=== PATIENT | female | born 1930 | race Hispanic/Latino ===

== ENCOUNTER 2019-02-13 09:56 | Emergency (ER) | payer MEDICARE ==
[~2019-02-13] VITALS: Ht 162.6 cm; Wt 108.5 kg
[~2019-02-13 09:56] MED LIST: FLUTICASONE; FUROSEMIDE; LISINOPRIL; METOPROLOL; NIFEDICAL; SIMVASTATIN
--- NOTE | 2019-02-13 11:57 | Diagnostic Imaging Report ---
Frontal and lateral views of the chest. HISTORY: Unable to sleep COMPARISON: None available. DISCUSSION: Lungs: Mild eventration of the right hemidiaphragm. No evidence of a consolidative pneumonia or pulmonary alveolar edema. Pleura: No pleural effusion or pneumothorax. Heart and mediastinum: The cardiac silhouette appear(s) within the upper limits of normal. Bones and soft tissues: Appear unremarkable. IMPRESSION: No acute radiographic abnormality. Signed by: Dr. Charlie Lora D.O., M.M.M. on 02/13/2019 11:54 AM
[2019-02-13] MEDS ORDERED: FLUTICASONE PRO16 GM (12:08)
[2019-02-13] MEDS ORDERED: ALBUTEROL0.63 MG/3 (12:08)
[2019-02-13] MEDS ORDERED: ALLER-TEC D 5-1 EACH (12:08)
[2019-02-13] MEDS ORDERED: DOCUSATE SODIU100 MG PO (12:08)
[2019-02-13] MEDS ORDERED: ALENDRONATE SOD70 MG (12:08)
[2019-02-13] MEDS ORDERED: HUMULIN R100 UNIT/2 (12:08)
[2019-02-13] MEDS ORDERED: HUMALOG100 UNIT/1 (12:08)
[2019-02-13] MEDS ORDERED: FUROSEMIDE40 MG PO (12:08)
[2019-02-13] MEDS ORDERED: CENTRUM SILVER1 EAC3 (12:08)
[2019-02-13] MEDS ORDERED: GABAPENTIN400 MG PO (12:08)
[2019-02-13] MEDS ORDERED: BACLOFEN10 MG PO (12:08)
[2019-02-13] MEDS ORDERED: LISINOPRIL2.5 MG PO (12:08)
[2019-02-13] MEDS ORDERED: FISH OIL 1,0001 EAC2 (12:08)
[2019-02-13] MEDS ORDERED: AZELASTINE137 MCG/0. (12:08)
[2019-02-13] MEDS ORDERED: GLUCOSE TEST S1 EACH (12:08)
[2019-02-13] MEDS ORDERED: NIFEDIPINE ER30 M1 (12:30)
[2019-02-13] MEDS ORDERED: TEMAZEPAM15 MG (12:30)
[2019-02-13] MEDS ORDERED: SIMVASTATIN10 MG PO (12:30)
[2019-02-13] MEDS ORDERED: VITAMIN C500 MG (12:30)
[2019-02-13] MEDS ORDERED: ZYRTEC10 M3 (12:30)
[2019-02-13] MEDS ORDERED: METOPROLOL TART50 MG PO (12:30)
[2019-02-13 13:35] VITALS: BP 169/82
== END 2019-02-13 13:27 | disposition home or self-care (01) ==
LOC: FSED 09:56
DX: R53.1 Weakness (principal); F51.02 Adjustment insomnia; I10 Essential (primary) hypertension; E11.9 Type 2 diabetes mellitus without complications; I51.9 Heart disease, unspecified; E78.00 Pure hypercholesterolemia, unspecified
CPT/HCPCS: 71046; 80053; 80076; 81003; 82553; 83880; 84484; 85025; 86308; 93005; 99284

== ENCOUNTER 2019-05-01 10:47 | Observation (INO) | payer MEDICARE ==
[~2019-05-01] VITALS: Ht 162.6 cm; Wt 105.0 kg
[~2019-05-01 10:47] MED LIST changes: +ALBUTEROL0.63 MG/3; +ALENDRONATE SOD70 MG; +ALLER-TEC D 5-1 EACH; +AZELASTINE137 MCG/0.; +BACLOFEN10 MG PO; +CENTRUM SILVER1 EAC3; +DOCUSATE SODIU100 MG PO; +FISH OIL 1,0001 EAC2; +FLUTICASONE PRO16 GM; +FUROSEMIDE40 MG PO; +GABAPENTIN400 MG PO; +GLUCOSE TEST S1 EACH; +HUMALOG100 UNIT/1; +HUMULIN R100 UNIT/2; +LISINOPRIL2.5 MG PO; +METOPROLOL TART50 MG PO; +NIFEDIPINE ER30 M1; +SIMVASTATIN10 MG PO; +TEMAZEPAM15 MG; +VITAMIN C500 MG; +ZYRTEC10 M3
--- NOTE | 2019-05-01 11:17 | NUR ---
CALLED [facility] FOR TRANSPORT. ONE HR ETA
--- NOTE | 2019-05-01 11:54 | Diagnostic Imaging Report ---
EXAMINATION: CXR 2 VIEW - [facility] INDICATION: Chest pain, shortness of breath. COMPARISON: Chest radiograph 02/03/19. FINDINGS: TUBES and LINES: None. LUNGS: Lungs are moderately inflated. Mild patchy right basilar opacity, likely atelectasis. No evidence of lobar consolidation or pulmonary edema. PLEURA: No pleural effusion or pneumothorax. HEART AND MEDIASTINUM: The cardiomediastinal silhouette is unremarkable. Mild eventration of the right hemidiaphragm, unchanged. BONES AND SOFT TISSUES: No acute osseous abnormality. UPPER ABDOMEN: No free air under the diaphragm. IMPRESSION: No acute radiographic abnormality. Signed by: Dr. Enedina Camp MD on 05/01/2019 11:51 AM
--- NOTE | 2019-05-01 12:41 | NUR ---
The pt. was received via stretcher from [facility] in stable condition, She presents with c/o Shortness of breath and chest pain. She denies pain or discomfort and o2 sat is 96%. The daughter in law reports that the pt. has been experiencing sleep apnea and has been unable to sleep at night. Tele monitor is intact sr 69.
[2019-05-01] MEDS ORDERED: DOCUSATE SODIUM 100 MG CAP PO PRN (13:45)
[2019-05-01] MEDS ORDERED: DEXTROSE 50% SYRINGE 50 ML IV PRN (13:45)
[2019-05-01] MEDS ORDERED: ALBUTEROL SULF 0.083% NEB SOLN 3 ML NEB NEB PRN (13:45)
[2019-05-01 14:25] VITALS: BP 173/68
[2019-05-01] MEDS ORDERED: ONDANSETRON HCL INJ 2MG/ML 2ML 2 MG/ML VIAL IV PRN (14:30)
[2019-05-01 14:38] VITALS: BP 173/68
[2019-05-01] MEDS ORDERED: ACETAMINOPHEN 325 MG TAB PO PRN (14:45)
[2019-05-01 15:47] VITALS: BP 161/69
[2019-05-01] MEDS: INSULIN REGULAR, HUMAN 100 UNIT/1 ML 3ML VIAL SQ SCH ×2 (15:56→21:59)
--- NOTE | 2019-05-01 16:26 | History and Physical ---
PRIMARY CARE PHYSICIAN: Sergio Man MD, with [facility]. CHIEF COMPLAINT: Shortness of breath and congestion. HISTORY OF PRESENT ILLNESS: This is an 88-year-old female with past medical history of hypertension, high cholesterol, CHF, DM2 and COPD, presented with complaints of shortness of breath that have lasted for the past 3 days. She denies any chest pain, fever, chills, nausea, vomiting, abdominal pain, dysuria, diaphoresis, or dizziness. She reports having dry cough and nasal congestion. Reports unable to sleep due to shortness of breath. She presented to the ER for further evaluation. PAST MEDICAL HISTORY: 1. Hypertension. 2. High cholesterol. 3. CHF, unknown type. 4. Diabetes type 2. 5. COPD. PAST SURGICAL HISTORY: She reports colonoscopy. FAMILY MEDICAL HISTORY: She reports father had diabetes and heart problems, and she does not know mother's medical history. SOCIAL HISTORY: She reports stopped smoking about 35 years ago. She denies any alcohol or drug use. ALLERGIES: NO KNOWN DRUG ALLERGIES. REVIEW OF SYSTEMS: GENERAL: Fatigue. HEENT: No trauma to the head. LUNGS: Shortness of breath and dry cough. CARDIOVASCULAR: No chest pain or palpitations. GI: No nausea or vomiting. : No dysuria or hematuria. NEUROLOGIC: Alert and oriented. MUSCULOSKELETAL: Generalized weakness. SKIN: Dry. PHYSICAL EXAMINATION: VITAL SIGNS: Temperature 97.6, pulse 64, respirations 28, blood pressure is 148/104. GENERAL: Fatigue. HEENT: Normocephalic, atraumatic. NECK: Supple and midline. LUNGS: Decreased breath sounds. Mild wheezing. CARDIOVASCULAR: Regular rate and rhythm. GI: Soft and nontender. Obese. NEUROLOGIC: Alert, awake, and oriented x3. MUSCULOSKELETAL: Moves all extremities. Bilateral lower extremity +1 edema. SKIN: Dry. PSYCH: Calm. LABORATORY DATA: WBC 8.0, hemoglobin 14.3, hematocrit 45.3, platelets 262. Sodium 141, potassium 4.8, chloride 98, calcium 9.6, creatinine 1.0. LFTs within normal limits. BNP 75. IMAGING: Chest x-ray showed no acute radiographic abnormalities. Lungs are moderately inflated with mild patchy right basilar opacity likely atelectasis. No evidence of consolidation or pulmonary edema. IMPRESSION AND PLAN: 1. Dyspnea, likely due to chronic obstructive pulmonary disease exacerbation. We will start on Solu-Medrol and neb treatments. 2. Hypertension. We will resume home medication. 3. Hypersensitivity lung disease. Start statin. 4. Congestive heart failure. Unknown type. We will order echo. 5. Trace lower extremity edema noted. We will change p.o. Lasix to IV 40 mg daily. BNP is 75. 6. Diabetes type 2. We will resume home insulin regimen. 7. Sinus allergies. We will resume home medications. 8. Deep vein thrombosis prophylaxis. We will start on heparin subcu. Dictated by ENID Correa Sarah Pena MD MY/MODL /[id number]
[2019-05-01] MEDS ORDERED: INSULIN LISPRO 100 UNIT/1 ML 3ML VIAL SQ SCH (16:30)
[2019-05-01 19:42] VITALS: BP 151/71
[2019-05-01 20:00] VITALS: BP 151/71
[2019-05-01] MEDS: ALBUTEROL SULF 0.083% NEB SOLN 3 ML NEB NEB SCH ×2 (20:15→23:00)
[2019-05-01] MEDS ORDERED: AZELASTINE HCL 137 MCG NASAL SPRAY NS SCH (21:00)
[2019-05-01] MEDS ORDERED: TEMAZEPAM 15 MG CAP PO SCH (21:00)
[2019-05-01] MEDS ORDERED: HEPARIN SOD (PORCINE) 5,000 UNIT/ML VIAL SC SCH (21:00)
[2019-05-01] MEDS ORDERED: SIMVASTATIN 20 MG TAB PO SCH (21:00)
[2019-05-01] MEDS: METHYLPREDNISOLONE SOD SUCC 40 MG/ML VIAL 1ML IV SCH (21:59)
[2019-05-02] VITALS: BP 161/74
[2019-05-02 04:00] VITALS: BP 164/75
[2019-05-02 05:22] LABS: BASOPHILS % 0.1 % (0.0-1.0); HEMOGLOBIN 14.5 g/dL (12.0-16.0); LYMPHOCYTES # (AUTO) 1.1 (1.0-3.2); MEAN CORPUSCULAR HEMOGLOBIN 28.1 pg (28-32); MEAN CORPUSCULAR HGB CONC 32.2 g/dL (31-35); MEAN CORPUSCULAR VOLUME 87.2 fL (81-99); MONOCYTES # (AUTO) 0.2 (0.2-0.8); MONOCYTES % 2.1 % (4.4-11.3); NEUTROPHILS # (AUTO) 7.7 (2.1-6.9); NEUTROPHILS % 85.5 % (38.7-80.0); PLATELET COUNT 306 x10e3/uL (140-360); RED BLOOD COUNT 5.16 x10e6/uL (3.6-5.1); RED CELL DISTRIBUTION WIDTH 13.1 % (11.7-14.4)
[2019-05-02 05:41] LABS: CALCIUM 9.9 mg/dL (8.4-10.2); CREATININE, SERUM 1.12 mg/dL (0.57-1.11)
[2019-05-02] MEDS: METHYLPREDNISOLONE SOD SUCC 40 MG/ML VIAL 1ML IV SCH ×2 (05:56→13:33)
[2019-05-02] MEDS: ALBUTEROL SULF 0.083% NEB SOLN 3 ML NEB NEB SCH ×3 (07:00→13:35)
[2019-05-02 08:00] VITALS: BP 164/79
[2019-05-02] MEDS ORDERED: FLUTICASONE PROPIONATE NASAL SPRAY NS SCH (09:00)
[2019-05-02] MEDS ORDERED: LORATADINE 10 MG TAB PO SCH (09:00)
[2019-05-02] MEDS ORDERED: METOPROLOL TARTRATE 50 MG TAB PO SCH (09:00)
[2019-05-02] MEDS ORDERED: FUROSEMIDE INJ 10 MG/ML 4 ML VIAL IV SCH (09:00)
[2019-05-02] MEDS ORDERED: NIFEDIPINE CR 30 MG TAB PO SCH (09:00)
[2019-05-02] MEDS ORDERED: LISINOPRIL 2.5 MG TAB PO SCH (09:00)
[2019-05-02 12:00] VITALS: BP 145/70
--- NOTE | 2019-05-02 16:01 | NUR ---
Discharge instructions and prescription were given to the patient and her daughter, they verbalized understanding. IV from left FA was removed with tip intact.
--- NOTE | 2019-05-02 17:56 | Discharge Summary ---
PRIMARY CARE PHYSICIAN: Sergio Man MD, at [facility]. FINAL DIAGNOSES: 1. Dyspnea, likely due to chronic obstructive pulmonary disease exacerbation. 2. Hypertension. 3. High cholesterol. 4. Congestive heart failure, diastolic. 5. Diabetes type 2. 6. Sinus allergies. CONSULTANTS: None. PROCEDURES: None. HISTORY: Per HPI. HOSPITAL COURSE: This is an 88-year-old female with past medical history of hypertension, high cholesterol, diastolic CHF, diabetes, and COPD, who presented with complaints of shortness of breath, increased within the past 3 days. She was started on Solu-Medrol IV and DuoNeb. I restarted her home medication of inhalers. She was monitored overnight. Echo with EF of 50%, BNP was 75. Resumed her Lasix. Today, her shortness of breath has much improved, vital signs stable, afebrile, we will discharge home on Medrol [place] to complete her treatment. PHYSICAL EXAMINATION: VITAL SIGNS: Temperature 96.4, pulse is 85, respirations 20, blood pressure 164/79, pulse ox is 96% on room air. GENERAL: No acute distress. HEENT: Normocephalic, atraumatic. NECK: Supple. Midline. LUNGS: Decreased breath sounds. CARDIOVASCULAR: Regular rate and rhythm. GI: Soft and nontender, obese. NEUROLOGIC: Alert, awake, and oriented x3. MUSCULOSKELETAL: Moves all extremities. SKIN: Dry. PSYCH: Calm. CONDITION AT DISCHARGE: Improved and stable. DISCHARGE MEDICATIONS: See medication reconciliation list. FOLLOWUP: Follow up with PCP in 1 to 2 weeks. TIME SPENT: Total time of discharge is 32 minutes. Discussed plan with son and [id number]. Dictated by ENID Correa Amandaching Colton Pena MD MY/MODL /[id number] cc: Sergio Man MD
--- OUTSIDE RECORDS SUMMARY | 2019-05-06 12:21 | XMS REPORT ---
Author Author [facility] Address Unknown Phone Unavailable Care Team Providers Care Cloud Systems Administrator Name Role Phone Yahir TREADWELL Unavailable Unavailable Yahir KELLY Unavailable Unavailable Problems This patient has no known problems. Allergies, Adverse Reactions, Alerts This patient has no known allergies or adverse reactions. Medications This patient has no known medications. Results Test Description Test Time Test Comments Text Results Atomic Results Result Comments [facility] 2019-05-01 11:48:00 [place] [address] Patient Name: PATIENCE MORRIS MR #: [id number] : 1930 Age/Sex: 88/F Req #: [id number] Adm Physician: SANTINO TREADWELL MD Ordered by: MARCO CRUZ MD Report #: [id number] Location: [facility] Room/Bed: [place] [address] Procedure: [id number] [facility]/CXR 2 [facility] Exam Date: 05/01/19 Exam Time: 1125 REPORT STATUS: Signed EXAMINATION: [facility] INDICATION: Ch est pain, shortness of breath. COMPARISON: Chest radiograph 02/03/19. FINDINGS: TUBES and LINES: None. LUNGS: Lungs are moderately inflated. Mild patchy right basilar opacity, likely atelectasis. No evidence of lobar consolidation or pulmonary edema. PLEURA: No pleural effusion or pneumothorax. HEART AND MEDIASTINUM: The cardiomediastinal silhouette is unremarkable. Mild eventration of the right hemidiaphragm, unchanged. BONES AND SOFT TISSUES: No acute osseous abnormality. UPPER ABDOMEN: No free air under the diaphragm. IMPRESSION: No acute radiographic abnormality. Signed by: Dr. Jaja Serrano MD on 05/01/2019 11:51 AM Dictated By: JAJA SERRANO MD 1151 Transcribed By: ARMIDA on 05/01/19 1151 COPY TO: MARCO CRUZ MD CXR 2 VIEW - [facility] 2019-02-13 11:30:00 [place] [address] Patient Name: PATIENCE MORRIS MR #: [id number] : 1930 Age/Sex: 88/F Req #: [id number] Adm Physician: Ordered by: MIGUEL KELLY MD Report #: [id number] Location: [facility] Room/Bed: Procedure: [id number] HOPD/CXR 2 VIEW - [facility] Exam Date: 02/13/19 Exam Time: 1033 REPORT STATUS: Signed Frontal and lateral views of the chest. HISTORY: Unable to sleep COMPARISON: None available. DISCUSSION: Lungs: Mild eventration of the right hemidiaphragm. No evidence of a consolidative pneumonia or pulmonary alveolar edema. Pleura: No pleural effusion or pneumothorax. Heart and mediastinum: The cardiac silhouette appear(s) within the upper limits of normal. Bones and soft tissues: Appear unremarkable. IMPRESSION: No acute radiographic abnormality. Signed by: Dr. Leonela Lora D.O., M.M.M. on 02/13/2019 11:54 AM Dictated By: LEONELA LORA DO 1766 Transcribed By: ARMIDA on 02/13/19 3166 COPY TO: MIGUEL KELLY MD
== END 2019-05-02 15:59 | disposition home or self-care (01) ==
LOC: FSED 10:47 → ERHOLD 10:59 → MED/SURG2 12:47
PROVIDERS: ADMIT Internal Medicine; ATTEND Internal Medicine
DX: J44.1 Chronic obstructive pulmonary disease with (acute) exacerbation (principal); I10 Essential (primary) hypertension; I11.0 Hypertensive heart disease with heart failure; I50.32 Chronic diastolic (congestive) heart failure; E11.9 Type 2 diabetes mellitus without complications; E78.00 Pure hypercholesterolemia, unspecified; J30.9 Allergic rhinitis, unspecified; R60.0 Localized edema; J98.4 Other disorders of lung
CPT/HCPCS: 36415 ×2; 71046; 80048; 80053; 82553; 82948; 83880 ×2; 84484; 85025 ×2; 93005; 93306; 94640 ×4; 97161; 99284; G0378 ×2; J1644 ×2; J1817; J1940; J2920 ×2

== ENCOUNTER 2020-02-11 10:54 | Emergency (ER) | payer MEDICARE ==
[~2020-02-11] VITALS: Ht 162.6 cm; Wt 104.8 kg
--- NOTE | 2020-02-11 12:06 | Diagnostic Imaging Report ---
EXAMINATION: CXR [address] [facility] INDICATION: SOB COMPARISON: Chest radiograph 05/01/2019. FINDINGS: TUBES and LINES: None. LUNGS: Lungs are well inflated. There is no evidence of lobar pneumonia or pulmonary edema. Unchanged mild elevation of the right hemidiaphragm. Mild patchy bibasilar opacities, likely atelectasis. PLEURA: No pleural effusion or pneumothorax. HEART AND MEDIASTINUM: The cardiomediastinal silhouette is unremarkable. BONES AND SOFT TISSUES: No acute osseous lesion. Soft tissues are unremarkable. UPPER ABDOMEN: No free air under the diaphragm. IMPRESSION: No acute thoracic abnormality. Signed by: Dr. Enedina Camp MD on 02/11/2020 12:02 PM
--- NOTE | 2020-02-11 12:09 | NUR ---
CALLED [facility] FOR TRANSFER
[2020-02-11] MEDS ORDERED: SODIUM CHLORIDE 0.9% 50ML 50 ML ONE (12:27)
[2020-02-11] MEDS ORDERED: IOPAMIDOL 370 MG/ML 200 ML INFUS..BTL INJ ONE (12:27)
[2020-02-11] MEDS ORDERED: ASPIRIN 325 MG TAB PO ONE (12:30)
[2020-02-11] MEDS ORDERED: ASPIRIN 325 MG TAB ONE (12:34)
--- NOTE | 2020-02-11 12:38 | Emergency Department Note ---
History of Present Illnes History of Present Illness Chief Complaint: COVID PUI History of Present Illness This is a 89 year old female with a chief complaint of shortness of breath since last night. He states she's had similar episodes which have been intermittent for years. She has positive orthopnea and positive PND. She denies chest pain to me. Denies any nausea vomiting. The patient states she has chronic diaphoresis and denies any change with this episode. She denies any cough, fever, sore throat, runny nose, or loss of taste/smell. She denies any sick contacts. She lives alone. She was admitted for similar symptoms approximately one year ago and had lower extremity swelling at that point, she was given medications that decreased to her LE swelling in her breathing improved. She denies any prior MIs or coronary artery disease. Has soft tissue mass right lateral neck X 2weeks: saw PCP who did ultrasound and put patient on abx which have improved symptoms. Historian: Patient, Family Member Arrival Mode: Car History limited by: language barrier Studio Manager Required: Yes Onset (how long ago): hour(s) Location: Denies new pain Severity: severe Duration (how long): hour(s) Timing of current episode: constant (Current episode constant since last night), intermittent (Intermittant for "years") Progression: waxing and waning Chronicity: recurrent Context: Denies trauma/injury, Denies new medications Relieving factors: other (Better when upright) Exacerbating factors: other (Worse lay flat) Associated symptoms: Reports shortness of breath; Denies confusion, Denies chest pain, Denies cough, Denies diaphoresis, Denies fever/chills, Denies headaches, Denies loss of appetite, Denies malaise, Denies nausea/vomiting, Denies rash, Denies seizure Treatments prior to arrival: none Past Medical/Family History Physician Review I have reviewed the patient's past medical and family history. Any updates have been documented here. Past Medical History Recent Fever: No Clinical Suspicion of Infectio: No New/Unexplained Change in Ment: No Past Medical History: Hypertension, Diabetes, COPD, CHF, A-Fib, Anxiety, Hyperlipedemia Other Medical History: OSTEOPOROSIS MORBID OBESITY Other Surgery: Polypectomy Social History Counseling Performed: No Alcohol Use: None Any Illegal Drug Use: No Physically hurt or threatened: No Other Any Pre-Existing Lines (PICC,: No Review of Systems Review of Systems Constitutional: Denies chills, Denies diaphoresis, Denies fever EENTM: Denies ear discharge, Denies nose congestion Cardiovascular: Reports edema; Denies chest pain, Denies palpitations Respiratory: Reports dyspnea; Denies chest congestion, Denies cough Gastrointestinal: Denies abdominal pain, Denies constipation Genitourinary: Denies dysuria, Denies hematuria Musculoskeletal: Reports other (Chronic right shoulder pain with recent pain injection) Integumentary: Denies rash Neurological: Denies seizure, Denies tremors Psychological: Reports other Endocrine: Denies intolerance to cold, Denies increased thirst, Denies increased urination Hematological/Lymphatic: Denies anemia Physical Exam Related Data Allergies: Coded Allergies: No Known Drug Allergies (Verified Allergy, Unknown, 07/02/10) Triage Vital Signs Vital Signs Date Time Temp Pulse Resp B/P (MAP) Pulse Ox O2 Delivery O2 Flow Rate FiO2 02/11/20 11:00 98.4 77 44 132/65 97 Room Air 02/11/20 11:48 4.0 Physical Exam CONSTITUTIONAL Constitutional: Present well-developed, Present well-nourished, Present other (Completes full sentences despite respiratory rate) HENT HENT: Present normocephalic, Present atraumatic, Present oropharynx clear/moist, Present nose normal HENT L/R: Present left ext ear normal, Present right ext ear normal EYES Eyes: Reports PERRL, Reports conjunctivae normal; Denies left eye discharge, Denies right eye discharge NECK Neck: Present ROM normal, Present other (Freely movable non-tender mass right anterior neck) PULMONARY Pulmonary: Present breath sounds normal, Present other (> RR); Absent rales, Absent chest tenderness CARDIOVASCULAR Cardiovascular: Present regular rhythm, Present heart sounds normal, Present capillary refill normal, Present normal rate GASTROINTESTINAL Abdominal: Present soft, Present nontender, Present bowel sounds normal GENITOURINARY SKIN Skin: Present warm, Present dry MUSCULOSKELETAL Musculoskeletal: Present ROM normal NEUROLOGICAL Neurological: Present alert, Present oriented x 3, Present no gross motor or sensory deficits PSYCHOLOGICAL Psychological: Present mood/affect normal, Present judgement normal Results Laboratory Lab results reviewed: Yes Laboratory comments WBC 7.5, HGB 12.0, HCT 37.0, UA Proteing 30 O/W neg, troponin WNL, BNP 181, Glu 127, BUN 12, Cr. 0.7, CO2 25, K 4.0, Na 130, D.dimer + Imaging Imaging results reviewed: Yes Impressions CXR reviewed by me: no pulmonary edema, no acute disease Imaging Comments COMPARISON: Chest radiograph 05/01/2019. FINDINGS: TUBES and LINES: None. LUNGS: Lungs are well inflated. There is no evidence of lobar pneumonia or pulmonary edema. Unchanged mild elevation of the right hemidiaphragm. Mild patchy bibasilar opacities, likely atelectasis. PLEURA: No pleural effusion or pneumothorax. HEART AND MEDIASTINUM: The cardiomediastinal silhouette is unremarkable. BONES AND SOFT TISSUES: No acute osseous lesion. Soft tissues are unremarkable. UPPER ABDOMEN: No free air under the diaphragm. IMPRESSION: No acute thoracic abnormality. Signed by: Dr. Enedina Camp MD on 02/11/2020 12:[address] SOFT TISSUE NECK WITH-HOPD HISTORY: Neck mass, right-sided neck swelling COMPARISON: Report from maxillofacial CT dated 04/27/2011 TECHNIQUE: Axial CT images were obtained through the neck with intravenous, iodine based contrast. Coronal and sagittal reconstructions obtained from the axial data. One or more of the following dose reduction techniques were used: Automated exposure control, adjustment of the mA and/or kV according to patient size, and/or utilization of iterative reconstruction technique. DISCUSSION: Motion and streak artifacts obscure some details. The visualized upper aerodigestive tract is unremarkable. Multiple enlarged right internal jugular chain lymph nodes (levels 2 through 4), mostly suprahyoid, are present measuring up to 2.5 cm in size. Associated enlarged right upper external jugular chain lymph nodes, abutting the inferior right parotid gland are also present, measuring up to 2 cm size. An additional enlarged left supraclavicular lymph node measures up to 3 cm in size. Suspected right axillary lymphadenopathy is partially imaged. Approximately 1.8 x 1.9 x 3.1 cm soft tissue mass is seen in the deep right parotid gland The bilateral submandibular and left parotid glands are otherwise unremarkable. The thyroid gland is unremarkable. Mild bilateral carotid bulb calcified plaque is present. Both internal carotid arteries have a retropharyngeal course. The insole stiffener, parapharyngeal, posterior cervical, and perivertebral spaces are otherwise unremarkable. The visualized intracranial compartment is grossly unremarkable. There is mild right maxillary sinus mucosal thickening. There are mild degenerative changes throughout the spine. The upper lungs are unremarkable. IMPRESSION: 1. Nonspecific diffuse right cervical (levels 2 through 4, and parotid/upper external jugular chain) and left supraclavicular lymphadenopathy could be due to metastatic disease, or lymphoproliferative process. 2. 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 3. The imaged upper aerodigestive tract is unremarkable. Signed by: Dr. Elvis Boateng M.D. on 02/11/2020 2:18 PM EXAM: CT Chest WITH contrast- Pulmonary Embolism Protocol INDICATION: Shortness of breath. COMPARISON: None TECHNIQUE: Chest was scanned utilizing a multidetector helical scanner from the lung apex through the level of the diaphragm after administration of IV contrast. Coronal and sagittal reformations were obtained. Pulmonary embolism protocol was performed. IV CONTRAST: 100 cc of Isovue 370 RADIATION DOSE: Total DLP: 264 mGy*cm Dose modulation, iterative reconstruction, and/or weight based adjustment of the mA/kV was utilized to reduce the radiation dose to as low as reasonably achievable. COMPLICATIONS: None FINDINGS: LINES/ TUBES: None. PULMONARY ARTERIES: Exam is somewhat limited by contrast bolus timing and motion. Subsegmental pulmonary arteries are not well opacified. There are filling defects in the segmental pulmonary artery in the right lower lobe on series 2, image 33 and subsegmental pulmonary artery in the left lower lobe on image 39. Main pulmonary artery measures 2.9 cm. LUNGS AND AIRWAYS: The central airways are patent. No evidence of pneumonia or pulmonary edema. Patchy dependent atelectasis. There is a 2.5 cm right lower posterior pleural-based mass on series 2, image 40. There are likely subpleural nodular opacities, measuring up to 1.5 cm in the right lower lobe. PLEURA: The pleural spaces are clear. HEART AND MEDIASTINUM: The thyroid gland is normal. There is a 4.3 x 4.6 cm heterogeneous mass in the right pericardiac region, as seen on series 2, image 42. No hilar lymphadenopathy or evidence of additional mediastinal lymphadenopathy. The heart is normal in size.. There is no pericardial effusion. Multivessel coronary atherosclerosis. UPPER ABDOMEN: Limited contrast-enhanced views of the upper abdomen are unremarkable. BONES: The visualized bony thorax is within normal limits. SOFT TISSUES: Partially visualized right cervical lymphadenopathy, measuring up to 1 cm. IMPRESSION: Somewhat limited examination. Suspected segmental/subsegmental pulmonary emboli in the bilateral lower lobes. Heterogeneous right pericardiac mass, likely lymphadenopathy, right cervical lymphadenopathy, and right basilar pleural-based and subpleural nodules, suspicious for metastatic disease. The above findings were discussed with Dr. Carlos Hart on 02/11/2020 at 226 PM. Signed by: Dr. Enedina Camp MD on 02/11/2020 2:31 PM Procedures 12 Lead ECG Interpretation ECG Interpretation : ECG: ECG 1 Studio Manager: Interpreted by ED physician Date: Feb 11, 2020 Prior ECG tracings: reviewed Rhythm: sinus rhythm BPM: 77 QRS axis: normal ST segments normal: Yes T waves normal: Yes (except below) T waves flattening: III, aVF Clinical Impression: abnormal ECG Additional Comments Possible Q wave inferior and anterolateral Assessment & Plan Medical Decision Making MDM Differential dx includes, but not limited to: PE, [place], ACS, COVID, Pneumonia, CHF, COPD, Bronchitis. Spoke with hospitalist who accepted patient pending CT to r/o PE. Reassessment Reassessment time: 12:41 Reassessment Completing full sentences, sitting upright and feels much better. [facility] accepted by Dr. Rick. Patient transferred pending CT results. CT showed bilateral subsegmental PEs. Spoke with transfer center who will inform admitting physician of CT results and need for anticoagulant. Assessment & Plan Final Impression: (1) Shortness of breath at rest (2) Dyspnea and respiratory abnormalities (3) Mass in neck (4) Pulmonary embolism Depart Disposition: DIS/DOVE T0 ACUTE CARE HOSP Last Vital Signs Date Time Temp Pulse Resp B/P (MAP) Pulse Ox O2 Delivery O2 Flow Rate FiO2 02/11/20 11:48 74 34 99 Nasal Cannula 4.0 02/11/20 11:00 98.4 Home Meds Reported Medications Cetirizine Hcl (ZYRTEC) 10 Mg Capsule, DAILY THERAPEUTICALLY SUBSTITUTED WITH LORATIDINE 10MG 02/13/19 Ascorbic Acid (VITAMIN C) 500 Mg Capsule.er, DAILY 02/13/19 Temazepam (TEMAZEPAM) 15 Mg Capsule, HS 02/13/19 Simvastatin (SIMVASTATIN) 10 Mg Tablet, 10 MG PO 2100, TAB 02/13/19 Nifedipine (NIFEDIPINE ER) 30 Mg Tab.er.24, 60 DAILY 02/13/19 Metoprolol Tartrate (METOPROLOL TARTRATE) 50 Mg Tablet, 100 MG PO DAILY, TAB 02/13/19 Lisinopril (LISINOPRIL) 2.5 Mg Tablet, 2.5 MG PO DAILY, #30 TAB 02/13/19 Insulin Regular, Human (HUMULIN R) 100 Unit/1 Ml Vial, BID 02/13/19 Insulin Lispro (HUMALOG) 100 Unit/1 Ml Cartridge, 5 UNIT TID 02/13/19 Blood Sugar Diagnostic (GLUCOSE TEST STRIP) 1 Each Strip, 5XD 02/13/19 Gabapentin (GABAPENTIN) 400 Mg Capsule, 600 MG PO BID, #30 CAP 02/13/19 Furosemide (FUROSEMIDE) 40 Mg Tablet, 40 MG PO Daily, #30 TAB 02/13/19 Fluticasone Propionate (FLUTICASONE PROPIONATE) 16 Gm [place].susp, DAILY 02/13/19 [place]-3 Fatty Acids/Fish Oil (FISH OIL 1,000 MG CAPSULE) 1 Each Capsule 02/13/19 Docusate Sodium (DOCUSATE SODIUM) 100 Mg Capsule, 100 MG PO BID PRN for CONSTIPATION, CAP 02/13/19 Cetirizine Hcl/Pseudoephedrine (ALLER-LA NENA D 5-120 MG TABLET) 1 Each Tab.er.12h, BID 02/13/19 Mu-Vits-Min Th/Lycopene/Lutein (CENTRUM SILVER TABLET) 1 Each Tablet, DAILY 02/13/19 Baclofen (BACLOFEN) 10 Mg Tablet, 10 MG PO TID, #90 TAB 02/13/19 Azelastine Hcl (AZELASTINE HCL) 137 Mcg/0.137 Ml [place].pump, HS 02/13/19 Alendronate Sodium (ALENDRONATE SODIUM) 70 Mg Tablet, weekly 02/13/19 Albuterol Sulfate (ALBUTEROL SULFATE) 0.63 Mg/3 Ml Vial.neb, 2-4 Q4HWA PRN for SHORTNESS OF BREATH 02/13/19 Medications in the ED Sodium Chloride 50 ml @ ud STK-MED ONCE .ROUTE ; Start 02/11/20 at 12:27; Stop 02/11/20 at 12:20; Status DC Iopamidol 74,000 mg STK-MED ONCE INJ ; Start 02/11/20 at 12:27; Stop 02/11/20 at 12:20; Status DC CARLOS HART MD Feb 11, 2020 12:38
--- NOTE | 2020-02-11 13:20 | NUR ---
FAXED MOT/FACESHEET [phone] FAXED [phone]
--- NOTE | 2020-02-11 13:38 | NUR ---
REPORT TO EMS. MOT ORGINAL, DISC AND CHART TO EMS.
--- NOTE | 2020-02-11 13:42 | NUR ---
REPORT ATTEMPTED, PER TRANSFER CENTER, HOUSE SUP TO GO TALK TO UNIT SO THEY KNOW THEY ARE GETTING A PT. PLS CALL BACK LATER. [phone]
--- NOTE | 2020-02-11 14:22 | Diagnostic Imaging Report ---
CT SOFT TISSUE NECK WITH-HOPD HISTORY: Neck mass, right-sided neck swelling COMPARISON: Report from maxillofacial CT dated 04/27/2011 TECHNIQUE: Axial CT images were obtained through the neck with intravenous, iodine based contrast. Coronal and sagittal reconstructions obtained from the axial data. One or more of the following dose reduction techniques were used: Automated exposure control, adjustment of the mA and/or kV according to patient size, and/or utilization of iterative reconstruction technique. DISCUSSION: Motion and streak artifacts obscure some details. The visualized upper aerodigestive tract is unremarkable. Multiple enlarged right internal jugular chain lymph nodes (levels 2 through 4), mostly suprahyoid, are present measuring up to 2.5 cm in size. Associated enlarged right upper external jugular chain lymph nodes, abutting the inferior right parotid gland are also present, measuring up to 2 cm size. An additional enlarged left supraclavicular lymph node measures up to 3 cm in size. Suspected right axillary lymphadenopathy is partially imaged. Approximately 1.8 x 1.9 x 3.1 cm soft tissue mass is seen in the deep right parotid gland The bilateral submandibular and left parotid glands are otherwise unremarkable. The thyroid gland is unremarkable. Mild bilateral carotid bulb calcified plaque is present. Both internal carotid arteries have a retropharyngeal course. The core winder machine operator, parapharyngeal, posterior cervical, and perivertebral spaces are otherwise unremarkable. The visualized intracranial compartment is grossly unremarkable. There is mild right maxillary sinus mucosal thickening. There are mild degenerative changes throughout the spine. The upper lungs are unremarkable. IMPRESSION: 1. Nonspecific diffuse right cervical (levels 2 through 4, and parotid/upper external jugular chain) and left supraclavicular lymphadenopathy could be due to metastatic disease, or lymphoproliferative process. 2. 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 3. The imaged upper aerodigestive tract is unremarkable. Signed by: Dr. Elvis Boateng M.D. on 02/11/2020 2:18 PM
--- NOTE | 2020-02-11 14:27 | NUR ---
CALLING AGAIN TO ATTEMPT REPORT. [phone]
--- NOTE | 2020-02-11 14:28 | NUR ---
RADIOLOGIST JUST CALLED TO LET MD KNOW PT WITH BILATERAL PE'S.
--- NOTE | 2020-02-11 14:34 | Diagnostic Imaging Report ---
EXAM: CT Chest WITH contrast- Pulmonary Embolism Protocol INDICATION: Shortness of breath. COMPARISON: None TECHNIQUE: Chest was scanned utilizing a multidetector helical scanner from the lung apex through the level of the diaphragm after administration of IV contrast. Coronal and sagittal reformations were obtained. Pulmonary embolism protocol was performed. IV CONTRAST: 100 cc of Isovue 370 RADIATION DOSE: Total DLP: 264 mGy*cm Dose modulation, iterative reconstruction, and/or weight based adjustment of the mA/kV was utilized to reduce the radiation dose to as low as reasonably achievable. COMPLICATIONS: None FINDINGS: LINES/ TUBES: None. PULMONARY ARTERIES: Exam is somewhat limited by contrast bolus timing and motion. Subsegmental pulmonary arteries are not well opacified. There are filling defects in the segmental pulmonary artery in the right lower lobe on series 2, image 33 and subsegmental pulmonary artery in the left lower lobe on image 39. Main pulmonary artery measures 2.9 cm. LUNGS AND AIRWAYS: The central airways are patent. No evidence of pneumonia or pulmonary edema. Patchy dependent atelectasis. There is a 2.5 cm right lower posterior pleural-based mass on series 2, image 40. There are likely subpleural nodular opacities, measuring up to 1.5 cm in the right lower lobe. PLEURA: The pleural spaces are clear. HEART AND MEDIASTINUM: The thyroid gland is normal. There is a 4.3 x 4.6 cm heterogeneous mass in the right pericardiac region, as seen on series 2, image 42. No hilar lymphadenopathy or evidence of additional mediastinal lymphadenopathy. The heart is normal in size.. There is no pericardial effusion. Multivessel coronary atherosclerosis. UPPER ABDOMEN: Limited contrast-enhanced views of the upper abdomen are unremarkable. BONES: The visualized bony thorax is within normal limits. SOFT TISSUES: Partially visualized right cervical lymphadenopathy, measuring up to 1 cm. IMPRESSION: Somewhat limited examination. Suspected segmental/subsegmental pulmonary emboli in the bilateral lower lobes. Heterogeneous right pericardiac mass, likely lymphadenopathy, right cervical lymphadenopathy, and right basilar pleural-based and subpleural nodules, suspicious for metastatic disease. The above findings were discussed with Dr. Ford Fernandez on 02/11/2020 at 226 PM. Signed by: Dr. Enedina Camp MD on 02/11/2020 2:31 PM
--- NOTE | 2020-02-11 14:52 | NUR ---
ABLE TO GIVE REPORT TO MOISE @ [facility]. NOTIFIED RN OF PT DX WITH BILATERAL PE'S AND HAS NOT RECEIVED HEPARIN OR LOVENOX YET. ER MD HART SPOKE TO TRANSFER CENTER AND NOTIFED THEM OF NEED TO SPEAK TO MD FOR UPDATE REGARDING PE DIAGNOSIS, DR RINCON IS NOT THE ELENA WEAVER DR, BUT THEY WILL NOTIFY THE ELENA WEAVER DR. BOTH CT NECK AND CHEST CT'S FAXED TO [facility] AND [facility] CALLED TO SEND ACTUAL CT DISC TO [facility]. MOISE STATES UNDERSTANDING OF NEED TO CONTACT ATTENDING ON PT ARRIVAL REGARDING CT'S.
--- OUTSIDE RECORDS SUMMARY | 2020-02-12 16:41 | XMS REPORT | Clinical Summary ---
Author Author KIM [facility] Address Unknown Phone Unavailable Care Team Providers Care Sponsorship Coordinator Name Role Phone PCP Unavailable Allergies No Known Allergies Medications End Date Status Medication Sig Dispensed Refills Start Date Suspended amoxicillin-clavulanate Take 1 tablet 0 (AUGMENTIN) 500-125 mg by mouth 3 0 per tablet (three) times daily. Suspended albuterol HFA (VENTOLIN Inhale 2-4 0 HFA) 90 mcg/actuation puffs by 9 inhaler mouth via inhaler every 4 (four) hours as needed. Suspended alendronate (FOSAMAX) 70 Take 70 mg by 0 11/05 MG tablet mouth once a 0 week. Suspended cetirizine-pseudoephedrin Take 1 tablet 0 05/18 e (ZYRTEC-D) 5 mg-120 mg by mouth 2 0 per tablet (two) times daily. Suspended furosemide (LASIX) 40 MG Take 40 mg by 0 03/28 tablet mouth daily. 9 Suspended gabapentin (NEURONTIN) Take 600 mg 0 02 600 MG tablet by mouth 3 0 (three) times daily. Suspended insulin lispro (HUMALOG 5 Units by 0 U-100 INSULIN) 100 abdominal 0 unit/mL injection subcutaneous route 3 (three) times daily. Suspended lisinopriL Take 2.5 mg 0 (PRINIVIL,ZESTRIL) 2.5 MG by mouth 0 tablet daily. Suspended metoprolol tartrate Take 100 mg 0 (LOPRESSOR) 100 MG tablet by mouth 9 daily. Suspended NIFEdipine (PROCARDIA-XL) Take 60 mg by 0 08/0 60 MG (OSM) 24 hr tablet mouth daily. 0 Suspended pantoprazole (PROTONIX) Take 40 mg by 0 40 MG tablet mouth daily. 9 Suspended simvastatin (ZOCOR) 10 MG Take 10 mg by 0 tablet mouth daily. 0 Suspended temazepam (RESTORIL) 15 Take 15 mg by 0 mg capsule mouth every 0 night as needed. Suspended amoxicillin-clavulanate Take 1 tablet 0 (AUGMENTIN) 500-125 mg by mouth 3 0 per tablet (three) times daily. Suspended fluticasone propionate 1 spray by 0 (FLONASE) 50 Nasal route mcg/actuation nasal spray daily. Suspended insulin 70/30, insulin Inject 0 NPH-insulin regular, subcutaneousl (HUMULIN 70/30 U-100 y 2 (two) INSULIN) 100 unit/mL times daily (70-30) 20 units AM injectionIndications: 23 units PM . type 2 diabetes mellitus Active Problems Problem Noted Date Shortness of breath 02/11/2020 Encounters Care Team Description Date Type Specialty Garland Mccoy MD 02/11/2020 Hospital General Internal Me dicine Encounter 02/11/2020 Travel Keri Romano MD 02/11/2020 Documentation Internal Medicine after 02/10/2019 Social History Date Tobacco Use Types Packs/Day Years Used Quit: 02/11/1976 Former Smoker Cigarettes Smokeless Tobacco: Never Used Sex Assigned at Date Recorded Not on file Industry Job Start Date Occupation Not on file Not on file Not on file Travel End Travel History Travel Start No recent travel history available. Last Filed Vital Signs Time Taken Vital Sign Reading 02/12/2020 11:36 AM CDT Blood Pressure 110/54 02/12/2020 11:36 AM CDT Pulse 67 02/12/2020 11:36 AM CDT Temperature 37 C (98.6 F) 02/12/2020 11:36 AM CDT Respiratory Rate 18 02/12/2020 11:36 AM CDT Oxygen Saturation 96% - Inhaled Oxygen - Concentration 02/11/2020 5:00 PM CDT Weight 98.4 kg (217 lb) 02/11/2020 5:00 PM CDT Height 162.6 cm (5' 4") 02/11/2020 5:00 PM CDT Body Mass Index 37.25 Plan of Treatment Health Maintenance Due Date Last Done Comments INFLUENZA VACCINE (#1) 2020 01/26/2019, 02/2018, 02/10/2017, Additional history exists Medicare IPPE (WELCOME TO 02/11/2020 MEDICARE) PNEUMOCOCCAL 65+ Completed 10/31/2015, 012 LOW/MEDIUM RISK Procedures * The patient is currently admitted. The information in this section might not be complete until the patient is discharged. Comments Procedure Name Priority Date/Time Associated Diag nosis POCT-GLUCOSE METER Routine 02/12/2020 11:17 AM CDT POCT-GLUCOSE METER Routine 02/12/2020 7:16 AM CDT (CELLAVISION MANUAL DIFF) Routine 02/12/2020 4:56 AM CDT CBC W/PLT COUNT & AUTO Routine 02/12/2020 DIFFERENTIAL 4:56 AM CDT CBC W/PLT COUNT & AUTO Routine 02/12/2020 DIFFERENTIAL 4:56 AM CDT BASIC METABOLIC PANEL (7) Routine 02/12/2020 4:56 AM CDT POCT-GLUCOSE METER Routine 02/11/2020 9:31 PM CDT SARS-COV2/RT-PCR ([facility] & Routine 02/11/2020 REF LABS) 5:09 PM CDT POCT-GLUCOSE METER Routine 02/11/2020 4:23 PM CDT after 02/10/2019 Results * POC-Glucose meter (02/12/2020 11:17 AM CDT) Only the most recent of 4 results within the time period is included. POC-Glucose Meter 202 (H)Comment: : TESTED AT 70 - 110 mg/dL [facility] [address] [place] [id number]: Audio/Visual Operator/Supervisor Inspection ID = [id number] for HELEN FRANCESYahir Specimen Blood Performing Organization Address City/State/Zipcode Ph one Number [address] [facility] * Manual Differential (02/12/2020 4:56 AM CDT) % Neutros 70 % [facility] % Lymphs 7 % [facility] % Monos 4 % [facility] % Eos 1 % [facility] % Baso 1 % [facility] % Bands 8 0 - 10 % [facility] % Atypical Lymphs 10 (H) 0 - 0 % [facility] # Neutros 5.04 1.56 - 6.13 K/ul [facility] # Lymphs 0.50 (L) 1.18 - 3.74 K/ul [facility] # Monos 0.29 0.24 - 0.36 K/uL [facility] # Eos 0.07 0.04 - 0.36 K/uL [facility] # Baso 0.07 0.01 - 0.08 K/uL [facility] # Bands 0.58 0.00 - 0.80 K/uL [facility] # Atypical Lymphs 0.72 (H) 0.00 - 0.00 K/uL [facility] Total Counted 100 [facility] Platelet Morphology Normal [facility] Smudge Cells Present [facility] Anisocytosis 1+ few [facility] Poikilocytes 1+ few [facility] Platelet Conc Adequate [facility] Specimen Blood Narrative Performed At Audio/Visual Operator CLARY - Ava [employer] [facility] User comments: [facility] Slide comments: Performing Organization Address City/[facility] Ph one Number [facility] [address] [place] [address] [address] [facility] * CBC with platelet count + automated diff (02/12/2020 4:56 AM CDT) WBC 7.2 3.5 - 10.5 K/L [facility] RBC 4.49 3.93 - 5.22 M/L [facility] Hemoglobin 11.5 11.2 - 15.7 GM/DL [facility] Hematocrit 36.8 34.1 - 44.9 % [facility] MCV 82.0 79.4 - 94.8 fL [facility] MCH 25.6 25.6 - 32.2 pg [facility] MCHC 31.3 (L) 32.2 - 35.5 GM/DL [facility] RDW 16.0 (H) 11.7 - 14.4 % [facility] Platelets 256 150 - 450 K/CU MM [facility] MPV 10.0 9.4 - 12.3 fL [facility] nRBC 0 0 - 0 /100 WBC [facility] Specimen Blood Performing Organization Address City/[facility]/Zipcode Ph one Number [address] [facility] * Basic metabolic panel (02/12/2020 4:56 AM CDT) Sodium 132 (L) 136 - 145 meq/L [facility] Potassium 4.2 3.5 - 5.1 meq/L [facility] Chloride 99 98 - 107 meq/L [facility] CO2 24 22 - 29 meq/L [facility] BUN 8 7 - 21 mg/dL [facility] Creatinine 0.69 0.57 - 1.25 mg/dL [facility] Glucose 121 (H) 70 - 105 mg/dL [facility] Calcium 8.1 (L) 8.4 - 10.2 mg/dL [facility] EGFR Comment: INSUFFICIENT CLINICAL [facility] DATA TO CALCULATE ESTIMATED [facility] GFR. Specimen Blood Narrative Performed At Audio/Visual Operator ID - PIAYA L [facility] Performing Organization Address City/State/Zipcode Ph one Number [address] [facility] * SARS-CoV2/RT-PCR (Symptomatic ONLY) (02/11/2020 5:09 PM CDT) SARS-COV2/RT-PCR Negative Not Detected, Negative, [facility] See external report for [facility] linked test SARS-COV-2 PERFORMING LAB [facility] KHLOE [facility] Specimen Other Narrative Performed At Negative result for this test determine s that SARS-CoV-2 RNA was not present in [facility] the specimen above the Limit of Detecti on (LOD).However, Negative results do [facility] not preclude SARS-CoV-2 infection and s hould not be used as the sole basis for treatment or patient management decisio ns. Negative results must be combined with clinical observations, patient his tory, and epidemiological information. A false negative result may occur if a sp ecimen is improperly collected, transported or handled.A false nega tive result should be considered if patient's recent exposures or clinical presentation indicate that COVID-19 (SARS-CoV-2) is likely and diagnostic t ests for other causes of illness are negative.Re-testing should be consi dered in cases of suspected false negatives. The limit of detection for this assay i s 800 copies/mL. This SARS CoV-2 test is a real-time RT- PCR test intended for the qualitative detection of nucleic acid from SARS-CoV -2 in a nasopharyngeal swab specimen collected from individuals suspected of COVID-19 by their healthcare provider. This test has not been Food and Drug Ad ministration (FDA) cleared or approved.This is a modified version of an approved Emergency Use Authorization (EUA) and is in the proce ss of review by the FDA. Once authorized by the FDA, the issued EUA w ill be effective until the declaration that circumstances exist justifying the authorization of the emergency use of in vitro diagnostic tests for detection an d/or diagnosis of COVID-19 is terminated under Section 564(b)(2) of the Act or t he EUA is revoked under Section 564(g) of the Act. Fact Sheet for Healthcare Providers: https://www.MDSave/sites/default/files/product/documents/Fact_Sheet_HC_Provi clyw_Wwad_HYEH-BtA-7.pdf Fact Sheet for Healthcare Patients: https://www.M[employer]ave/sites/default/files/product/documents/Fact_Sheet_Patients _Otfx_KSPH-NcE-9.pdf Performing Laboratory: [address] [place] [address] Performing Organization Address City/State/Zipcode Ph one Number [place] [address] [facility] after 02/10/2019 Insurance Payer Benefit Subscriber ID Type Phone Address Plan / Group [facility] xxxxxxxxxxx MEDICARE ADV Advance Directives For more information, please contact: [place] [phone] Date Inactivated Comments Code Status Date Activated Full Code 02/11/2020 4:32 PM This code status was determined by: Patient
--- OUTSIDE RECORDS SUMMARY | 2020-02-12 16:41 | XMS REPORT | Continuity of Care Document ---
Author Author [facility] t Organization [facility] Address [address] [place] [address] Phone Unavailable Care Team Providers Care Senior Contracts Administrator Name Role Phone NO, PCP PCP Unavailable Demar MCCOY Attphys Unavailable Nadine MATTHEWS, Demar Haque Attphys Keith FERNANDEZ Attphys Unavailable Juan Antonio MATTHEWS, Keri Attphys Yahir TREADWELL Attphys Unavailable Yahir KELLY Attphys Unavailable Demar MCCOYA Admphys Unavailable Yahir TREADWELL Admphys Unavailable Payers Payer Name Policy Type Policy Number Effective Date Expiration Date Gregory prabhakar KELSEYCAREKELSEYCARE MEDICARE ADVxxxxxxxxxxx xxxxxxxxxxx [facility] Kelsey [employer] Medicare Advantage [id number] 2019 00:0 0:00 [facility] Problems Condition Name Condition Details Condition Category Status Onset Date Resolution Date Last Treatment Date Treating Clinician Comments Source Shortness of breath Shortness of breath Disease Active 2020-02-11 00:00 :00 [facility] Shortness of breath at rest Problem Active [facility] Lymphadenitis Problem Active [facility] Mass of neck Problem Active [facility] Pulmonary embolism Problem Active [facility] Allergies, Adverse Reactions, Alerts This patient has no known allergies or adverse reactions. Social History Social Habit Start Date Stop Date Quantity Comments Source Sex Assigned At [facility] History of tobacco use 1976-02-11 00:00:00 Current smoker [facility] Smoking Status Start Date Stop Date Source Former smoker 2020-02-11 00:00:00 2020-02-11 00:00:00 [facility] Medications Ordered Medication Name Filled Medication Name Start Date Stop Da te Current Medication? Ordering Clinician Indication Dosage Frequency Signature (SIG) Comments Components Source fluticasone propionate (FLONASE) 50 mcg/actuation nasal spra y 2020-02-11 16:46:24 Yes 1{spray} QD 1 spray by Nasal route piper huang. [facility] insulin 70/30, insulin NPH-insulin regul ar, (HUMULIN 70/30 U-100 INSULIN) 100 unit/mL (70-30) injection 2020-02-11 16:46:24 Yes type 2 diabetes mellitus Q.5D Inject subcutaneously 2 (two) times daily 20 un its AM23 units PM . [facility] amoxicillin-clavulanate (AUGMENTIN) 500-125 mg per tablet 2020-02-07 00:00:00 Yes 1{tbl} Q.[id number] Ta ke 1 tablet by mouth 3 (three) times daily. [facility] amoxicillin-clavulanate (AUGMENTIN) 500-125 mg per tablet 2020-02-07 00:00:00 Yes 1{tbl} Q.[id number] Ta ke 1 tablet by mouth 3 (three) times daily. [facility] temazepam (RESTORIL) 15 mg capsule 2020-01-31 00:00:00 Yes 15mg Take 15 mg by mouth every night as needed. [facility] gabapentin (NEURONTIN) 600 MG tablet 2019-11-04 00:00:00 Yes 600mg Q.[id number] Take 600 mg by mouth 3 (three) times daily. [facility] insulin lispro (HUMALOG U-100 INSULIN) 100 unit/mL injection 2019-11-04 00:00:00 Yes 5U Q.[id number] 3D 5 Units by abdominal subcutaneous route 3 (three) times daily. [facility] lisinopriL (PRINIVIL,ZESTRIL) 2.5 MG tablet 2019-11-04 00:00:00 Yes 2.5mg QD Take 2.5 mg by mouth daily. [facility] cetirizine-pseudoephedrine (ZYRTEC-D) 5 mg-120 mg per tablet 2019-05-31 00:00:00 Yes 1{tbl} Q.5D Take 1 tablet by mouth 2 (two ) times daily. [facility] albuterol HFA (VENTOLIN HFA) 90 mcg/actuation inhaler 2019-03-28 00:00:00 Yes 2{puff} Inhale 2-4 puff s by mouth via inhaler every 4 (four) hours as needed. [facility] furosemide (LASIX) 40 MG tablet 2019-03-28 00:00:00 Yes 40mg QD Take 40 mg by mouth daily. [facility] metoprolol tartrate (LOPRESSOR) 100 MG tablet 2019-03-28 00:00:0 0 Yes 100mg QD Take 100 mg by mouth daily. [facility] pantoprazole (PROTONIX) 40 MG tablet 2019-03-28 00:00:00 Ye s 40mg QD Take 40 mg by mouth daily. [facility] simvastatin (ZOCOR) 10 MG tablet 2010-04-23 00:00:00 Yes 10mg QD Take 10 mg by mouth daily. [facility] NIFEdipine (PROCARDIA-XL) 60 MG (OSM) 24 hr tablet 2009-12 00:00:00 Yes 60mg QD Take 60 mg by mouth daily. [facility] alendronate (FOSAMAX) 70 MG tablet 2009-11-05 00:00:00 Yes 70mg Q7D Take 70 mg by mouth once a week. [facility] Albuterol Sulfate Albuterol Sulfate Yes Every 4 Hours While Awake as needed for Shortness Of Breath [facility] Alendronate Sodium Alendronate Sodium Yes We ekly [facility] Ascorbic Acid (Vitamin C) 500 Mg CAPSULE.ER Ascorbic A denice (Vitamin C) 500 Mg CAPSULE.ER Yes Daily [facility] Azelastine Hcl Azelastine Hcl Yes Bedtime [facility] Baclofen Baclofen Yes [address] [facility] Blood Sugar Diagnostic (Glucose Test Strip) 1 Each STR IP Blood Sugar Diagnostic (Glucose Test Strip) 1 Each STRIP Yes [address] [facility] Cetirizine Hcl (Zyrtec) 10 Mg CAPSULE Cetirizine Hcl (Zyrtec) 10 Mg [address] Yes Daily [facility] Cetirizine Hcl/Pseudoephedrine (Aller-Deepali D 5-120 Mg T ablet) 1 Each TAB.ER.12H Cetirizine Hcl/Pseudoephedrine (Aller-Deepali D 5-120 Mg Tablet) 1 Each TAB.ER.12H Yes Twice A Day [facility] Docusate Sodium Docusate Sodium Yes 100 Twice A Day as needed for Constipation [facility] Fluticasone Propionate Fluticasone Propionate Yes Daily [facility] Furosemide Furosemide Yes 40 Daily [facility] Gabapentin Gabapentin Yes [address] [facility] Insulin Lispro (Humalog) 100 Unit/1 Ml CARTRIDGE Insul in Lispro (Humalog) 100 Unit/1 Ml CARTRIDGE Yes [address] [facility] Insulin Regular, Human (Humulin R) 100 Unit/1 Ml VIAL Insulin Regular, Human (Humulin R) 100 Unit/1 Ml VIAL Yes Twice A Day [facility] Lisinopril Lisinopril Yes 2.5 Daily [facility] Metoprolol Tartrate Metoprolol Tartrate Yes [address] [facility] Mu-Vits-Min Th/Lycopene/Lutein (Centrum Silver Tablet) 1 Each TABLET Mu-Vits-Min Th/Lycopene/Lutein (Centrum Silver Tablet) 1 Each TABLET Yes Daily [facility] Nifedipine (Nifedipine Er) 30 Mg TAB.ER.24 Nifedipine (Nifedipine Er) 30 Mg TAB.ER.24 Yes 60 Daily [facility] Benedict-3 Fatty Acids/Fish Oil (Fish Oil 1,000 Mg Capsul e) 1 Each CAPSULE Benedict-3 Fatty Acids/Fish Oil (Fish Oil 1,000 Mg Capsule) 1 Each CAPSULE Yes [facility] Simvastatin Simvastatin Yes 10 Today At 9:00PM [facility] Temazepam Temazepam Yes Bedtime [facility] Fluticasone Fluticasone 2019-02-13 00:00:00 [facility] Furosemide Furosemide 2019-02-13 00:00:00 [facility] Lisinopril Lisinopril 2019-02-13 00:00:00 [facility] Metoprolol Metoprolol 2019-02-13 00:00:00 [facility] Nifedical Nifedical 2019-02-13 00:00:00 [facility] Simvastatin Simvastatin 2019-02-13 00:00:00 [facility] Vital Signs Vital Name Observation Time Observation Value Comments Source Systolic blood pressure 2020-02-12 11:36:00 110 mm[Hg] [facility] Diastolic blood pressure 2020-02-12 11:36:00 54 mm[Hg] [facility] Heart rate 2020-02-12 11:36:00 67 /min [facility] Body temperature 2020-02-12 11:36:00 37 Debbi [facility] Respiratory rate 2020-02-12 11:36:00 18 /min [facility] Oxygen saturation in Arterial blood by Pulse oximetry 02-11 11:36:00 96 /min [facility] Body height 2020-02-11 17:00:00 162.6 cm [facility] Body weight Measured 2020-02-11 17:00:00 98.431 kg [facility] BMI 2020-02-11 17:00:00 37.25 kg/m2 [facility] Weight 2020-02-11 11:00:00 231 [lb_av] [facility] BMI (Body Mass Index) 2020-02-11 11:00:00 39.7 kg/m2 [facility] Body Temperature 2019-05-02 11:00:00 97.3 [degF] [facility] Procedures Procedure Date / Time Performed Performing Clinician Sourpearl e POCT-GLUCOSE METER 2020-02-12 11:17:00 NadineGarland whitman [facility] POCT-GLUCOSE METER 2020-02-12 07:16:00 NadineGarland stafford [facility] BASIC METABOLIC PANEL (7) 2020-02-12 04:56:00 Garland Mccoy [facility] CBC W/PLT COUNT & AUTO DIFFERENTIAL 2020-02-12 04:56:00 NadineGarland stafford [facility] (CELLAVISION MANUAL DIFF) 2020-02-12 04:56:00 NadineGarland whitman [facility] POCT-GLUCOSE METER 2020-02-11 21:31:00 NadineGarland stafford [facility] SARS-COV2/RT-PCR ([facility]) 2020-02-11 17:09:00 Garland Mccoy [facility] POCT-GLUCOSE METER 2020-02-11 16:23:00 NadineGarland stafford [facility] Plan of Care Planned Activity Planned Date Details Comments Source Future Scheduled Test 2020-02-11 00:00:00 Medicare IPPE (WEL COME TO MEDICARE) [code = Medicare IPPE (WELCOME TO MEDICARE)] [facility] Future Scheduled Test 2020-01-17 00:00:00 INFLUENZA VACCINE (#1) [code = INFLUENZA VACCINE (#1)] [facility] Encounters Start Date/Time End Date/Time Encounter Type Admission Type Attendi [facility] Care Department Encounter ID Source 2020-02-11 11:05:00 2020-02-11 11:05:00 Registered Emergency Room 1 FORD FERNANDEZ [facility] [id number] [facility] 2019-05-01 09:59:00 2019-05-02 14:59:00 Discharged Inpatient (obs) 1 SANTINO TREADWELL [facility] [id number] [facility] 2019-02-13 09:56:00 2019-02-13 13:27:00 Departed Emergency Room 1 MIGUEL KELLY [facility] [id number] [facility] Results Test Description Test Time Test Comments Results Result Comments Source SARS-CoV2/RT-PCR (Symptomatic ONLY) 2020-02-12 13:49:00 Test Item SARS-COV2/RT-PCR (test code = 60881-3) Negative N ot Detected, Negative, See external report for linked test SARS-COV-2 PERFORMING LAB (test code = 32496-6) [facility] (test code = LIZ) Negative result for this tere t determines that SARS-CoV-2 RNA was not present in the specimen above the Limit of Detection (LOD). However, Negative results do not preclude SARS-CoV-2 infection and should not be used as the sole basis for treatment or patient management decisions. Negative results must be combined with clinical observations, patient history, and epidemiological information. A false negative result may occur if a specimen is improperly collected, transported or handled. A false negative result should be considered if patient's recent exposures or clinical presentation indicate that COVID-19 (SARS-CoV-2) is likely and diagnostic tests for other causes of illness are negative. Re-testing should be considered in cases of suspected false negatives. The limit of detection for this assay is 800 copies/mL. This SARS CoV-2 test is a real-time RT-PCR test intended for the qualitative detection of nucleic acid from SARS-CoV-2 in a nasopharyngeal swab specimen collected from individuals suspected of COVID-19 by their healthcare provider. This test has not been Food and Drug Administration (FDA) cleared or approved. This is a modified version of an approved Emergency Use Authorization (EUA) and is in the process of review by the FDA. Once authorized by the FDA, the issued EUA will be effective until the declaration that circumstances exist justifying the authorization of the emergency use of in vitro diagnostic tests for detection and/or diagnosis of COVID-19 is terminated under Section 564(b)(2) of the Act or the EUA is revoked under Section 564(g) of the Act. Fact Sheet for Healthcare Providers:https://www.[employer]/sites/default/files/product/documents/Fact_Shecleve u_MT_Dfnkhidxf_Evvq_TPKR-VrO-2.pdf Fact Sheet for Healthcare Patients:https://www.[employer]/sites/default/files/pro duct/documents/Rssl_Ktjir_Ijiddfza_Dglz_ZWVH-GwF-3.pdf Performing Laboratory:[facility] [place] [address] [facility])2020-02-12 13:49:00* Test Item Value Reference Range Interpretation Comments SARS-COV2/RT-PCR (test code = 2546569) Negative N ot Detected, Negative, See external report for linked test SARS-COV-2 PERFORMING LAB (test code = 0956626) [facility] Negative result for this test determines that SARS-CoV-2 RNA was not present in the specimen above the Limit of Detection (LOD). However, Negative results do n ot preclude SARS-CoV-2 infection and should not be used as the sole basis for tr eatment or patient management decisions. Negative results must be combined with clinical observations, patient history, and epidemiological information. A false negative result may occur if a specimen is improperly collected, transported or handled. A false negative result should be considered if patient's recent expo sures or clinical presentation indicate that COVID-19 (SARS-CoV-2) is likely and diagnostic tests for other causes of illness are negative. Re-testing should be considered in cases of suspected false negatives.The limit of detection for this assay is 800 copies/mL.This SARS CoV-2 test is a real-time RT-PCR test intended for the qualitative detection of nucleic acid from SARS-CoV-2 in a nasopharyn geal swab specimen collected from individuals suspected of COVID-[address] [facility] provider.This test has not been Food and Drug Administration (FDA) clear ed or approved. This is a modified version of an approved Emergency Use Authori zation (EUA) and is in the process of review by the FDA. Once authorized by [facility] FDA, the issued EUA will be effective until the declaration that circumstances exist justifying the authorization of the emergency use of in vitro diagnostic tests for detection and/or diagnosis of COVID-19 is terminated under Section 564 (b)(2) of the Act or the EUA is revoked under Section 564(g) of the Act.Fact She et for Healthcare Providers:https://www.[employer]/sites/default/files/product/d ocuments/Stij_Hrubx_VG_Mszrucwih_Sepj_GDIR-CoG-8.pdfFact Sheet for Healthcare Pa tients:https://www.[employer]/sites/default/files/product/documents/Fact_Sheet_P ttsaspv_Fmiu_NCUI-VbG-5.pdfPerforming Laboratory:[facility] [address] [facility].[place], [place] [address]CMM with platelet count + automated diff 2020-02-12 12:11:00* Test Item Value Reference Range Interpretation Comments WBC (test code = 6690-2) 7.2 3.5- 10.5 K/L RBC (test code = 789-8) 4.49 3.93- 5.22 M/L MCHC (test code = 786-4) 31.3 32.2- 35.5 GM/DL L Hematocrit (test code = 4544-3) 36.8 % 34.1-44.9 MCV (test code = 787-2) 82.0 fL 79.4-94.8 MCH (test code = 785-6) 25.6 pg 25.6-32.2 RDW (test code = 788-0) 16.0 % 11.7-14.4 H Platelets (test code = 777-3) 256 150- 450 K/CU MM MPV (test code = 56607-0) 10.0 fL 9.4-12.3 nRBC (test code = 413) 0 0- 0 /100 WBC Lab Interpretation (test code = 38710-9) [facility]normal [facility] [id number] 12:11:00* Test Item Value Reference Range Interpretation Comments % Neutros (test code = 2816) 70 % % Lymphs (test code = 2817) 7 % % Monos (test code = 2818) 4 % % Eos (test code = 2819) 1 % % Baso (test code = 2820) 1 % % Bands (test code = 2826) 8 % 0-10 % Atypical Lymphs (test code = 2829) 10 % 0-0 H # Neutros (test code = 2830) 5.04 K/ul 1.56-6.13 # Lymphs (test code = 2831) 0.50 K/ul 1.18-3.74 L # Monos (test code = 2832) 0.29 K/uL 0.24-0.36 # Eos (test code = 2834) 0.07 K/uL 0.04-0.36 # Baso (test code = 2835) 0.07 K/uL 0.01-0.08 # Bands (test code = 2840) 0.58 K/uL 0-0.8 # Atypical Lymphs (test code = 2858) 0.72 K/uL 0-0 H Total Counted (test code = 1351) 100 Platelet Morphology (test code = 486) Normal Smudge Cells (test code = 1371) Present Anisocytosis (test code = 961) 1+ few Poikilocytes (test code = 966) 1+ few Platelet Conc (test code = 3438) Adequate LIZ (test code = LIZ) Automatic Car Wash Attendant ID - Ava Bateman comments: Slid e comments: Lab Interpretation (test code = 57528-9) Abnormal [facility] W/PLT COUNT & AUTO [id number] 12:11:00* Test Item Value Reference Range Interpretation Comments WHITE BLOOD CELL COUNT (BEAKER) (test code = 775) 7.2 K/ L 3.5- 10.5 RED BLOOD CELL COUNT (BEAKER) (test code = 761) 4.49 M/ L 3.93-5 .22 HEMOGLOBIN (BEAKER) (test code = 410) 11.5 GM/DL 11.2-15.7 HEMATOCRIT (BEAKER) (test code = 411) 36.8 % 34.1-44.9 MEAN CORPUSCULAR VOLUME (BEAKER) (test code = 753) 82.0 fL 79. 4-94.8 MEAN CORPUSCULAR HEMOGLOBIN (BEAKER) (test code = 751) 25.6 pg 25.6-32.2 MEAN CORPUSCULAR HEMOGLOBIN CONC (BEAKER) (test code = 752) 31.3 GM/DL 32.2-35.5 L RED CELL DISTRIBUTION WIDTH (BEAKER) (test code = 412) 16.0 % 11.7-14.4 H PLATELET COUNT (BEAKER) (test code = 756) 256 K/CU MM 150-450 MEAN PLATELET VOLUME (BEAKER) (test code = 754) 10.0 fL 9.4-12 .3 NUCLEATED RED BLOOD CELLS (BEAKER) (test code = 413) 0 /100 WBC 0 -0 (CELLAVISION MANUAL DIFF)2020-02-12 12:11:00* Test Item Value Reference Range Interpretation Comments NEUTROPHILS - REL (CELLAVISION)(BEAKER) (test code = 2816) 70 % LYMPHOCYTES - REL (CELLAVISION)(BEAKER) (test code = 2817) 7 % MONOCYTES - REL (CELLAVISION)(BEAKER) (test code = 2818) 4 % EOSINOPHILS - REL (CELLAVISION)(BEAKER) (test code = 2819) 1 % BASOPHILS - REL (CELLAVISION)(BEAKER) (test code = 2820) 1 % BANDS - REL (CELLAVISION)(BEAKER) (test code = 2826) 8 % 0 -10 ATYPICAL LYMPHOCYTES - REL (CELLAVISION)(BEAKER) (test code = 2829) 10 % 0-0 H NEUTROPHILS - ABS (CELLAVISION)(BEAKER) (test code = 2830) 5.04 K/ul 1.56-6.13 LYMPHOCYTES - ABS (CELLAVISION)(BEAKER) (test code = 2831) 0.50 K/ul 1.18-3.74 L MONOCYTES - ABS (CELLAVISION)(BEAKER) (test code = 2832) 0.29 K/uL 0.24-0.36 EOSINOPHILS - ABS (CELLAVISION)(BEAKER) (test code = 2834) 0.07 K/uL 0.04-0.36 BASOPHILS - ABS (CELLAVISION)(BEAKER) (test code = 2835) 0.07 K/uL 0.01-0.08 BANDS - ABS (CELLAVISION)(BEAKER) (test code = 2840) 0.58 K/uL 0 .00-0.80 ATYPICAL LYMPHOCYTES - ABS (CELLAVISION)(BEAKER) (test code = 2858) 0.72 K/uL 0.00-0.00 H TOTAL COUNTED (BEAKER) (test code = 1351) 100 PLT MORPHOLOGY (BEAKER) (test code = 486) Normal SMUDGE CELLS (BEAKER) (test code = 1371) Present ANISOCYTOSIS (BEAKER) (test code = 961) 1+ few POIKILOCYTES (BEAKER) (test code = 966) 1+ few PLATELET CONCENTRATION (CELLAVISION)(BEAKER) (test code = 3438) Tammie quate Automatic Car Wash Attendant ID - Ava Bhavana comments: Slide comments: POC-Glucose meter 2020-02-12 11:28:00* Test Item Value Reference Range Interpretation Comments POC-Glucose Meter (test code = 1538) 202 mg/dL 70-110 H : TESTED AT [address], [address]: Automatic Car Wash Attendant/Gang Vibrator Operator ID = [id number] for STOJCIC, NADA Lab Interpretation (test code = 16263-6) [facility]normal [facility] [id number] 11:28:00* Test Item Value Reference Range Interpretation Comments POC-GLUCOSE METER (BEAKER) (test code = 1538) 202 mg/dL 70-110 H : TESTED AT [address], [address]: Automatic Car Wash Attendant/Gang Vibrator Operator ID = [id number] for STOJCIC, NADA POCT-GLUCOSE [id number] 07:32:00* Test Item Value Reference Range Interpretation Comments POC-GLUCOSE METER (BEAKER) (test code = 1538) 138 mg/dL 70-110 H : TESTED AT [address], [address]: Automatic Car Wash Attendant/Gang Vibrator Operator ID = [id number] for STOJCIC, NADA Basic metabolic [id number] 06:44:00* Test Item Value Reference Range Interpretation Comments Sodium (test code = 2951-2) 132 meq/L 136-145 L Potassium (test code = 2823-3) 4.2 meq/L 3.5-5.1 Chloride (test code = 2075-0) 99 meq/L 98-107 CO2 (test code = 8-9) 24 meq/L 22-29 BUN (test code = 3094-0) 8 mg/dL 7-21 Creatinine (test code = 2160-0) 0.69 mg/dL 0.57-1.25 Glucose (test code = 2345-7) 121 mg/dL 70-105 H Calcium (test code = 53694-3) 8.1 mg/dL 8.4-10.2 L EGFR (test code = 27220-5) I NSUFFICIENT CLINICAL DATA TO CALCULATE ESTIMATED GFR. LIZ (test code = LIZ) Automatic Car Wash Attendant ID Kelly JI L Lab Interpretation (test code = 52508-0) Abnormal [facility] METABOLIC [id number] 06:44:00* Test Item Value Reference Range Interpretation Comments SODIUM (BEAKER) (test code = 381) 132 meq/L 136-145 L POTASSIUM (BEAKER) (test code = 379) 4.2 meq/L 3.5-5.1 CHLORIDE (BEAKER) (test code = 382) 99 meq/L 98-107 CO2 (BEAKER) (test code = 355) 24 meq/L 22-29 BLOOD UREA NITROGEN (BEAKER) (test code = 354) 8 mg/dL 7-21 CREATININE (BEAKER) (test code = 358) 0.69 mg/dL 0.57-1.25 GLUCOSE RANDOM (BEAKER) (test code = 652) 121 mg/dL 70-105 H CALCIUM (BEAKER) (test code = 697) 8.1 mg/dL 8.4-10.2 L EGFR (BEAKER) (test code = 1092) INSUFFICIENT CLINICAL DATA TO CALCULATE ESTIMATED GFR. Automatic Car Wash Attendant ID - MARGY LPOCT-GLUCOSE [id number] 21:44:00* Test Item Value Reference Range Interpretation Comments POC-GLUCOSE METER (BEAKER) (test code = 1538) 137 mg/dL 70-110 H : TESTED AT [facility] [address] [facility], [address]: Automatic Car Wash Attendant/Gang Vibrator Operator ID = [id number] for AURA REECE POCT-GLUCOSE [id number] 16:35:00* Test Item Value Reference Range Interpretation Comments POC-GLUCOSE METER (BEAKER) (test code = 1538) 105 mg/dL 70-110 : TESTED AT [facility] [address] [facility], [address]: Automatic Car Wash Attendant/Gang Vibrator Operator ID = [id number] for CHANEL CERVANTES CT CHEST WITH [id number] 14:14:00 [facility] [address] [place], [place] [address] Patient Name: YASMINE MORRIS MR #: [id number] : 1930 Age/Sex: 89/F Req #: [id number] Adm Physician: Ordered by: FORD FERNANDEZ MD Report #: [id number] Location: [facility] Room/Bed: Procedure: [id number] HOPD/CT CHEST WIT H CONTRAST-HOPD Exam Date: 02/11/20 Exam Time: 1341 REPORT STATUS: Signed EXAM: CT C hest WITH contrast- Pulmonary Embolism Protocol INDICATION: Shortness of br eath. COMPARISON: None TECHNIQUE: Chest was scanned utilizing a [facility] tidetector helical scanner from the lung apex through the level of the diaphra gm after administration of IV contrast. Coronal and sagittal reformations were obtained. Pulmonary embolism protocol was performed. IV CONTRAST: 100 cc of Isovue 370 RADIATION DOSE: Total DLP: 264 mGy*cm Dose modulation, iterative reconstruction, and/or weight based adjust ment of the mA/kV was utilized to reduce the radiation dose to as low as reaso nably achievable. COMPLICATIONS: None FINDINGS: KRYSTIAN ES/ TUBES: None. PULMONARY ARTERIES: Exam is somewhat limited by contrast b olus timing and motion. Subsegmental pulmonary arteries are not well opacified . There are filling defects in the segmental pulmonary artery in the right low er lobe on series 2, image 33 and subsegmental pulmonary artery in the left lo wer lobe on image 39. Main pulmonary artery measures 2.9 cm. LUNGS AND A IRWAYS: The central airways are patent. No evidence of pneumonia or pulmonary edema. Patchy dependent atelectasis. There is a 2.5 cm right lower posterior p leural-based mass on series 2, image 40. There are likely subpleural nodular o pacities, measuring up to 1.5 cm in the right lower lobe. PLEURA: The pleur al spaces are clear. HEART AND MEDIASTINUM: The thyroid gland is normal. T here is a 4.3 x 4.6 cm heterogeneous mass in the right pericardiac region, as seen on series 2, image 42. No hilar lymphadenopathy or evidence of additional mediastinal lymphadenopathy. The heart is normal in size.. There is no perica rdial effusion. Multivessel coronary atherosclerosis. UPPER ABDOMEN: [place] ited contrast-enhanced views of the upper abdomen are unremarkable. BONES : The visualized bony thorax is within normal limits. SOFT TISSUES: Partial ly visualized right cervical lymphadenopathy, measuring up to 1 cm. IMPR ESSION: Somewhat limited examination. Suspected segmental/subsegmental pulmon muriel emboli in the bilateral lower lobes. Heterogeneous right pericardiac mass, likely lymphadenopathy, right cervical lymphadenopathy, and right basila r pleural-based and subpleural nodules, suspicious for metastatic disease. The above findings were discussed with Dr. Ford Fernandez on 02/11/2020 at 226 PM. Signed by: Dr. Jaja Serrano MD on 02/11/2020 2:31 PM Dictated By: JAJA SERRANO MD 1431 Transc ribed By: ARMIDA on 02/11/20 1431 COPY TO: FORD FERNANDEZ MD CT SOFT TISSUE NEXK BDTO-[id number] 14:04:00 [place] [address] Patient Name: YASMINE MORRIS MR #: [id number] : 1930 Age/Sex: 89/F Req #: [id number] Adm Physician: Ordered by: FORD FERNANDEZ MD Report #: [id number] Location: [facility] Room/Bed: Procedure: [id number] HOPD/CT SOFT TISS UE NEXK WITH-HOPD Exam Date: 02/11/20 Exam Time: 135 3 REPORT STATUS: Signed CT SOFT TISSUE NECK WITH-HOPD HISTORY: Neck mass, right-sided neck swelling CO MPARISON: Report from maxillofacial CT dated 04/27/2011 TECHNIQUE: Axia l CT images were obtained through the neck with intravenous, iodine based cont rast. Coronal and sagittal reconstructions obtained from the axial data. One or more of the following dose reduction techniques were used: Automated exposu re control, adjustment of the mA and/or kV according to patient size, and/or utilization of iterative reconstruction technique. DISCUSSION: Motion and streak artifacts obscure some details. The visualized upper aerodiges tive tract is unremarkable. Multiple enlarged right internal jugular chain lymph nodes (levels 2 through 4), mostly suprahyoid, are present measuring up to 2.5 cm in size. Associated enlarged right upper external jugular chain lymp h nodes, abutting the inferior right parotid gland are also present, measuring up to 2 cm size. An additional enlarged left supraclavicular lymph node measu res up to 3 cm in size. Suspected right axillary lymphadenopathy is partially imaged. Approximately 1.8 x 1.9 x 3.1 cm soft tissue mass is seen in the de ep right parotid gland The bilateral submandibular and left parotid glan ds are otherwise unremarkable. The thyroid gland is unremarkable. Mild bilateral carotid bulb calcified plaque is present. Both internal carotid josefina cameron have a retropharyngeal course. The soda drier feeder, parapharyngeal, posterior cervical, and perivertebral spaces are otherwise unremarkable. The visual ized intracranial compartment is grossly unremarkable. There is mild right ma xillary sinus mucosal thickening. There are mild degenerative changes through out the spine. The upper lungs are unremarkable. IMPRESSION: 1. Nonspec ific diffuse right cervical (levels 2 through 4, and parotid/upper external ju gular chain) and left supraclavicular lymphadenopathy could be due to metastat ic disease, or lymphoproliferative process. 2. Approximately 3.1 cm deep righ t parotid gland mass could be a pleomorphic adenoma or other salivary gland tu mor. 3. The imaged upper aerodigestive tract is unremarkable. Signed by: Dr. Elvis Boateng M.D. on 02/11/2020 2:18 PM Dictated By: ELVIS ANGELO MPA, MD 17 Transcri bed By: ARMIDA on 02/11/201417 COPY TO: FORD FERNANDEZ MD [id number] 11:59:00 [place] [address] Patient Name: YASMINE MORRIS MR #: [id number] : 1930 Age/Sex: 89/F Req #: [id number] Adm Physician: Ordered by: FORD FERNANDEZ MD Report #: [id number] Location: [facility] Room/Bed: Procedure: [id number] HOPD/CXR 1 [facility] Exam Date: 02/11/20 Exam Time: 1133 REPORT STATUS: Signed EXAMINATION: CXR [facility] INDICATION: SOB COMPARISON: Chest radiograph 05/01/2019 . FINDINGS: TUBES and LINES: None. LUNGS: Lungs are well inf lated. There is no evidence of lobar pneumonia or pulmonary edema. Unchanged mild elevation of the right hemidiaphragm. Mild patchy bibasilar opacities, li jeffrey atelectasis. PLEURA: No pleural effusion or pneumothorax. HEART AND MEDIASTINUM: The cardiomediastinal silhouette is unremarkable. TATA NANCY AND SOFT TISSUES: No acute osseous lesion. Soft tissues are unremarkable . UPPER ABDOMEN: No free air under the diaphragm. IMPRESSION: N o acute thoracic abnormality. Signed by: Dr. Jaja Serrano MD on 02/11/2020 12 :02 PM Dictated By: JAJA SERRANO MD 01 Transcribed By: ARMIDA on 02/11/201201 COPY TO: FORD LR MD Sodium Nhlca9251-21-98 05:50:00* Test Item Value Reference Range Interpretation Comments Sodium Level (test code = 2951-2) 132 136-[address] [facility]ufkinPotassium Uncqs0277-72-24 05:50:00* Test Item Value Reference Range Interpretation Comments Potassium Level (test code = 2823-3) 5.0 3.5-5.1 [facility]ufkinChloride Ncins4982-91-06 05:50:00* Test Item Value Reference Range Interpretation Comments Chloride Level (test code = 2075-0) 96 98-[address] [facility] LufkinCarbon Dioxide Vtjtc1474-60-65 05:50:00* Test Item Value Reference Range Interpretation Comments Carbon Dioxide Level (test code = 2028-9) 24 22-29 [facility] LufkinAnion Pxv0847-06-71 05:50:00* Test Item Value Reference Range Interpretation Comments Anion Gap (test code = 84489-9) 17.0 8-[address] [facility] LufkinBlood Urea Uqvfqdzv6038-81-53 05:50:00* Test Item Value Reference Range Interpretation Comments Blood Urea Nitrogen (test code = 3094-0) 18 7-26 [facility] LufkinCreatinine2019-12-16 05:50:00* Test Item Value Reference Range Interpretation Comments Creatinine (test code = 2160-0) 1.12 0.57-1.[address] [facility] LufkinBUN/Creatinine Tlprk9295-98-64 05:50:00* Test Item Value Reference Range Interpretation Comments BUN/Creatinine Ratio (test code = 3097-3) 16 6-25 [facility] LufkinEstimat Glomerular Filtration Rate 2019-05-02 05:50:00* Test Item Value Reference Range Interpretation Comments Estimat Glomerular Filtration Rate (test code = 691584219) 46 >60 L Ranges were taken from the National Kidney Disease Education Program and the [facility] Kidney Foundation literature.Reference ranges:60 or greater: Wieidn09-74 ( for 3 consecutive months): Chronic kidney disease 15 or less: Kidney failureSt. Luke's Health – Memorial LufkinGlucose Jsuta0809-33-54 05:50:00* Test Item Value Reference Range Interpretation Comments Glucose Level (test code = KHT7976) 303 74-[address] [facility] LufkinCalcium Ybjfe6247-12-16 05:50:00* Test Item Value Reference Range Interpretation Comments Calcium Level (test code = 81433-5) 9.9 8.4-10.2 [facility] Memorial LufkinB-Type Natriuretic Vmlxmqu9057-79-43 05:50:00* Test Item Value Reference Range Interpretation Comments B-Type Natriuretic Peptide (test code = 72400-7) 83.4 0-100 [facility] LufkinWhite Blood Ntatg3548-16-52 05:23:00* Test Item Value Reference Range Interpretation Comments White Blood Count (test code = 6690-2) 9.00 4.8-10.8 [facility] LufkinRed Blood Hzcpr1171-07-11 05:23:00* Test Item Value Reference Range Interpretation Comments Red Blood Count (test code = 789-8) 5.16 3.6-5.[address] [facility] LufkinHemoglobin2019-12-16 05:23:00* Test Item Value Reference Range Interpretation Comments Hemoglobin (test code = 16652-6) 14.5 12.0-16.0 [facility] LufkinHematocrit2019-12-16 05:23:00* Test Item Value Reference Range Interpretation Comments Hematocrit (test code = 4544-3) 45.0 34.2-44.[address] [facility] Memorial LufkinMean Corpuscular Prggvb1720-18-16 05:23:00* Test Item Value Reference Range Interpretation Comments Mean Corpuscular Volume (test code = 787-2) 87.2 81-99 [facility] LufkinMean Corpuscular Iadsjwjdak9800-81-29 05:23:00* Test Item Value Reference Range Interpretation Comments Mean Corpuscular Hemoglobin (test code = 785-6) 28.1 28-32 [facility] Memorial LufkinMean Corpuscular Hemoglobin Concent 2019-05-02 05:23:00* Test Item Value Reference Range Interpretation Comments Mean Corpuscular Hemoglobin Concent (test code = 786-4) 32.2 31-35 [facility] LufkinRed Cell Distribution Hwlpw6994-73-86 05:23:00* Test Item Value Reference Range Interpretation Comments Red Cell Distribution Width (test code = 54826-1) 13.1 11.7 -14.4 [facility] LufkinPlatelet Skfoz0141-97-19 05:23:00* Test Item Value Reference Range Interpretation Comments Platelet Count (test code = 777-3) 306 140-360 [facility] LufkinNeutrophils (%) (Auto)2019-05-02 05:23:00 * Test Item Value Reference Range Interpretation Comments Neutrophils (%) (Auto) (test code = 04534-2) 85.5 38.7-80.[address] [facility] LufkinLymphocytes (%) (Auto)2019-05-02 05:23:00 * Test Item Value Reference Range Interpretation Comments Lymphocytes (%) (Auto) (test code = 736-9) 12.0 18.0-39.[address] [facility] LufkinMonocytes (%) (Auto)2019-05-02 05:23:00* Test Item Value Reference Range Interpretation Comments Monocytes (%) (Auto) (test code = 5905-5) 2.1 4.4-11.[address] [facility] LufkinEosinophils (%) (Auto)2019-05-02 05:23:00 * Test Item Value Reference Range Interpretation Comments Eosinophils (%) (Auto) (test code = 713-8) 0.0 0.0-6.0 [facility] LufkinBasophils (%) (Auto)2019-05-02 05:23:00* Test Item Value Reference Range Interpretation Comments Basophils (%) (Auto) (test code = 706-2) 0.1 0.0-1.0 [facility] Memorial LufkinIM GRANULOCYTES %2019-05-02 05:23:00* Test Item Value Reference Range Interpretation Comments IM GRANULOCYTES % (test code = IM GRANULOCYTES %) 0.3 0.0- 1.0 [facility] LufkinNeutrophils # (Auto)2019-05-02 05:23:00* Test Item Value Reference Range Interpretation Comments Neutrophils # (Auto) (test code = 751-8) 7.7 2.1-6.[address] [facility] Memorial LufkinLymphocytes # (Auto)2019-05-02 05:23:00* Test Item Value Reference Range Interpretation Comments Lymphocytes # (Auto) (test code = 16053-1) 1.1 1.0-3.2 [facility] LufkinMonocytes # (Auto)2019-05-02 05:23:00* Test Item Value Reference Range Interpretation Comments Monocytes # (Auto) (test code = 742-7) 0.2 0.2-0.8 [facility] LufkinEosinophils # (Auto)2019-05-02 05:23:00* Test Item Value Reference Range Interpretation Comments Eosinophils # (Auto) (test code = 711-2) 0.0 0.0-0.4 [facility] LufkinBasophils # (Auto)2019-05-02 05:23:00* Test Item Value Reference Range Interpretation Comments Basophils # (Auto) (test code = 704-7) 0.0 0.0-0.1 [facility] Memorial LufkinAbsolute Immature Granulocyte (auto 2019-05-02 05:23:00* Test Item Value Reference Range Interpretation Comments Absolute Immature Granulocyte (auto (tere t code = Absolute Immature Granulocyte (auto) 0.03 0-0.1 [facility] LufkinBlood leukocytes automated count (number/volume)2019-05-02 04:05:00* Test Item Value Reference Range Interpretation Comments White Blood Count (test code = 6690-2) 9.00 4.8-10.8 [facility] LufkinBlood erythrocytes automated count (number/volume)2019-05-02 04:05:00* Test Item Value Reference Range Interpretation Comments Red Blood Count (test code = 789-8) 5.16 3.6-5.1 [facility]kinBltyler hospital hemoglobin measurement (moles/volume)2019-05-02 04:05:00* Test Item Value Reference Range Interpretation Comments Hemoglobin (test code = 53084-6) 14.5 12.0-16.0 [facility] LufkinAutomated blood hematocrit (volume fraction)2019-05-02 04:05:00* Test Item Value Reference Range Interpretation Comments Hematocrit (test code = 4544-3) 45.0 34.2-44.1 [facility] LufkinAutomated erythrocyte mean corpuscular kfuuxi3925-58-06 04:05:00* Test Item Value Reference Range Interpretation Comments Mean Corpuscular Volume (test code = 787-2) 87.2 81-99 [facility] LufkinAutomated erythrocyte mean corpuscular hemoglobin (mass per erythrocyte)2019-05-02 04:05:00* Test Item Value Reference Range Interpretation Comments Mean Corpuscular Hemoglobin (test code = 785-6) 28.1 28-32 [facility] LufkinAutomated erythrocyte mean corpuscular hemoglobin concentration measurement (mass/volume)2019-05-02 04:05:00* Test Item Value Reference Range Interpretation Comments Mean Corpuscular Hemoglobin Concent (test code = 786-4) 32.2 31-35 [facility] LufkinRDW QnmAg-Gge0315-78-16 04:05:00* Test Item Value Reference Range Interpretation Comments Red Cell Distribution Width (test code = 16587-9) 13.1 11.7 -14.4 [facility] LufkinAutcape fear valley medical centered blood platelet count (count/volume)2019-05-02 04:05:00* Test Item Value Reference Range Interpretation Comments Platelet Count (test code = 777-3) 306 140-360 [facility] Texased blood segmented neutrophil count as percentage of total gbwnqrogfz0935-07-61 04:05:00* Test Item Value Reference Range Interpretation Comments Neutrophils (%) (Auto) (test code = 58030-0) 85.5 38.7-80.0 [facility] LufkinAutomated blood lymphocyte count as percentage ot total tvaeuxgump5975-57-85 04:05:00* Test Item Value Reference Range Interpretation Comments Lymphocytes (%) (Auto) (test code = 736-9) 12.0 18.0-39.1 [facility] LufkinAutomated blood monocyte count as percentage of total pxarejwooo0018-48-79 04:05:00* Test Item Value Reference Range Interpretation Comments Monocytes (%) (Auto) (test code = 5905-5) 2.1 4.4-11.3 [facility] LufkinAutomated blood eosinophil count as percentage of total ugsttfkjmk3606-88-97 04:05:00* Test Item Value Reference Range Interpretation Comments Eosinophils (%) (Auto) (test code = 713-8) 0.0 0.0-6.0 [facility] LufkinAutomated blood basophil count as percentage of total olnqixsjuh9213-99-58 04:05:00* Test Item Value Reference Range Interpretation Comments Basophils (%) (Auto) (test code = 706-2) 0.1 0.0-1.0 [facility] LufkinFluoroscopic procedure less than one hour ibixsbpx4445-27-31 04:05:00* Test Item Value Reference Range Interpretation Comments IM GRANULOCYTES % (test code = IM GRANULOCYTES %) 0.3 0.0- 1.0 [facility] LufkinAutomated blood neutrophil count 2019-05-02 04:05:00* Test Item Value Reference Range Interpretation Comments Neutrophils # (Auto) (test code = 751-8) 7.7 2.1-6.9 [facility] LufkinBlood lymphocytes count (number/volume) 2019-05-02 04:05:00* Test Item Value Reference Range Interpretation Comments Lymphocytes # (Auto) (test code = 57950-5) 1.1 1.0-3.2 [facility] LufkinBlood monocytes automated count (number/volume)2019-05-02 04:05:00* Test Item Value Reference Range Interpretation Comments Monocytes # (Auto) (test code = 742-7) 0.2 0.2-0.8 [facility] LufkinAutomated blood eosinophil count 2019-05-02 04:05:00* Test Item Value Reference Range Interpretation Comments Eosinophils # (Auto) (test code = 711-2) 0.0 0.0-0.4 [facility] LufkinAutomated blood basophil count (count/volume)2019-05-02 04:05:00* Test Item Value Reference Range Interpretation Comments Basophils # (Auto) (test code = 704-7) 0.0 0.0-0.1 [facility] LufkinFluoroscopic procedure less than one hour atgpjawe6409-61-13 04:05:00* Test Item Value Reference Range Interpretation Comments Absolute Immature Granulocyte (auto (tree t code = Absolute Immature Granulocyte (auto) 0.03 0-0.1 [facility] Hospitalerum or plasma sodium measurement (moles/volume)2019-05-02 04:05:00* Test Item Value Reference Range Interpretation Comments Sodium Level (test code = 2951-2) 132 136-145 [facility] Hospitalerum or plasma potassium measurement (moles/volume)2019-05-02 04:05:00* Test Item Value Reference Range Interpretation Comments Potassium Level (test code = 2823-3) 5.0 3.5-5.1 [facility] Hospitalerum or plasma chloride measurement (moles/volume)2019-05-02 04:05:00* Test Item Value Reference Range Interpretation Comments Chloride Level (test code = 2075-0) 96 98-107 [facility] Hospitalerum or plasma carbon dioxide, total measurement (moles/volume)2019-05-02 04:05:00* Test Item Value Reference Range Interpretation Comments Carbon Dioxide Level (test code = 2028-9) 24 22-29 [facility] Hospitalerum or plasma anion nai7151-84-71 04:05:00* Test Item Value Reference Range Interpretation Comments Anion Gap (test code = 40554-2) 17.0 8-16 [facility] Hospitalerum or plasma urea nitrogen measurement (mass/volume)2019-05-02 04:05:00* Test Item Value Reference Range Interpretation Comments Blood Urea Nitrogen (test code = 3094-0) 18 7-26 [facility] Hospitalerum or plasma creatinine measurement (mass/volume)2019-05-02 04:05:00* Test Item Value Reference Range Interpretation Comments Creatinine (test code = 2160-0) 1.12 0.57-1.11 [facility] Hospitalerum or plasma urea nitrogen/creatinine mass xevwc4978-41-91 04:05:00* Test Item Value Reference Range Interpretation Comments BUN/Creatinine Ratio (test code = 3097-3) 16 6- [facility] LufkinEstimated glomerular filtration rate (GFR) zhbiipjxfqumt0279-48-31 04:05:00* Test Item Value Reference Range Interpretation Comments Estimat Glomerular Filtration Rate (test code = 801630413) 46 >60 Ranges were taken from the National Kidney Disease Education Program and the [facility] Kid[facility] Foundation literature.Reference ranges:60 or greater: Xucudf73-30 ( for 3 consecutive months): Chronic kidney disease 15 or less: Kidney failureSt. Luke's Health – Memorial LufkinGlucose basubblkxim2086-23-43 04:05:00* Test Item Value Reference Range Interpretation Comments Glucose Level (test code = TNE6200) 303 74-118 [facility] Hospitalerum or plasma calcium measurement (mass/volume)2019-05-02 04:05:00* Test Item Value Reference Range Interpretation Comments Calcium Level (test code = 70528-8) 9.9 8.4-10.2 [facility] LufkinBNP Jtf-tZwz8975-25-16 04:05:00* Test Item Value Reference Range Interpretation Comments B-Type Natriuretic Peptide (test code = 87565-3) 83.4 0-100 [facility] LufkinBedside Pulhbtw2689-72-95 20:25:00* Test Item Value Reference Range Interpretation Comments Bedside Glucose (test code = 28184-6) 182 70-120 H Meter ID: [id number] Regional Medical CenterCapillary blood glucose measurement by glucometer (mass/volume)2019-05-01 18:42:00* Test Item Value Reference Range Interpretation Comments Bedside Glucose (test code = 72767-8) 182 70-120 Meter ID: [id number] [facility] HospitalC[facility] 2 [facility] - HOPD 2019-05-01 11:48:00 [facility] [address] [place] [address] Patient Name: YASMINE MORRIS MR #: [id number] : 1930 Age/Sex: 88/F Req #: [id number] Adm Physician: SANTINO TREADWELL MD Ordered by: MARCO CRUZ MD Report #: [id number] Location: [facility] Room/Bed: [place] [address] Procedure: [id number] HOPD /CXR 2 VIEW - HOPD Exam Date: 05/01/19 Exam Time: 11 25 REPORT STATUS: Signed EXAMINA TION: CXR 2 VIEW - HOPD INDICATION: Chest pain, shortness of breath. COMPARISON: Chest radiograph 02/03/19. FINDINGS: TUBES and LINES: None. LUNGS: Lungs are moderately inflated. Mild patchy right basilar o pacity, likely atelectasis. No evidence of lobar consolidation or pulmonary ed mirella. PLEURA: No pleural effusion or pneumothorax. HEART AND MEDI ASTINUM: The cardiomediastinal silhouette is unremarkable. Mild eventration of the right hemidiaphragm, unchanged. BONES AND SOFT TISSUES: No acute o sseous abnormality. UPPER ABDOMEN: No free air under the diaphragm. IMPRESSION: No acute radiographic abnormality. Signed by: Dr. Jaja adhikari MD on 05/01/2019 11:51 AM Dictated By: JAJA SERRANO MD 1151 Transcribed By: ARMIDA on 05/01/19 1 151 COPY TO: MARCO CRUZ MD CXR 2 VIEW - JSJC6057-25-52 11:30:00 [place] [address] Patient Name: YASMINE MORRIS MR #: [id number] : 1930 Age/Sex: 88/F Req #: [id number] Adm Physician: Ordered by: MIGUEL KELLY MD Report #: [id number] Location: [facility] Room/Bed: Procedure: [id number] HOP D/CXR 2 VIEW - HOPD Exam Date: 02/13/19 Exam Time: 1 033 REPORT STATUS: Signed Fronta l and lateral views of the chest. HISTORY: Unable to sleep COMPARISON: None available. DISCUSSION: Lungs: Mild eventration of the right hemidiaphragm. No evidence of a consolidative pneumonia or pulmonary alveolar edema. Pleura: No pleural effusion or pneumothorax. Heart and mediastinum: The cardiac silhouette appear(s) within the upper limits of normal. Bones and soft tissues: Appear unremarkable. IMPRESSI ON: No acute radiographic abnormality. Signed by: Kevin CrumOTravon, M.M.M. on 02/13/2019 11:54 AM Dictated By: LEONELA MENDENHALL DO 1154 Transcribed By: ARMIDA on 02/13/19 1153 COPY TO: MIGUEL KELLY MD
== END 2020-02-11 13:38 | disposition short-term general hospital (02) ==
LOC: FSED 11:05
DX: R06.00 Dyspnea, unspecified (principal); I26.99 Other pulmonary embolism without acute cor pulmonale; R22.1 Localized swelling, mass and lump, neck; Z11.59 Encounter for screening for other viral diseases
CPT/HCPCS: 51700; 70491; 71045; 71260; 80053; 81003; 82553; 84484; 85025; 85610; 93005; 99285; Q9967; U0002

== ENCOUNTER 2020-03-02 10:22 | Inpatient (IN) | payer MEDICARE ==
[~2020-03-02] VITALS: Ht 162.6 cm; Wt 100.7 kg
[2020-03-02] MEDS ORDERED: SODIUM CHLORIDE 0.9% 500ML 500 ML IV STA (10:31)
[2020-03-02] MEDS ORDERED: CALCIUM GLUCONATE 10% INJ 4.65 MEQ in SODIUM CHLORIDE 0.9% 50ML 50 ML IV ONE (10:45)
--- NOTE | 2020-03-02 10:50 | Emergency Department Note ---
History of Present Illnes History of Present Illness Chief Complaint: General Medicine Complaints History of Present Illness This is a 89 year old female Chief Complaint Comment Patient in from [facility] via EMS with reports of abnormal labs. Per lab report brought in with the patient, her sodium is 110 and her potassium is 6.1. Per EMS, the facility nurse was concerned the patient would have a seizure so they wanted her sent here for evaluation. Patient does not have any complaints besides "not feelings well". Historian: Naturopathic Doctor/EMS Arrival Mode: [facility] EMS Treatment CLERK SECRETARY: IV Arch Cushion Skiving Machine Operator Required: No Onset (how long ago): unknown Location: Generalized Quality: Feeling unwell Radiation: Reports non-radiation Severity: moderate Onset quality: unable to specify Duration (how long): day(s) Timing of current episode: constant Progression: worsening Chronicity: new Context: Denies recent illness, Denies recent surgery Relieving factors: none Exacerbating factors: none Associated symptoms: Reports denies other symptoms Treatments prior to arrival: none Past Medical/Family History Physician Review I have reviewed the patient's past medical and family history. Any updates have been documented here. Past Medical History Recent Fever: No Clinical Suspicion of Infectio: No New/Unexplained Change in Ment: No Past Medical History: Hypertension, Diabetes, COPD, CHF, A-Fib, Anxiety, H yperlipedemia Other Medical History: OSTEOPOROSIS MORBID OBESITY Other Surgery: Polypectomy Review of Systems Review of Systems Constitutional: Reports as per HPI, Reports weakness EENTM: Reports no symptoms Cardiovascular: Reports no symptoms Respiratory: Reports no symptoms Gastrointestinal: Reports no symptoms Genitourinary: Reports no symptoms Musculoskeletal: Reports no symptoms Integumentary: Reports no symptoms Neurological: Reports no symptoms Psychological: Reports no symptoms Endocrine: Reports no symptoms Hematological/Lymphatic: Reports no symptoms Physical Exam Related Data Allergies: Coded Allergies: No Known Drug Allergies (Verified Allergy, Unknown, 07/02/10) Triage Vital Signs Vital Signs Date Time Temp Pulse Resp B/P (MAP) Pulse Ox O2 Delivery O2 Flow Rate FiO2 03/02/20 10:31 98.1 57 16 99/68 92 Room Air Vital signs reviewed: Yes Physical Exam CONSTITUTIONAL Constitutional: Present well-developed, Present well-nourished HENT HENT: Present normocephalic, Present atraumatic, Present oropharynx clear/moist, Present nose normal HENT L/R: Present left ext ear normal, Present right ext ear normal EYES Eyes: Reports PERRL, Reports conjunctivae normal NECK Neck: Present ROM normal PULMONARY Pulmonary: Present effort normal, Present breath sounds normal CARDIOVASCULAR Cardiovascular: Present regular rhythm, Present heart sounds normal, Present capillary refill normal, Present normal rate GASTROINTESTINAL Abdominal: Present soft, Present nontender, Present bowel sounds normal GENITOURINARY Genitourinary: Present exam deferred SKIN Skin: Present warm, Present dry MUSCULOSKELETAL Musculoskeletal: Present ROM normal NEUROLOGICAL Neurological: Present alert, Present oriented x 3, Present no gross motor or sensory deficits PSYCHOLOGICAL Psychological: Present mood/affect normal, Present judgement normal Results Laboratory Laboratory Laboratory Tests Test 03/02/20 10:33 Lab results reviewed: Yes Imaging Imaging results reviewed: Yes Assessment & Plan Medical Decision Making MDM 89 y.o F presents for hyponatremia and hyperK. Feels unwell but cannot describe it. Denies pain. W/u sows hyponatremia, hyperkalemia. EKG reads inferior STEMI but no CP and no reciprocal changes. Discussed with Dr. Fan who agreees to hold on activation. Trop normal, TSH normal, Na 109, K normal. Will Admit to Dr. Pena. Reassessment Reassessment time: 11:40 Reassessment Well appearing, NAD Assessment & Plan Final Impression: (1) Hyponatremia Depart Disposition: ADMITTED Last Vital Signs Date Time Temp Pulse Resp B/P (MAP) Pulse Ox O2 Delivery O2 Flow Rate FiO2 03/02/20 10:31 98.1 57 16 99/68 92 Room Air Home Meds Reported Medications Cetirizine Hcl (ZYRTEC) 10 Mg Capsule, DAILY THERAPEUTICALLY SUBSTITUTED WITH LORATIDINE 10MG 02/13/19 Ascorbic Acid (VITAMIN C) 500 Mg Capsule.er, DAILY 02/13/19 Temazepam (TEMAZEPAM) 15 Mg Capsule, HS 02/13/19 Simvastatin (SIMVASTATIN) 10 Mg Tablet, 10 MG PO 2100, TAB 02/13/19 Nifedipine (NIFEDIPINE ER) 30 Mg Tab.er.24, 60 DAILY 02/13/19 Metoprolol Tartrate (METOPROLOL TARTRATE) 50 Mg Tablet, 100 MG PO DAILY, TAB 02/13/19 Lisinopril (LISINOPRIL) 2.5 Mg Tablet, 2.5 MG PO DAILY, #30 TAB 02/13/19 Insulin Regular, Human (HUMULIN R) 100 Unit/1 Ml Vial, BID 02/13/19 Insulin Lispro (HUMALOG) 100 Unit/1 Ml Cartridge, 5 UNIT TID 02/13/19 Blood Sugar Diagnostic (GLUCOSE TEST STRIP) 1 Each Strip, 5XD 02/13/19 Gabapentin (GABAPENTIN) 400 Mg Capsule, 600 MG PO BID, #30 CAP 02/13/19 Furosemide (FUROSEMIDE) 40 Mg Tablet, 40 MG PO Daily, #30 TAB 02/13/19 Fluticasone Propionate (FLUTICASONE PROPIONATE) 16 Gm [place].susp, DAILY 02/13/19 [place]-3 Fatty Acids/Fish Oil (FISH OIL 1,000 MG CAPSULE) 1 Each Capsule 02/13/19 Docusate Sodium (DOCUSATE SODIUM) 100 Mg Capsule, 100 MG PO BID PRN for CONSTIPATION, CAP 02/13/19 Cetirizine Hcl/Pseudoephedrine (ALLER-LA NENA D 5-120 MG TABLET) 1 Each Tab.er.12h, BID 02/13/19 Mu-Vits-Min Th/Lycopene/Lutein (CENTRUM SILVER TABLET) 1 Each Tablet, DAILY 02/13/19 Baclofen (BACLOFEN) 10 Mg Tablet, 10 MG PO TID, #90 TAB 02/13/19 Azelastine Hcl (AZELASTINE HCL) 137 Mcg/0.137 Ml [place].pump, HS 02/13/19 Alendronate Sodium (ALENDRONATE SODIUM) 70 Mg Tablet, weekly 02/13/19 Albuterol Sulfate (ALBUTEROL SULFATE) 0.63 Mg/3 Ml Vial.neb, 2-4 Q4HWA PRN for SHORTNESS OF BREATH 02/13/19 Medications in the ED Calcium Gluconate 4.65 meq/Sodium Chloride 60 ml @ 60 mls/hr ONCE ONCE IV ; Start 03/02/20 at 10:45; Stop 03/02/20 at 11:44 Sodium Chloride 500 ml @ 0 mls/hr Q0M STAT IV ; Start 03/02/20 at 10:31; Stop 03/02/20 at 10:34; Status DC ELLI MADRID MD Mar 02, 2020 10:50
[2020-03-02 10:55] LABS: BASOPHILS # (AUTO) 0.1 (0.0-0.1); BASOPHILS % 1.4 % (0.0-1.0); EOSINOPHILS % 0.4 % (0.0-6.0); HEMATOCRIT 30.4 % (34.2-44.1); HEMOGLOBIN 10.2 g/dL (12.0-16.0); LYMPHOCYTES # (AUTO) 0.6 (1.0-3.2); LYMPHOCYTES % 6.9 % (18.0-39.1); MEAN CORPUSCULAR HEMOGLOBIN 25.7 pg (28-32); MEAN CORPUSCULAR HGB CONC 33.6 g/dL (31-35); MEAN CORPUSCULAR VOLUME 76.6 fL (81-99); MONOCYTES # (AUTO) 0.4 (0.2-0.8); MONOCYTES % 4.4 % (4.4-11.3); NEUTROPHILS # (AUTO) 7.2 (2.1-6.9); NEUTROPHILS % 84.7 % (38.7-80.0); PLATELET COUNT 203 x10e3/uL (140-360); RED BLOOD COUNT 3.97 x10e6/uL (3.6-5.1); RED CELL DISTRIBUTION WIDTH 15.9 % (11.7-14.4)
[2020-03-02 11:17] LABS: ALANINE AMINOTRANSFERASE 33 IU/L (0-55); ALBUMIN 2.4 g/dL (3.5-5.0); ALBUMIN/GLOBULIN RATIO 0.8 (0.8-2.0); ALKALINE PHOSPHATASE 107 IU/L (40-150); ANION GAP 10.7 mmol/L (8-16); BLOOD UREA NITROGEN 25 mg/dL (7-26); BUN/CREATININE RATIO 30 (6-25); CALCIUM 7.6 mg/dL (8.4-10.2); CARBON DIOXIDE 22 mmol/L (22-29); CHLORIDE 81 mmol/L (98-107); CREATININE, SERUM 0.84 mg/dL (0.57-1.11); EST GLOMERULAR FILTRATION RATE > 60 ML/MIN (60-); GLUCOSE 185 mg/dL (74-118); POTASSIUM 4.7 mmol/L (3.5-5.1)
[2020-03-02 11:20] LABS: SODIUM 109 mmol/L (136-145)
--- NOTE | 2020-03-02 11:27 | Diagnostic Imaging Report ---
EXAM: CHEST SINGLE (PORTABLE) DATE: 03/02/2020 10:55 AM INDICATION: Generalized weakness, abnormal labs COMPARISON: 02/11/2020 FINDINGS: The trachea is midline. There is unchanged mild elevation of the right hemidiaphragm. There is no evidence for large focal consolidation, pneumothorax, or significant volume pleural effusion. The cardiomediastinal silhouette is stable in appearance. No acute osseous abnormality is identified. The surrounding soft tissues are unremarkable. IMPRESSION: No acute cardiopulmonary process or significant interval change identified from 02/11/2020. Signed by: Dr. Rupert Gaitan MD on 03/02/2020 11:24 AM
--- OUTSIDE RECORDS SUMMARY | 2020-03-02 11:55 | XMS REPORT | Continuity of Care Document ---
Author Author [facility] t Organization [facility] Address 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 Name Role Phone NO, PCP PCP Unavailable Yoselyn Toledo Attphys Unavailable Nadine MATTHEWS, Demar Olethia Attphys Thu MATTHEWS, Khris Attphys Demar MCCOY OLETHIA Attphys Unavailable Keith FERNANDEZ Attphys Unavailable Juan Antonio MATTHEWS, Keri Attphys Yahir TREADWELL Attphys Unavailable Yahir KELLY Attphys Unavailable Demar MCCOY OLETHIA Admphys Unavailable Yahir TREADWELL Admphys Unavailable Payers Payer Name Policy Type Policy Number Effective Date Expiration Date Gregory aki KELSEYCAREKELSEYCARE MEDICARE [id number] 2010-Present [id number] 2010 00:00:00 [facility] REVIEWCDC [id number][place] [address] [id number] 2020 00:00:[address] [facility] Medicare Advantage [id number] 2019 00:0 0:00 [facility] Problems Condition Name Condition Details Condition Category Status Onset Date Resolution Date Last Treatment Date Treating Clinician Comments Source Multiple subsegmental pulmonary emboli without acute c or pulmonale Multiple subsegmental pulmonary emboli without acute cor pulmonale Disease Ac tive 2020-02-13 00:00:00 [facility] Shortness of breath Shortness of breath Disease Active 2020-02-11 00:00 :00 [facility] Will esquivel Shortness of breath at rest Problem Active [facility] Lymphadenitis Problem Active [facility] Mass of neck Problem Active [facility] Allergies, Adverse Reactions, Alerts This patient has no known allergies or adverse reactions. Social History Social Habit Start Date Stop Date Quantity Comments Source Sex Assigned At [facility] Exposure to SARS-CoV-2 (event) Not sure [facility] Tobacco use and exposure 2020-02-11 00:00:00 2020-02-11 00:00:00 Alton esquivel used [facility] History of tobacco use 1976-02-11 00:00:00 Current smoker [facility] Smoking Status Start Date Stop Date Source Former smoker 2020-02-11 00:00:00 2020-02-11 00:00:00 [facility] Medications Ordered Medication Name Filled Medication Name Start Date Stop Da te Current Medication? Ordering Clinician Indication Dosage Frequency Signature (SIG) Comments Components Source apixaban (ELIQUIS) 5 mg Tab tablet 2020-02-24 00:00:00 Yes 5mg Q.5D Take 1 tablet (5 mg total) by mouth 2 (two) times daily. [facility] fluticasone propionate (FLONASE) 50 mcg/actuation nasal spra y 2020-02-22 18:22:29 Yes 1{spray} QD 1 spray by Nasal route piper y. [facility] insulin 70/30, insulin NPH-insulin regul ar, (HUMULIN 70/30 U-100 INSULIN) 100 unit/mL (70-30) injection 2020-02-22 18:22:29 Yes type 2 diabetes mellitus Q.5D Inject subcutaneously 2 (two) times daily 20 un its AM23 units PM . [facility] cefTRIAXone (ROCEPHIN) MBP 1 g in 100 mL NS 2020-02-20 00:00:00 Yes 1g QD Inject 1 g intravenously daily. [facility] mirtazapine (REMERON) 7.5 MG tablet 2020-02-20 00:00:0 0 2020-03-21 23:59:00 Yes 7.5mg QD Take 1 tablet (7.5 mg total) by mouth ni chatatly for 30 days. [facility] apixaban (ELIQUIS) 5 mg Tab tablet 2020-02-20 00:00:00 23:59:00 No 10mg Q.5D Take 2 tablets ( 10 mg total) by mouth 2 (two) times daily for 3 days. [facility] amoxicillin-clavulanate (AUGMENTIN) 500-125 mg per tablet 2020-02-07 00:00:00 2020-02-20 00:00:00 No 1{tbl} Q.[id number] Take 1 tablet by mouth 3 (three) times daily. [facility] amoxicillin-clavulanate (AUGMENTIN) 500-125 mg per tablet 2020-02-07 00:00:00 2020-02-20 00:00:00 No 1{tbl} Q.[id number] Take 1 tablet by mouth 3 (three) times daily. [facility] temazepam (RESTORIL) 15 mg capsule 2020-01-31 00:00:00 00:00:00 No 15mg Take 15 mg by mouth every night as neede d. [facility] gabapentin (NEURONTIN) 600 MG tablet 2019-11-04 00:00:00 Yes 600mg Q.[id number] Take 600 mg by mouth 3 (three) times daily. [facility] insulin lispro (HUMALOG U-100 INSULIN) 100 unit/mL injection 2019-11-04 00:00:00 Yes 5U Q.[id number] 3D 5 Units by abdominal subcutaneous route 3 (three) times daily. [facility] lisinopriL (PRINIVIL,ZESTRIL) 2.5 MG tablet 2019-11-04 00:00:00 Yes 2.5mg QD Take 2.5 mg by mouth daily. [facility] cetirizine-pseudoephedrine (ZYRTEC-D) 5 mg-120 mg per tablet 2019-05-31 00:00:00 Yes 1{tbl} Q.5D Take 1 tablet by mouth 2 (two ) times daily. [facility] furosemide (LASIX) 40 MG tablet 2019-03-28 00:00:00 Yes 40mg QD Take 40 mg by mouth daily. [facility] metoprolol tartrate (LOPRESSOR) 100 MG tablet 2019-03-28 00:00:0 0 Yes 100mg QD Take 100 mg by mouth daily. [facility] pantoprazole (PROTONIX) 40 MG tablet 2019-03-28 00:00:00 Ye s 40mg QD Take 40 mg by mouth daily. [facility] albuterol HFA (VENTOLIN HFA) 90 mcg/actuation inhaler 2019-03-28 00:00:00 2020-02-20 00:00:00 No 2{puff} Inhal e 2-4 puffs by mouth via inhaler every 4 (four) hours as needed. [facility] simvastatin (ZOCOR) 10 MG tablet 2010-04-23 00:00:00 Yes 10mg QD Take 10 mg by mouth daily. [facility] NIFEdipine (PROCARDIA-XL) 60 MG (OSM) 24 hr tablet 2009-12 00:00:00 Yes 60mg QD Take 60 mg by mouth daily. [facility] alendronate (FOSAMAX) 70 MG tablet 2009-11-05 00:00:00 Yes 70mg Q7D Take 70 mg by mouth once a week. [facility] Albuterol Sulfate Albuterol Sulfate Yes Every 4 Hours While Awake as needed for Shortness Of Breath [facility] Alendronate Sodium Alendronate Sodium Yes We ekly [facility] Ascorbic Acid (Vitamin C) 500 Mg CAPSULE.ER Ascorbic A denice (Vitamin C) 500 Mg CAPSULE.ER Yes Daily [facility] Azelastine Hcl Azelastine Hcl Yes Bedtime [facility] Baclofen Baclofen Yes 10 Three Times A Day [facility] Blood Sugar Diagnostic (Glucose Test Strip) 1 Each STR IP Blood Sugar Diagnostic (Glucose Test Strip) 1 Each STRIP Yes 5 Ti mes Daily [facility] Cetirizine Hcl (Zyrtec) 10 Mg CAPSULE Cetirizine Hcl (Zyrtec) 10 Mg CAPSULE Yes Daily [facility] Cetirizine Hcl/Pseudoephedrine (Aller-Deepali D 5-120 Mg T ablet) 1 Each TAB.ER.12H Cetirizine Hcl/Pseudoephedrine (Aller-Deepali D 5-120 Mg Tablet) 1 Each TAB.ER.12H Yes Twice A Day [facility] Docusate Sodium Docusate Sodium Yes 100 Twice A Day as needed for Constipation [facility] Fluticasone Propionate Fluticasone Propionate Yes Daily [facility] Furosemide Furosemide Yes 40 Daily [facility] Gabapentin Gabapentin Yes 600 Twice A Day [facility] Insulin Lispro (Humalog) 100 Unit/1 Ml CARTRIDGE Insul in Lispro (Humalog) 100 Unit/1 Ml CARTRIDGE Yes 5 Three Times A Day [facility] Insulin Regular, Human (Humulin R) 100 Unit/1 Ml VIAL Insulin Regular, Human (Humulin R) 100 Unit/1 Ml VIAL Yes Twice A Day [facility] Lisinopril Lisinopril Yes 2.5 Daily [facility] Metoprolol Tartrate Metoprolol Tartrate Yes 100 Daily [facility] Mu-Vits-Min Th/Lycopene/Lutein (Centrum Silver Tablet) 1 Each TABLET Mu-Vits-Min Th/Lycopene/Lutein (Centrum Silver Tablet) 1 Each TABLET Yes Daily [facility] Nifedipine (Nifedipine Er) 30 Mg TAB.ER.24 Nifedipine (Nifedipine Er) 30 Mg TAB.ER.24 Yes 60 Daily [facility] [place]-3 Fatty Acids/Fish Oil (Fish Oil 1,000 Mg Capsul e) 1 Each CAPSULE [place]-3 Fatty Acids/Fish Oil (Fish Oil 1,000 Mg Capsule) 1 Each CAPSULE Yes [facility] Simvastatin Simvastatin Yes 10 Today At 9:00PM [facility] Temazepam Temazepam Yes Bedtime [facility] Fluticasone Fluticasone 2019-02-13 00:00:00 [facility] Furosemide Furosemide 2019-02-13 00:00:00 [facility] Lisinopril Lisinopril 2019-02-13 00:00:00 [facility] Metoprolol Metoprolol 2019-02-13 00:00:00 [facility] Nifedical Nifedical 2019-02-13 00:00:00 [facility] Simvastatin Simvastatin 2019-02-13 00:00:00 [facility] Vital Signs Vital Name Observation Time Observation Value Comments Source Systolic blood pressure 2020-02-22 15:20:00 146 mm[Hg] [facility] Diastolic blood pressure 2020-02-22 15:20:00 61 mm[Hg] [facility] Heart rate 2020-02-22 15:20:00 85 /min [facility] Body temperature 2020-02-22 15:20:00 37.78 Debbi [facility] Respiratory rate 2020-02-22 15:20:00 19 /min [facility] Oxygen saturation in Arterial blood by Pulse oximetry 2019-05 15:20:00 98 /min [facility] Body height 2020-02-11 17:00:00 162.6 cm [facility] Body weight 2020-02-11 17:00:00 98.431 kg [facility] BMI 2020-02-11 17:00:00 37.25 kg/m2 [facility] Weight 2020-02-11 11:00:00 231 [lb_av] [facility] BMI (Body Mass Index) 2020-02-11 11:00:00 39.7 kg/m2 [facility] Body Temperature 2019-05-02 11:00:00 97.3 [degF] [facility] Procedures Procedure Date / Time Performed Performing Clinician Sour e POCT-GLUCOSE METER 2020-02-22 [facility] 2020-02-22 11:30:00 [facility] POCT-GLUCOSE METER 2020-02-22 07:22:00 Thu, [facility] POCT-GLUCOSE METER 2020-02-21 20:40:00 Thu, [facility] POCT-GLUCOSE METER 2020-02-21 16:27:00 Thu, [facility] POCT-GLUCOSE METER 2020-02-21 11:20:00 Thu, [facility] POCT-GLUCOSE METER 2020-02-21 07:18:00 Thu, [facility] POCT-GLUCOSE METER 2020-02-20 20:45:00 Thu, [facility] POCT-GLUCOSE METER 2020-02-20 16:25:00 Thu, [facility] POCT-GLUCOSE METER 2020-02-20 11:37:00 [facility] POCT-GLUCOSE METER 2020-02-20 07:29:00 [facility] BASIC METABOLIC PANEL (7) 2020-02-20 06:06:00 Marylou Trammell [facility] CBC W/PLT COUNT & AUTO DIFFERENTIAL 2020-02-20 06:06:00 Yoselyn Trammell [facility] POCT-GLUCOSE METER 2020-02-19 20:09:00 [facility] POCT-GLUCOSE METER 2020-02-19 16:32:00 Thu, [facility] POCT-GLUCOSE METER 2020-02-19 11:55:00 Thu, [facility] POCT-GLUCOSE METER 2020-02-19 07:39:00 Thu, [facility] BASIC METABOLIC PANEL (7) 2020-02-19 04:59:00 Marylou Trammell [facility] CBC W/PLT COUNT & AUTO DIFFERENTIAL 2020-02-19 04:59:00 Yoselyn Trammell hoa William [facility] POCT-GLUCOSE METER 2020-02-18 21:20:00 Thu, [facility] CT BRAIN WITHOUT IV CONTRAST 2020-02-18 21:12:00 Thu, [facility] POCT-GLUCOSE METER 2020-02-18 17:17:00 [facility] POCT-GLUCOSE METER 2020-02-18 11:23:00 [facility] BASIC METABOLIC PANEL (7) 2020-02-18 09:58:00 Marylou Trammell [facility] POCT-GLUCOSE METER 2020-02-18 07:30:00 Thu [facility] POCT-GLUCOSE METER 2020-02-17 21:44:00 [facility] POCT-GLUCOSE METER 2020-02-17 16:41:00 [facility] URINE CULTURE 2020-02-17 16:32:00 [facility] URINALYSIS W/ REFLEX URINE CULTURE 2020-02-17 16:32:00 Yoselyn Andino [facility] POCT-GLUCOSE METER 2020-02-17 11:51:00 [facility] POCT-GLUCOSE METER 2020-02-17 07:57:00 [facility] BASIC METABOLIC PANEL (7) 2020-02-17 04:16:00 Thu, [facility] POCT-GLUCOSE METER 2020-02-16 20:40:00 [facility] BLOOD CULTURE 2020-02-16 16:55:00 [facility] LACTIC ACID, VENOUS 2020-02-16 16:55:00 Thu, [facility] CORTISOL,60 MIN 2020-02-16 16:55:00 Thu, [facility] POCT-GLUCOSE METER 2020-02-16 16:25:00 Thu, [facility] BLOOD CULTURE 2020-02-16 16:17:00 Thu, [facility] CORTISOL,30 MIN 2020-02-16 16:17:00 Thu, [facility] CBC W/PLT COUNT & AUTO DIFFERENTIAL 2020-02-16 16:17:00 Thu, [facility] ACTH STIMULATION 2020-02-16 15:40:00 Thu, [facility] CORTISOL,BASELINE 2020-02-16 15:40:00 Thu, [facility] POCT-GLUCOSE METER 2020-02-16 11:49:00 Thu, [facility] POCT-GLUCOSE METER 2020-02-16 07:51:00 Thu, [facility] PROCALCITONIN 2020-02-16 05:38:00 [facility] PO[facility] 2020-02-15 20:48:00 [facility] BASIC METABOLIC PANEL (7) 2020-02-15 18:08:00 [facility] POCT-GLUCOSE METER 2020-02-15 16:31:00 [facility] POCT-GLUCOSE METER 2020-02-15 11:36:00 [facility] POCT-GLUCOSE METER 2020-02-15 08:19:00 [facility] POCT-GLUCOSE METER 2020-02-14 21:22:00 Thu, [facility] POCT-GLUCOSE METER 2020-02-14 16:35:00 Thu, [facility] POCT-GLUCOSE METER 2020-02-14 10:49:00 Khris Andino [facility] LACTATE DEHYDROGENASE (LDH) 2020-02-14 10:15:00 Khris Andino [facility] BASIC METABOLIC PANEL (7) 2020-02-14 10:15:00 Khris Andino [facility] CARCINOEMBRYONIC ANTIGEN (CEA) 2020-02-14 10:15:00 Khris Andino [facility] APTT 2020-02-14 10:15:00 Aleksandra Nam [facility] HEMOGLOBIN A1C 2020-02-14 02:54:00 Khris Andino [facility] B-TYPE NATRIURETIC FACTOR (BNP) 2020-02-14 02:54:00 Owen Andino [facility] APTT 2020-02-14 02:54:00 Aleksandra Nam [facility] CBC W/PLT COUNT & AUTO DIFFERENTIAL 2020-02-14 02:54:00 Khris Andino [facility] (CELLAVISION MANUAL DIFF) 2020-02-14 02:54:00 Khris Andino [facility] APTT 2020-02-14 01:18:00 Aleksandra Nam [facility] APTT 2020-02-14 00:27:00 Aleksandra Nam [facility] XR CHEST 1 VIEW PORTABLE/BEDSIDE 2020-02-13 19:32:00 David Mckeon [facility] APTT 2020-02-13 18:15:00 Aleksandra Nam [facility] POCT-GLUCOSE METER 2020-02-13 17:21:00 Khris Andino [facility] FLOW CYTOMETRY REQUISITION 2020-02-13 16:49:00 Khris Andino [facility] TISSUE EXAM 2020-02-13 16:49:00 Khris Andino [facility] FLOW CYTOMETRY 2020-02-13 16:49:00 Khris Andino [facility] US NECK BIOPSY 2020-02-13 16:30:00 Khris Andino [facility] 2D ECHO W/ DOPPLER (CW/PW/COLOR) 2020-02-13 12:37:27 Geovany Mccoy [facility] POCT-GLUCOSE METER 2020-02-13 11:30:00 Khris Andino [facility] APTT 2020-02-13 09:04:00 Aleksandra Nam [facility] PROTHROMBIN TIME/INR 2020-02-13 09:04:00 Garland Mccoy [facility] POCT-GLUCOSE METER 2020-02-13 07:13:00 Garland Mccoy [facility] POCT-GLUCOSE METER 2020-02-12 21:55:00 Garland Mccoy [facility] POCT-GLUCOSE METER 2020-02-12 16:22:00 Garland Mccoy [facility] POCT-GLUCOSE METER 2020-02-12 11:17:00 Garland Mccoy [facility] POCT-GLUCOSE METER 2020-02-12 07:16:00 Garland Mccoy [facility] BASIC METABOLIC PANEL (7) 2020-02-12 04:56:00 Garland Mccoy [facility] CBC W/PLT COUNT & AUTO DIFFERENTIAL 2020-02-12 04:56:00 Garland Mccoy [facility] (CELLAVISION MANUAL DIFF) 2020-02-12 04:56:00 Garland Mccoy [facility] POCT-GLUCOSE METER 2020-02-11 21:31:00 Garland Mccoy [facility] VENOUS DOPPLER LEGS BILATERAL 2020-02-11 20:35:00 Lisa Mccoy [facility] SARS-COV2/RT-PCR ([facility]) 2020-02-11 17:09:00 Garland Mccoy [facility] POCT-GLUCOSE METER 2020-02-11 16:23:00 Garland Mccoy [facility] Plan of Care Planned Activity Planned Date Details Comments Source Future Scheduled Test 2020-01-17 00:00:00 INFLUENZA VACCINE (#1) [code = INFLUENZA VACCINE (#1)] [facility] Alondrae r Future Scheduled Test 2011-05-19 00:00:00 MEDICARE ANNUAL WE LLNESS (YEAR 2 or FIRST YEAR if no IPPE) [code = MEDICARE ANNUAL WELLNESS (YEAR 2 or FIRST YEAR if no IPPE)] [facility] r Encounters Start Date/Time End Date/Time Encounter Type Admission Type [facility] Care Department Encounter ID Source 2020-02-11 11:05:00 2020-02-11 11:05:00 Registered Emergency Room 1 CARLOS FERNANDEZ [facility] [id number] [facility] 2019-05-01 09:59:00 2019-05-02 14:59:00 Discharged Inpatient (obs) 1 MILE SANTINO [facility] [id number] [facility] 2019-02-13 09:56:00 2019-02-13 13:27:00 Departed Emergency Room 1 MIGUEL KELLY [facility] [id number] [facility] Results Test Description Test Time Test Comments Results Result Comments Source CHEST SINGLE (PORTABLE) 2020-03-02 11:22:00 [facility] 1930 Sex: F [address], [place], [place] [address] Patient Name: PATIENCE MORRIS MR #: [id number] : 1930 Age/Sex: 89/F Req #: [id number] Adm Physician: Ordered by: Elli Toledo MD Report #: [id number] Location: ER Room/Bed: Procedure: [id number] DX/CHEST SINGLE (PORTABLE) Exam Date: 03/02/20 Exam Time: 1055 REPORT STATUS: Signed EXAM: CHEST SINGLE (PORTABLE) DATE: 03/02/2020 10:55 AM INDICATION: Generalized weakness, abnormal labs COMPARISON: 02/11/2020 FINDINGS: The trachea is midline. There is unchanged mild elevation of the right hemidiaphragm. There is no evidence for large focal consolidation, pneumothorax, or significant volume pleural effusion. The cardiomediastinal silhouette is stable in appearance. No acute osseous abnormality is identified. The surrounding soft tissues are unremarkable. IMPRESSION: No acute cardiopulmonary process or significant interval change identified from 02/11/2020. Signed by: Dr. Rupert Gaitan MD on 03/02/2020 11:24 AM Dictated By: RUPERT GAITAN MD 23 Transcribed By: ARMIDA on 03/02/201123 COPY TO: ELLI TOLEDO MD POC-Glucose meter 2020-02-22 17:02:00 Test Item POC-Glucose Meter (test code = 1538) 162 mg/dL 70-110 H : TESTED AT [facility] [address], [address]: [employer] Engineer/Chief Lock Operator ID = [id number] for ELISHA STANLEY Lab Interpretation (test code = 63399-3) [facility]normal [facility] [id number] 17:02:00* Test Item Value Reference Range Interpretation Comments POC-GLUCOSE METER (BEAKER) (test code = 1538) 162 mg/dL 70-110 H : TESTED AT [address], [address]: [employer] Engineer/Chief Lock Operator ID = [id number] for SUBLET, ELISHA POCT-GLUCOSE [id number] 11:42:00* Test Item Value Reference Range Interpretation Comments POC-GLUCOSE METER (BEAKER) (test code = 1538) 207 mg/dL 70-110 H : TESTED AT [address], [address]: [employer] Engineer/Chief Lock Operator ID = [id number] for SUBLET, ELISHA POCT-GLUCOSE [id number] 07:33:00* Test Item Value Reference Range Interpretation Comments POC-GLUCOSE METER (BEAKER) (test code = 1538) 114 mg/dL 70-110 H : TESTED AT [address], [address]: [employer] Engineer/Chief Lock Operator ID = [id number] for SUBLET, ELISHA POCT-GLUCOSE [id number] 20:51:00* Test Item Value Reference Range Interpretation Comments POC-GLUCOSE METER (BEAKER) (test code = 1538) 263 mg/dL 70-110 H : TESTED AT [address], [address]: [employer] Engineer/Chief Lock Operator ID = [id number] for Rachell Delatorre (contract) Blood Culture - Routine (Right Venipuncture)2020-02-21 18:01:00* Test Item Value Reference Range Interpretation Comments Result (test code = 6463-4) No growth in 5 days [facility] [id number] 18:01:00* Test Item Value Reference Range Interpretation Comments CULTURE (BEAKER) (test code = 1095) No growth in 5 days BLOOD [id number] 18:01:00* Test Item Value Reference Range Interpretation Comments CULTURE (BEAKER) (test code = 1095) No growth in 5 days POCT-GLUCOSE [id number] 16:39:00* Test Item Value Reference Range Interpretation Comments POC-GLUCOSE METER (BEAKER) (test code = 1538) 214 mg/dL 70-110 H : TESTED AT [address], [address]: [employer] Engineer/Chief Lock Operator ID = [id number] for АЛЕКСАНДР, LATANDRIA POCT-GLUCOSE [id number] 11:32:00* Test Item Value Reference Range Interpretation Comments POC-GLUCOSE METER (BEAKER) (test code = 1538) 227 mg/dL 70-110 H : TESTED AT [address], [address]: [employer] Engineer/Chief Lock Operator ID = [id number] for АЛЕКСАНДР, LATANDRIA POCT-GLUCOSE [id number] 07:30:00* Test Item Value Reference Range Interpretation Comments POC-GLUCOSE METER (BEAKER) (test code = 1538) 150 mg/dL 70-110 H : TESTED AT [address], [address]: [employer] Engineer/Chief Lock Operator ID = [id number] for CAPO EDWARDA POCT-GLUCOSE [id number] 20:57:00* Test Item Value Reference Range Interpretation Comments POC-GLUCOSE METER (BEAKER) (test code = 1538) 291 mg/dL 70-110 H : TESTED AT [address], [address]: [employer] Engineer/Chief Lock Operator ID = [id number] for ALONSO, IDALMISON POCT-GLUCOSE [id number] 16:39:00* Test Item Value Reference Range Interpretation Comments POC-GLUCOSE METER (BEAKER) (test code = 1538) 214 mg/dL 70-110 H : TESTED AT [address], [address]: [employer] Engineer/Chief Lock Operator ID = [id number] for TEZENO, ROMAN POCT-GLUCOSE [id number] 11:50:00* Test Item Value Reference Range Interpretation Comments POC-GLUCOSE METER (BEAKER) (test code = 1538) 247 mg/dL 70-110 H : TESTED AT [address], [address]: [employer] Engineer/Chief Lock Operator ID = [id number] for MARYLOU VASQUES POCT-GLUCOSE [id number] 07:44:00* Test Item Value Reference Range Interpretation Comments POC-GLUCOSE METER (BEAKER) (test code = 1538) 103 mg/dL 70-110 : TESTED AT [address], [address]: [employer] Engineer/Chief Lock Operator ID = [id number] for MARYLOU AVSQUES Basic Metabolic [id number] 06:53:00* Test Item Value Reference Range Interpretation Comments Sodium (test code = 2951-2) 130 meq/L 136-145 L Potassium (test code = 2823-3) 5.1 meq/L 3.5-5.1 Specimen slightly hemolyzed Chloride (test code = 2075-0) 94 meq/L 98-107 L CO2 (test code = 2028-9) 28 meq/L 22-29 BUN (test code = 3094-0) 18 mg/dL 7-21 Creatinine (test code = 2160-0) 0.72 mg/dL 0.57-1.25 Specimen slightly hemolyzed Glucose (test code = 2345-7) 96 mg/dL 70-105 Calcium (test code = 73164-0) 8.6 mg/dL 8.4-10.2 EGFR (test code = 33118-0) I NSUFFICIENT CLINICAL DATA TO CALCULATE ESTIMATED GFR. LIZ (test code = LIZ) [employer] Engineer ID Kelly [id number] F Lab Interpretation (test code = 53525-3) Abnormal [facility] METABOLIC [id number] 06:53:00* Test Item Value Reference Range Interpretation Comments SODIUM (BEAKER) (test code = 381) 130 meq/L 136-145 L POTASSIUM (BEAKER) (test code = 379) 5.1 meq/L 3.5-5.1 Specimen slightly hemolyzed CHLORIDE (BEAKER) (test code = 382) 94 meq/L 98-107 L CO2 (BEAKER) (test code = 355) 28 meq/L 22-29 BLOOD UREA NITROGEN (BEAKER) (test code = 354) 18 mg/dL 7-21 CREATININE (BEAKER) (test code = 358) 0.72 mg/dL 0.57-1.25 Specimen slightly hemolyzed GLUCOSE RANDOM (BEAKER) (test code = 652) 96 mg/dL 70-105 CALCIUM (BEAKER) (test code = 697) 8.6 mg/dL 8.4-10.2 EGFR (BEAKER) (test code = 1092) INSUFFICIENT CLINICAL DATA TO CALCULATE ESTIMATED GFR. [employer] Engineer CLARY Kelly CIFUENTES FCBC with platelet count + automated [id number] 06:26:00* Test Item Value Reference Range Interpretation Comments WBC (test code = 6690-2) 10.7 3.5- 10.5 K/L H RBC (test code = 789-8) 4.96 3.93- 5.22 M/L MCHC (test code = 786-4) 30.9 32.2- 35.5 GM/DL L Hematocrit (test code = 4544-3) 40.4 % 34.1-44.9 MCV (test code = 787-2) 81.5 fL 79.4-94.8 MCH (test code = 785-6) 25.2 pg 25.6-32.2 L RDW (test code = 788-0) 16.3 % 11.7-14.4 H Platelets (test code = 777-3) 313 150- 450 K/CU MM MPV (test code = 55618-1) 10.6 fL 9.4-12.3 nRBC (test code = 413) 0 0- 0 /100 WBC % Neutros (test code = 429) 71 % % Lymphs (test code = 430) 15 % % Monos (test code = 431) 11 % % Eos (test code = 432) 1 % % Baso (test code = 437) 1 % # Neutros (test code = 670) 7.64 1.56- 6.13 K/L H # Lymphs (test code = 414) 1.60 1.18- 3.74 K/L # Monos (test code = 415) 1.18 0.24- 0.36 K/L H # Eos (test code = 416) 0.05 0.04- 0.36 K/L # Baso (test code = 417) 0.05 0.01- 0.08 K/L Immature Granulocytes-Relative (test code = 2801) 2 % 0-1 H Lab Interpretation (test code = 29371-9) [facility]normal [facility]O [id number] 06:26:00* Test Item Value Reference Range Interpretation Comments WHITE BLOOD CELL COUNT (BEAKER) (test code = 775) 10.7 K/ L 3.5- 10.5 H RED BLOOD CELL COUNT (BEAKER) (test code = 761) 4.96 M/ L 3.93-5 .22 HEMOGLOBIN (BEAKER) (test code = 410) 12.5 GM/DL 11.2-15.7 HEMATOCRIT (BEAKER) (test code = 411) 40.4 % 34.1-44.9 MEAN CORPUSCULAR VOLUME (BEAKER) (test code = 753) 81.5 fL 79. 4-94.8 MEAN CORPUSCULAR HEMOGLOBIN (BEAKER) (test code = 751) 25.2 pg 25.6-32.2 L MEAN CORPUSCULAR HEMOGLOBIN CONC (BEAKER) (test code = 752) 30.9 GM/DL 32.2-35.5 L RED CELL DISTRIBUTION WIDTH (BEAKER) (test code = 412) 16.3 % 11.7-14.4 H PLATELET COUNT (BEAKER) (test code = 756) 313 K/CU MM 150-450 MEAN PLATELET VOLUME (BEAKER) (test code = 754) 10.6 fL 9.4-12 .3 NUCLEATED RED BLOOD CELLS (BEAKER) (test code = 413) 0 /100 WBC 0 -0 NEUTROPHILS RELATIVE PERCENT (BEAKER) (test code = 429) 71 % LYMPHOCYTES RELATIVE PERCENT (BEAKER) (test code = 430) 15 % MONOCYTES RELATIVE PERCENT (BEAKER) (test code = 431) 11 % EOSINOPHILS RELATIVE PERCENT (BEAKER) (test code = 432) 1 % BASOPHILS RELATIVE PERCENT (BEAKER) (test code = 437) 1 % NEUTROPHILS ABSOLUTE COUNT (BEAKER) (test code = 670) 7.64 K/ L 1.56-6.13 H LYMPHOCYTES ABSOLUTE COUNT (BEAKER) (test code = 414) 1.60 K/ L 1.18-3.74 MONOCYTES ABSOLUTE COUNT (BEAKER) (test code = 415) 1.18 K/ L 0. 24-0.36 H EOSINOPHILS ABSOLUTE COUNT (BEAKER) (test code = 416) 0.05 K/ L 0.04-0.36 BASOPHILS ABSOLUTE COUNT (BEAKER) (test code = 417) 0.05 K/ L 0. 01-0.08 IMMATURE GRANULOCYTES-RELATIVE PERCENT (BEAKER) (test code = 2801) 2 % 0-1 H POCT-GLUCOSE [id number] 20:20:00* Test Item Value Reference Range Interpretation Comments POC-GLUCOSE METER (BEAKER) (test code = 1538) 340 mg/dL 70-110 H : TESTED AT [address], [address]: [employer] Engineer/Chief Lock Operator ID = [id number] for MARC GUPTA POCT-GLUCOSE [id number] 16:46:00* Test Item Value Reference Range Interpretation Comments POC-GLUCOSE METER (BEAKER) (test code = 1538) 347 mg/dL 70-110 H : TESTED AT [address], [address]: [employer] Engineer/Chief Lock Operator ID = [id number] for SHARON WILKS POCT-GLUCOSE [id number] 12:08:00* Test Item Value Reference Range Interpretation Comments POC-GLUCOSE METER (BEAKER) (test code = 1538) 227 mg/dL 70-110 H : TESTED AT [address], [address]: [employer] Engineer/Chief Lock Operator ID = [id number] for АЛЕКСАНДР LOCOVINCENT POCT-GLUCOSE [id number] 07:51:00* Test Item Value Reference Range Interpretation Comments POC-GLUCOSE METER (BEAKER) (test code = 1538) 138 mg/dL 70-110 H : TESTED AT [address], [address]: [employer] Engineer/Chief Lock Operator ID = [id number] for MARISABEL CARMER CBC W/PLT COUNT & AUTO [id number] 06:35:00* Test Item Value Reference Range Interpretation Comments WHITE BLOOD CELL COUNT (BEAKER) (test code = 775) 15.9 K/ L 3.5- 10.5 H RED BLOOD CELL COUNT (BEAKER) (test code = 761) 4.54 M/ L 3.93-5 .22 HEMOGLOBIN (BEAKER) (test code = 410) 11.7 GM/DL 11.2-15.7 HEMATOCRIT (BEAKER) (test code = 411) 36.7 % 34.1-44.9 MEAN CORPUSCULAR VOLUME (BEAKER) (test code = 753) 80.8 fL 79. 4-94.8 MEAN CORPUSCULAR HEMOGLOBIN (BEAKER) (test code = 751) 25.8 pg 25.6-32.2 MEAN CORPUSCULAR HEMOGLOBIN CONC (BEAKER) (test code = 752) 31.9 GM/DL 32.2-35.5 L RED CELL DISTRIBUTION WIDTH (BEAKER) (test code = 412) 15.9 % 11.7-14.4 H PLATELET COUNT (BEAKER) (test code = 756) 247 K/CU MM 150-450 MEAN PLATELET VOLUME (BEAKER) (test code = 754) 11.6 fL 9.4-12 .3 NUCLEATED RED BLOOD CELLS (BEAKER) (test code = 413) 0 /100 WBC 0 -0 NEUTROPHILS RELATIVE PERCENT (BEAKER) (test code = 429) 83 % LYMPHOCYTES RELATIVE PERCENT (BEAKER) (test code = 430) 9 % MONOCYTES RELATIVE PERCENT (BEAKER) (test code = 431) 7 % EOSINOPHILS RELATIVE PERCENT (BEAKER) (test code = 432) 0 % BASOPHILS RELATIVE PERCENT (BEAKER) (test code = 437) 0 % NEUTROPHILS ABSOLUTE COUNT (BEAKER) (test code = 670) 13.17 K/ L 1.56-6.13 H LYMPHOCYTES ABSOLUTE COUNT (BEAKER) (test code = 414) 1.45 K/ L 1.18-3.74 MONOCYTES ABSOLUTE COUNT (BEAKER) (test code = 415) 1.07 K/ L 0. 24-0.36 H EOSINOPHILS ABSOLUTE COUNT (BEAKER) (test code = 416) 0.01 K/ L 0.04-0.36 L BASOPHILS ABSOLUTE COUNT (BEAKER) (test code = 417) 0.07 K/ L 0. 01-0.08 IMMATURE GRANULOCYTES-RELATIVE PERCENT (BEAKER) (test code = 2801) 1 % 0-1 BASIC METABOLIC [id number] 06:12:00* Test Item Value Reference Range Interpretation Comments SODIUM (BEAKER) (test code = 381) 130 meq/L 136-145 L POTASSIUM (BEAKER) (test code = 379) 4.4 meq/L 3.5-5.1 CHLORIDE (BEAKER) (test code = 382) 95 meq/L 98-107 L CO2 (BEAKER) (test code = 355) 26 meq/L 22-29 BLOOD UREA NITROGEN (BEAKER) (test code = 354) 23 mg/dL 7-21 H CREATININE (BEAKER) (test code = 358) 0.73 mg/dL 0.57-1.25 GLUCOSE RANDOM (BEAKER) (test code = 652) 160 mg/dL 70-105 H CALCIUM (BEAKER) (test code = 697) 8.3 mg/dL 8.4-10.2 L EGFR (BEAKER) (test code = 1092) INSUFFICIENT CLINICAL DATA TO CALCULATE ESTIMATED GFR. [employer] Engineer ID - EDERROLT, BRAIN, WITHOUT [id number] 22:49:00CT Brain form 02/16 pending, per patients request CT to be done 02/17.Unlisted Reason for Exam - Click Yes and Enter Reason Below->NoFINAL REPORT CT Head without contrast CLINICAL HISTORY: Head trauma, altered mental status (Ped 0-18y) TECHNIQUE: Contiguous axial images through the head without contrast. This exam was performed according to the departmental dose optimization program which includes automated exposure control, adjustment of the mA and/or kV according to the patient size, and/or use of an iterative reconstruction technique. COMPARISON: None FINDINGS: There is no CT evidence of acute infarct or intracranial hemorrhage. There is periventricular and subcortical white matter hypodensity which is nonspecific but compatible with chronic microvascular ischemic change. There are atherosclerotic calcifications of the intracranial circulation. There is generalized parenchymal volume loss without hydrocephalus, midline shift, or apparent mass effect. Basilar cisterns are patent. There are no extra-axial fluid collections. The skull is intact. Air-fl uid level in the right maxillary sinus. Intraorbital contents are unremarkable. IMPRESSION: No CT evidence of acute infarct, hemorrhage, or hydrocephalus. Air- fluid level in the right maxillary sinus. Correlate for signs acute sinusitis. Signed: Florina Rizzo [facility] Verified Date/Time: 02/18/2020 22:49:05 brain without IV [id number] 22:49:00Interface, External Ris In - 02/18/2020 10:[address] Head without contrast CLINICAL HISTORY: Head trauma, altered mental status (Ped 0-18y) TECHNIQUE: Contiguous axial images through the head without contrast. This exam was performed according to the departmental dose optimization program which includes automated exposure control, adjustment of the mA and/or kV according to the patient size, and/or use of an iterative reconstruction technique. COMPARISON: None FINDINGS: There is no CT evidence of acute infarct or int racranial hemorrhage. There is periventricular and subcortical white matter hypo density which is nonspecific but compatible with chronic microvascular ischemic change. There are atherosclerotic calcifications of the intracranial circulation . There is generalized parenchymal volume loss without hydrocephalus, midline sh ift, or apparent mass effect. Basilar cisterns are patent. There are no extra- axial fluid collections. The skull is intact. Air-fluid level in the right maxil thiago sinus. Intraorbital contents are unremarkable. IMPRESSION: No CT evidence of acute infarct, hemorrhage, or hydrocephalus. Air-fluid level in the right ma xillary sinus. Correlate for signs acute sinusitis. Signed: Florina Rizzo Verified Date/Time: 02/18/2020 22:49:05 [facility] POCT-GLUCOSE [id number] 21:32:00* Test Item Value Reference Range Interpretation Comments POC-GLUCOSE METER (BEAKER) (test code = 1538) 335 mg/dL 70-110 H : TESTED AT [address], [address]: [employer] Engineer/Chief Lock Operator ID = [id number] for MARC GUPTA POCT-GLUCOSE [id number] 17:41:00* Test Item Value Reference Range Interpretation Comments POC-GLUCOSE METER (BEAKER) (test code = 1538) 282 mg/dL 70-110 H : TESTED AT [address], [address]: [employer] Engineer/Chief Lock Operator ID = [id number] for MARCIO FELICIANO POCT-GLUCOSE [id number] 11:44:00* Test Item Value Reference Range Interpretation Comments POC-GLUCOSE METER (BEAKER) (test code = 1538) 358 mg/dL 70-110 H : TESTED AT [address], [address]: [employer] Engineer/Chief Lock Operator ID = [id number] for JORDON FELICIANOISTIE BASIC METABOLIC [id number] 10:55:00* Test Item Value Reference Range Interpretation Comments SODIUM (BEAKER) (test code = 381) 126 meq/L 136-145 L POTASSIUM (BEAKER) (test code = 379) 4.7 meq/L 3.5-5.1 CHLORIDE (BEAKER) (test code = 382) 92 meq/L 98-107 L CO2 (BEAKER) (test code = 355) 24 meq/L 22-29 BLOOD UREA NITROGEN (BEAKER) (test code = 354) 18 mg/dL 7-21 CREATININE (BEAKER) (test code = 358) 0.79 mg/dL 0.57-1.25 GLUCOSE RANDOM (BEAKER) (test code = 652) 392 mg/dL 70-105 H CALCIUM (BEAKER) (test code = 697) 8.2 mg/dL 8.4-10.2 L EGFR (BEAKER) (test code = 1092) INSUFFICIENT CLINICAL DATA TO CALCULATE ESTIMATED GFR. [employer] Engineer ID - MARYGPOCT-GLUCOSE [id number] 07:55:00* Test Item Value Reference Range Interpretation Comments POC-GLUCOSE METER (MARION) (test code = 1538) 222 mg/dL 70-110 H : TESTED AT [address], [address]: [employer] Engineer/Chief Lock Operator ID = [id number] for MARCIO FELICIANO POCT-GLUCOSE [id number] 22:02:00* Test Item Value Reference Range Interpretation Comments POC-GLUCOSE METER (MARION) (test code = 1538) 277 mg/dL 70-110 H : TESTED AT [address], [address]: [employer] Engineer/Chief Lock Operator ID = [id number] for DORA DYSON Urinalysis w/Microscopic + Reflex to [id number] 16:57:00* Test Item Value Reference Range Interpretation Comments Color, UA (test code = 5778-6) Yellow Clarity, UA (test code = 5767-9) Hazy Specific [place], UA (test code = 5811-5) 1.011 1.001-1.035 pH, UA (test code = 5803-2) 6.0 5.0-8.0 Protein, UA (test code = 11136-5) Negative Negative Glucose, UA (test code = 365) Negative Negative Ketones, UA (test code = 2514-8) Negative Negative Bilirubin, UA (test code = 20417-2) Negative Negative Blood, UA (test code = 15368-4) Trace Negative A Nitrite, UA (test code = 5802-4) Negative Negative Leukocytes, UA (test code = 5799-2) Large Negative A Urobilinogen, UA (test code = 91588-4) 0.2 mg/dL 0.2-1 RBC, UA (test code = 20069-0) 5 /HPF WBC, UA (test code = 5821-4) 20 /HPF Bacteria, UA (test code = 96003-6) Occasional Mucus (test code = 8247-9) Rare Specimen Source (test code = 2795) LIZ (test code = LIZ) [employer] Engineer ID - [auto][employer] Engineer ID - tech Lab Interpretation (test code = 56047-3) [facility]normal [facility] UR[facility] [id number] 16:57:00* Test Item Value Reference Range Interpretation Comments COLOR (BEAKER) (test code = 470) Yellow CLARITY (BEAKER) (test code = 469) Hazy SPECIFIC GRAVITY UA (BEAKER) (test code = 468) 1.011 1.001-1 .035 PH UA (BEAKER) (test code = 467) 6.0 5.0-8.0 PROTEIN UA (BEAKER) (test code = 464) Negative Negative GLUCOSE UA (BEAKER) (test code = 365) Negative Negative KETONES UA (BEAKER) (test code = 371) Negative Negative BILIRUBIN UA (BEAKER) (test code = 462) Negative Negative BLOOD UA (BEAKER) (test code = 461) Trace Negative A NITRITE UA (BEAKER) (test code = 465) Negative Negative LEUKOCYTE ESTERASE UA (BEAKER) (test code = 466) Large Negat josiane A UROBILINOGEN UA (BEAKER) (test code = 463) 0.2 mg/dL 0.2-1.0 RBC UA (BEAKER) (test code = 519) 5 /HPF WBC UA (BEAKER) (test code = 520) 20 /HPF BACTERIA (BEAKER) (test code = 517) Occasional MUCUS (BEAKER) (test code = 1574) Rare SOURCE(BEAKER) (test code = 2795) [employer] Engineer ID - [auto][employer] Engineer ID - techPOCT-GLUCOSE [id number] 16:52:00* Test Item Value Reference Range Interpretation Comments POC-GLUCOSE METER (BEAKER) (test code = 1538) 136 mg/dL 70-110 H : TESTED AT [facility] [address] [place] [address], [address]: [employer] Engineer/Chief Lock Operator ID = [id number] for JAGDEEPELISHA BAILEY POCT-GLUCOSE [id number] 12:04:00* Test Item Value Reference Range Interpretation Comments POC-GLUCOSE METER (BEAKER) (test code = 1538) 260 mg/dL 70-110 H : TESTED AT [place] [id number] [facility], [address]: [employer] Engineer/Chief Lock Operator ID = [id number] for ELISHA STANLEY POCT-GLUCOSE [id number] 08:10:00* Test Item Value Reference Range Interpretation Comments POC-GLUCOSE METER (BEAKER) (test code = 1538) 155 mg/dL 70-110 H : TESTED AT [place] [id number] [facility], [address]: [employer] Engineer/Chief Lock Operator ID = [id number] for ELISHA STANLEY BASIC METABOLIC [id number] 05:37:00* Test Item Value Reference Range Interpretation Comments SODIUM (BEAKER) (test code = 381) 123 meq/L 136-145 L POTASSIUM (BEAKER) (test code = 379) 4.4 meq/L 3.5-5.1 CHLORIDE (BEAKER) (test code = 382) 89 meq/L 98-107 L CO2 (BEAKER) (test code = 355) 24 meq/L 22-29 BLOOD UREA NITROGEN (BEAKER) (test code = 354) 17 mg/dL 7-21 CREATININE (BEAKER) (test code = 358) 0.71 mg/dL 0.57-1.25 GLUCOSE RANDOM (BEAKER) (test code = 652) 173 mg/dL 70-105 H CALCIUM (BEAKER) (test code = 697) 8.1 mg/dL 8.4-10.2 L EGFR (BEAKER) (test code = 1092) INSUFFICIENT CLINICAL DATA TO CALCULATE ESTIMATED GFR. [employer] Engineer ID - SYLVIA MPOCT-GLUCOSE [id number] 21:54:00* Test Item Value Reference Range Interpretation Comments POC-GLUCOSE METER (BEAKER) (test code = 1538) 194 mg/dL 70-110 H : TESTED AT [address], [address]: [employer] Engineer/Chief Lock Operator ID = [id number] for JEREMY RAE CORTISOL,30 [id number] 18:07:00* Test Item Value Reference Range Interpretation Comments Cortisol, Baseline (test code = 25881-1) 21.5 mcg/dL Cortisol, 30 Minute (test code = 51215-4) 27.3 ug/dL LIZ (test code = LIZ) ACTH STIMULATION TEST IN TERPRETATION GUIDELINES(Synonyms: Cortrosyn Test, Cosyntropin or Corticotropin Stimulation Test) Adenocorticotropic hormone (ACTH)is a tropic hormone, made in the pituitar y gland, which travels trhough the bloodstream and stimulates the cortex of the adrenal glands to release cortisol. Cortisol is a primary hormone, which aids the body's metabolism of fats, carbohydrates, and protein as well as sodium and potassium regulation. ACTH Stimulation Test: Exogenous administration of biologically active ACTH stimulates the secretion of cortisol from the adrenal gland. This test is used to evaluate adrenal function by measuring cortisol levels at baseline and at 30 and 60 minutes after the administration of 250 micrograms of cosyntropin (Cortrosyn). Patients who have received exogenous corticosteroids immediately prior to performing the ACTH Stimulation Test will often have elevated baseline cortisol levels, which may lead to erroneous interpretation of test results. The notable exception is with dexamethasone. Normal Response: An increase in cortisol after stimulation by ACTH is normal. Post-stimulation cortisol concentration should be greater than 20 mcg/dL or the rate of rise from baseline cortisol should be greater than or equal to 9 mcg/dL. Patients with sepsis or septic shock: According to a study by Mauricio et al (NILAM 2000,283(8):1038-45), the ACTH Stimulation Test provides important prognostic information. This study defined 3 groups of patients with sepsis or septic shock: 1. Good Survival: Low basal cortisol (<or=34 mcg/dL) and high ACTH response (>9mcg/dL) 2. Intermediate Survival: Low basal cortisol (<34 mcg/dL) and low response to ACTH (<or=9 mcg/dL) OR High basal cortisol (>34 mcg/dL) or high ACTH response (>9 mcg/dL) 3. Poor Survival: High basal cortisol (>34 mcg/dL) and low ACTH response (<or=9 mcg/dL). Treatment of patients with relative adrenal dysfunction may be indicated based on test results and the clinical condition of the patient. Additional information, including treatment recommendations, is available in critically ill patients, approved by the Pharmacy, Nutrition, and Therapeutics Committee on 04/26/2004 and available through the Pharmacy Policy and Procedure Section on The Source. [employer] Engineer ID - DB [facility] [id number] 18:07:00* Test Item Value Reference Range Interpretation Comments Cortisol, Baseline (test code = 22597-1) 21.5 mcg/dL Cortisol 30 minute (test code = 64536-8) 27.3 mcg/dL Cortisol, 60 Minute (test code = 81557-4) 30.2 ug/dL LIZ (test code = LIZ) ACTH STIMULATION TEST IN TERPRETATION GUIDELINES(Synonyms: Cortrosyn Test, Cosyntropin or Corticotropin Stimulation Test) Adenocorticotropic hormone (ACTH)is a tropic hormone, made in the pituitar y gland, which travels trhough the bloodstream and stimulates the cortex of the adrenal glands to release cortisol. Cortisol is a primary hormone, which aids the body's metabolism of fats, carbohydrates, and protein as well as sodium and potassium regulation. ACTH Stimulation Test: Exogenous administration of biologically active ACTH stimulates the secretion of cortisol from the adrenal gland. This test is used to evaluate adrenal function by measuring cortisol levels at baseline and at 30 and 60 minutes after the administration of 250 micrograms of cosyntropin (Cortrosyn). Patients who have received exogenous corticosteroids immediately prior to performing the ACTH Stimulation Test will often have elevated baseline cortisol levels, which may lead to erroneous interpretation of test results. The notable exception is with dexamethasone. Normal Response: An increase in cortisol after stimulation by ACTH is normal. Post-stimulation cortisol concentration should be greater than 20 mcg/dL or the rate of rise from baseline cortisol should be greater than or equal to 9 mcg/dL. Patients with sepsis or septic shock: According to a study by Mauricio et al (NILAM 2000,283(8):1038-45), the ACTH Stimulation Test provides important prognostic information. This study defined 3 groups of patients with sepsis or septic shock: 1. Good Survival: Low basal cortisol (<or=34 mcg/dL) and high ACTH response (>9mcg/dL) 2. Intermediate Survival: Low basal cortisol (<34 mcg/dL) and low response to ACTH (<or=9 mcg/dL) OR High basal cortisol (>34 mcg/dL) or high ACTH response (>9 mcg/dL) 3. Poor Survival: High basal cortisol (>34 mcg/dL) and low ACTH response (<or=9 mcg/dL). Treatment of patients with relative adrenal dysfunction may be indicated based on test results and the clinical condition of the patient. Additional information, including treatment recommendations, is available in critically ill patients, approved by the Pharmacy, Nutrition, and Therapeutics Committee on 04/26/2004 and available through the Pharmacy Policy and Procedure Section on The Source. [employer] Engineer ID - DB [facility] [id number] 18:07:00* Test Item Value Reference Range Interpretation Comments CORTISOL BASELINE NETWORKED (BEAKER) (test code = 2307) 21.5 mcg/dL CORTISOL 30 MINUTE NETWORKED (BEAKER) (test code = 2308) 27.3 mcg/d L CORTISOL, 60 MINUTE (BEAKER) (test code = 1805) 30.2 ug/dL ACTH STIMULATION TEST INTERPRETATION GUIDELINES(Synonyms: Cortrosyn Test, Co syntropin or Corticotropin Stimulation Test)Adenocorticotropic hormone (ACTH)is a tropic hormone, made in the pituitary gland, which travels trhough the bloodst ream and stimulates the cortex of the adrenal glands to release cortisol. Cortis ol is a primary hormone, which aids the body's metabolism of fats, carbohydrates , and protein as well as sodium and potassium regulation.ACTH Stimulation Test: Exogenous administration of biologically active ACTH stimulates the secretion of cortisol from the adrenal gland. This test is used to evaluate adrenal function by measuring cortisol levels at baseline and at 30 and 60 minutes after the adm inistration of 250 micrograms of cosyntropin (Cortrosyn). Patients who have rece ived exogenous corticosteroids immediately prior to performing the ACTH Stimulat ion Test will often have elevated baseline cortisol levels, which may lead to er roneous interpretation of test results. The notable exception is with dexamethas one.Normal Response: An increase in cortisol after stimulation by ACTH is normal . Post-stimulation cortisol concentration should be greater than 20 mcg/dL or th e rate of rise from baseline cortisol should be greater than or equal to 9 mcg/d L.Patients with sepsis or septic shock: According to a study by Mauricio et al ([facility] 2000,283(8):9406-45), the ACTH Stimulation Test provides important prognostic information. This study defined 3 groups of patients with sepsis or septic shoc k: 1. Good Survival: Low basal cortisol (<or=34 mcg/dL) and high ACTH response (>9mcg/dL) 2. Intermediate Survival: Low basal cortisol (<34 mcg/dL) and low response to ACTH (<or=9 mcg/dL) OR High basal cortisol (>34 mcg/dL) or high ACTH response (>9 mcg/dL) 3. Poor Survival: High basal cortisol (>34 mcg/dL) and low ACTH response (<or=9 mcg/dL).Treatment of patients with relative adrenal dysfunction may be indicated based on test results and the clinical condition of the patient. Additional information, including treatment recommendations, is available in critically ill patients, approved by the Pharmacy, Nutrition, and Therapeutics Committee on 04/26/2004 and available through the Pharmacy Policy and Procedure Section on The Source.[employer] Engineer ID - DBCORTISOL,30 [id number] 18:07:00* Test Item Value Reference Range Interpretation Comments CORTISOL BASELINE NETWORKED ([employer]) (test code = 2307) 21.5 mcg/dL CORTISOL, 30 MINUTE (BEAKER) (test code = 1804) 27.3 ug/dL ACTH STIMULATION TEST INTERPRETATION GUIDELINES(Synonyms: Cortrosyn Test, Co syntropin or Corticotropin Stimulation Test)Adenocorticotropic hormone (ACTH)is a tropic hormone, made in the pituitary gland, which travels trhough the bloodst ream and stimulates the cortex of the adrenal glands to release cortisol. Cortis ol is a primary hormone, which aids the body's metabolism of fats, carbohydrates , and protein as well as sodium and potassium regulation.ACTH Stimulation Test: Exogenous administration of biologically active ACTH stimulates the secretion of cortisol from the adrenal gland. This test is used to evaluate adrenal function by measuring cortisol levels at baseline and at 30 and 60 minutes after the adm inistration of 250 micrograms of cosyntropin (Cortrosyn). Patients who have rece ived exogenous corticosteroids immediately prior to performing the ACTH Stimulat ion Test will often have elevated baseline cortisol levels, which may lead to er roneous interpretation of test results. The notable exception is with dexamethas one.Normal Response: An increase in cortisol after stimulation by ACTH is normal . Post-stimulation cortisol concentration should be greater than 20 mcg/dL or th e rate of rise from baseline cortisol should be greater than or equal to 9 mcg/d L.Patients with sepsis or septic shock: According to a study by Mauricio et al ([facility] [place] 2000,283(8):1306-45), the ACTH Stimulation Test provides important prognostic information. This study defined 3 groups of patients with sepsis or septic shoc k: 1. Good Survival: Low basal cortisol (<or=34 mcg/dL) and high ACTH response (>9mcg/dL) 2. Intermediate Survival: Low basal cortisol (<34 mcg/dL) and low response to ACTH (<or=9 mcg/dL) OR High basal cortisol (>34 mcg/dL) or high ACTH response (>9 mcg/dL) 3. Poor Survival: High basal cortisol (>34 mcg/dL) and low ACTH response (<or=9 mcg/dL).Treatment of patients with relative adrenal dysfunction may be indicated based on test results and the clinical condition of the patient. Additional information, including treatment recommendations, is available in critically ill patients, approved by the Pharmacy, Nutrition, and Therapeutics Committee on 04/26/2004 and available through the Pharmacy Policy and Procedure Section on The Source.[employer] Engineer ID - DBLactic acid, [id number] 17:22:00* Test Item Value Reference Range Interpretation Comments Lactate, Venous (test code = 2872) 1.27 mmol/L 0.5-2.2 LIZ (test code = LIZ) [employer] Engineer ID - DB Lab Interpretation (test code = 06064-1) Normal [facility] [id number] 17:22:00* Test Item Value Reference Range Interpretation Comments LACTATE BLOOD VENOUS (2) (BEAKER) (test code = 2872) 1.27 mmol/L 0 .50-2.20 [employer] Engineer ID - DBCORTISOL,[id number] 16:42:00* Test Item Value Reference Range Interpretation Comments Cortisol, Baseline (test code = 1803) 21.5 ug/dL LIZ (test code = LIZ) ACTH STIMULATION TEST IN TERPRETATION GUIDELINES(Synonyms: Cortrosyn Test, Cosyntropin or Corticotropin Stimulation Test) Adenocorticotropic hormone (ACTH)is a tropic hormone, made in the pituitar y gland, which travels trhough the bloodstream and stimulates the cortex of the adrenal glands to release cortisol. Cortisol is a primary hormone, which aids the body's metabolism of fats, carbohydrates, and protein as well as sodium and potassium regulation. ACTH Stimulation Test: Exogenous administration of biologically active ACTH stimulates the secretion of cortisol from the adrenal gland. This test is used to evaluate adrenal function by measuring cortisol levels at baseline and at 30 and 60 minutes after the administration of 250 micrograms of cosyntropin (Cortrosyn). Patients who have received exogenous corticosteroids immediately prior to performing the ACTH Stimulation Test will often have elevated baseline cortisol levels, which may lead to erroneous interpretation of test results. The notable exception is with dexamethasone. Normal Response: An increase in cortisol after stimulation by ACTH is normal. Post-stimulation cortisol concentration should be greater than 20 mcg/dL or the rate of rise from baseline cortisol should be greater than or equal to 9 mcg/dL. Patients with sepsis or septic shock: According to a study by Mauricio et al ([facility]IL[facility] 2000,283(8):1038-45), the ACTH Stimulation Test provides important prognostic information. This study defined 3 groups of patients with sepsis or septic shock: 1. Good Survival: Low basal cortisol (<or=34 mcg/dL) and high ACTH response (>9mcg/dL) 2. Intermediate Survival: Low basal cortisol (<34 mcg/dL) and low response to ACTH (<or=9 mcg/dL) OR High basal cortisol (>34 mcg/dL) or high ACTH response (>9 mcg/dL) 3. Poor Survival: High basal cortisol (>34 mcg/dL) and low ACTH response (<or=9 mcg/dL). Treatment of patients with relative adrenal dysfunction may be indicated based on test results and the clinical condition of the patient. Additional information, including treatment recommendations, is available in critically ill patients, approved by the Pharmacy, Nutrition, and Therapeutics Committee on 04/26/2004 and available through the Pharmacy Policy and Procedure Section on The Source. [employer] Engineer ID - DB [facility] W/PLT COUNT & AUTO [id number] 16:42:00* Test Item Value Reference Range Interpretation Comments WHITE BLOOD CELL COUNT (BEAKER) (test code = 775) 8.8 K/ L 3.5- 10.5 RED BLOOD CELL COUNT (BEAKER) (test code = 761) 4.79 M/ L 3.93-5 .22 HEMOGLOBIN (BEAKER) (test code = 410) 12.2 GM/DL 11.2-15.7 HEMATOCRIT (BEAKER) (test code = 411) 37.8 % 34.1-44.9 MEAN CORPUSCULAR VOLUME (BEAKER) (test code = 753) 78.9 fL 79. 4-94.8 L MEAN CORPUSCULAR HEMOGLOBIN (BEAKER) (test code = 751) 25.5 pg 25.6-32.2 L MEAN CORPUSCULAR HEMOGLOBIN CONC (BEAKER) (test code = 752) 32.3 GM/DL 32.2-35.5 RED CELL DISTRIBUTION WIDTH (BEAKER) (test code = 412) 15.7 % 11.7-14.4 H PLATELET COUNT (BEAKER) (test code = 756) 246 K/CU MM 150-450 MEAN PLATELET VOLUME (BEAKER) (test code = 754) 10.7 fL 9.4-12 .3 NUCLEATED RED BLOOD CELLS (BEAKER) (test code = 413) 0 /100 WBC 0 -0 NEUTROPHILS RELATIVE PERCENT (BEAKER) (test code = 429) 65 % LYMPHOCYTES RELATIVE PERCENT (BEAKER) (test code = 430) 23 % MONOCYTES RELATIVE PERCENT (BEAKER) (test code = 431) 9 % EOSINOPHILS RELATIVE PERCENT (BEAKER) (test code = 432) 0 % BASOPHILS RELATIVE PERCENT (BEAKER) (test code = 437) 1 % NEUTROPHILS ABSOLUTE COUNT (BEAKER) (test code = 670) 5.72 K/ L 1.56-6.13 LYMPHOCYTES ABSOLUTE COUNT (BEAKER) (test code = 414) 2.03 K/ L 1.18-3.74 MONOCYTES ABSOLUTE COUNT (BEAKER) (test code = 415) 0.75 K/ L 0. 24-0.36 H EOSINOPHILS ABSOLUTE COUNT (BEAKER) (test code = 416) 0.02 K/ L 0.04-0.36 L BASOPHILS ABSOLUTE COUNT (BEAKER) (test code = 417) 0.09 K/ L 0. 01-0.08 H IMMATURE GRANULOCYTES-RELATIVE PERCENT (BEAKER) (test code = 2801) 2 % 0-1 H CORTISOL,[id number] 16:42:00* Test Item Value Reference Range Interpretation Comments CORTISOL, BASELINE (BEAKER) (test code = 1803) 21.5 ug/dL ACTH STIMULATION TEST INTERPRETATION GUIDELINES(Synonyms: Cortrosyn Test, Co syntropin or Corticotropin Stimulation Test)Adenocorticotropic hormone (ACTH)is a tropic hormone, made in the pituitary gland, which travels trhough the bloodst ream and stimulates the cortex of the adrenal glands to release cortisol. Cortis ol is a primary hormone, which aids the body's metabolism of fats, carbohydrates , and protein as well as sodium and potassium regulation.ACTH Stimulation Test: Exogenous administration of biologically active ACTH stimulates the secretion of cortisol from the adrenal gland. This test is used to evaluate adrenal function by measuring cortisol levels at baseline and at 30 and 60 minutes after the adm inistration of 250 micrograms of cosyntropin (Cortrosyn). Patients who have rece ived exogenous corticosteroids immediately prior to performing the ACTH Stimulat ion Test will often have elevated baseline cortisol levels, which may lead to er roneous interpretation of test results. The notable exception is with dexamethas one.Normal Response: An increase in cortisol after stimulation by ACTH is normal . Post-stimulation cortisol concentration should be greater than 20 mcg/dL or th e rate of rise from baseline cortisol should be greater than or equal to 9 mcg/d L.Patients with sepsis or septic shock: According to a study by Mauricio et al ([facility] 2000,283(8):1038-45), the ACTH Stimulation Test provides important prognostic information. This study defined 3 groups of patients with sepsis or septic shoc k: 1. Good Survival: Low basal cortisol (<or=34 mcg/dL) and high ACTH response (>9mcg/dL) 2. Intermediate Survival: Low basal cortisol (<34 mcg/dL) and low response to ACTH (<or=9 mcg/dL) OR High basal cortisol (>34 mcg/dL) or high ACTH response (>9 mcg/dL) 3. Poor Survival: High basal cortisol (>34 mcg/dL) and low ACTH response (<or=9 mcg/dL).Treatment of patients with relative adrenal dysfunction may be indicated based on test results and the clinical condition of the patient. Additional information, including treatment recommendations, is available in critically ill patients, approved by the Pharmacy, Nutrition, and Therapeutics Committee on 04/26/2004 and available through the Pharmacy Policy and Procedure Section on The Source.[employer] Engineer ID - DBPOCT-GLUCOSE [id number] 16:38:00* Test Item Value Reference Range Interpretation Comments POC-GLUCOSE METER (VENECIAAKER) (test code = 1538) 140 mg/dL 70-110 H : TESTED AT [facility] [address] [place] [address], [address]: [employer] Engineer/Chief Lock Operator ID = [id number] for MARIA LUISA FOUNTAIN POCT-GLUCOSE [id number] 12:01:00* Test Item Value Reference Range Interpretation Comments POC-GLUCOSE METER (BEAKER) (test code = 1538) 235 mg/dL 70-110 H : TESTED AT [place] [id number] [facility], [address]: [employer] Engineer/Chief Lock Operator ID = [id number] for MARIA LUISA FOUNTAIN POCT-GLUCOSE [id number] 08:03:00* Test Item Value Reference Range Interpretation Comments POC-GLUCOSE METER (BEAKER) (test code = 1538) 143 mg/dL 70-110 H : TESTED AT [address], [address]: [employer] Engineer/Chief Lock Operator ID = [id number] for MARIA LUISA FOUNTAIN [id number] 06:22:00* Test Item Value Reference Range Interpretation Comments Procalcitonin (test code = 90144-7) 0.10 ng/mL <0.05 H LIZ (test code = LIZ) SEPSIS RISK (ng/mL)Low: 0.05-0.50Intermediate: 0.51-2.00High: >=2.01 Lab Interpretation (test code = 59810-4) Abnormal [facility] [id number] 06:22:00* Test Item Value Reference Range Interpretation Comments PROCALCITONIN (BEAKER) (test code = 3036) 0.10 ng/mL <0.05 H SEPSIS RISK (ng/mL)Low: 0.05-0.50Intermediate: 0.51-2.00High: > =2.01POCT-GLUCOSE [id number] 21:03:00* Test Item Value Reference Range Interpretation Comments POC-GLUCOSE METER (BEAKER) (test code = 1538) 206 mg/dL 70-110 H : TESTED AT [address], [address]: [employer] Engineer/Chief Lock Operator ID = [id number] for MARC GUPTA BASIC METABOLIC [id number] 18:34:00* Test Item Value Reference Range Interpretation Comments SODIUM (BEAKER) (test code = 381) 123 meq/L 136-145 L POTASSIUM (BEAKER) (test code = 379) 5.4 meq/L 3.5-5.1 H CHLORIDE (BEAKER) (test code = 382) 91 meq/L 98-107 L CO2 (BEAKER) (test code = 355) 24 meq/L 22-29 BLOOD UREA NITROGEN (BEAKER) (test code = 354) 17 mg/dL 7-21 CREATININE (BEAKER) (test code = 358) 0.87 mg/dL 0.57-1.25 GLUCOSE RANDOM (BEAKER) (test code = 652) 253 mg/dL 70-105 H CALCIUM (BEAKER) (test code = 697) 8.1 mg/dL 8.4-10.2 L EGFR (BEAKER) (test code = 1092) INSUFFICIENT CLINICAL DATA TO CALCULATE ESTIMATED GFR. [employer] Engineer ID - BSTissue [id number] 16:47:00* Test Item Value Reference Range Interpretation Comments Case Report (test code = 104) Surgical Pathology Repor t Case: [id number] Authorizing Provider: Khris Andino MD Collected: 02/13/2020 04:49 PM Ordering Location: [address] Received: 02/14/2020 08:37 AM Service Pathologist: Pramod Riggins MD Specimen: Parotid, Right DIAGNOSIS (test code = 3220) [file] dGVyeTcyMFxzYmtwYWdlXHBnbmNvbnRccGduZGVjXHBsYWluXHBsYWluXGYwXGZzMjRccWxcbGFuZzEw TlQtsHyduYysLNhsDaZeJQClAVdcR1vfFdFnUrEzGn u9FZPynHYaPQCaWec7XLVzaQLbRWOMvOmsfE8qMERajXenzA2ueHN2DUYrxkSgdXKWcE0xRTQZtS8gRb U6JcTiNqZ6FZI8EBHzpVNcmW2= COMMENT (test code = 3359) [file] VvhuidfIWuDVzdqu01GZOvDJU9aMv9JYMdeRDjb2HtpNU6jWZqIpJobICidX== CPT Code(s) (test code = 3357) u4vpmQZzECXdfHXrEhLiCPNfEFKmy1hqZLHvhZEaUuXbOpNfNyGbPerulHBaTQPdFtAyj9eyl738aZXo g7vlVDMbSkA7iJPuGCPkzSHmV740j4igu8wwveHeiSW6YGVbHUU1YExhtrCcojL4KEkmbRPsHoQ0QLew wdDtZNltkcFpruQkRts8CENyS546HAV7dViui7ttYJ Z3TMScBARuMlMvGl3nrPOeF863LDGmSJELJVCoaEx8ATGzqsGdgtLscSCPy292D617m1bmDHFuqgZctB zUerebv0szB844BTFjqLJlmuIfUcPaRYMyzVVeuQU1DMZbSE8ovdcpIvFuLS2sosqyQsCoRK3jqru9Kc YqPU9paegmEnBxYMasJIMgcljiVMGvf7RtpangIS5i F6Mhx1S6yD0guIBkRSPlhNPvYwQmMKMejk8wjCWfMHqgq4PgJLC2uoY7nOEnbUJtFQDuNG96Ucbhi0If VxpyRNC0RVIrymJcy9Lxc4ugNtDeiqLwW6jiF1ExZNIuBHMdMGUfIbNemzLzt8Anr2HrjXXneYr2z9tr WPWoHBJhaPywn3niSED3ADPbD2T7dSIex7ojWHumGL QfpWR4zbqlLMobEHSghuN6lxnhUUglDUTikXY9rynpJGawNOOvFsP7zjbtYKacAAVyUKM6MMxtl874IO Z8JFdlWeghXMhuZZAjzbMdgtYqfCsgGSSqKXLiTGsgLQGoFVjqUEHvIEHvZgDbqDoseGnmaK5vUeNhFa QaEFkbJV4pRMPyU9zsoZQvMXCdNHDeR9bwRvIjjI8h cFvuOZyhmyWsQTv9MlS5IOG6YCK9NifiVXwuNVU9MJmvXUcqPjRjrFTlwJ== CLINICAL HISTORY (test code = 3356) h1hisTOwLBWjwKGlNlAeDVPbSFOid8rdXHPqoTRrRfCeIwAyUcTfWkqdhPHsOMUjTgOql2sag618hRAd j5hiLSFnFnB8xLAfLKYgvWAqR280t8phx6eqnwKzcCU6QBZhTST1JDooniDtnfT7JCpopIGjOaR4NKaa kfZhWCvybzJglrJdSmf6KLGnJ818OYF7aNxjx2rkJJ D8GGVzTNLxFzFoMk8rlAIsO572YIKeNUIIUHRziKg5GABocmLraoYydXRMa939D621p8gnFAKzgaYtwO qUaxifo8cqD561IYUlrQXoxmDuUwRjGARejFDdpED4ALIiKA9qjijiDyIhWR6tngelXhOgUV4jlcw9Ob GjCU7gjfmhXsWwZXkcUYIeewnmUMOom8EkzuvxQA5f T7Isb5Q6nY5vnNRqLGTvhYFtTfUdYAFsnt3ixAAyPDxmd9LqWAV8etN9hYIxzITkEAStFM22Zgjpu3Ey ZxrpKGG1OPVxnqDxl3Iff6qhYlLfueEdH7uyA3RvOQIjFMZcFJYuZtAxamHmx9Rbm3NtuFBziYv9a8tm RQVbOLPmsMhmn9avVHS8EEGuL2Y0xXInn5nvMVuhPA DltDR9gqmuZEduDABzavO6hkieGEdnLEYhuTS6ugihOZtqODMuVpJ5dgasXHjcBICyAZB9PQdxu639RT R5GWjiOyhcFGgmIXCzplBdwbTrgShkPSEzRZMbYWtrMFXpQNmaDXNiYYAdGgVksWuppRaayX7vOeLlAv DaEYitNU9kISYhX9jpvCDaBIZnZJBxL2xeNdKisE0r kRowRKfjozUeMYMxOL6bXKGqNYtrs2NyreqtUTUpK6d7EIPhyo42oIRhuFGdle2by9JbQBIipb5= SPECIMEN SOURCE (test code = 3377) i0hocKAwZVOxwJBzAhJvDFSgKICdj9gtOVUzkPZcMeTuQeIcYkDcBmfcpVSvNIZlYsGzv2zyz884yNYb b3onVQScAlB8yLBlJTKjkAEfE544c2yew1wndjWgzDV1SFEzHEK6BIwluzXmgcO4FLzyfJDwRcF7BXfk npOiIHsexvFogsSsFox3ZTHtU722EIA8nGfvw0bmZA L4SFEiTUYgLcZxBf4wwJKuG321MOAfOEBPBVZfmKd1BMXiasZthgUyhHXUm357U526x9rgWDWkugAhuD kMkjiaa9feS932MORgbABmayUtBxSkIWOtrKKmrAM8IYHdUQ0zibsiDdBzTS2nmxuuZdZyDF6mknf4Ql AmVI7gasrjMwSqMNecZEWrttrwHUWta1WsnowwLO7f X4Vsg6A3oQ1yvJDdGZSjpGIkIxApACDuod1ayWQcPJczr5QuUTX0jhO8dOQpfPKsCWXvOC03Oyuou0Kb ZdjsWEM4OLXtovMnt4Koi8orZkPpmyPsL4ptH0HeCELmLTBkJNUvBxVikvWxz0Paa5JhoPOcsWt8v0ur NOMbSOKvaHrnr0igWMA4HUYcJ3K4xCNpd4wzDTwhKZ BphCQ5veuvUZrjSUUdjyC5wmvtXFrpSFMvmHE3hojoAEciYWEoIsC4anqpCJgaEEZcFBZ3OYdxh367LT M9QUxzLffzMNgxZQYwlbBqvnKsaCuzHGYeLWHwUYkhGANeUUslFPZmENQxBtPlvWfxpGjaiQ8dQrAgYz BxTEktGT6uASEcN8tjkJNqGQJjVAObQ4biDgXwpU 4qaQkoTKnlzfFfXKUdO5u1SZZjha96qFVtOPSjsu5= GROSS DESCRIPTION (test code = 3366) y4vnsYCfPZLoaHKySsIeKYCxQGMpx6pfQGLclNFcPdFkIvKpFuYaTfldzCJoYMDvFnChl6jrx622mFNh x6tmNLFcBqY7cNKfTFCzpGWqC524YYEnVHdmd9gir9NlUSWkaMTlt9P7SKUMazyooPk5aAdpL00kw7E4 KygpG9ywRHSsUGfqQHDcMUorhGWsFYN8WOSsSAQ8AV nwymFcoqJ5OLnigEFoIoA5GWp5z6hsjIzyOOPhKJB3c4gcIWkkoiLnHL1riz6lzMt7q2jjtnZaCXAjGL PvpBQJOHUmM3IneKpgTl8tuXy2hSgkVmjrEOA2Rdj7BC0fws76bsm8mTreDXJdfksiSoQ0LVpyHABnsr nvFQc1KNfsCLQhoSdqTRqbDERptkjeGWlnDRLelEca RXryWTOdEintTQhuTSWhOFG2WRbqv899FHZ0ILxml1oqy7hrfRHfRjh0MZUcJqUrHmnmURmmb9Qtg6ax RCSsba9sLKG1gSVmsJnde6Q3wVQpEBUtvQWanyDkOFHiEtI7KMadNJ7kuf15RLTgPZT6jo0xlFIcbQyb ocEjjOIuYFdjW7KeZLPcc090UVOfS7HhBZHsd2V5gu FrLcEjVPLofCI9siC1XPOvEWp2oMLlsmW7cxRawHDvN5dkxA82GtIybYJqE3CptV48MrDxbPKmK8CyaU 34UbQjtRCvS6EmsN36EkSxqTFjGRHvcOAhBv3bvROowKFlh8KwaVJvTYdyU73xp759SAHbivWqK7zjfZ FpblxwbGFpblxmMFxmczIwXHFsXHBsYWluXGYwXGZz VbUlfVvzeG7zViApOtPdEOTFPTCvyQQlDYCxuiKob9FaULnbgwIxPNCtdAOqBKzckJdvrAmqUKWeeKqo xxVcixFrEW5kGKAkP0Ipd1Cqn50fjwLjRkDeDKPyZAExccwyiKZzcBCxb5OaXDPaJBPeE70sBNPpIOFn WWQ4mVVxUMM8AW4uA4HswGK7dUFkGLVkvDmgXWIez3 J6HICao6X7IXTta2FnqhXtCIRbrLPdbkzweOLsgY1wHU9yMMKwUWxsFJfdAJE1YPC4QTbzfgq2oSF2iI vusTUdasYiFtzuxRQoHENmYK0wSSP2Tw8mvUCcUMPhavB0t1PwYEylDVPfReOvBEBilKptZLIgod3= MICROSCOPIC DESCRIPTION (test code = 3371) d2hpjQUcRDZjuAIbStCgTNFtRISkw7bvMOJtzIWdMgPkVsBqZwNyVcmreGRjYWQtWiFac1sxr728kHRd q1paVMYvHqT1vPQfLKOoyMLmP165e2ohq5mmfuIiiPZ9BIKvBUB0VFgbfaWibdJ9FOfsvDEsVnV8ANsp uqEaXDvsnySdchWdGby7TUFeL758OVH8qWmmw1yjKQ U5PELnBNSmIlUvQs9lzJGlM223QFHnTTXNQRMiaQv8GGSzmoByxaKhrSECq715A841h7mhZSJvylQdzU cVgduox8dgV869DGJkaDPdboRtIwYiLLEzyLMgpTU9WVZpKK2yiskmVhYjHE0nmshpFwCzJH1enyx8Ci WgEP9cxltmBhNmMOkxDAZxgoikJRPgn4QrdwckVE1m O1Lve3F0kP5pdWLeUWJmxAXlKkQzAGNpne9coYBoMYnoo5FoMRJ8trP5iLJqkZPrXTFlJI22Kitgf7Mm WcxnBXG3MSXtkwIye3Nzc0spEhIlxmObJ0crN1AyXWSwEMXbMMUhEkXuuxYqa9Euk2QszQUksRz6m8vh TFZdAIXvvPwfx7gwPNK4PFVaH5K4sSOla4ggOXotAH JclJU6mdkrEQdeGNYnjlL0kmkoTJgbHNKmkJF4ejiiRKviOEPwBeP1dngbYDalSSFbLOG2VXqls803OA D6ZItlOizxHJvgOXGhjdBpacOwcRmvNUNhFQIrRWiiFVHrDLkoLXGfARBqUfYpdMsofOjzaM3cKtQaBr NxPNfyQE7iFBFhI6tfcLKpWPQiACCmQ2efExTstX2wnUjyTUsvliDwSBBtueDaea8bHN6zVXGqal7= SPECIAL STUDIES (test code = 3376) [file] GxdYZcAKCycpTsyNnseP3wBlMdFpYdEPrjqYHapybhPahuheA8TLChvb9= Gross assessment was performed at (test code = 2777) [facility], Department of Pathology, [address] [place] [address], Technical component was performed at (test code = 2778 ) [facility], Department of Pathology, [address] [place] [address], Professional component was performed at (test code = 2 779) [facility], Department of Pathology, [address] [place] [address], [facility] [id number] 16:47:00Surgical Pathology Report Case: [id number] Authorizing Provider: Khris Andino MD Collected: 02/13/2020 04:49 PM Ordering Location: [address] Received: 02/14/2020 08:37 AM Service Pathologist: Pramod Riggins MD Specimen: Parotid, Right RIGHT PAROTID MASS, BIOPSY:MARGINAL ZONE LYMPHOMA.SEE DIAGNOSTIC COMMENT. Signing Pathologist Direct Phone Line: [phone] lectronically signed by Pramod Riggins MD on 02/15/2020 at 4:47 PMHisto logical sections demonstrate a core needle biopsy involved by malignant lymphoma . The lymphoma cells are predominantly small in size, however scattered larger c ells are also present. Immunohistochemical studies performed on block A1 demonst rate the lymphoma cells to be positive for CD20, BCL2. They are negative for CD1 0, CD3, CD5, and cyclin D1. BCL6 is equivicol and strongly favored to be negativ e. A prominent plasmacytic component is identified which demonstrates kappa ligh t chain restriction as opposed to lambda light chain. Proliferative index by Ki- 67 is approximately 50%. 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 Scattered large cells are present however di stinct sheet like aggregates of large cells are not identified in the sampled ma terial. If there is strong clinical concern for a large cell component then mayra tional tissue based studies as the sampled material may not be fully representat josiane. [address], [address], 47388i7, 119[address]Ludsd diagnosis: Right parotid mass/nodeRight parotid Received in formalin labeled with the patient's name, accession number a nd "right parotid mass/node" are three arredondo-meza thread-like soft tissue cores me asuring up to 1.0 cm in greatest length which are filtered and submitted in toto in A1. PA/pl Performed. The interpretation of this case included the use of im munohistochemistry or special stains.BLOCK A1- CD20, CD3, CD5, BCL2, BCL6, CD10, KI-67, CYCLIN D1, KAPPA, LAMBDAControl Slides Examined: In-house known positiv e controls were evaluated along with the test tissue. These control slides run alongside of the patients sample show appropriate staining. Internal positive an d negative controls when available are evaluated Immunohistochemistry technical testing was performed at [facility], Pathology Laboratory where it was developed and its performance characteristics were determined. It h as not been cleared or approved by the U.S. Food and Drug Administration. The FD A has determined that such clearance or approval is not necessary. The test is u sed for clinical purposes. It should not be regarded as investigational or for r esearch. This laboratory is certified under the Clinical Laboratory Improvement Amendments of 1988 (CLIA-88) as qualified to perform high complexity clinical la boratory testing.[facility], Department of Pathology, [address] [place] [address], [facility], Department of Pathology, [address] [place] [address], [facility], [address] [place] [address], ZDID-GLUCOSE [id number] 16:44:00 * Test Item Value Reference Range Interpretation Comments POC-GLUCOSE METER (BEAKER) (test code = 1538) 250 mg/dL 70-110 H : TESTED AT [address], [address]: [employer] Engineer/Chief Lock Operator ID = [id number] for Meghan Collazoo POCT-GLUCOSE [id number] 11:47:00* Test Item Value Reference Range Interpretation Comments POC-GLUCOSE METER (BEAKER) (test code = 1538) 224 mg/dL 70-110 H : TESTED AT [address], [address]: [employer] Engineer/Chief Lock Operator ID = [id number] for Meghan Collazoo POCT-GLUCOSE [id number] 08:32:00* Test Item Value Reference Range Interpretation Comments POC-GLUCOSE METER (BEAKER) (test code = 1538) 173 mg/dL 70-110 H : TESTED AT [address], [address]: [employer] Engineer/Chief Lock Operator ID = [id number] for DARREN FOUNTAINYahir POCT-GLUCOSE [id number] 21:35:00* Test Item Value Reference Range Interpretation Comments POC-GLUCOSE METER (BEAKER) (test code = 1538) 179 mg/dL 70-110 H : TESTED AT [address], [address]: [employer] Engineer/Chief Lock Operator ID = [id number] for MARC GUPTA Flow Cytometry [id number] 18:39:00* Test Item Value Reference Range Interpretation Comments Flow Cytometry (test code = 2758) See Separate Report Case # (test code = 2759) [id number] [facility] [id number] 18:39:00* Test Item Value Reference Range Interpretation Comments FLOW CYTOMETRY RESULT POINTER (BEAKER) (test code = 2758) See Se ordoñez Report FLOW CYTOMETRY AP CASE # (BEAKER) (test code = 2759) [id number] POCT-GLUCOSE [id number] 16:47:00* Test Item Value Reference Range Interpretation Comments POC-GLUCOSE METER (BEAKER) (test code = 1538) 245 mg/dL 70-110 H : TESTED AT [place] [id number] [facility], [address]: [employer] Engineer/Chief Lock Operator ID = [id number] for AMARIS LUNA Hemoglobin [id number] 13:29:00* Test Item Value Reference Range Interpretation Comments Hemoglobin A1C (test code = 4548-4) 7.3 % 4.3-6.1 H Lab Interpretation (test code = 83539-9) [facility]normal [facility] [id number] 13:29:00* Test Item Value Reference Range Interpretation Comments HEMOGLOBIN A1C (BEAKER) (test code = 368) 7.3 % 4.3-6.1 H Carcinoembryonic Antigen (CEA)2020-02-14 12:10:00* Test Item Value Reference Range Interpretation Comments CEA, SERUM (test code = 2039-6) 2.8 ng/mL 0-5 LIZ (test code = LIZ) [employer] Engineer ID - [id number] Lab Interpretation (test code = 99433-0) Normal [facility] (CEA)2020-02-14 12:10:00* Test Item Value Reference Range Interpretation Comments CARCINOEMBRYONIC ANTIGEN (BEAKER) (test code = 685) 2.8 ng/mL 0. 0-5.0 [employer] Engineer ID - GALLOOCT-GLUCOSE [id number] 11:00:00* Test Item Value Reference Range Interpretation Comments POC-GLUCOSE METER (BEAKER) (test code = 1538) 340 mg/dL 70-110 H : TESTED AT [address], [address]: [employer] Engineer/Chief Lock Operator ID = [id number] for AMARIS LUNA Lactate dehydrogenase (LDH)2020-02-14 10:49:00* Test Item Value Reference Range Interpretation Comments LDH (test code = 2532-0) 447 U/L 125-220 H Spe cimen slightly hemolyzed LIZ (test code = LIZ) [employer] Engineer ID - ROSIANMary Beth Lab Interpretation (test code = 56155-8) [facility]normal [facility] [id number] 10:49:00* Test Item Value Reference Range Interpretation Comments SODIUM (BEAKER) (test code = 381) 122 meq/L 136-145 L Discordant SODIUM result compared to previous result; clinical correlation required POTASSIUM (BEAKER) (test code = 379) 4.7 meq/L 3.5-5.1 Specimen slightly hemolyzed CHLORIDE (BEAKER) (test code = 382) 92 meq/L 98-107 L CO2 (BEAKER) (test code = 355) 21 meq/L 22-29 L BLOOD UREA NITROGEN (BEAKER) (test code = 354) 12 mg/dL 7-21 CREATININE (BEAKER) (test code = 358) 0.84 mg/dL 0.57-1.25 Specimen slightly hemolyzed GLUCOSE RANDOM (BEAKER) (test code = 652) 363 mg/dL 70-105 H CALCIUM (BEAKER) (test code = 697) 8.0 mg/dL 8.4-10.2 L EGFR (BEAKER) (test code = 1092) INSUFFICIENT CLINICAL DATA TO CALCULATE ESTIMATED GFR. [employer] Engineer ID - ROSIANGLACTATE DEHYDROGENASE (LDH)2020-02-14 10:49:00* Test Item Value Reference Range Interpretation Comments LACTATE DEHYDROGENASE (BEAKER) (test code = 635) 447 U/L 125-2 20 H Specimen slightly hemolyzed [employer] Engineer ID - [id number] 10:46:00* Test Item Value Reference Range Interpretation Comments PTT (test code = 19865-4) 153.1 22.5- 36.0 seconds Lab Interpretation (test code = 70335-7) [facility]* Test Item Value Reference Range Interpretation Comments PARTIAL THROMBOPLASTIN TIME (BEAKER) (test code = 760) 153.1 sec onds 22.5-36.0 Flow Djbulqbdv3020-53-87 10:05:00* Test Item Value Reference Range Interpretation Comments Case Report (test code = 104) Flow Cytometry Report Case: [id number] Authorizing Provider: Khris Andino MD Collected: 02/13/2020 04:49 PM Ordering Location: [address] Received: 02/13/2020 05:49 PM Service Pathologist: Candy Tian MD Specimen: Other Flow Interpretation (test code = 3364) p2ttfUIqTYFeuNUvGrScDBVgFIRhi0bzVDOgrOIeRsUxHhBnVdDyNpisrIZoREOcFjIga8nmi737mPJv f3clVNAtLbP9jEMmUBUefKGyQ566ZDIjPOjdj1mlw0QsHHWbgGOsz8M1VWRVtzswfSz5nDjsH13wk3Q8 BgwmQ3pfGIYvOVYoF7IwHG4aESNpQzr6LPW6FTM6VO RpNZDfB3PdRD3vMTHxtWUzYKw7m7qxiThcQUFdIMH0d3esDEqhxaHrEG6ibq9fhPm1s9hcriRdLHVwBO PiuPYABQNcX1NeaGyuHx5hnVz3eYphMpjqOGN8Lbb4CS3max41yta2oKvwBGGyjifqYvN3VDwmNEWfwy ujQFn0LMypBODekOriLSguGGPzpkqbBUtwHGFfgKtu GWinEVCmGvaiITnsNUPiJET5UZyuc404FYX0TKagi8buk1fcjZCxPaj4XEQbTnSzEobzRQdwv6Kqa5ex AICpia1dKVT1aUXhxDgdp3I4mIRuGSEtcEGbnrQkVOBhRdF1OAxeJG3qgk43LJJxWHV0nl7zbAZawWro bkWfeUTbQOtlL4AzPCRpt300VAOdH5WzOKGzc2I2gw DeJxNpYMNkwUD9awR0XXYgIOm2jNXvcmF1ytYivPYwS3sryG32EpFgqHSxO4CceB88PuFfySFmX6UseM 62VoJbyUZnA7IjmZ28GaSsdYYlGOWjyBQvDa1pgCRriFDph5VrmSXbZLjwC29oo890FIEmfeKcC6lesR LfjsivjOQhmsauCQziczL3VLSpKXLyDGmeEYJnHZWf PcLrcVNyDmInXnQqgOatrTsmNAvwNyVmSKBcKYwhU7hsKuLuCgIgPPMCDKkRRHFQSDFMHUdNLCOHWY1S IJBGPM3GZJUSSWketSHnVU3IJO7ZWEZKICNVWNMMHHXMQXRnLhyIJlwGFYNXWMn5ImNwBPXscdGeVC9P A2APKSwSNHIbF8RYJHCTM5JULCBYAK1FRMycBBFpE5 GsXN6OTOhfZ2RBZTRjHRUixiCkU3FVFTZMEL8HUpAlwRLwTAXqjg6= Flow Interpretation Comment (test code = 3365) h7cpuTKoFIQdlBTeUxAhFQBbVMWwe3kyHNZhmTMaZvNrBxRkRhZtLyjjaYPyOCIdZtCqm7qlo123mISp v7rgXSXhXdV5iKSnBGJijPGyX067MWBgPYbra9ujv9IlHFVpmJYci8B2SXXQdssxrGy0vFyeW62yr3Z1 RqgjC2uzDPCtIUZbK2LsZD1bEZXfZhj2ZTI3SEO1ZX BpZIRjV8XsDQ4eNXYcsVXmOVt3b6arnIcjFWBtPZK5k7akCBxoxrNsOG5cjk6hvAd5b5zgtnJiXPIoJE VpvRCCMIOwH1PriMxaFt6suZx0yNbyDbelLAU7Pcz9EY4ojo38ylb5pHagDBSkauixWxK8YAoaUFAulu psJHi6SLlwJSEmrTocSBfePDXvuermNByqPFItiBdx IYxeEKYeCrheVDdlHQWtZRT0ZLval124ALV6ILono1gvk6tctTOoYoo8EHXhYdEaVjkvXVlod4Lui1wi AUAeso9fNXJ6gLKrdEjwz9T6sNGxTWFkhEFwtnJdYUKiAoH8TXtlSQ0khx75FLCeRML5cc3nzYQdvUqy guJrvJLsBVabN6DuURBtk566QZOyF0SjXZBjr5E2po CiFiZwHWJptWZ8pqQ9HCPqACv4yKLhxpJ6cyRlnPYyM8gnnC60AwForTQgS0AmxE67YbBgqXTgC6SsnF 24QuFubRHeP6JreN47FoLvuMLuTTTptVPwDi1ccHJamYGmc3YmpJZtNJkcX74jn717AULuqcRvX1kkxW CtvpnvpPIabpgsNNtgtmZ5ZZVyTFVpBPmdCKEcZRYc CrUtrZCcLtZjYnGkkPnqxFirYLrcHvJpTHXaTQsyC1soDgQuFiGoFVDZeSQoFHKzwY4zcLNkUHQnz8Lj jOLjn367xEElp0HfkL1irRNawwIlqMPhhJGhfWOakKPrBLIfM1TqkNJttV6vjL4oZDWxWX9nuXUdvYev oO74SMTfecsujmXlzGlfJMAsl6SjYPdfsPtxlfD0uC AzYTNdRKEko8RshA4xp4okRaTkyeQho9IwJRNoAyCmvUNjJBJtFu8zSZW1pIatwC35WSOczgC4ADAtb1 3dJIzfRIG1 CPT Code(s) (test code = 3357) f9sloEExPDNayHFfPaZvIVIxJAOwo1hjESDuoUKeFqLdUxMbIpLqNobvqRZpBZOcKwAdy5nfm727sJDv v8alOIAuBkT1lLLkARRbqEKsU654VBIhEYitk0nfy8XeCLVrnGDfn4U1OBUDighmuRf8uOtaR83nf1U3 MatlT1bgYAAjWWRuB2BzZV4fRLOgWjc7EAT6OVD1WI KrHWEoI0CfEY4vVQTzwJDaHFw7c4suhVkiTEWaKFB4e2jiJIvboiTdGZ2kaw5wbKj4d0idudAvWCAgAA QlqKRHXWOpP6DuiWunZi5boJk4hFwxFzlfCRP3Vcw8TE2ddy30umj1iUupQJAtaczsXqE7TAgmEDSdsz hjHLu1WWlsFLQmlTtcXCbmKQBkopliANqqZGWohJpc XErhZRGdShiiNChgBDOlHSF1RCskw024THW2UDtfc2jaj1fckFYbVeo5MKJqIvYbBgamUQyqc5Odu5hw MTKusn1tUSL3hDTnwVofr7M0fXDaIMBjaQJzpcTiSYRmXmR9GXsqOS3lxb53NTJwNQK2qf2zpRHcgKlj bfRpfPXmCEooF8RgFNPah903PPIqU0WnZVQcn7W4ss QiHrQaEAFjxOP1lnW5XOQwJIe6kHFvrlB5nzXskGXvB2pfrO60BsDqcCCqG3CdqI91YwStwXZpU9YleY 80DcWncYLhA8PjcL62ZtTsqAVnSDRkzZFiJf5xhPXbeIXok0WiuLUkXRdaM19kx511HEDdyoVsG1houX RodlwskDHrstdtCKbqrsV2KPZwMRHiCYaaJMHwDXFy RlRvpPZzGgKdNkQipDnfjGzjRGwiZfCpQGTnKNqoL2qzLsDhBbPyNnU5JDF2ZSoidYBytmfcXFrpiiQq YTjmceahCFCiOHlwC7znUnMdVAMjqSxnOImpk2AaDFSvGPOiEhZenDShpH== CLINICAL HISTORY (test code = 3356) s0wcsHClJUXckLFsIuYyHQGcRBYbp8jmHBFrzBWxNmKbPbQjXlBaWlmskYBvHSUxSlDqd9dmo751uJBi o0atBROvQkF9rPVoYRRtzKTsF539GDOvPJeag8kxl3JdOPAscJAej4S8RPCYrimfmAd9vXwjO39mp3E6 UrmkB5ayMSTxWDFzZ6CdQC0nMHGwDua5DTU0ZZC4RI XiIZRdS0IpHM5mOWDezYOqIMl1w8rifAdxBVBsGBK5m5vuIRplavJvYR9opb9ppDs1g0rdziWuXLSvFV UnvTBGVPIdD4RsgSfuUk5nyEk3gPmlPbmzQZL2Iye7LL7rvj96ivn5dIigGHPkerneFvG9SIixRNJmlh dqLAa0AShtIFUzuOkrNNfbYGLtlvxiTIewOWZoxQjw UEsqVIDnXmlnPKkjRYPgMPE0GRxby332WUM1PAltz1qgl9nmwFUhBcm9UDIgTcHrLjlfWCobc8Gmp4my WKDftq7wLJF2eBCzwAevw1Z6rNBiGVJbqAHmshIyFSRwAfI8WRdjIM9frq49YQEoBGF8jb9zbMJxePcm rkGtmOLaVTewJ2KnSKJzf390VQJpN2JdGRPdi0G0al IaTaTbPRGaaXU2mhM1URWjHSi9jMVlffT0vxEsbRAqT6migT23XsAirMVpO1PzjY92CrYunNWgW2AybS 53MzPujBWlK0HnyP20FwCnbMTnSQAorQCiHy3gfVVkvYGfe9SyeOTxEHrcO75ei348NPQlvnGvJ5mboC SdiwmajWSzwjcmPXmqiuC1FISkBUPnQUkoIGZgIQFj PkKofMYdWtUwEpXcpGlezMysWSxqMaOqJYOuWAvcI6tbDyFlBdCwMCTMhO5wyKYhGD7ouTC6bDwctZQp fQ== SPECIMEN SOURCE (test code = 3377) y9lwpLNcLSElaEJhXzGlJIRzEGTrf8jyDSVgtDNlZrFvWwUiAfAnUrmgjFQsRWPsEmIly3zvm038xRLn n4ywFTCqWnX2rKKrCTZxjOIfQ847GMJxSLhsq6vvd0JeZJIliWSdq5W3ROYBgjpwyVa1gEuqL61eh9M5 YdcnP8jnQTHjGWTmF5XdHX8uEQUeUvc2WUO8JKX6PP MrASCvY0ZaEA8vJBJsoDTyAZf2o4dbeZxdKQRwILJ9y0ckMTdepqStCG0znh1kvAj3g0hvfhKnCRYvKH GdmQTBWQIxT7RtdRniJt0ypNq5jFcsSskyMPY0Grp6ET7jks64exy4eDvvDDGxjchoGjQ7XQwhUCDoie icXXk4GXhnJPFtaVwwKImmXQWqmthiNBdrTPCljWqh HFefFOHrHcbyQIpnSWKwFUW4QHqdn995VQF5ENccb6ykw3aysIQqUqh0JOAqXsXiBtzxWFdhz0Kgs2kh YUMxgg9sVIY0wQRhhEgkb9V4fTLwQLAlbUQuffMsDMJyYcF5MOqwXB5vti39GXDdFSX6ig9djZPxuEir onXpbIQpGKqgI3CbSCNet405IZMsB3FqZVPbw2M7be JjHjMxWTAcqAE7pgZ0LGLpBFk8eENmknN0cnEdiRVeK6vnmR17HsOecZScS0LlwK21BqPjcEMdH3TuxM 04ZtSmbXJjX0NhjO38AoJumUXjJOWjxHUfVe7akXXbkKZle9BsfLMrAFkuJ28ka290STQgooMhM3akdR CbqievkHUsyhhdEMvgdyX5YKXqUHBuCYzrNOWvFFXy MeIacGAkAdUvYtIudVlnyQsnXFvjNtTkFBCcXGjnA9erMrMnKfOdTOFNdLdvxLXbYPBhqBtmEGJxqv3= CELLULAR BIOMARKER ANALYSIS (test code = 3380) n3freNWeTLZahHXrZwFdBSOiZXAtc6ntZUGmuSJzOaKrXaMgEuLiLbkslNZoNMTjJpCvx8bsb837sHAf b2khMAAcYfS1eXQrHIWlsBCiE739HDPiURlzw9sal8DrXVKqfMDqa3I2TOPLizlpaAk2cBadM24mc3A2 CpknS9moYLWeRVYyW1HlXK8tSIJtRnh6ROL7DVN1FV RdDOLpY3CdSR8zQUAsaEIfHSa6w6eeoBndMBJxIWJ1r1rdXRkohkOjCH5wau0yfPp2j4samdAaYHOtIH BvxFGSTBUdF5ZxmLmoOn7poVp2bHreIecfNUY5Ije9IK7htc11pgb0uPolCOLddkzqXhZ7IOepNUPfmb rgVWw3WFhbYQMxdAljCAaeEVSzewzgWNpiRMQhyAix NLziGFOyXtpfRJvqMOMbIEW0NBxpr390XFT4UWlnx6uil0sjkOOsTdc5TIWbCqUwYwjpPXdki9Cnz6ti AGBdhl5sOLT4dAXobWtqs9L9sFUnNPBgqJYfscYtRDQiOyP2CBjxMH5imi67HCNhJGT6fg0ajBOibXio cxTqyJIvMHznM7UeJDWbk791DCVwS8PrWEKfm7Q5ar LoTuGcJFIfrVZ7gcU6IMOjHVb3oVQimqV3lsLvyWRzK2sncL76OmBjcCCqA8ScnD77ZqInkDZcI8FjiW 20RzZreELcA6DwfM66QnDpbQReKLUfwHRuLq4kvKXgsRXsr9XpmWBdEVxmY44lo252OGWoaqDlP7cmgQ ZxsgcgwITstrodVYcvyhJ5GQMmiuSdsVyktI5aXwIx MqCcJKvvKU7dMXDqL7rmzPVuTSBiZTUfT7vuYjUalZ2qlQtpUFjhsnPuGANEOBjjb6NkRwAsVJ0DLCZw HQnnE4V7Pbrrh8XaItIiZG3BED3rYNTeLFDVIKiqS9FzRBldN5ZtPHljM7PiMTKPDUQiRBEVCNXkCSVW ILQdUZQQMcVhZOWYNFwbUGSVXPZ3RZOZBCGzTE4rzP JfYOOjOKUjMCyySZBfJNMjFxWapIkwhR6wAjWtMxUeBIsaWN1fPBNmL9kfnTAaLAUjUQTrE2ltOoCdiI 7qfLlyEUakiuHiHUTlqj3= IMMUNOPHENOTYPIC FINDINGS (test code = 3379) [file] zsGnRFcsrkcnVWZoKJabI4fhQhDoNGAvrIelDHjsv1HyCFCdDOPtHxRuxUPfaI== DISCLAIMER (test code = 3363) c5fqjODiLXKjpFFfXhUqBVNcMINob5leNOBpiHBbWkCqSkVhGuXxWjiorZTcLYGqNgMny4squ190pCVk u8tsRELiWfC6kCUrQPWxvJGyJ228OUQjYVuug0tsu8BzJIXgfCTsi0C4LDNFeerbbLa5kHjaG21sw5H7 YgdiF1nzSMOoSPMgG5XoGX1rUYLrEjq9QWY4ALI8YG LmYIHjZ2BeGR8qLBGbjSGiUBt2g1qobEeqWCAkQCR0b7guHEgmwkR1QE0rba3nlZu6y7gnvrKbFWDiQQ PbiFZWFHMtP0CywNyjUd4wkBd8xEvbJrwtVHO6Xvy9MJ6psd68sjz0ePpzPCXlhdilJyQ7SPijFCHrwf epUFs9PDksEMTqoOzgGRlfQTUyaamaUNioEFRzzSon SGfnGJJdTvlmUQwoTKSrVIG8LAcst947EFK3CBemr6ofz7cthFYkVjg5QOWsYeOePcggEJtwv1Vqf3oo SGLkNaD1LAbhAI7omr03JTQtMIE6we3usLPdlTgoyhXcuFJiYLjoS9ZnTZHpe708OVUiK9VgXDZax8P3 xdMuOfXwNTKjvRS2qaJ6HXRjAPv2zJRyrgU8bmLpxC SiW8vjmV10TfSsgOVjP8ZatV71NuXjvIWoC1QdwQ59CeFcrOIaQ4EirY23VkEaeSGoKKHssKZcZf3thL PetACfy6IdyVBoLOuyA85os617UDRjmxEhI7utpFYgurxofADdrqzoYDdmogJ1JJCsFPFwKPehZEYtWF ZzMjJcbGFuZzEwMzNcaGljaFxmMVxkYmNoXGYxXGxv B6hxCoStQvFxTzHKhKHpGNU0BGF2vaC0URKyUKLhdgGny9JjQZFsygUiwKxaxCWjqPVcCo8shYEmX1Zi L9dwsgWfmQKngYJ6vRTaPETonNErmUvsEEDnCwexBdP5tO4dVYI3DxDIwVmrJ6KeDLYzwJZqeQLIWL26 YOMoVMELlDX6CEvolxCfub88GPMiSZ6iT4sdVNFwOX TgcnVakXZvw1KbHJMrdNH2uICfFB0CDsAZz87mOUKaHYTKjhXfNASfgOtiaDX2puH2mM6mNbNSoGQxSd QPYWunssNcCZOdet8zdgPzHDKpWHAkw0ClkQKdvGPhxdGnK4Yha4YkUXKogb61UIecxIGbmi04IQ3oV3 Lim2GwmU8fJAObi9iqgXqjDR7fnPTeXOMkISmfcmYn SRMjawSckrDrk3UfE8C6cF3mLKbry9WpJm3bIGEbk4PjhoPfRdTLkCjjFQsdIo6iVZZdmcyseMNpF8Hi hFavsZZgZWRkEHUcOATrOIDSlLbxuPSpmPIKPOGmoeB9f3N7ITrwaZBvhlOsOG98NLMqYQ4sbJFkwIMf k7KxHDq0BLJeDtZCAWNkDOEmohPqrBWexECbEIJubO 6ekGIcXm9wgFYgvEpuSMOrdQQgIBsrkNbhH4szoqepGJinqZGvtHlqZs5fcXPzZPSegxXqaCoavG9dBz OuEhWqSEarbNLprmjbNZfwwaS6YILsgx6= Professional component was performed at (test code = 2 779) [facility], Department of Pathology, [address] [place] [address], [place] [address], [facility] HospitalFLOW [id number] 10:05:00Flow Cytometry Report Case: [id number] Authorizing Provider: Khris Andino MD Collected: 02/13/2020 04:49 PM Ordering Location: [address] Received: 02/13/2020 05:49 PM Service Pathologist: Candy Tian MD Specimen: Other RIGHT PAROTID, FLOW CYTOMETRY:-LIMITED BY REDUCED ABILITY (52%)-MONOTYPIC B CELL POPULATION (39% OF TOTAL CELLS)-SEE COMMENTElectr onically signed by Candy Tian MD on 02/14/2020 at 10:05 AMThese limi kristy results 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 [id number] parotidCD8, surface-[place], CD56, surface-[place], CD 5, CD19, CD10, CD3, CD20, CD4, CD45, CD23, CD49d, CD38, CD200.Specimen Viability : 52.3% Number of Events Acquired: [id number], monotypic B cell populati on identified (39% of cellularity)POSITIVE: kappa light chain restricted, CD19, CD20, BY857JSYOLYTA: CD5, CD10, CD23 In addition, the following populations are identified: Lymphocytes: Bright CD45+ lymphocytes comprise 79.7% of total cells . The monotypic B cell population is described above. Evaluation of the T cell p opulation is limited by extensive nonspecific staining. Myeloid/monocytic popul ations: As identified by CD45 and light scatter characteristics, granulocytes co mprise 3.8% of cells analyzed, and monocytes comprise 6.4% of total cells. The r emaining events analyzed represent nonviable cells, non-hematolymphoid cells, an d debris.These tests were developed and their performance characteristics determ ined by [facility]. They have not been cleared or approve d by the U.S. Food and Drug Administration. The FDA has determined that such stefano arance or approval is not necessary. It should not be regarded as investigationa l or for research. This laboratory is certified under the Clinical Laboratory Im provement Amendments of 1988 ("CLIA") as qualified to perform high-complexity cl inical testing.[facility], Department of Pathology, [address] [place] [address], [place] [address], Vlksus Kqpftxhizogt9279-27-04 07:04:00* Test Item Value Reference Range Interpretation Comments % Neutros (test code = 2816) 65 % % Lymphs (test code = 2817) 12 % % Monos (test code = 2818) 8 % % Myelo (test code = 2822) 1 % 0-0 H % Bands (test code = 2826) 7 % 0-10 % Atypical Lymphs (test code = 2829) 7 % 0-0 H # Neutros (test code = 2830) 5.46 K/ul 1.56-6.13 # Lymphs (test code = 2831) 1.01 K/ul 1.18-3.74 L # Monos (test code = 2832) 0.67 K/uL 0.24-0.36 H # Myelo (test code = 2837) 0.08 K/uL 0-0 H # Bands (test code = 2840) 0.59 K/uL 0-0.8 # Atypical Lymphs (test code = 2858) 0.59 K/uL 0-0 H Total Counted (test code = 1351) 100 WBC Morphology (test code = 487) Normal Platelet Morphology (test code = 486) Normal Anisocytosis (test code = 961) 1+ few Poikilocytes (test code = 966) 1+ few Ovalocytes (test code = 477) 1+ few Artifact (test code = 3432) Present Platelet Conc (test code = 3438) Adequate LIZ (test code = LIZ) [employer] Engineer ID - Karissa OverholtU ser comments: Slide comments: Lab Interpretation (test code = 76747-7) Abnormal [facility] W/PLT COUNT & AUTO [id number] 07:04:00* Test Item Value Reference Range Interpretation Comments WHITE BLOOD CELL COUNT (BEAKER) (test code = 775) 8.4 K/ L 3.5- 10.5 RED BLOOD CELL COUNT (BEAKER) (test code = 761) 4.52 M/ L 3.93-5 .22 HEMOGLOBIN (BEAKER) (test code = 410) 11.4 GM/DL 11.2-15.7 HEMATOCRIT (BEAKER) (test code = 411) 36.7 % 34.1-44.9 MEAN CORPUSCULAR VOLUME (BEAKER) (test code = 753) 81.2 fL 79. 4-94.8 MEAN CORPUSCULAR HEMOGLOBIN (BEAKER) (test code = 751) 25.2 pg 25.6-32.2 L MEAN CORPUSCULAR HEMOGLOBIN CONC (BEAKER) (test code = 752) 31.1 GM/DL 32.2-35.5 L RED CELL DISTRIBUTION WIDTH (BEAKER) (test code = 412) 15.9 % 11.7-14.4 H PLATELET COUNT (BEAKER) (test code = 756) 265 K/CU MM 150-450 MEAN PLATELET VOLUME (BEAKER) (test code = 754) 10.6 fL 9.4-12 .3 NUCLEATED RED BLOOD CELLS (BEAKER) (test code = 413) 0 /100 WBC 0 -0 (CELLAVISION MANUAL DIFF)2020-02-14 07:04:00* Test Item Value Reference Range Interpretation Comments NEUTROPHILS - REL (CELLAVISION)(BEAKER) (test code = 2816) 65 % LYMPHOCYTES - REL (CELLAVISION)(BEAKER) (test code = 2817) 12 % MONOCYTES - REL (CELLAVISION)(BEAKER) (test code = 2818) 8 % MYELOCYTES - REL (CELLAVISION)(BEAKER) (test code = 2822) 1 % 0-0 H BANDS - REL (CELLAVISION)(BEAKER) (test code = 2826) 7 % 0 -10 ATYPICAL LYMPHOCYTES - REL (CELLAVISION)(BEAKER) (test code = 2829) 7 % 0-0 H NEUTROPHILS - ABS (CELLAVISION)(BEAKER) (test code = 2830) 5.46 K/ul 1.56-6.13 LYMPHOCYTES - ABS (CELLAVISION)(BEAKER) (test code = 2831) 1.01 K/ul 1.18-3.74 L MONOCYTES - ABS (CELLAVISION)(BEAKER) (test code = 2832) 0.67 K/uL 0.24-0.36 H MYELOCYTES-ABS (CELLAVISION)(BEAKER) (test code = 2837) 0.08 K/uL 0.00-0.00 H BANDS - ABS (CELLAVISION)(BEAKER) (test code = 2840) 0.59 K/uL 0 .00-0.80 ATYPICAL LYMPHOCYTES - ABS (CELLAVISION)(BEAKER) (test code = 2858) 0.59 K/uL 0.00-0.00 H TOTAL COUNTED (BEAKER) (test code = 1351) 100 WBC MORPHOLOGY (BEAKER) (test code = 487) Normal PLT MORPHOLOGY (BEAKER) (test code = 486) Normal ANISOCYTOSIS (BEAKER) (test code = 961) 1+ few POIKILOCYTES (BEAKER) (test code = 966) 1+ few OVALOCYTES (BEAKER) (test code = 477) 1+ few ARTIFACT (CELLAVISION)(BEAKER) (test code = 3432) Present PLATELET CONCENTRATION (CELLAVISION)(BEAKER) (test code = 3438) Tammie quate [employer] Engineer ID - Karissa OverholtUser comments: Slide comments: B-type Natriuretic Factor (BNP)2020-02-14 03:27:00* Test Item Value Reference Range Interpretation Comments BNP (test code = 79251-1) 115 pg/mL 0-100 H LIZ (test code = LIZ) [employer] Engineer ID - MARGY L Lab Interpretation (test code = 33162-9) [facility]normal [facility]BNP[facility]2020-02-14 03:27:00 * Test Item Value Reference Range Interpretation Comments B-TYPE NATRIURETIC PEPTIDE (BEAKER) (test code = 700) 115 pg/mL 0-100 H [employer] Engineer ID - MARGY [id number] 03:10:00* Test Item Value Reference Range Interpretation Comments PARTIAL THROMBOPLASTIN TIME (BEAKER) (test code = 760) 88.0 seconds 22.5-36.0 H [id number] 01:57:00* Test Item Value Reference Range Interpretation Comments PARTIAL THROMBOPLASTIN TIME (BEAKER) (test code = 760) 160.7 sec onds 22.5-36.0 HH [id number] 01:03:00* Test Item Value Reference Range Interpretation Comments PARTIAL THROMBOPLASTIN TIME (BEAKER) (test code = 760) 179.7 sec onds 22.5-36.0 HH RAD, CHEST, 1 VIEW, NON [id number] 21:23:00Reason for exam:->Pleural mass and mediastinal adenopathyShould this be performed at the bedside?->YesFINAL REPORT Chest one view. Clinical history: Pleural mass and mediastinal adenopathy Comparison: Chest radiograph 06/18/[address] 02/11/2020. Technique: A single frontal view of the chest was obtained. Findings: The cardiac silhouette is normal in size. The aorta is uncoiled. The re is elevation of the right hemidiaphragm. There are low lung volumes with vasc ular crowding. The hilar contours are unremarkable. There is a a masslike opacit y in the right medial lung base/right heart border which corresponds to mass see n on outside CT. There is no definite pleural effusion. There is no pulmonary ed mirella or pneumothorax. The osseous structures are unremarkable. Impression:Masslik e opacity in the right medial lung base/right heart border, which corresponds to mass seen on outside CT.No definite pleural effusion. Signed: Fernanda Bush eport Verified Date/Time: 02/13/2020 21:23:35 chest 1 view portable / bedside 2020-02-13 21:23:00Interface, External Ris In - 02/13/2020 9:26 PM CDTFINAL REPORT Chest one view. Clinical history: Pleural mass and mediastinal adenopathy Comparison: Chest radiograph 06/18/[address] 02/11/2020. Technique: A single frontal view of the chest was obtained. Findings: The cardiac silhouette is normal in size. The aorta is uncoiled. There is elevation of the right hemidiaphragm. There are low lung volumes with vascular crowding. The hilar contours are unremarkable. There is a a masslike opacity in the right medial lung base/right heart border which corresponds to mass seen on outside CT. There is no definite pleural effusion. There is no pulmonary edema or pneumothorax. The osseous structures are unremarkable. Impression:Masslike opacity in the right medial lung base/right heart border, which corresponds to mass seen on outside CT.No definite pleural effusion. Signed: Fernanda Bush MDReport Verified Date/Time: 02/13/2020 21:23:35 [facility]APTT2020-[facility]-28 18:37:00* Test Item Value Reference Range Interpretation Comments PARTIAL THROMBOPLASTIN TIME (BEAKER) (test code = 760) 64.9 seconds 22.5-36.0 H POCT-GLUCOSE [id number] 17:33:00* Test Item Value Reference Range Interpretation Comments POC-GLUCOSE METER (BEAKER) (test code = 1538) 217 mg/dL 70-110 H : TESTED AT [facility] [address], [id number]: [employer] Engineer/Chief Lock Operator ID = [id number] for JODIE MARCIO U/S, BIOPSY, THORAX/NECK, SOFT [id number] 16:44:00Reason for exam:->lad on rigth side assess for lymphomaFINAL REPORT HISTORY: Right cervical lymphadenopathy Sedation: None [employer]icated [employer] Truck Driver: Rupert Gaitan MD. Wastewater Treatment Operator: MD Gladys (Resident) Approach: Right neck, percutaneous DISCUSSION:Initial ultrasound images demonstrate right cervical enlarged right cervical lymph nodes. An enlarged right cervical lymph node measuring approximately 2.5 cm in maximal dimension was targeted for core biopsy. The right neck was prepped and draped in sterile fashion. 2% lidocaine was used for local anesthesia. Using ultrasound guidance, following acquisition of permanent images, an 18-gauge core biopsy needle was advanced into the enlarged right cervical lymph node. Three core biopsy samples were obtained with two specimens placed in formalin for pathology and one specimen in RPMI for flow cytometry. The needle was removed and hemostasis achieved with manual compression. Sterile dressing was applied. The patient tolerated the procedure without immediate complication. There were no immediate complications. IMPRESSION: Successful, uncomplicated right cervical lymph node core biopsy as detailed above.. Signed: Rupert Gaitan MDReport Verified Date/Time: 02/13/2020 16:44:57 Reading Location: [place] [address] Angio Body Reading Room neck [id number] 16:44:00Interface, External Ris In - 02/13/2020 6:35 PM CDTFINAL REPORT HISTORY: Right cervical lymphadenopathy Sedation: None [employer]icated [employer] Truck Driver: Rupert Gaitan MD. Wastewater Treatment Operator: MD Gladys (Resident) Approach: Right neck, percutaneous DISCUSSION:Initial ultrasound images demonstrate right cervical enlarged right cervical lymph nodes. An enlarged right cervical lymph node measuring approximately 2.5 cm in maximal dimension was targeted for core biopsy. The right neck was prepped and draped in sterile fashion. 2% lidocaine was used for local anesthesia. Using ultrasound guidance, following acquisition of permanent images, an 18-gauge core biopsy needle was advanced into the enlarged right cervical lymph node. Three core biopsy samples were obtained with two specimens placed in formalin for pa thology and one specimen in RPMI for flow cytometry. The needle was removed and hemostasis achieved with manual compression. Sterile dressing was applied. The p atient tolerated the procedure without immediate complication. There were no imm ediate complications. IMPRESSION: Successful, uncomplicated right cervical lymp h node core biopsy as detailed above.. Signed: Rupert Gaitan MDReport Verified D ate/Time: 02/13/2020 16:44:57 Reading Location: [place] [address] Angio Body Reading Room [facility] W/Doppler(CW/PW/Color)2020-02-13 14:55:21 Ejection FractionSLEH ECHO HEARTLAB MKCKESSON CPACSInterface, External Ris In - 02/13/2020 2:55 PM CDTTransthoracic Echocardiography Report (TTE) Demographics Patient Name PATIENCE MORRIS Date of Study 02/13/2020 Gender Female Visit Number [id number] Race Unknown Room Number [address] [facility] Date of 1930 Referring Physician Nadine Benz Age 89 year(s) Inside Polisher Jonny Durán [facility] Interpreting Roscoe Junior MD Physician Procedure Type of Study TTE procedure:2DECHO W DOPPLER(C W/PW/COLOR) (Routine) Indications:Shortness of breath.Clinical HistoryDiabetesHy pertensionHGB 11.5HCT 36.8 %Contrast Medium: Definity. Amount - 2 mlHeight: 64 i nches Weight: 98.43 kg (217 lbs) BSA: 2.03 m^2 BMI: 37.25 kg/m^2HR: 93 bpm BP: 1 35/63 mmHg Summary TECHNICALLY DIFFICULT STUDY. Parasternal long axis measuremen ts not possible. The left ventricle is chamber size (by vol index) is normal (f emale - LVED vol - 29-61ml/m2). All of the LV segments contract normally . LVEF by Liu's method of disk assessment is normal (>60%) . LV diastolic function is indeterminate. Unable to estimate peak systolic PA pressure; inadequate TR velocity signal. No pericardial effusion is visualized. Signature Findings Left Ventricle Parasternal long axis measurements not possible. The left ventricle is chamber size (by vol index) is normal (female - LVED vol - 29-61ml/m2). All of the LV segments contract normally . LVEF by Liu's method of disk assessment is normal (>60%) . LV diastolic function is indeterminate. Left Atrium LA size is normal (16-34 ml/m2) . Right Ventricle The right ventricular chamber size and systolic function are within normal limits. Right Atrium RA size is normal. Aortic Valve The aortic valve is not well visualized. Mitral Valve Mild MV leaflet thickening. Trace mitral regurgitation. Tricuspid Valve TV structure is normal. Unable to estimate peak systolic PA pressure; inadequate TR velocity signal. Pulmonic Valve PV is not well visualized. Pericardium No pericardial effusion is v isualized. IVC/SVC/PA/PV/Pleural The estimated RA pressure by IVC dynamics 5-1 0mmHg . Chambers/Structures Left Atrium LA Volume: 67.53 ml LA Area: 22.67 cm^2 LA Vol. Index: 33 ml/m^2 Left Ventr icle LVEDV Liu's:86.85 ml LVESV Liu's:29.79 ml LVEF Liu's: 65.7 % LVEDVI: 43 ml/m^2 LVESVI: 15 ml/m^2 Doppler/Quantitative Measurements LVOT Peak Velocity: 1.5 m/s Peak Gradient: 8.96 mmHg Mean Velocity: 0.95 m/s Mean Gradient: 4.28 mmHg LVOT VT I: 30.09 cm [facility] HospitalPOCT[facility] [id number] 11:43:00* Test Item Value Reference Range Interpretation Comments POC-GLUCOSE METER (BEAKER) (test code = 1538) 237 mg/dL 70-110 H : Notified RN/MD: TESTED AT [address], [address]: [employer] Engineer/Chief Lock Operator ID = [id number] for MARCIO FELICIANO [id number] 09:26:00* Test Item Value Reference Range Interpretation Comments PARTIAL THROMBOPLASTIN TIME (BEAKER) (test code = 760) 50.1 seconds 22.5-36.0 H Prior to initiating heparinProthrombin time/GPQ2008-20-75 09:24:00* Test Item Value Reference Range Interpretation Comments Protime (test code = 5902-2) 14.1 11.9- 14.2 seconds INR (test code = 6301-6) 1.12 <=5.90 LIZ (test code = LIZ) Effective 10/13/2018: PT Refe rence Range ChangeNew: 11.9- 14.2 Previous: 11.7-14.7 RECOMMENDED COUMADIN/WARFARIN INR THERAPY RANGESSTANDARD DOSE: 2.0-3.0 Includes: PROPHYLAXIS for venous thrombosis, sys temic embolization; TREATMENT for venous thrombosis and/or pulmonary embolus.HIGH RISK: Target INR is 2.5-3.5 for patients wiht mechanical heart valves. Lab Interpretation (test code = 23951-8) [facility]/[id number] 09:24:00* Test Item Value Reference Range Interpretation Comments PROTIME (BEAKER) (test code = 759) 14.1 seconds 11.9-14.2 INR (BEAKER) (test code = 370) 1.12 <=5.90 Effective 10/13/2018: PT Reference Range ChangeNew: 11.9-14.2 Previous: 11.7-14. 7RECOMMENDED COUMADIN/WARFARIN INR THERAPY RANGESSTANDARD DOSE: 2.0-3.0 Include s: PROPHYLAXIS for venous thrombosis, systemic embolization; TREATMENT for venou s thrombosis and/or pulmonary embolus.HIGH RISK: Target INR is 2.5-3.5 for patie nts wiht mechanical heart valves.POCT-GLUCOSE [id number] 07:25:00* Test Item Value Reference Range Interpretation Comments POC-GLUCOSE METER (BEAKER) (test code = 1538) 177 mg/dL 70-110 H : TESTED AT [address], [address]: [employer] Engineer/Chief Lock Operator ID = [id number] for MARCIO FELICIANO POCT-GLUCOSE [id number] 22:08:00* Test Item Value Reference Range Interpretation Comments POC-GLUCOSE METER (BEAKER) (test code = 1538) 172 mg/dL 70-110 H : TESTED AT [place] [id number] [facility], [address]: [employer] Engineer/Chief Lock Operator ID = [id number] for BERONICA ROMAN POCT-GLUCOSE [id number] 16:33:00* Test Item Value Reference Range Interpretation Comments POC-GLUCOSE METER (BEAKER) (test code = 1538) 142 mg/dL 70-110 H : TESTED AT [place] [id number] [facility], [address]: [employer] Engineer/Chief Lock Operator ID = [id number] for CHANEL CERVANTES Venous doppler legs rsltrpeug8424-15-53 15:08:41Ejection FractionSLEH ECHO HEARTLAB MKCKESSON CPACSRight Impression1. There is no deep venous obstruction in the common femoral, profundafemoral, femoral, popliteal, posterior tibial or peroneal veins.2. There is no superficial venous obstruction in the great saphenous vein.Left Impression1. There is no deep venous obstruction in the common femoral, profundafemoral, femoral or popliteal veins.2. There is total echolucent deep venous obstruction in the posterior tibialand peroneal veins .3. There is no superficial venous obstruction in the great saphenous vein. Conclusions Summary Venous duplex imaging and compression of the bilateral lower extremities were performed. The veins were adequately visualized. The right deep venous system was patent and compressible with no evidence of thromb us. The left deep venous system was positive with acute thrombus. The venous Dop pler waveforms were phasic with respiration . Signature Velocities are measured in cm/s ; Diameters are measured in cm Interface, External Ris In - 02/12/2020 3:08 PM CDTPV LAB - Lower Extremities DVT Study Demographics Patient Name PATIENCE MORRIS ate of Study 02/11/2020 Age 89 Visit Number [id number] Gender Female Accession Number [id number] Date of 1930 Referring Nadine Haque Room Number 733 Physician Demar Thakkar Interpreting Luis Arriaza MD RVT Physician ProcedureType of Study: Veins: Lower Extrem ities DVT Study, VENOUS DOPPLER LEG, BILATERAL. Indications for Study:Pulmonary embolism.Patient Status:Routine.Study Location:Portable.Technical Quality:Adequa te visualization. - Results were reported to:DEBBIE CHAVARRIA @ 20:38.Risk FactorsHistory of Disease+ + +-- ------+!Diagnosis !Date !Commen ts!+ + +--------+! History/Risk Factors: !02/11/2020!PE !! ! !SOB !+-------- + +--------+ImpressionsRi ght Impression1. There is no deep venous obstruction in the common femoral, prof undafemoral, femoral, popliteal, posterior tibial or peroneal veins.2. There is no superficial venous obstruction in the great saphenous vein.Left Impression1. There is no deep venous obstruction in the common femoral, profundafemoral, femo ral or popliteal veins.2. There is total echolucent deep venous obstruction in t he posterior tibialand peroneal veins .3. There is no superficial venous obstruc tion in the great saphenous vein. Conclusions Summary Venous duplex imaging an d compression of the bilateral lower extremities were performed. The veins were adequately visualized. The right deep venous system was patent and compressible with no evidence of thrombus. The left deep venous system was positive with acut e thrombus. The venous Doppler waveforms were phasic with respiration . Signatu re Electronica lly signed by Luis Arriaza MD(Interpreting physician) on 02/12/2020 03:08 PM --- Velocities are lonny sured in cm/s ; Diameters are measured in [facility] SARS-CoV2/RT-PCR (Symptomatic ONLY)2020-02-12 13:49:00* Test Item Value Reference Range Interpretation Comments SARS-COV2/RT-PCR (test code = 78317-4) Negative N ot Detected, Negative, See external report for linked test SARS-COV-2 PERFORMING LAB (test code = 71771-2) [facility] K[facility]LOE LIZ (test code = LIZ) Negative result for [...] of the Act. Fact Sheet for Healthcare Providers:https://www.[employer]/sites/default/files/product/documents/Fact_Shee b_WX_Mtfrucfmd_Jrrr_ETKK-PwM-4.pdf Fact Sheet for Healthcare Patients:https://www.[employer]/sites/default/files/pro duct/documents/Lkgw_Npkfy_Zcrixdfw_Homx_LKAZ-JpA-6.pdf Performing Laboratory:[facility] [place] [address] [facility] ([facility])2020-02-12 13:49:00* Test Item Value Reference Range Interpretation Comments SARS-COV2/RT-PCR (test code = 1072296) Negative N ot Detected, Negative, See external report for linked test SARS-COV-2 PERFORMING LAB (test code = 5397560) [facility] K[facility] Negative result for this [...] causes of illness are negative. Re-testing should b e considered in cases of suspected false negatives.The limit of detection for th is assay is 800 copies/mL.This SARS CoV-2 test is a real-time RT-PCR test intend ed for the qualitative detection of nucleic acid from SARS-CoV-2 in a nasopharyn geal swab specimen collected from individuals suspected of COVID-19 by their [facility] provider.This test has not been Food and Drug Administration (FDA) clear ed or approved. This is a modified version of an approved Emergency Use Authori zation (EUA) and is in the process of review by the FDA. Once authorized by [facility] FDA, the issued EUA will be effective until the declaration that circumstances exist justifying the authorization of the emergency use of in vitro diagnostic tests for detection and/or diagnosis of COVID-19 is terminated under Section 564 (b)(2) of the Act or the EUA is revoked under Section 564(g) of the Act.Fact She et for Healthcare Providers:https://www.[employer]/sites/default/files/product/d ocuments/Ikhu_Pwpih_SE_Mtdrdzfqg_Msig_HOHI-AwX-5.pdfFact Sheet for Healthcare Dmitri maritza:https://www.[employer]/sites/default/files/product/documents/Fact_Sheet_P ayqzvhn_Ozrs_EANV-UhE-3.pdfPerforming Laboratory:[facility] [address] [facility].[place], [place] [address]HFT W/PLT COUNT & AUTO LYJJWKGUJAOP0146-80-27 12:11:00* Test Item Value Reference Range Interpretation [...] LYMPHOCYTES - ABS (CELLAVISION)(BEAKER) (test code = 1528) 0.72 K/uL 0.00-0.00 H TOTAL COUNTED (BEAKER) (test code = 1351) 100 PLT MORPHOLOGY (BEAKER) (test code = 486) Normal SMUDGE CELLS (BEAKER) (test code = 1371) Present ANISOCYTOSIS (BEAKER) (test code = 961) 1+ few POIKILOCYTES (BEAKER) (test code = 966) 1+ few PLATELET CONCENTRATION (CELLAVISION)(BEAKER) (test code = 3438) Tammie quate [employer] Engineer ID - Ava Bateman comments: Slide comments: POCT-GLUCOSE METER 2020-02-12 11:28:00* Test Item Value Reference Range Interpretation Comments POC-GLUCOSE METER (BEAKER) (test code = 1538) 202 mg/dL 70-110 H : TESTED AT [address], [address]: [employer] Engineer/Chief Lock Operator ID = [id number] for CHANEL CERVANTES POCT-GLUCOSE [id number] 07:32:00* Test Item Value Reference Range Interpretation Comments POC-GLUCOSE METER (BEAKER) (test code = 1538) 138 mg/dL 70-110 H : TESTED AT [address], [address]: [employer] Engineer/Chief Lock Operator ID = [id number] for HELEN NADA BASIC METABOLIC [id number] 06:44:00* Test Item Value Reference Range Interpretation [...] INSUFFICIENT CLINICAL DATA TO CALCULATE ESTIMATED GFR. [employer] Engineer ID - PIAYA LPOCT-GLUCOSE RASSR1422-11-84 21:44:00* Test Item Value Reference Range Interpretation Comments POC-GLUCOSE METER (BEAKER) (test code = 1538) 137 mg/dL 70-110 H : TESTED AT [address], [address]: [employer] Engineer/Chief Lock Operator ID = [id number] for AURA REECE POCT-GLUCOSE [id number] 16:35:00* Test Item Value Reference Range Interpretation Comments POC-GLUCOSE METER (BEAKER) (test code = 1538) 105 mg/dL 70-110 : TESTED AT [address], [address]: [employer] Engineer/Chief Lock Operator ID = [id number] for CHANEL CERVANTES CT CHEST WITH FPADBONV-IWFY0816-07-26 14:14:[address] [address] Patient Name: PATIENCE MORRIS MR #: [id number] : 1930 Age/Sex: 89/F Req #: [id number] [facility] Physician: Ordered by: CARLOS FERNANDEZ MD Report #: [id number] Location: [facility] Room/Bed: Procedure: [id number] HOPD/CT CHEST WIT H CONTRAST-HOPD Exam Date: 02/11/20 Exam Time: 1341 REPORT STATUS: Signed EXAM: CT C hest WITH contrast- Pulmonary Embolism Protocol INDICATION: Shortness of br eath. COMPARISON: None TECHNIQUE: Chest was scanned utilizing a [facility] tidet[facility] helical scanner from the lung apex through the level of the diaphra gm after administration of IV contrast. Coronal and sagittal reformations were obtained. Pulmonary embolism protocol was performed. IV CONTRAST : 100 cc of Isovue 370 RADIATION DOSE: [...] The above findings were discussed with Dr. Carlos Fernandez on 02/11/2020 at 226 PM . Signed by: Dr. Jaja Serrano MD on 02/11/2020 2:31 PM Dictated By: JAJA SERRANO MD 1431 Transc ribed By: ARMIDA on 02/11/20 1431 COPY TO: CARLOS FERNANDEZ MD CT SOFT TISSUE NEXK UPXA-[id number] 14:04:00 [place] [address] Patient Name: PATIENCE MORRIS MR #: [id number] : 1930 Age/Sex: 89/F Req #: [id number] Adm Physician: Ordered by: CARLOS FERNANDEZ MD Report #: [id number] Location: [facility] Room/Bed: Procedure: [id number] HOPD/CT SOFT TISS UE NEXK WITH-HOPD Exam [...] and/or utilization of iterative reconstruction technique. DISCUSSION: Motio n and streak artifacts obscure some details. The [...] josefina cameron have a retropharyngeal course. 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 are [...] PM Dictated By: ELVIS ANGELO MPA, MD 141 Transcri bed By: ARMIDA on 02/11/201417 COPY TO: CARLOS FERNANDEZ MD CXR [facility] [id number] 11:59:00 [place] [address] Patient Name: PATIENCE MORRIS MR #: [id number] : 1930 Age/Sex: 89/F Req #: [id number] Adm Physician: Ordered by: CARLOS FERNANDEZ MD Report #: [id number] Location: [facility] Room/Bed: Procedure: [id number] HOPD/CXR 1 [facility] Exam Date: 02/11/20 Exam Time: 1133 REPORT STATUS: Signed EXAMINATION: CXR 1 [facility] INDICATION: SOB COMPARISON: Chest radiograph 05/01/2019 . [...] Transcribed By: ARMIDA on 02/11/201201 COPY TO: CARLOS LR MD Sodium Pbufw3903-21-30 05:50:00* Test Item Value Reference Range Interpretation Comments Sodium Level (test code = 2951-2) 132 136-145 L [facility] HospitalPotassium Dbbsp7197-79-53 05:50:00* Test Item Value Reference Range Interpretation Comments Potassium Level (test code = 2823-3) 5.0 3.5-5.1 [facility] HospitalChloride Pyvqd7603-35-91 05:50:00* Test Item Value Reference Range Interpretation Comments Chloride Level (test code = 2075-0) 96 98-107 L [facility] HospitalCarbon Dioxide Fhjsa2837-83-95 05:50:00* Test Item Value Reference Range Interpretation Comments Carbon Dioxide Level (test code = 2028-9) 24 22-29 [facility] HospitalAnion Lqp0261-71-61 05:50:00* Test Item Value Reference Range Interpretation Comments Anion Gap (test code = 48043-8) 17.0 8-16 H [facility] HospitalBlood Urea Hfxgzayq7174-50-85 05:50:00* Test Item Value Reference Range Interpretation Comments Blood Urea Nitrogen (test code = 3094-0) 18 7-26 [facility] HospitalCreatinine2019-12-16 05:50:00* Test Item Value Reference Range Interpretation Comments Creatinine (test code = 2160-0) 1.12 0.57-1.11 H [facility] HospitalBUN/Creatinine Exmqi8477-10-87 05:50:00* Test Item Value Reference Range Interpretation Comments BUN/Creatinine Ratio (test code = 3097-3) 16 6-25 [facility]ine HospitalEstimat Glomerular Filtration Rate 2019-05-02 05:50:00* Test Item Value Reference Range Interpretation Comments Estimat Glomerular Filtration Rate (test code = 211297891) 46 >60 L Ranges were taken from the National Kidney Disease Education Program and the [facility] Kidney Foundation literature.Reference ranges:60 or greater: Ujqvkc87-90 ( for 3 consecutive months): Chronic kidney disease 15 or less: Kidney failureMemorial Hermann Orthopedic & Spine HospitalGlucose Nurwm4411-00-99 05:50:00* Test Item Value Reference Range Interpretation Comments Glucose Level (test code = MRF2629) 303 74-118 H [facility] HospitalCalcium Qwepf6755-42-86 05:50:00* Test Item Value Reference Range Interpretation Comments Calcium Level (test code = 29585-1) 9.9 8.4-10.2 [facility] HospitalB-Type Natriuretic Dskgbpj6085-46-18 05:50:00* Test Item Value Reference Range Interpretation Comments B-Type Natriuretic Peptide (test code = 31152-4) 83.4 0-100 [facility] HospitalWhite Blood Vcvmc1460-96-48 05:23:00* Test Item Value Reference Range Interpretation Comments White Blood Count (test code = 6690-2) 9.00 4.8-10.8 [facility] HospitalRed Blood Kmuhv7167-33-54 05:23:00* Test Item Value Reference Range Interpretation Comments Red Blood Count (test code = 789-8) 5.16 3.6-5.1 H [facility] HospitalHemoglobin2019-12-16 05:23:00* Test Item Value Reference Range Interpretation Comments Hemoglobin (test code = 48171-1) 14.5 12.0-16.0 [facility] HospitalHematocrit2019-12-16 05:23:00* Test Item Value Reference Range Interpretation Comments Hematocrit (test code = 4544-3) 45.0 34.2-44.1 H [facility]ine HospitalMean Corpuscular Froceb5795-54-31 05:23:00* Test Item Value Reference Range Interpretation Comments Mean Corpuscular Volume (test code = 787-2) 87.2 81-99 [facility] HospitalMean Corpuscular Egeqjzrwnk1094-30-42 05:23:00* Test Item Value Reference Range Interpretation Comments Mean Corpuscular Hemoglobin (test code = 785-6) 28.1 28-32 [facility] Spine HospitalMean Corpuscular Hemoglobin Concent 2019-05-02 05:23:00* Test Item Value Reference Range Interpretation Comments Mean Corpuscular Hemoglobin Concent (test code = 786-4) 32.2 31-35 [facility] HospitalRed Cell Distribution Keuxa6531-47-91 05:23:00* Test Item Value Reference Range Interpretation Comments Red Cell Distribution Width (test code = 84245-3) 13.1 11.7 -14.4 [facility] Spine HospitalPlatelet Wwytb4991-24-23 05:23:00* Test Item Value Reference Range Interpretation Comments Platelet Count (test code = 777-3) 306 140-360 [facility] HospitalNeutrophils (%) (Auto)2019-05-02 05:23:00 * Test Item Value Reference Range Interpretation Comments Neutrophils (%) (Auto) (test code = 75272-9) 85.5 38.7-80.0 H [facility] HospitalLymphocytes (%) (Auto)2019-05-02 05:23:00 * Test Item Value Reference Range Interpretation Comments Lymphocytes (%) (Auto) (test code = 736-9) 12.0 18.0-39.1 L [facility] HospitalMonocytes (%) (Auto)2019-05-02 05:23:00* Test Item Value Reference Range Interpretation Comments Monocytes (%) (Auto) (test code = 5905-5) 2.1 4.4-11.3 L [facility] HospitalEosinophils (%) (Auto)2019-05-02 05:23:00 * Test Item Value Reference Range Interpretation Comments Eosinophils (%) (Auto) (test code = 713-8) 0.0 0.0-6.0 [facility] HospitalBasophils (%) (Auto)2019-05-02 05:23:00* Test Item Value Reference Range Interpretation Comments Basophils (%) (Auto) (test code = 706-2) 0.1 0.0-1.0 [facility]ine HospitalIM GRANULOCYTES %2019-05-02 05:23:00* Test Item Value Reference Range Interpretation Comments IM GRANULOCYTES % (test code = IM GRANULOCYTES %) 0.3 0.0- 1.0 [facility] HospitalNeutrophils # (Auto)2019-05-02 05:23:00* Test Item Value Reference Range Interpretation Comments Neutrophils # (Auto) (test code = 751-8) 7.7 2.1-6.9 H [facility] HospitalLymphocytes # (Auto)2019-05-02 05:23:00* Test Item Value Reference Range Interpretation Comments Lymphocytes # (Auto) (test code = 60646-6) 1.1 1.0-3.2 [facility] HospitalMonocytes # (Auto)2019-05-02 05:23:00* Test Item Value Reference Range Interpretation Comments Monocytes # (Auto) (test code = 742-7) 0.2 0.2-0.8 [facility] HospitalEosinophils # (Auto)2019-05-02 05:23:00* Test Item Value Reference Range Interpretation Comments Eosinophils # (Auto) (test code = 711-2) 0.0 0.0-0.4 [facility] HospitalBasophils # (Auto)2019-05-02 05:23:00* Test Item Value Reference Range Interpretation Comments Basophils # (Auto) (test code = 704-7) 0.0 0.0-0.1 [facility] Spine HospitalAbsolute Immature Granulocyte (auto 2019-05-02 05:23:00* Test Item Value Reference Range Interpretation Comments Absolute Immature Granulocyte (auto (tere t code = Absolute Immature Granulocyte (auto) 0.03 0-0.1 [facility] HospitalBlood leukocytes automated count (number/volume)2019-05-02 04:05:00* Test Item Value Reference Range Interpretation Comments White Blood Count (test code = 6690-2) 9.00 4.8-10.8 [facility] HospitalBlhutchinson health hospital erythrocytes automated count (number/volume)2019-05-02 04:05:00* Test Item Value Reference Range Interpretation Comments Red Blood Count (test code = 789-8) 5.16 3.6-5.1 [facility] HospitalBlood hemoglobin measurement (moles/volume)2019-05-02 04:05:00* Test Item Value Reference Range Interpretation Comments Hemoglobin (test code = 51868-2) 14.5 12.0-16.0 [facility] Spine HospitalAutomated blood hematocrit (volume fraction)2019-05-02 04:05:00* Test Item Value Reference Range Interpretation Comments Hematocrit (test code = 4544-3) 45.0 34.2-44.1 [facility] Spine HospitalAutomated erythrocyte mean corpuscular bzxiiu9970-13-64 04:05:00* Test Item Value Reference Range Interpretation Comments Mean Corpuscular Volume (test code = 787-2) 87.2 81-99 [facility] Spine HospitalAutomated erythrocyte mean corpuscular hemoglobin (mass per erythrocyte)2019-05-02 04:05:00* Test Item Value Reference Range Interpretation Comments Mean Corpuscular Hemoglobin (test code = 785-6) 28.1 28-32 [facility] Spine HospitalAutomated erythrocyte mean corpuscular hemoglobin concentration measurement (mass/volume)2019-05-02 04:05:00* Test Item Value Reference Range Interpretation Comments Mean Corpuscular Hemoglobin Concent (test code = 786-4) 32.2 31-35 [facility] Spine HospitalRDW LmlQj-Qdi9373-06-16 04:05:00* Test Item Value Reference Range Interpretation Comments Red Cell Distribution Width (test code = 71502-2) 13.1 11.7 -14.4 [facility]ine HospitalAutnovant healthed blood platelet count (count/volume)2019-05-02 04:05:00* Test Item Value Reference Range Interpretation Comments Platelet Count (test code = 777-3) 306 140-360 [facility]ine HospitalAutnovant healthed blood segmented neutrophil count as percentage of total tqffpqchhv8982-08-42 04:05:00* Test Item Value Reference Range Interpretation Comments Neutrophils (%) (Auto) (test code = 31754-9) 85.5 38.7-80.0 [facility]ine HospitalAutnovant healthed blood lymphocyte count as percentage ot total pnzhiicnri9537-38-02 04:05:00* Test Item Value Reference Range Interpretation Comments Lymphocytes (%) (Auto) (test code = 736-9) 12.0 18.0-39.1 [facility] Spine HospitalAutomated blood monocyte count as percentage of total totexdfqob5478-59-80 04:05:00* Test Item Value Reference Range Interpretation Comments Monocytes (%) (Auto) (test code = 5905-5) 2.1 4.4-11.3 [facility] Spine HospitalAutomated blood eosinophil count as percentage of total gojtwtdnzk4134-05-17 04:05:00* Test Item Value Reference Range Interpretation Comments Eosinophils (%) (Auto) (test code = 713-8) 0.0 0.0-6.0 [facility] Spine HospitalAutomated blood basophil count as percentage of total ujgladmyjy0865-16-07 04:05:00* Test Item Value Reference Range Interpretation Comments Basophils (%) (Auto) (test code = 706-2) 0.1 0.0-1.0 [facility]ine HospitalFluoroscopic procedure less than one hour ppwgahap3788-72-44 04:05:00* Test Item Value Reference Range Interpretation Comments IM GRANULOCYTES % (test code = IM GRANULOCYTES %) 0.3 0.0- 1.0 [facility] Spine HospitalAutomated blood neutrophil count 2019-05-02 04:05:00* Test Item Value Reference Range Interpretation Comments Neutrophils # (Auto) (test code = 751-8) 7.7 2.1-6.9 [facility] HospitalBlood lymphocytes count (number/volume) 2019-05-02 04:05:00* Test Item Value Reference Range Interpretation Comments Lymphocytes # (Auto) (test code = 50191-6) 1.1 1.0-3.2 [facility] Spine HospitalBlood monocytes automated count (number/volume)2019-05-02 04:05:00* Test Item Value Reference Range Interpretation Comments Monocytes # (Auto) (test code = 742-7) 0.2 0.2-0.8 [facility] Spine HospitalAutomated blood eosinophil count 2019-05-02 04:05:00* Test Item Value Reference Range Interpretation Comments Eosinophils # (Auto) (test code = 711-2) 0.0 0.0-0.4 [facility] Spine HospitalAutomated blood basophil count (count/volume)2019-05-02 04:05:00* Test Item Value Reference Range Interpretation Comments Basophils # (Auto) (test code = 704-7) 0.0 0.0-0.1 [facility]ine HospitalFluoroscopic procedure less than one hour ptclguku8554-58-43 04:05:00* Test Item Value Reference Range Interpretation Comments Absolute Immature Granulocyte (auto (tere t code = Absolute Immature Granulocyte (auto) 0.03 0-0.1 [facility] Arlingtonerum or plasma sodium measurement (moles/volume)2019-05-02 04:05:00* Test Item Value Reference Range Interpretation Comments Sodium Level (test code = 2951-2) 132 136-145 [facility] Arlingtonerum or plasma potassium measurement (moles/volume)2019-05-02 04:05:00* Test Item Value Reference Range Interpretation Comments Potassium Level (test code = 2823-3) 5.0 3.5-5.1 [facility] Arlingtonerum or plasma chloride measurement (moles/volume)2019-05-02 04:05:00* Test Item Value Reference Range Interpretation Comments Chloride Level (test code = 2075-0) 96 98-107 [facility] carbon dioxide, total measurement (moles/volume)2019-05-02 04:05:00* Test Item Value Reference Range Interpretation Comments Carbon Dioxide Level (test code = 2028-9) 24 22-29 [facility] anion [id number] 04:05:00* Test Item Value Reference Range Interpretation Comments Anion Gap (test code = 09811-9) 17.0 8-16 [facility] urea nitrogen measurement (mass/volume)2019-05-02 04:05:00* Test Item Value Reference Range Interpretation Comments Blood Urea Nitrogen (test code = 3094-0) 18 7-26 [facility] creatinine measurement (mass/volume)2019-05-02 04:05:00* Test Item Value Reference Range Interpretation Comments Creatinine (test code = 2160-0) 1.12 0.57-1.11 [facility] urea nitrogen/creatinine mass [id number] 04:05:00* Test Item Value Reference Range Interpretation Comments BUN/Creatinine Ratio (test code = 3097-3) 16 6-25 [facility] HospitalEstimated glomerular filtration rate (GFR) feituhvdvwjbz8619-95-80 04:05:00* Test Item Value Reference Range Interpretation Comments Estimat Glomerular Filtration Rate (test code = 793211734) 46 >60 Ranges were taken from the National Kidney Disease Education Program and the [facility] [employer] literature.Reference ranges:60 or greater: Krlsog14-53 ( for 3 consecutive months): Chronic kidney disease 15 or less: Kidney failureMem[facility]ann [facility]opedic & Spine HospitalGlucose tjgnpwskllm4650-05-15 04:05:00* Test Item Value Reference Range Interpretation Comments Glucose Level (test code = LKG1951) 303 74-118 [facility] calcium measurement (mass/volume)2019-05-02 04:05:00* Test Item Value Reference Range Interpretation Comments Calcium Level (test code = 30572-7) 9.9 8.4-10.2 [facility] HospitalBNP Wro-iJlz1965-10-16 04:05:00* Test Item Value Reference Range Interpretation Comments B-Type Natriuretic Peptide (test code = 08041-3) 83.4 0-100 [facility] HospitalBedside Hitkgeb0028-18-24 20:25:00* Test Item Value Reference Range Interpretation Comments Bedside Glucose (test code = 63272-2) 182 70-120 H Meter ID: [id number] [facility] ResourcesCapillary blood glucose measurement by glucometer (mass/volume)2019-05-01 18:42:00* Test Item Value Reference Range Interpretation Comments Bedside Glucose (test code = 67579-3) 182 70-120 Meter ID: [id number] [facility] ResourcesC[facility] 2 VIEW - HOPD 2019-05-01 11:48:00 [facility] [address] [address] Patient Name: PATIENCE MORRIS MR #: [id number] : 1930 Age/Sex: 88/F Req #: [id number] Adm Physician: SANTINO TREADWELL MD Ordered by: MARCO CRUZ MD Report #: [id number] Location: [facility] Room/Bed: [place] [address] Procedure: [id number] HOPD /CXR 2 VIEW - HOPD Exam Date: 05/01/19 Exam Time: 04 11 REPORT STATUS: Signed EXAMINA TION: CXR 2 VIEW - HOPD INDICATION: Chest pain, shortness of breath. COMPARISON: Chest radiograph 02/03/19. FINDINGS: TUBES and LINES : None. LUNGS: Lungs are moderately inflated. Mild [...] MARCO CRUZ MD CXR 2 VIEW - [id number] 11:30:00 [place] [address] Patient Name: PATIENCE MORRIS MR #: [id number] : 1930 Age/Sex: 88/F Req #: [id number] Adm Physician: Ordered by: MIGUEL KELLY MD Report #: [id number] Location: [facility] Room/Bed: Procedure: [id number] HOP D/CXR 2 VIEW - HOPD Exam Date: 02/13/19 Exam Time: REPORT STATUS: Signed Fronta l and lateral views of the chest. HISTORY: Unable to sleep COMPARISON: None available. DISCUSSION: Lungs: Mild eventration of the right hemidiaphragm. No evidence of a consolidative pneumonia or pulmonary alveolar edema. Pleura: No pleural effusion or pneumothorax. Heart and mediastinum: The cardiac silhouette appear(s) within the upper limits o f normal. Bones and soft tissues: Appear unremarkable. IMPRESSI ON: No acute radiographic abnormality. Signed by: Dr. Charlie Mendenhall D.O., M.M.M. on 02/13/2019 11:54 AM Dictated By: CHARLIE MENDENHALL DO 1154 Transcribed By: ARMIDA on 02/13/19 [id number] COPY TO: MIGUEL KELLY MD
--- OUTSIDE RECORDS SUMMARY | 2020-03-02 11:55 | XMS REPORT | Clinical Summary ---
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 [place] [address] [facility] * Procalcitonin (02/16/2020 5:38 AM CDT) Procalcitonin 0.10 (H) <0.05 ng/mL [facility] Specimen Blood Narrative Performed At SEPSIS RISK (ng/mL) [facility] Low: 0.05-0.50 [facility] Intermediate: 0.51-2.00 High: >=2.01 Performing Organization Address [facility] one [place] [address] [address] [phone] [place] [address] * aPTT (02/14/2020 10:15 AM CDT) Only the most recent of 6 results within the time period is included. PTT 153.1 (HH) 22.5 - 36.0 seconds [facility] Specimen Blood Performing Organization Address [facility] one [place] [address] [address] [phone] [place] [address] * Lactate dehydrogenase (LDH) (02/14/2020 10:15 AM CDT) LDH 447 (H)Comment: Specimen 125 - 220 U/L [facility] slightly hemolyzed [facility] Specimen Blood Narrative Performed At Manager Pool ID - [facility] Performing Organization Address [facility] one [place] [address] [address] [phone] [place] [address] * Carcinoembryonic Antigen (CEA) (02/14/2020 10:15 AM CDT) CEA, SERUM 2.8 0.0 - 5.0 ng/mL [facility] Specimen Blood Narrative Performed At Manager Pool ID - [facility] Performing Organization Address [facility] one [place] [address] [address] [phone] [place] [address] * Manual Differential (02/14/2020 2:54 AM CDT) Only the most recent of 2 results within the time period is included. % Neutros 65 % [facility] % Lymphs 12 % [facility] % Monos 8 % [facility] % Myelo 1 (H) 0 - 0 % [facility] % Bands 7 0 - 10 % [facility] % Atypical 7 (H) 0 - 0 % [facility] # Neutros 5.46 1.56 - 6.13 K/ul [facility] # Lymphs 1.01 (L) 1.18 - 3.74 K/ul [facility] # Monos 0.67 (H) 0.24 - 0.36 K/uL [facility] # Myelo 0.08 (H) 0.00 - 0.00 K/uL [facility] # Bands 0.59 0.00 - 0.80 K/uL [facility] # Atypical 0.59 (H) 0.00 - 0.00 K/uL [facility] Total Counted 100 [facility] WBC Morphology Normal [facility] Platelet Normal [facility] Anisocytosis 1+ few [facility] Poikilocytes 1+ few [facility] Ovalocytes 1+ few [facility] Artifact Present [facility] Platelet Conc Adequate [facility] Specimen Blood Narrative Performed At Manager Pool ID - Karissa Overholt [facility] User comments: [facility] Slide comments: Performing Organization Address City/State/Zipcode Ph one Number [facility] [address] [facility], [place] [address] MEDICAL CENTER * B-type Natriuretic Factor (BNP) (02/14/2020 2:54 AM CDT) BNP 115 (H) 0 - 100 pg/mL [facility] Specimen Blood Narrative Performed At Manager Pool ID - PIJOE Colindres [facility] Performing Organization Address City/State/[facility] Ph one Number [facility] [address] [place], [place] [address] [facility] * Hemoglobin A1c (02/14/2020 2:54 AM CDT) Hemoglobin A1C 7.3 (H) 4.3 - 6.1 % [facility] Specimen Blood Performing Organization Address [facility] Ph one Number [facility] [address] [place], [place] [address] [facility] * XR chest 1 view portable / bedside (02/13/2020 7:32 PM CDT) Specimen Narrative Performed At FINAL REPORT RIS Chest one view. Clinical history: Pleural mass and medi astinal adenopathy Comparison: Chest radiograph 06/18/[address] a [address] outside chest CT 02/11/2020. Technique: A single frontal view of the chest was obtained. Findings: The cardiac silhouette is normal in siz e. The aorta is uncoiled. There is elevation of the right hemidia phragm. There are low lung volumes with vascular crowding. The hil ar contours are unremarkable. There is a a masslike opacity in the ri ght medial lung base/right heart border which corresponds to mass seen on outside CT. There is no definite pleural effusion. There is no pulmonary edema or pneumothorax. The osseous structures are unremarkable . Impression: Masslike opacity in the right medial adelita ng base/right heart border, which corresponds to mass seen on outsi de CT. No definite pleural effusion. Signed: Fernanda Bush MD Report Verified Date/Time: 02/13/2020 21:23:35 Procedure Note Interface, External Ris In - 02/13/2020 9:26 PM CDT FINAL REPORT Chest one view. Clinical history: Pleural [...] or pneumothorax. The osseous structures are unremarkable. Impression: Masslike opacity in the right medial lung base/right heart border, which corresponds to mass seen on outside CT. No definite pleural effusion. Signed: Fernanda Bush MD Report Verified Date/Time: 02/13/2020 21:23:35 Performing Organization Address City/[facility] Ph one Number [facility] * Flow Cytometry Requisition (02/13/2020 4:49 PM CDT) Flow Cytometry See Separate Report [facility] Case # [id number] [facility] Specimen Tissue - Structure of right parotid gland (body structure) Performing Organization Address City/[facility] Ph one Number [place] [address] MEDICAL CENTER * Flow Cytometry (02/13/2020 4:49 PM CDT) Case Report Flow Cytometry Report [facility] Case: [id number] [facility] Authorizing Provider: Khris Andino MD Collected: 02/13/2020 04:49 PM Ordering Location: [address] Received: 02/13/2020 05:49 PM Service Pathologist: Candy Tian MD Specimen: Other Flow RIGHT PAROTID, FLOW CYTOMETRY: [facility] Electronically Interpretation -LIMITED BY [facility] signed by Jaylan, (52%) [facility]ENTER Ritesh Alcocer D -MONOTYPIC B CELL POPULATION on 02/14/2020 at (39% OF TOTAL CELLS) 10:05 AM -SEE COMMENT Flow These limited results would [facility] Interpretation support involvement by a B [facility] Comment cell lymphoid neoplasm, [facility] R however, require correlation with the morphologic and other features for full interpretation. CPT Code(s) 29676 [facility] CLINICAL Lymphadenopathy [facility] HISTORY [facility] SPECIMEN SOURCE Right parotid [facility] CELLULAR CD8, surface-Zalma, CD56, [facility] BIOMARKER surface-Lambda, CD5, CD19, [facility] ANALYSIS CD10, CD3, CD20, CD4, CD45, MEDICAL C ENTER CD23, CD49d, CD38, CD200. IMMUNOPHENOTYPI Specimen Viability: 52.3% [facility] FINDINGS Number of Events Acquired: [facility] [address] [facility] Abnormal, monotypic B cell population identified (39% of cellularity) POSITIVE: kappa light chain restricted, CD19, CD20, CD200 NEGATIVE: CD5, CD10, CD23 In addition, the following populations are identified: Lymphocytes: Bright CD45+ lymphocytes comprise 79.7% of total cells. The monotypic B cell population is described above. Evaluation of the T cell population is limited by extensive nonspecific staining. Myeloid/monocytic populations: As identified by CD45 and light scatter characteristics, granulocytes comprise 3.8% of cells analyzed, and monocytes comprise 6.4% of total cells. The remaining events analyzed represent nonviable cells, non-hematolymphoid cells, and debris. DISCLAIMER These tests were developed and [facility] their performance [facility] characteristics determined by MEDICAL [facility]. They have not been cleared or approved by the U.S. Food and Drug Administration. The FDA has determined that such clearance or approval is not necessary. It should not be regarded as investigational or for research. This laboratory is certified under the Clinical Laboratory Improvement Amendments of 1988 ("CLIA") as qualified to perform high-complexity clinical testing. Professional [facility] component was Center, Department of HEALTH BCM performed at Pathology, [address] [place] [address], [place] [address], Specimen Other Performing Organization Address City/State/Zipcode Ph one Number [address] [place], [place] [address] MEDICAL CENTER * Tissue Exam (02/13/2020 4:49 PM CDT) Case Report Surgical Pathology Report KIM ECKERT [facility] Case: [id number] [facility] Authorizing Provider: Khris Andino MD Collected: 02/13/2020 04:49 PM Ordering Location: [address] Received: 02/14/2020 08:37 AM Service Pathologist: Pramod Riggins MD Specimen: Parotid, Right DIAGNOSIS RIGHT PAROTID MASS, 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 [facility] signed by Farrah mcconnell, SEE DIAGNOSTIC COMMENT. [facility] Pramod Lora MD on Signing Pathologist 02/15/2020 at 4:47 Direct Phone Line: [phone] COMMENT Histological sections KIM CHRISTINE demonstrate a core needle [facility] biopsy involved by [facility] lymphoma. The lymphoma cells are predominantly small in size, however scattered larger cells are also present. Immunohistochemical studies performed on block A1 demonstrate the lymphoma cells to be positive for CD20, BCL2. They are negative for CD10, CD3, CD5, and cyclin D1. BCL6 is equivicol and strongly favored to be negative. A prominent plasmacytic component is identified which demonstrates kappa light chain restriction as opposed to lambda light chain. Proliferative index by Ki-67 is approximately 50%. 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 Scattered large cells are present however distinct sheet like aggregates of large cells are not identified in the sampled material. If there is strong clinical concern for a large cell component then additional tissue based studies as the sampled material may not be fully enrollment representative. CPT Code(s) 38789, 65094, 06798e5, 87656 KIM ECKERT [facility] CLINICAL Preop diagnosis: Right KIM CHRISTINE HISTORY parotid mass/node [facility] SPECIMEN SOURCE Right [facility] Received in formalin labeled KIM ECKERT DESCRIPTION with the patient's name, [facility] accession number and "[facility] parotid mass/node" are three arredondo-meza thread-like soft tissue cores measuring up to 1.0 cm in greatest length which are filtered and submitted in toto in A1. PA/pl MICROSCOPIC Performed. [facility] SPECIAL STUDIES The interpretation of this [facility] [place] case included the use of [facility] immunohistochemistry or [facility] special stains. BLOCK A1- CD20, CD3, CD5, BCL2, BCL6, CD10, KI-67, CYCLIN D1, KAPPA, LAMBDA Control Slides Examined: In-house known positive controls were evaluated along with the test tissue. These control slides run alongside of the patients sample show appropriate staining. Internal positive and negative controls when available are evaluated Immunohistochemistry technical testing was performed at [facility], Pathology Laboratory where it was developed and its performance characteristics were determined. It has not been cleared or approved by the U.S. Food and Drug Administration. The FDA has determined that such clearance or approval is not necessary. The test is used for clinical purposes. It should not be regarded as investigational or for research. This laboratory is certified under the Clinical Laboratory Improvement Amendments of 1988 (CLIA-88) as qualified to perform high complexity clinical laboratory testing. Gross [facility] assessment was [facility] performed at Pathology, [address] [place] [id number], Technical [facility] component was [facility] performed at Pathology, [address] [place] [phone], Professional [facility] component was [facility] performed at Pathology, [address] [place] [id number], Specimen Tissue - Structure of right parotid gland (body structure) Performing Organization Address City/State/Zipcode Ph one Number [address] 7[address] MEDICAL CENTER * neck biopsy (02/13/2020 4:30 PM CDT) Specimen Narrative Performed At FINAL REPORT [facility] HISTORY: Right cervical lymphadenopathy Sedation: None Gimp Buttonhole Machine Operator: Rupert Gaitan MD. Journal Clerk: MD Gladys (Resident) Approach: Right neck, percutaneous DISCUSSION: Initial ultrasound images demonstrate r ight cervical enlarged right cervical lymph nodes. An enlarged right cervical lymph node measuring approximately 2.5 cm in maximal dimensi on was targeted for core biopsy. The right neck was prepped and draped i n sterile fashion. 2% lidocaine was used for local anesthesia . Using ultrasound guidance, following acquisition of permanent imag es, an 18-gauge core biopsy needle was advanced into the enlarged r ight cervical lymph node. Three core biopsy samples were obtained with two specimens placed in formalin for pathology and one specimen in RPMI for flow cytometry. The needle was removed and hemostasis a chieved with manual compression. Sterile dressing was appli ed. The patient tolerated the procedure without immediate complicatio n. There were no immediate complications. IMPRESSION: Successful, uncomplicated right cervica l lymph node core biopsy as detailed above.. Signed: Rupert Gaitan MD Report Verified Date/Time: 02/13/2020 16:44:57 Reading Location: [place] [address] Angio Bod y Reading Room Procedure Note Interface, External Ris In - 02/13/2020 6:35 PM CDT FINAL REPORT HISTORY: Right cervical lymphadenopathy Sedation: None Gimp Buttonhole Machine Operator: Rupert Gaitan MD. Journal Clerk: MD Gladys (Resident) Approach: Right neck, percutaneous DISCUSSION: Initial ultrasound images demonstrate right cervical enlarged right [...] biopsy as detailed above.. Signed: Rupert Gaitan MD Report Verified Date/Time: 02/13/2020 16:44:57 Reading Location: [facility] B1 P048 Angio Body Reading Room Performing Organization Address City/State/Zipcode Ph one Number GE RIS * 2D Echo W/Doppler(CW/PW/Color) (02/13/2020 12:37 PM CDT) Ejection [facility] ECHO Fraction HEART[facility] Specimen Narrative Performed At Transthoracic Echocardiography Report (TTE) [facility] ECH O HEARTLAB Demographics [facility] Patient Name YASMINE MORRIS Date of Study 02/13/2020 Ge nder Female Visit Number [id number] Race Unknown Room Number 740 Number Date of 1930 Marian martinez Physician Nadine Benz Age 89 year(s) Son channing Durán [facility] Interpreting Roscoe Junior MD Physician Procedure Type of Study TTE procedure:2DECHO W DOPP LER(CW/PW/COLOR) (Routine) Indications:Shortness of breath. Clinical History Diabetes Hypertension HGB 11.5 HCT 36.8 % Contrast Medium: Definity. Amount - 2 m l Height: 64 inches Weight: 98.43 kg (217 lbs) BSA: 2.03 m^2 BMI: 37.25 kg/m^2 HR: 93 bpm BP: 135/63 mmHg Summary TECHNICALLY DIFFICULT STUDY. Parasterna l long axis measurements not possible. The left ventricle is chamber size (by vol index) is normal (female - LVED vol - 29-61ml/m2). All of the LV segmen ts contract normally . LVEF by Liu's method of disk assessment is normal (>60%) . LV diastolic function is indeterminate. Unable to estimate peak systolic PA pre ssure; inadequate TR velocity signal. No pericardial effusion is visualized. Signature Findings Left Ventricle Parasternal long axis measurements not possible. The left ventricle is chamber size (by vol index) is n ormal (female - LVED vol - 29-61ml/m2). All of the LV segments contract normally . LVEF by Simp son's method of disk assessment is normal (>60 %) . LV diastolic function is indeterminate. Left Atrium LA size is normal (16-34 ml/m2) . Right Ventricle The right ve ntricular chamber size and systolic func tion are within normal limits. Right Atrium RA size is normal. Aortic Valve The aortic valve is not well visualized. Mitral Valve Mild MV yasmany flet thickening. Trac e mitral regurgitation. Tricuspid Valve TV structure is normal. Unab le to estimate peak systolic PA pressure; inad equate TR velocity signal. Pulmonic Valve PV is not we ll visualized. Pericardium No pericar dial effusion is visualized. IVC/SVC/PA/PV/Pleural The estimated R A pressure by IVC dynamics 5-10mmHg . Chambers/Structures Left Atrium LA Volume: 67.53 ml LA Area: 22.67 cm^2 LA Vol. Index: 33 ml/m^2 Left Ventricle LVEDV Liu's:86.85 ml LVESV Liu's:29.79 ml LVEF Liu's: 65.7 % LVEDVI: 43 ml/m^2 LVESVI: 15 ml/m^2 Doppler/Quantitative Measurements LVOT Peak Velocity: 1.5 m/s Peak Gradient: 8.96 mmHg Mean Velocity: 0.95 m/s Mean Gradient: 4.28 mmHg LVOT VTI: 30.09 cm Procedure Note Interface, External Ris In - 02/13/2020 2:55 PM CDT Transthoracic Echocardiography Report (TTE) Demographics Patient Name YASMINE MORRIS Date of Study 02/13/2020 Gender Female Visit Number [id number] Race Unknown Room Number 740 Number Date of 1930 Referring Physician Nadine Olethia E. Age 89 year(s) Dynamometer Tester Jonny Luis Armando [facility] Interpreting Roscoe Junior MD Physician Procedure Type of Study TTE procedure:2DECHO W DOPPLER(CW/PW/COLOR) (Routine) Indications:Shortness of breath. Clinical History Diabetes Hypertension HGB 11.5 HCT 36.8 % Contrast Medium: Definity. Amount - 2 ml Height: 64 inches Weight: 98.43 kg (217 lbs) BSA: 2.03 m^2 BMI: 37.25 kg/m^2 HR: 93 bpm BP: 135/63 mmHg Summary TECHNICALLY DIFFICULT STUDY. Parasternal long axis measurements not possible. The [...] well visualized. Pericardium No pericardial effusion is visualized. IVC/SVC/PA/PV/Pleural The estimated RA pressure by IVC dynamics 5-10mmHg . Chambers/Structures Left Atrium LA Volume: 67.53 ml LA Area: 22.67 cm^2 LA Vol. Index: 33 ml/m^2 Left Ventricle LVEDV Liu's:86.85 ml LVESV Liu's:29.79 ml LVEF Liu's: 65.7 % LVEDVI: 43 ml/m^2 LVESVI: 15 ml/m^2 Doppler/Quantitative Measurements LVOT Peak Velocity: 1.5 m/s Peak Gradient: 8.96 mmHg Mean Velocity: 0.95 m/s Mean Gradient: 4.28 mmHg LVOT VTI: 30.09 cm Performing Organization Address [facility] one [facility] ECHO HEARTLAB Add[facility] * Prothrombin time/INR (02/13/2020 9:04 AM CDT) Protime 14.1 11.9 - 14.2 seconds [facility] INR 1.12 <=5.90 [facility] Specimen Blood - Entire left upper arm (body structure) Narrative Performed At Effective 10/13/2018: PT Reference Range Change [facility] New: 11.9-14.2 Previous: 11.7-14.7 [facility] MEDICAL LUCY TER RECOMMENDED COUMADIN/WARFARIN INR THERA PY RANGES STANDARD DOSE: 2.0-3.0 Includes: PROP HYLAXIS for venous thrombosis, systemic embolization; TREATMENT for venous thro mbosis and/or pulmonary embolus. HIGH RISK: Target INR is 2.5-3.5 for pa tients wiht mechanical heart valves. Performing Organization Address [facility] one Number [address] MEDICAL CENTER * Venous doppler legs bilateral (02/11/2020 8:35 PM CDT) Ejection [facility] ECHO Fraction HEARTLAB [employer] (Mobile Payments)ON CPACS Specimen Impressions Performed At Right [facility] ECHO HEARTLAB 1. There is no deep venous obstruction in the common femoral, profunda [facility] femoral, femoral, popliteal, posterior tibial or peroneal veins. 2. There is no superficial venous obstr uction in the great saphenous vein. Left Impression 1. There is no deep venous obstruction in the common femoral, profunda femoral, femoral or popliteal veins. 2. There is total echolucent deep venou s obstruction in the posterior tibial and peroneal veins . 3. There is no superficial venous obstr uction in the great saphenous vein. Conclusions Summary Venous duplex imaging and compression o f the bilateral lower extremities were performed. The veins were adequate ly visualized. The right deep venous system was patent and compressib le with no evidence of thrombus. The left deep venous system was positiv e with acute thrombus. The venous Doppler waveforms were phasic with resp iration . Signature Velocities are measured in cm/s ; Diame ters are measured in cm Narrative Performed At PV LAB - Lower Extremities DVT Study [facility] ECHO HEART LAB Demographics [facility] Patient Name YASMINE MORRIS Date of Study 02/11/2020 Age 89 Visit Number [id number] Gender Female Accession Number [id number] Date of 1930 Referring Nadine Haque Room Number 733 Physician Demar Dynamometer Tester Angela Thakkar Interpreting Luis Arriaza MD RVT Physician Procedure Type of Study: Veins: Lower Extremities DVT Study, NATHANAEL OUS DOPPLER LEG, BILATERAL. Indications for Study:Pulmonary embolis m. Patient Status:Routine. Study Location:Portable. Technical Quality:Adequate visualizatio n. - Results were reported to:DEBBIE CHAVARRIA @ 2 0:38. Risk Factors History of Disease + + +--------+ !Diagnosis !Date !Comments! + + +--------+ !History/Risk Factors: !02/11/2020!PE ! ! ! !SOB ! + + +--------+ Procedure Note Interface, External Ris In - 02/12/2020 3:08 PM CDT [facility] - Lower Extremities DVT Study Demographics Patient Name YASMINE MORRIS Date of Study 02/11/2020 Age 89 Visit Number [id number] Gender Female Accession Number [id number] Date of 1930 Referring [facility] Room Number 733 Physician E. Dynamometer Tester Angela Thakkar Interpreting Luis Arriaza MD RVT Physician Procedure Type of Study: Veins: Lower Extremities DVT Study, VENOUS DOPPLER LEG, BILATERAL. Indications for Study:Pulmonary embolism. Patient Status:Routine. Study Location:Portable. Technical Quality:Adequate visualization. - Results were reported to:DEBBIE CHAVARRIA @ 20:38. Risk Factors History of Disease + + +--------+ !Diagnosis !Date !Comments! + + +--------+ !History/Risk Factors: !02/11/2020!PE ! ! ! !SOB ! + + +--------+ Impressions Right Impression 1. There is no deep venous obstruction i n the common femoral, profunda femoral, femoral, popliteal, posterior tibial or peroneal veins. 2. There is no superficial venous obstru ction in the great saphenous vein. Left Impression 1. There is no deep venous obstruction i n the common femoral, profunda femoral, femoral or popliteal veins. 2. There is total echolucent deep venous obstruction in the posterior tibial and peroneal veins . 3. There is no superficial venous obstru ction in the great saphenous vein. Conclusions Summary Venous duplex imaging and compression of the bilateral lower extremities were performed. The veins were adequately visualized. The right deep venous system was patent and compressible with no evidence of thrombus. The left deep venous system was positive with acute thrombus. The venous Doppler waveforms were phasic with respiration . Signature Velocities are measured in cm/s ; Diameters are measured in cm Performing Organization Address City/State/Zipcode Ph one Number [facility] * SARS-CoV2/RT-PCR (Symptomatic ONLY) (02/11/2020 5:09 PM CDT) SARS-COV2/RT-PC Negative Not Detected, [facility] R Negative, See [facility] external report for [facility] linked test SARS-COV-2 [facility] PERFORMING LAB [facility] Specimen Other - Nasopharyngeal wall structure (body structure) Narrative Performed At Negative result for this test determine s that SARS-CoV-2 RNA was not present in [facility] the specimen above the Limit of Detecti on (LOD). However, Negative results do [facility] not preclude SARS-CoV-2 infection and s hould not be used as the sole basis for treatment or patient management decisio ns. Negative results must be combined with clinical observations, patient his tory, and epidemiological information. A false negative result may occur if a sp ecimen is improperly collected, transported or handled. A false negat josiane result should be considered if patient's recent exposures or clinical presentation indicate that COVID-19 (SARS-CoV-2) is likely and diagnostic t ests for other causes of illness are negative. Re-testing should be consid ered in cases of suspected false negatives. The [...] and Drug Ad ministration (FDA) cleared or approved. This is a modified version of an appr juan Emergency Use Authorization (EUA) and is in the process of review by the FDA. Once authorized by the FDA, the issued EUA will be effective until the declaration that circumstances exist justifying the authorization of the ananth rgency use of in vitro diagnostic tests for detection and/or diagnosis of COVID -19 is terminated under Section 564(b)(2) of the Act or the EUA is revoked under Section 564(g) of the Act. Fact Sheet for Healthcare Providers: https://www.[employer]/sites/default/files/product/documents/Fact_Sheet_HC_Provi pwhd_Espg_TNVI-JcA-8.pdf Fact Sheet for Healthcare Patients: https://www.[employer]/sites/default/files/product/documents/Fact_Sheet_Patients _Wnmu_VUYT-ToC-9.pdf Performing Laboratory: [place] [address] Performing Organization Address City/State/Zipcode Ph one Number [place] [address] [facility] after 03/02/2019 Insurance Type Payer Benefit Subscriber ID Effective Phone Address Plan / Dates Group [facility] [id number] 2010-P MEDICARE resent ADV CDC REVIEW CDC REVIEW [id number] 2020- [address] [place] [address] Advance Directives For more information, please contact: [phone] Date Inactivated Comments Code Status Date Activated 02/22/2020 8:22 PM Full Code 02/11/2020 4:32 PM This code status was determined by: Patient
[2020-03-02 11:56] LABS: CLARITY,URINE SL CLOUDY (CLEAR); COLOR,URINE YELLOW (YELLOW)
[2020-03-02 11:57] LABS: LEUKOCYTE ESTERASE ,URINE NEGATIVE (NEGATIVE); NITRITE,URINE NEGATIVE (NEGATIVE); PROTEIN,URINE DIPSTICK NEGATIVE (NEGATIVE)
[2020-03-02 11:58] LABS: BACTERIA,URINE RARE /HPF; BILIRUBIN,URINE NEGATIVE (NEGATIVE); EPITHELIAL CELLS,URINE FEW /LPF; KETONES,URINE NEGATIVE (NEGATIVE); RBC,URINE 0-5 /HPF (0-5); URINE UROBILINOGEN 0.2 mg/dL (0.2 - 1); WBC,URINE (MAN) 0-5 /HPF (0-5)
--- OUTSIDE RECORDS SUMMARY | 2020-03-02 11:59 | XMS REPORT | Continuity of Care Document ---
Author Author [facility] t Organization [facility] Address [address] [place] [address] Phone Unavailable Care Team Providers Care General Medical Practitioner Name Role Phone NO, PCP PCP Unavailable Yoselyn Toledo Attphys Unavailable Nadine MATTHEWS, Demar Olethia Attphys Thu MATTHEWS, Khris Attphys Demar MCCOY OLETHIA Attphys Unavailable Keith FERNANDEZ Attphys Unavailable Juan Antonio MATTHEWS, Keri Attphys Yahir TREADWELL Attphys Unavailable Yahir KELLY Attphys Unavailable Demar MCCOY OLETHIA Admphys Unavailable Yahir TREADWELL Admphys Unavailable Payers Payer Name Policy Type Policy Number Effective Date Expiration Date Gregory aik [employer]AREKEL[employer]CARE MEDICARE [id number] 2010-Present [id number] 2010 00:00:00 [facility] REVIEWCDC [id number] [address] [id number] 2020 00:00:[address] [facility] [employer] Medicare Advantage [id number] 2019 00:0 0:00 [facility] Problems Condition Name Condition Details Condition Category Status Onset Date Resolution Date Last Treatment Date Treating Clinician Comments Source Multiple subsegmental pulmonary emboli without acute c or pulmonale Multiple subsegmental pulmonary emboli without acute cor pulmonale Disease Ac tive 2020-02-13 00:00:00 [facility] Shortness of breath Shortness of breath Disease Active 2020-02-11 00:00 :00 [facility] Will esquivel Shortness of breath at rest Problem Active [facility] Lymphadenitis Problem Active [facility] Mass of neck Problem Active [facility] Allergies, Adverse Reactions, Alerts This patient has no known allergies or adverse reactions. Social History Social Habit Start Date Stop Date Quantity Comments Source Sex Assigned At [facility] Exposure to SARS-CoV-2 (event) Not sure [facility] Tobacco use and exposure 2020-02-11 00:00:00 2020-02-11 00:00:00 [place] esquivel used [facility] History of tobacco use 1976-02-11 00:00:00 Current smoker [facility] Smoking Status Start Date Stop Date Source Former smoker 2020-02-11 00:00:00 2020-02-11 00:00:00 [facility] Medications Ordered Medication Name Filled Medication Name Start Date Stop Da te Current Medication? Ordering Clinician Indication Dosage Frequency Signature (SIG) Comments Components Source apixaban (ELIQUIS) 5 mg Tab tablet 2020-02-24 00:00:00 Yes 5mg Q.5D Take 1 tablet (5 mg total) by mouth 2 (two) times daily. [facility] fluticasone propionate (FLONASE) 50 mcg/actuation nasal spra y 2020-02-22 18:22:29 Yes 1{spray} QD 1 spray by Nasal route piper y. [facility] insulin 70/30, insulin NPH-insulin regul ar, (HUMULIN 70/30 U-100 INSULIN) 100 unit/mL (70-30) injection 2020-02-22 18:22:29 Yes type 2 diabetes mellitus Q.5D Inject subcutaneously 2 (two) times daily 20 un its AM23 units PM . [facility] cefTRIAXone (ROCEPHIN) MBP 1 g in 100 mL NS 2020-02-20 00:00:00 Yes 1g QD Inject 1 g intravenously daily. [facility] mirtazapine (REMERON) 7.5 MG tablet 2020-02-20 00:00:0 0 2020-03-21 23:59:00 Yes 7.5mg QD Take 1 tablet (7.5 mg total) by mouth ni chatatly for 30 days. [facility] apixaban (ELIQUIS) 5 mg Tab tablet 2020-02-20 00:00:00 23:59:00 No 10mg Q.5D Take 2 tablets ( 10 mg total) by mouth 2 (two) times daily for 3 days. [facility] amoxicillin-clavulanate (AUGMENTIN) 500-125 mg per tablet 2020-02-07 00:00:00 2020-02-20 00:00:00 No 1{tbl} Q.[id number] 43650D Take 1 tablet by mouth 3 (three) times daily. [facility] amoxicillin-clavulanate (AUGMENTIN) 500-125 mg per tablet 2020-02-07 00:00:00 2020-02-20 00:00:00 No 1{tbl} Q.[id number] 64065A Take 1 tablet by mouth 3 (three) times daily. [facility] temazepam (RESTORIL) 15 mg capsule 2020-01-31 00:00:00 00:00:00 No 15mg Take 15 mg by mouth every night as neede d. [facility] gabapentin (NEURONTIN) 600 MG tablet 2019-11-04 00:00:00 Yes 600mg Q.[id number] Take 600 mg by mouth 3 (three) times daily. [facility] insulin lispro (HUMALOG U-100 INSULIN) 100 unit/mL injection 2019-11-04 00:00:00 Yes 5U Q.[id number] 3D 5 Units by abdominal subcutaneous route 3 (three) times daily. [facility] lisinopriL (PRINIVIL,ZESTRIL) 2.5 MG tablet 2019-11-04 00:00:00 Yes 2.5mg QD Take 2.5 mg by mouth daily. [facility] cetirizine-pseudoephedrine (ZYRTEC-D) 5 mg-120 mg per tablet 2019-05-31 00:00:00 Yes 1{tbl} Q.5D Take 1 tablet by mouth 2 (two ) times daily. [facility] furosemide (LASIX) 40 MG tablet 2019-03-28 00:00:00 Yes 40mg QD Take 40 mg by mouth daily. [facility] metoprolol tartrate (LOPRESSOR) 100 MG tablet 2019-03-28 00:00:0 0 Yes 100mg QD Take 100 mg by mouth daily. [facility] pantoprazole (PROTONIX) 40 MG tablet 2019-03-28 00:00:00 Ye s 40mg QD Take 40 mg by mouth daily. [facility] albuterol HFA (VENTOLIN HFA) 90 mcg/actuation inhaler 2019-03-28 00:00:00 2020-02-20 00:00:00 No 2{puff} Inhal e 2-4 puffs by mouth via inhaler every 4 (four) hours as needed. [facility] simvastatin (ZOCOR) 10 MG tablet 2010-04-23 00:00:00 Yes 10mg QD Take 10 mg by mouth daily. [facility] NIFEdipine (PROCARDIA-XL) 60 MG (OSM) 24 hr tablet 2009-12 00:00:00 Yes 60mg QD Take 60 mg by mouth daily. [facility] alendronate (FOSAMAX) 70 MG tablet 2009-11-05 00:00:00 Yes 70mg Q7D Take 70 mg by mouth once a week. [facility] Albuterol Sulfate Albuterol Sulfate Yes Every 4 Hours While Awake as needed for Shortness Of Breath [facility] Alendronate Sodium Alendronate Sodium Yes We ekly [facility] Ascorbic Acid (Vitamin C) 500 Mg CAPSULE.ER Ascorbic A denice (Vitamin C) 500 Mg CAPSULE.ER Yes Daily [facility] Azelastine Hcl Azelastine Hcl Yes Bedtime [facility] Baclofen Baclofen Yes 10 Three Times A Day [facility] Blood Sugar Diagnostic (Glucose Test Strip) 1 Each STR IP Blood Sugar Diagnostic (Glucose Test Strip) 1 Each STRIP Yes 5 Ti mes Daily [facility] Cetirizine Hcl (Zyrtec) 10 Mg CAPSULE Cetirizine Hcl (Zyrtec) 10 Mg CAPSULE Yes Daily [facility] Cetirizine Hcl/Pseudoephedrine (Aller-Deepali D 5-120 Mg T ablet) 1 Each TAB.ER.12H Cetirizine Hcl/Pseudoephedrine (Aller-Deepali D 5-120 Mg Tablet) 1 Each TAB.ER.12H Yes Twice A Day [facility] Docusate Sodium Docusate Sodium Yes 100 Twice A Day as needed for Constipation [facility] Fluticasone Propionate Fluticasone Propionate Yes Daily [facility] Furosemide Furosemide Yes 40 Daily [facility] Gabapentin Gabapentin Yes 600 Twice A Day [facility] Insulin Lispro (Humalog) 100 Unit/1 Ml CARTRIDGE Insul in Lispro (Humalog) 100 Unit/1 Ml CARTRIDGE Yes 5 Three Times A Day [facility] Insulin Regular, Human (Humulin R) 100 Unit/1 Ml VIAL Insulin Regular, Human (Humulin R) 100 Unit/1 Ml VIAL Yes Twice A Day [facility] Lisinopril Lisinopril Yes 2.5 Daily [facility] Metoprolol Tartrate Metoprolol Tartrate Yes 100 Daily [facility] Mu-Vits-Min Th/Lycopene/Lutein (Centrum Silver Tablet) 1 Each TABLET Mu-Vits-Min Th/Lycopene/Lutein (Centrum Silver Tablet) 1 Each TABLET Yes Daily [facility] Nifedipine (Nifedipine Er) 30 Mg TAB.ER.24 Nifedipine (Nifedipine Er) 30 Mg TAB.ER.24 Yes 60 Daily [facility] [place]-3 Fatty Acids/Fish Oil (Fish Oil 1,000 Mg Capsul e) 1 Each CAPSULE [place]-3 Fatty Acids/Fish Oil (Fish Oil 1,000 Mg Capsule) 1 Each CAPSULE Yes [facility] Simvastatin Simvastatin Yes 10 Today At 9:00PM [facility] Temazepam Temazepam Yes Bedtime [facility] Fluticasone Fluticasone 2019-02-13 00:00:00 [facility] Furosemide Furosemide 2019-02-13 00:00:00 [facility] Lisinopril Lisinopril 2019-02-13 00:00:00 [facility] Metoprolol Metoprolol 2019-02-13 00:00:00 [facility] Nifedical Nifedical 2019-02-13 00:00:00 [facility] Simvastatin Simvastatin 2019-02-13 00:00:00 [facility] Vital Signs Vital Name Observation Time Observation Value Comments Source Systolic blood pressure 2020-02-22 15:20:00 146 mm[Hg] [facility] Diastolic blood pressure 2020-02-22 15:20:00 61 mm[Hg] [facility] Heart rate 2020-02-22 15:20:00 85 /min [facility] Body temperature 2020-02-22 15:20:00 37.78 Debbi [facility] Respiratory rate 2020-02-22 15:20:00 19 /min [facility] Oxygen saturation in Arterial blood by Pulse oximetry 2019-05 15:20:00 98 [facility] height 2020-02-11 17:00:00 162.6 cm [facility] Body weight 2020-02-11 17:00:00 98.431 kg [facility] BMI 2020-02-11 17:00:00 37.25 kg/m2 [facility] Weight 2020-02-11 11:00:00 231 [lb_av] [facility] BMI (Body Mass Index) 2020-02-11 11:00:00 39.7 kg/m2 [facility] Body Temperature 2019-05-02 11:00:00 97.3 [degF] [facility] Procedures Procedure Date / Time Performed Performing Clinician Sour e POCT-GLUCOSE METER 2020-02-22 [facility] 2020-02-22 11:30:00 [facility] POCT-GLUCOSE METER 2020-02-22 07:22:00 Thu, [place] [facility] POCT-GLUCOSE METER 2020-02-21 20:40:00 Thu, [facility] POCT-GLUCOSE METER 2020-02-21 16:27:00 Thu, [facility] POCT-GLUCOSE METER 2020-02-21 11:20:00 Thu, [facility] POCT-GLUCOSE METER 2020-02-21 07:18:00 Thu, [facility] POCT-GLUCOSE METER 2020-02-20 20:45:00 Thu, [facility] POCT-GLUCOSE METER 2020-02-20 16:25:00 Thu, [facility] POCT-GLUCOSE METER 2020-02-20 11:37:00 [facility] [place] [facility] [facility] POCT-GLUCOSE METER 2020-02-20 07:29:00 [facility] [place] [facility] [facility] BASIC METABOLIC PANEL (7) 2020-02-20 06:06:00 Marylou Trammell [facility] CBC W/PLT COUNT & AUTO DIFFERENTIAL 2020-02-20 06:06:00 Yoselyn Trammell [facility] POCT-GLUCOSE METER 2020-02-19 20:09:00 [facility] [place] [facility] POCT-GLUCOSE METER 2020-02-19 16:32:00 Thu, [place] [facility] [facility] POCT-GLUCOSE METER 2020-02-19 11:55:00 Thu, [place] [facility] POCT-GLUCOSE METER 2020-02-19 07:39:00 Thu, [place] [facility] BASIC METABOLIC PANEL (7) 2020-02-19 04:59:00 Marylou Trammell [facility] CBC W/PLT COUNT & AUTO DIFFERENTIAL 2020-02-19 04:59:00 Yoselyn Trammell hoa William [facility] POCT-GLUCOSE METER 2020-02-18 21:20:00 Thu, [place] [facility] CT BRAIN WITHOUT IV CONTRAST 2020-02-18 21:12:00 Thu, [facility] POCT-GLUCOSE METER 2020-02-18 17:17:00 [facility] POCT-GLUCOSE METER 2020-02-18 11:23:00 [facility] BASIC METABOLIC PANEL (7) 2020-02-18 09:58:00 Marylou Trammell [facility] POCT-GLUCOSE METER 2020-02-18 07:30:00 Thu [facility] POCT-GLUCOSE METER 2020-02-17 21:44:00 [facility] POCT-GLUCOSE METER 2020-02-17 16:41:00 [facility] URINE CULTURE 2020-02-17 16:32:00 [facility] URINALYSIS W/ REFLEX URINE CULTURE 2020-02-17 16:32:00 Yoselyn Andino [facility] POCT-GLUCOSE METER 2020-02-17 11:51:00 [facility] POCT-GLUCOSE METER 2020-02-17 07:57:00 [facility] BASIC METABOLIC PANEL (7) 2020-02-17 04:16:00 Thu, [facility] POCT-GLUCOSE METER 2020-02-16 20:40:00 [facility] BLOOD CULTURE 2020-02-16 16:55:00 [facility] LACTIC ACID, VENOUS 2020-02-16 16:55:00 Thu, [facility] CORTISOL,60 MIN 2020-02-16 16:55:00 Thu, [facility] POCT-GLUCOSE METER 2020-02-16 16:25:00 Thu, [place] [facility] BLOOD CULTURE 2020-02-16 16:17:00 Thu, [facility] CORTISOL,30 MIN 2020-02-16 16:17:00 Thu, [facility] CBC W/PLT COUNT & AUTO DIFFERENTIAL 2020-02-16 16:17:00 Thu, [facility] ACTH STIMULATION 2020-02-16 15:40:00 Thu, [facility] CORTISOL,BASELINE 2020-02-16 15:40:00 Thu, [facility] POCT-GLUCOSE METER 2020-02-16 11:49:00 Thu, [facility] POCT-GLUCOSE METER 2020-02-16 07:51:00 Thu, [facility] PROCALCITONIN 2020-02-16 05:38:00 [facility] 2020-02-15 20:48:00 [facility] BASIC METABOLIC PANEL (7) 2020-02-15 18:08:00 [facility] POCT-GLUCOSE METER 2020-02-15 16:31:00 [facility] POCT-GLUCOSE METER 2020-02-15 11:36:00 [facility] POCT-GLUCOSE METER 2020-02-15 08:19:00 [facility] POCT-GLUCOSE METER 2020-02-14 21:22:00 Thu, [facility] POCT-GLUCOSE METER 2020-02-14 16:35:00 Thu, [facility] POCT-GLUCOSE METER 2020-02-14 10:49:00 Khris Andino [facility] LACTATE DEHYDROGENASE (LDH) 2020-02-14 10:15:00 Khris Andino [facility] BASIC METABOLIC PANEL (7) 2020-02-14 10:15:00 Khris Andino [facility] CARCINOEMBRYONIC ANTIGEN (CEA) 2020-02-14 10:15:00 Khris Andino [facility] APTT 2020-02-14 10:15:00 Aleksandra Nam [facility] HEMOGLOBIN A1C 2020-02-14 02:54:00 Khris Andino [facility] B-TYPE NATRIURETIC FACTOR (BNP) 2020-02-14 02:54:00 Owen Andino [facility] APTT 2020-02-14 02:54:00 Aleksandra Nam [facility] CBC W/PLT COUNT & AUTO DIFFERENTIAL 2020-02-14 02:54:00 Khris Andino [facility] (CELLAVISION MANUAL DIFF) 2020-02-14 02:54:00 Khris Andino [facility] APTT 2020-02-14 01:18:00 Aleksandra Nam [facility] APTT 2020-02-14 00:27:00 Aleksandra Nam [facility] XR CHEST 1 VIEW PORTABLE/BEDSIDE 2020-02-13 19:32:00 David Mckeon [facility] APTT 2020-02-13 18:15:00 Aleksandra Nam [facility] POCT-GLUCOSE METER 2020-02-13 17:21:00 Khris Andino [facility] FLOW CYTOMETRY REQUISITION 2020-02-13 16:49:00 Khris Andino [facility] TISSUE EXAM 2020-02-13 16:49:00 Khris Andino [facility] FLOW CYTOMETRY 2020-02-13 16:49:00 Khris Andino [facility] US NECK BIOPSY 2020-02-13 16:30:00 Khris Andino [facility] 2D ECHO W/ DOPPLER (CW/PW/COLOR) 2020-02-13 12:37:27 Geovany Mccoy [facility] POCT-GLUCOSE METER 2020-02-13 11:30:00 Khris Andino [facility] APTT 2020-02-13 09:04:00 Aleksandra Nam [facility] PROTHROMBIN TIME/INR 2020-02-13 09:04:00 Garland Mccoy [facility] POCT-GLUCOSE METER 2020-02-13 07:13:00 Garland Mccoy [facility] POCT-GLUCOSE METER 2020-02-12 21:55:00 Garland Mccoy [facility] POCT-GLUCOSE METER 2020-02-12 16:22:00 Garland Mccoy [facility] POCT-GLUCOSE METER 2020-02-12 11:17:00 Garland Mccoy [facility] POCT-GLUCOSE METER 2020-02-12 07:16:00 Garland Mccoy [facility] BASIC METABOLIC PANEL (7) 2020-02-12 04:56:00 Garland Mccoy [facility] CBC W/PLT COUNT & AUTO DIFFERENTIAL 2020-02-12 04:56:00 Garland Mccoy [facility] (CELLAVISION MANUAL DIFF) 2020-02-12 04:56:00 Garland Mccoy [facility] POCT-GLUCOSE METER 2020-02-11 21:31:00 Garland Mccoy [facility] VENOUS DOPPLER LEGS BILATERAL 2020-02-11 20:35:00 Lisa Mccoy [facility] SARS-COV2/RT-PCR ([facility]) 2020-02-11 17:09:00 Garland Mccoy [facility] POCT-GLUCOSE METER 2020-02-11 16:23:00 Garland Mccoy [facility] Plan of Care Planned Activity Planned Date Details Comments Source Future Scheduled Test 2020-01-17 00:00:00 INFLUENZA VACCINE (#1) [code = INFLUENZA VACCINE (#1)] [facility] Alondrae r Future Scheduled Test 2011-05-19 00:00:00 MEDICARE ANNUAL WE LLNESS (YEAR 2 or FIRST YEAR if no IPPE) [code = MEDICARE ANNUAL WELLNESS (YEAR 2 or FIRST YEAR if no IPPE)] [facility] r Encounters Start Date/Time End Date/Time Encounter Type Admission Type Attendi [facility] Care Department Encounter ID Source 2020-02-11 11:05:00 2020-02-11 11:05:00 Registered Emergency Room 1 CARLOS FERNANDEZ [facility] [id number] [facility] 2019-05-01 09:59:00 2019-05-02 14:59:00 Discharged Inpatient (obs) 1 MILE SANTINO [facility] [id number] [facility] 2019-02-13 09:56:00 2019-02-13 13:27:00 Departed Emergency Room [address] [facility] [id number] [facility] Results Test Description Test Time Test Comments Results Result Comments Source CHEST SINGLE (PORTABLE) 2020-03-02 11:22:00 [facility] 1930 Sex: F [address], [place], [place] [address] Patient Name: PATIENCE MORRIS MR #: [id number] : 1930 Age/Sex: 89/F Req #: [id number] Adm Physician: Ordered by: lEli Toledo MD Report #: [id number] Location: ER Room/Bed: Procedure: [id number] DX/CHEST SINGLE (PORTABLE) Exam Date: 03/02/20 Exam [...] 162 mg/dL 70-110 H : TESTED AT [facility] [address] [facility], [address]: Insulation Power Unit Tender/Market Research Analyst ID = [id number] for ELISHA STANLEY Lab Interpretation (test code = 80100-5) [facility] [id number] 17:02:00* Test Item Value Reference Range Interpretation Comments POC-GLUCOSE METER (BEAKER) (test code = 1538) 162 mg/dL 70-110 H : TESTED AT [address], [address]: Insulation Power Unit Tender/Market Research Analyst ID = [id number] for SUBLET, ELISHA POCT-GLUCOSE [id number] 11:42:00* Test Item Value Reference Range Interpretation Comments POC-GLUCOSE METER (BEAKER) (test code = 1538) 207 mg/dL 70-110 H : TESTED AT [address], [address]: Insulation Power Unit Tender/Market Research Analyst ID = [id number] for SUBLET, ELISHA POCT-GLUCOSE [id number] 07:33:00* Test Item Value Reference Range Interpretation Comments POC-GLUCOSE METER (BEAKER) (test code = 1538) 114 mg/dL 70-110 H : TESTED AT [address], [address]: Insulation Power Unit Tender/Market Research Analyst ID = [id number] for SUBLET, ELISHA POCT-GLUCOSE [id number] 20:51:00* Test Item Value Reference Range Interpretation Comments POC-GLUCOSE METER (BEAKER) (test code = 1538) 263 mg/dL 70-110 H : TESTED AT [address], [address]: Insulation Power Unit Tender/Market Research Analyst ID = [id number] for Rachell Delatorre (contract) Blood Culture - Routine (Right Venipuncture)2020-02-21 18:01:00* Test Item Value Reference Range Interpretation Comments Result (test code = 6463-4) No growth in 5 days [facility] [id number] 18:01:00* Test Item Value Reference Range Interpretation Comments CULTURE (BEAKER) (test code = 1095) No growth in 5 days BLOOD [id number] 18:01:00* Test Item Value Reference Range Interpretation Comments CULTURE (BEAKER) (test code = 1095) No growth in 5 days POCT-GLUCOSE [id number] 16:39:00* Test Item Value Reference Range Interpretation Comments POC-GLUCOSE METER (BEAKER) (test code = 1538) 214 mg/dL 70-110 H : TESTED AT [address], [address]: Insulation Power Unit Tender/Market Research Analyst ID = [id number] for АЛЕКСАНДР, LATANDRIA POCT-GLUCOSE [id number] 11:32:00* Test Item Value Reference Range Interpretation Comments POC-GLUCOSE METER (BEAKER) (test code = 1538) 227 mg/dL 70-110 H : TESTED AT [address], [address]: Insulation Power Unit Tender/Market Research Analyst ID = [id number] for АЛЕКСАНДР, LAT[place]RIA POCT-GLUCOSE [id number] 07:30:00* Test Item Value Reference Range Interpretation Comments POC-GLUCOSE METER (BEAKER) (test code = 1538) 150 mg/dL 70-110 H : TESTED AT [address], [address]: Insulation Power Unit Tender/Market Research Analyst ID = [id number] for CAPO EDWARDA POCT-GLUCOSE [id number] 20:57:00* Test Item Value Reference Range Interpretation Comments POC-GLUCOSE METER (BEAKER) (test code = 1538) 291 mg/dL 70-110 H : TESTED AT [address], [address]: Insulation Power Unit Tender/Market Research Analyst ID = [id number] for ALONSO, IDALMISON POCT-GLUCOSE [id number] 16:39:00* Test Item Value Reference Range Interpretation Comments POC-GLUCOSE METER (BEAKER) (test code = 1538) 214 mg/dL 70-110 H : TESTED AT [address], [address]: Insulation Power Unit Tender/Market Research Analyst ID = [id number] for TEZENO, ROMAN POCT-GLUCOSE [id number] 11:50:00* Test Item Value Reference Range Interpretation Comments POC-GLUCOSE METER (BEAKER) (test code = 1538) 247 mg/dL 70-110 H : TESTED AT [address], [address]: Insulation Power Unit Tender/Market Research Analyst ID = [id number] for MARYLOU VASQUES POCT-GLUCOSE [id number] 07:44:00* Test Item Value Reference Range Interpretation Comments POC-GLUCOSE METER (BEAKER) (test code = 1538) 103 mg/dL 70-110 : TESTED AT [address], [address]: Insulation Power Unit Tender/Market Research Analyst ID = [id number] for MARYLOU VASQUES Basic Metabolic [id number] 06:53:00* Test Item Value Reference Range Interpretation [...] 96 mg/dL 70-105 Calcium (test code = 71820-3) 8.6 mg/dL 8.4-10.2 EGFR (test code = 36376-9) I NSUFFICIENT CLINICAL DATA TO CALCULATE ESTIMATED GFR. LIZ (test code = LIZ) Ins[employer] Power Unit Tender ID Kelly ESAU F Lab Interpretation (test code = 80602-4) Abnormal [facility] METABOLIC [id number] 06:53:00* Test Item Value Reference Range Interpretation [...] INSUFFICIENT CLINICAL DATA TO CALCULATE ESTIMATED GFR. Ins[employer] Power Unit Tender CLARY Kelly CIFUENTES FCBC with platelet count + automated [id number] 06:26:00* Test Item Value Reference Range Interpretation [...] 450 K/CU MM MPV (test code = 82672-5) 10.6 fL 9.4-12.3 nRBC (test code = [...] 0-1 H Lab Interpretation (test code = 57164-9) [facility]normal [facility] & AUTO [id number] 06:26:00* Test Item Value Reference Range Interpretation [...] = 2801) 2 % 0-1 H POCT-GLUCOSE [id number] 20:20:00* Test Item Value Reference Range Interpretation Comments POC-GLUCOSE METER (BEAKER) (test code = 1538) 340 mg/dL 70-110 H : TESTED AT [address], [address]: Insulation Power Unit Tender/Market Research Analyst ID = [id number] for MARC GUPTA POCT-GLUCOSE [id number] 16:46:00* Test Item Value Reference Range Interpretation Comments POC-GLUCOSE METER (BEAKER) (test code = 1538) 347 mg/dL 70-110 H : TESTED AT [address], [address]: Insulation Power Unit Tender/Market Research Analyst ID = [id number] for SHARON WILKS POCT-GLUCOSE [id number] 12:08:00* Test Item Value Reference Range Interpretation Comments POC-GLUCOSE METER (BEAKER) (test code = 1538) 227 mg/dL 70-110 H : TESTED AT [address], [address]: Insulation Power Unit Tender/Market Research Analyst ID = [id number] for АЛЕКСАНДР LOCOVINCENT POCT-GLUCOSE [id number] 07:51:00* Test Item Value Reference Range Interpretation Comments POC-GLUCOSE METER (BEAKER) (test code = 1538) 138 mg/dL 70-110 H : TESTED AT [address], [address]: Insulation Power Unit Tender/Market Research Analyst ID = [id number] for MARISABEL CRAMER CBC W/PLT COUNT & AUTO [id number] 06:35:00* Test Item Value Reference Range Interpretation [...] = 2801) 1 % 0-1 BASIC METABOLIC [id number] 06:12:00* Test Item Value Reference Range Interpretation [...] INSUFFICIENT CLINICAL DATA TO CALCULATE ESTIMATED GFR. Insulation Power Unit Tender ID - EDERROLT, BRAIN, WITHOUT [id number] 22:49:00CT Brain form 02/16 pending, per patients [...] for signs acute sinusitis. Signed: Florina Rizzo [facility] Verified Date/Time: 02/18/2020 22:49:05 brain without IV [id number] 22:49:00Interface, External Ris In - 02/18/2020 10:52 [...] Signed: Florina Rizzo Verified Date/Time: 02/18/2020 22:49:05 [facility] POCT-GLUCOSE [id number] 21:32:00* Test Item Value Reference Range Interpretation Comments POC-GLUCOSE METER (BEAKER) (test code = 1538) 335 mg/dL 70-110 H : TESTED AT [address], [address]: Insulation Power Unit Tender/Market Research Analyst ID = [id number] for MARC GUPTA POCT-GLUCOSE [id number] 17:41:00* Test Item Value Reference Range Interpretation Comments POC-GLUCOSE METER (BEAKER) (test code = 1538) 282 mg/dL 70-110 H : TESTED AT [address], [address]: Insulation Power Unit Tender/Market Research Analyst ID = [id number] for MARCIO FELICIANO POCT-GLUCOSE [id number] 11:44:00* Test Item Value Reference Range Interpretation Comments POC-GLUCOSE METER (BEAKER) (test code = 1538) 358 mg/dL 70-110 H : TESTED AT [address], [address]: Insulation Power Unit Tender/Market Research Analyst ID = [id number] for JORDON FELICIANOISTIE BASIC METABOLIC [id number] 10:55:00* Test Item Value Reference Range Interpretation [...] INSUFFICIENT CLINICAL DATA TO CALCULATE ESTIMATED GFR. Insulation Power Unit Tender ID - MARYGPOCT-GLUCOSE [id number] 07:55:00* Test Item Value Reference Range Interpretation Comments POC-GLUCOSE METER (MARION) (test code = 1538) 222 mg/dL 70-110 H : TESTED AT [address], [address]: Insulation Power Unit Tender/Market Research Analyst ID = [id number] for MARCIO FELICIANO POCT-GLUCOSE [id number] 22:02:00* Test Item Value Reference Range Interpretation Comments POC-GLUCOSE METER (MARION) (test code = 1538) 277 mg/dL 70-110 H : TESTED AT [address], [address]: Insulation Power Unit Tender/Market Research Analyst ID = [id number] for DORA DYSON Urinalysis w/Microscopic + Reflex to [id number] 16:57:00* Test Item Value Reference Range Interpretation Comments Color, UA (test code = 5778-6) Yellow Clarity, UA (test code = 5767-9) Hazy Specific [place], UA (test code = 5811-5) 1.011 1.001-1.035 pH, UA (test code = 5803-2) 6.0 5.0-8.0 Protein, UA (test code = 24979-3) Negative Negative Glucose, UA (test code = 365) Negative Negative Ketones, UA (test code = 2514-8) Negative Negative Bilirubin, UA (test code = 98027-2) Negative Negative Blood, UA (test code = 17530-2) Trace Negative A Nitrite, UA (test code = 5802-4) Negative Negative Leukocytes, UA (test code = 5799-2) Large Negative A Urobilinogen, UA (test code = 39202-1) 0.2 mg/dL 0.2-1 RBC, UA (test code = 47509-5) 5 /HPF WBC, UA (test code = 5821-4) 20 /HPF Bacteria, UA (test code = 42397-8) Occasional Mucus (test code = 8247-9) Rare Specimen Source (test code = 2795) LIZ (test code = LIZ) Insulation Power Unit Tender ID - [auto]Insulation Power Unit Tender ID - tech Lab Interpretation (test code = 14000-3) [facility]normal [facility] [id number] 16:57:00* Test Item Value Reference Range Interpretation [...] 1574) Rare SOURCE(BEAKER) (test code = 2795) Insulation Power Unit Tender ID - [auto]Insulation Power Unit Tender ID - techPOCT-GLUCOSE [id number] 16:52:00* Test Item Value Reference Range Interpretation Comments POC-GLUCOSE METER (BEAKER) (test code = 1538) 136 mg/dL 70-110 H : TESTED AT [facility] [address] [place] [address], [address]: Insulation Power Unit Tender/Market Research Analyst ID = [id number] for JAGDEEPELISHA BAILEY POCT-GLUCOSE [id number] 12:04:00* Test Item Value Reference Range Interpretation Comments POC-GLUCOSE METER (BEAKER) (test code = 1538) 260 mg/dL 70-110 H : TESTED AT [place] [id number] [facility], [address]: Insulation Power Unit Tender/Market Research Analyst ID = [id number] for ELISHA STANLEY POCT-GLUCOSE [id number] 08:10:00* Test Item Value Reference Range Interpretation Comments POC-GLUCOSE METER (BEAKER) (test code = 1538) 155 mg/dL 70-110 H : TESTED AT [place] [id number] [facility], [address]: Insulation Power Unit Tender/Market Research Analyst ID = [id number] for ELISHA STANLEY BASIC METABOLIC [id number] 05:37:00* Test Item Value Reference Range Interpretation [...] INSUFFICIENT CLINICAL DATA TO CALCULATE ESTIMATED GFR. Insulation Power Unit Tender ID - SYLVIA MPOCT-GLUCOSE [id number] 21:54:00* Test Item Value Reference Range Interpretation Comments POC-GLUCOSE METER (BEAKER) (test code = 1538) 194 mg/dL 70-110 H : TESTED AT [address], [address]: Insulation Power Unit Tender/Market Research Analyst ID = [id number] for JEREMY RAE CORTISOL,30 [id number] 18:07:00* Test Item Value Reference Range Interpretation Comments Cortisol, Baseline (test code = 37318-6) 21.5 mcg/dL Cortisol, 30 Minute (test code = 63748-3) 27.3 ug/dL LIZ (test code = LIZ) [...] Policy and Procedure Section on The Source. Insulation Power Unit Tender ID - DB [facility] [id number] 18:07:00* Test Item Value Reference Range Interpretation Comments Cortisol, Baseline (test code = 91696-9) 21.5 mcg/dL Cortisol 30 minute (test code = 30782-3) 27.3 mcg/dL Cortisol, 60 Minute (test code = 91809-9) 30.2 ug/dL LIZ (test code = LIZ) [...] Policy and Procedure Section on The Source. Insulation Power Unit Tender ID - DB [facility],60 [id number] 18:07:00* Test Item Value Reference Range Interpretation [...] to a study by Mauricio et al ([facility] 2000,283(8):7995-45), the ACTH Stimulation Test provides important prognostic [...] Pharmacy Policy and Procedure Section on The Source.Insulation Power Unit Tender ID - DBCORTISOL,30 [id number] 18:07:00* Test Item Value Reference Range Interpretation Comments CORTISOL BASELINE NETWORKED ([employer]) (test code = 2307) 21.5 mcg/dL CORTISOL, [...] a study by Mauricio et al ([facility] 2000,283(8):2504-45), the ACTH Stimulation Test provides important prognostic [...] Pharmacy Policy and Procedure Section on The Source.Insulation Power Unit Tender ID - DBLactic acid, [id number] 17:22:00* Test Item Value Reference Range Interpretation Comments Lactate, Venous (test code = 2872) 1.27 mmol/L 0.5-2.2 LIZ (test code = LIZ) Insulation Power Unit Tender ID - DB Lab Interpretation (test code = 25008-8) Normal [facility], [id number] 17:22:00* Test Item Value Reference Range Interpretation Comments LACTATE BLOOD VENOUS (2) (BEAKER) (test code = 2872) 1.27 mmol/L 0 .50-2.20 Insulation Power Unit Tender ID - DBCORTISOL,[id number] 16:42:00* Test Item Value Reference Range Interpretation [...] Policy and Procedure Section on The Source. Insulation Power Unit Tender ID - DB [facility] W/PLT COUNT & AUTO [id number] 16:42:00* Test Item Value Reference Range Interpretation [...] code = 2801) 2 % 0-1 H CORTISOL,[id number] 16:42:00* Test Item Value Reference Range Interpretation [...] to a study by Mauricio et al ([facility] 2000,283(8):1038-45), the ACTH Stimulation Test provides important [...] Pharmacy Policy and Procedure Section on The Source.Insulation Power Unit Tender ID - DBPOCT-GLUCOSE [id number] 16:38:00* Test Item Value Reference Range Interpretation Comments POC-GLUCOSE METER (VENECIAAKER) (test code = 1538) 140 mg/dL 70-110 H : TESTED AT [facility] [address] [place] [address], [address]: Insulation Power Unit Tender/Market Research Analyst ID = [id number] for MARIA LUISA FOUNTAIN POCT-GLUCOSE [id number] 12:01:00* Test Item Value Reference Range Interpretation Comments POC-GLUCOSE METER (BEAKER) (test code = 1538) 235 mg/dL 70-110 H : TESTED AT [place] [address] [facility], [address]: Insulation Power Unit Tender/Market Research Analyst ID = [id number] for MARIA LUISA FOUNTAIN POCT-GLUCOSE [id number] 08:03:00* Test Item Value Reference Range Interpretation Comments POC-GLUCOSE METER (BEAKER) (test code = 1538) 143 mg/dL 70-110 H : TESTED AT [address], [address]: Insulation Power Unit Tender/Market Research Analyst ID = [id number] for MARIA LUISA FOUNTAIN [id number] 06:22:00* Test Item Value Reference Range Interpretation Comments Procalcitonin (test code = 20458-3) 0.10 ng/mL <0.05 H LIZ (test code = LIZ) SEPSIS RISK (ng/mL)Low: 0.05-0.50Intermediate: 0.51-2.00High: >=2.01 Lab Interpretation (test code = 42059-8) Abnormal [facility] CenterFwhawuGKMGQSPJABKGX9560-74-49 06:22:00* Test Item Value Reference Range Interpretation Comments PROCALCITONIN (BEAKER) (test code = 3036) 0.10 ng/mL <0.05 H SEPSIS RISK (ng/mL)Low: 0.05-0.50Intermediate: 0.51-2.00High: > =2.01POCT-GLUCOSE [id number] 21:03:00* Test Item Value Reference Range Interpretation Comments POC-GLUCOSE METER (BEAKER) (test code = 1538) 206 mg/dL 70-110 H : TESTED AT [address], [address]: Insulation Power Unit Tender/Market Research Analyst ID = [id number] for MARC GUPTA BASIC METABOLIC [id number] 18:34:00* Test Item Value Reference Range Interpretation [...] INSUFFICIENT CLINICAL DATA TO CALCULATE ESTIMATED GFR. Insulation Power Unit Tender ID - BSTissue [id number] 16:47:00* Test Item Value Reference Range Interpretation Comments Case Report (test code = 104) Surgical Pathology Repor t Case: [id number] Authorizing Provider: Khris Andino MD Collected: 02/13/2020 04:49 PM Ordering Location: [address] Received: 02/14/2020 08:37 AM Service Pathologist: Pramod Riggins MD Specimen: Parotid, Right DIAGNOSIS (test code = 3220) [id number]TiKuClTpPrxyeVHlBIyzvaZqDRkri7RmM2FwOaSqLOrgvkTlWBFk DgnzphldXYNyETQ5ogDxRHJdLQxcHEUrDEcdFq5zhWHbvRujRxJxBAKua0fpkbVYbrfoeQk8iAusF56y n8B7NbrjL3syJYWbFZNzK7PnIT0xNJQnCiu2KDK9FG W2NSZrGKYqJ7KxFU7oYTLvvHXnOVi6k7nlpKuaVWEcWTQ0q5cwBNzyhqZoJD9doe9eiEd0x8hpfwStDF FwWFJpqWLTDVSxB6BuaMyvVq4rcVw6gGpdGyyaPEA8Put0SB1avq65kzk4cNduXMVadrmvDaH5YWzmYU AbrdclEAo0GNwkYMKfiXooIDabDEHeygjnNLivCMUw rKyjYZgjJYLmOuxrMLbkRYQpQLO2FFjtr183DPU8WJlyb7lsv3vkfVRdBln0RMLhNjDnPqbqGYrhc6Gz w2reYOBmoh7kYSQ4qFAzbKuxo9Y6cINtWJZnxWNgexUaQTFkZzB3BGfkCX1mza04PXFtAVL3fh3vhWZq sWfgjtZcyLNfLEprZ0TdRKUhm847XLVwN0UuUONbk5 N6mlFxLdMwDZMrnKF5mlP9CNWmKKv4yLZmhnQ4jxVgcONbA5dnvM31JjHxrRUcU0FrfJ35InDoiMAgR9 QviO66NbRrfACfL6YmlT12SjQqbUIeLCDfyLGzSn4thXUmaQWzj6GqbYVlIEzzX08cr659IMNdjpJbF1 mzpXDhwfvfnFFopvvkZLjxegN0LRRuVWXuCJmnJQUo MHKtFvEusOFeKhNwWeTewWjbqLhuGAalWpJzIZYrOWkcD7bgYaNbFkIbPPFGALpOCTEWZPUZLPrPCI7W Q6VeQCTLB6WIJUzugBJlIE7WTpyUHmKNHBtNLpDmQRpHJElUVNGiXEZyqtPKWNDbGSjUE42QQ3VFOgWF F35KDV1QNkNzrZPsjEuccqQpVClry2EeEVdaBIVlBX 1fxTyeTTEkME5bYGTpB1wyvI6hvfe4UpRmPDTkZyC5AOKkppG1Jay1YXNdKHgkf1npc8PsDERgWZr0lS kwTeWbFJHhe2ugaqXfDlScYDBkYDOcXGUmgMRyV226v9lmi8nddeSkkPT3ASShVWS6NDzystBotjO5RG qbhDPjPoL1XOrmshXnXKqducPzvsPiJdb5OHWrD619 JLH7sAlkc3uiXMW5EIYvOSArKcGrDh6kwKTdC315AVZoQCQWJFXlwHu8EERmejDwbaJstGOMy340S215 a2phKZZwhgBasWcPurcsu0agD364QIIikZSryqAoRiTcHMFewOOqcPK6TMBjYI0hqpyjXJvdXPaoRZSj xyK6TVCrpEGsH2CcEBLzMY3nbxirRIF7RWlqEUKtOB R0EoAtJIJjs0Jtriw8YbHgti9ipa67ALC0b1BybYygRQO1WJM3HzXpTt2ycLWbZPVzBY5gLoOjaAScDL Lnoe08pVroBRhbGGF1WBJlbyZvk3Vdd1jpMqVxalMkP1hlJ5HtZODwUNNjLJYvAxZkudJyz1Ocb3SdtK KclXl6s0wcANCwKRHfpMhqg8uuDXU0WEWudHLlE5vo wC1fYGMtPR1iioxlr5csOEceSNdwUBUriWM4hwZ1BQBaqZNjH8KfoV4dOMKlQSuuWBQbqsu6XnQtTr6a dGVyeTcyMFxzYmtwYWdlXHBnbmNvbnRccGduZGVjXHBsYWluXHBsYWluXGYwXGZzMjRccWxcbGFuZzEw ObUbkEbalRvlMDdyKuFsZSDdTNmmR2efZpBcErOrAb g0NQQggLMuTRXkXwa3OQIxbTWmZXFOyPphpX7zXOSkqPzidZ2jiPZ8DJAkjkLbwCVPlY6uULIXvS9rLc V5EpXuQvD8SBK9ZGAinUGzjU1= COMMENT (test code = 3359) [file] IvubnrgNNrPHnccl71HRGsRQZ2oVn9YGVegSPdu0FakWJ3kTEpHqSopIBfoY== CPT Code(s) (test code = 3357) l4nctYBcGFSxgFTfNzTeILNcUBXgg9hpXZVsdOCbMdWoIiFjMcXwDclgeTZhLVAuCmUam5thv127rKLs a0rfEHBtFyR9gCXiXUUyqFUkY798j2ecg5clikOlzHW4VHUtRIC7WZqrnmCewvD9KDacjNNiVnB0XMyi ioTgFWwxywMikrDtItl1OIObK758URB9jWdru4dvMQ L5HZPxDFFrDwKtRq7nvGZpX782SMQmLKINJBUdyIj1NINtbfGavnIfsBYJo260O225r0vvCXOubgEpuB gQcipjq3lxL795VRPyxFXqwsQkPqAuBCKxnHWzhVN2BGYlQN5rvfcoOxLwZE3xmtxbTqJoQM2eetl8Av IjPL9qscmiKcGaWPvpQYIoyzecYTVtz2CnkiekHR7l T1Wao2N6tW6hsPMpDKNpzZJnEsVsSNWusk7gyDReJArlz8NaAPW9kqX7wBEcxXQmPBFiSO32Pzrgv8Sb FuciVBH3FEMeonFso2Qab4ujBoHnrkRyJ5idV8YxUOVqNZSjFZQzIuZdkzXmi8Uzl1WrfTHfsDy0z5gr SNLcJBBzsKfme3itZYU7KUWoT6C7zKXjg8zfPXqmWM QemIP9abvuHTroKZTtrfC1oggvTLflUWXfpOF6jeliAXkhOUGyZcD0xhnpZKqgHCYcBUH6LGhri556XR M5OBtkGqtlIBcnKWYotnHnsqUfxKoaREWwRIKiZNveLTIyVDamJMKbILLvIeCsnPcmvGpqfT2rUbZrWc LjFCnwGN4wQDBzO4humJYgJUIbCXKkO2dyKpBbtM1r cFrsFZpepwQnYIs6UgX4ZOL1LUO6RbuyHZrxOUL9VJynFAciIbKtoEDhsL== CLINICAL HISTORY (test code = 3356) e7uolHPeQYFlzBMhBgDrAGAoXYHqq1nyWLJytBEeEsMnMuCjYwUcLopxdPKxPDMyFuHoc0zmg919eGNq g3cuJUIcFuN1bYFvEVNsaXUrK634t9qpp2dfngRfuNE0ZTGwKUW0DOwonfBuvfT9YEdelHPpOyY9NBuh azGoYYpcmgYlpaFmQgd7XHXdQ195NBN2gGwvt9foWP H3SOYcGMZpBzCmIh0gbPVgN673WZBxAHLCBJVicWd2AVWlkpBwmcZzoOYQt773P376v2ceSHDzmlGkvN bSdwrih9plZ234NWMugKKycwWtYaKsNAMvwGTqfHH5IXVaJA7ddhhhQrCtNS4nowbqEpPnEO1gcgo8Qm LtYF3yosrgLxUkGWisWHNcqizbXJKfc6QgmitbRB7f H1Zjs2B0hZ1hyNIxPNTtgEIePoQpURTkvk5aeDHeZAdjx4NlXTS9quB5uBDyqZEnYUWvAL33Nvjku3Lp FmvrMMU1JKEsbzSmq6Ltj8ujOpKpqxIvG7wmC8HaQQKuGRSnGRCeTwTeozXqp1Zkh2AfgUEpiMe7j8hy LMCeNWSxrNapc2xdKQS0NSEvO2Q8dPMbz3mhMAcgPV NxsDS2giaqIUlhHMEgikG2jpvtVTygPKKrlXX0yjenXGnaVTFdRzU5qcepUBbpIVEtZST7YArbl338QP R4ZWqgPdhbGYzhOLKmbnGdyzBvtXeyEZIbTJQoADtxWFMzZRuyWXPfTRPnDaDhlCnknSoioJ2gHeOrJv OlQQooOI7rZRGuE0jsfPNjRFUpGKDsP9vmRiFdhQ2j uVpdRBzpsxHvQEZbDD4aHJXuJVjqq5TiivvbHWGgC1u7AVXdhj44vFDrbBUmkl5af3VrMFMlwb6= SPECIMEN SOURCE (test code = 3377) z0gdrTOhSQHsxXKlJzOtIVRnUJCdz9wsTPYqtUKsIlZwPnIoUfDhHhsggTHmDTHvHwDxv8yav679hTQz i0guOLHbByX6tVIwGHBhgFKrP387u7ihn9nqvjHmuRT1GTTzCQG1TKnyzxIpazO2PFjnvUJiQxJ7WWpu fwMsNOgxqkZsiqTxDlb3FGZvE499GUY0kOyde0ekCF Q4HDSnLGEvAfJeCn3ciPUyE211NRKgDIDOMTVleNj6XMMojhYizwFfcELUk534H961z7anJBHuenOlbQ lOdpguk0foN714BWPtsBQzgzPqVlCoAVTplIGvxIK6KOIbZR7nqxzhIvReFT0quvdsBpKmCL7pjyx3Pz NzHG8joytuVkCcKPycIPDgckhkAAPqj6ShvdvdTR7i C1Lcq6R6sH6rqFJlYCEcxVBrKbRrPCLefi2adPPoFChyy5DwQVW3emU5kOAxrOPsORSoEW76Rmkkv0Jh YdmcZFW0DKNpvcVgr0Cnu8naKtFriiNpJ3pzK7ByHPZhXHSwWDWdYyKifqIur4Mpv8ApkJCdcJx3m5gd UCWaITUcyQnis6qeEQD0UHFpS1A7vDZin8llXNbmZY LfjKL9tjhvNCfjTJWxvlZ2mvgmYVfgPIZwnWM6byprXWxiKLBgCbM0iankIXeaDNEhKEB9HJfye534EC K9FXkzTeqnTSavTNNcgrSsteTpeAbqGWZnCBRrWZoxKECjRNvgJUFfLVHtKdOevYiwwMorgD5eRhQiBz QhSBegLP4uXWLaW1sqzLXsPPQgZNGhG7ktYqVcvB 3glWfdLUgszrNtHNCeH9c0PFJqlt41gDSiLYYowv0= GROSS DESCRIPTION (test code = 3366) x7gkuWQaTQBcfMYrPjIaWVMeAGGdd4glJJQroVGeFeFdCsJtChHtOkcowHZqPGKiUmKlh8fkb985vHQx x2qeDXJeKdN2wPJlSVPqiHFeQ936OSBhZAygd5csa5FkJJAnfRVow2E6ECWPhwwouYi4uZpdF27em5M0 PztcO0voQZTjDHcbCLYwSGnaoTLcRCJ5LQAnVFJ6YO iwfvIokwN6UMokmZDvBhP4LPw8e6mjjRenUOFrBYX5a4rcGZspjfDgMB3hao7xvYg9h1rhslNiRZUjJK QnqGXRMPEoU5JcgIjbJg8fmXo8oOeiXecuSUQ2Mbz9CW4znf44yrc4oPvrZPLgabvdBbD3FBaiOJXbfn fkHYf7AJtiNKYsoXuaVVozGEFfpxytCGtyHPSbeQjj VAlvVUDfRmjaIBcfFVNvNTL6DZvqp637AKI4MGeoq2bpi8lzrIQuBzk9NEItUtXdCwdfYQzes6The7qu UMLjrj4dDWC0hNHduDflm6T8nOUjCAPevHQtafDnHVMjBlK3XBfbDA9ltg61RMMvLYQ6xr2fdESwtQci dkKaeIDzSQsbJ6VrRCShh001ZCHbT6ByHLGzz0N4wa MiQvAqMMItjCK9opG1YPUkSEi0fFOgtrJ3qwXrxHPiP9rlkB77ErOmsBWmF7HsmW86XoOebZLuB5CpwS 87IsXhmAKxI9IghW51YqYovRPrWLPwuPGkRh4ikDSorDXsy3CvpIUtSKudM46ju649IZZjckJhH1nxvH FpblxwbGFpblxmMFxmczIwXHFsXHBsYWluXGYwXGZz LmZxkDxixC8eGsQzHpAvDFRKMDWfyUZjRROqbeGtg5VzVAgrhgZkCLVtjGQeISqnvKtbbZpfWKMccTwu kkCncrCqGS5gMEKbS8Mti6Ahc42xcgRgNgZkAKMsBXIedgwfdGEhoMSgb8BeADXiHXDrF56oCTWdGIFu CLB3cJRjAJS4NL6jE1CenVZ6eILdAHRxpMwmLZObi3 Z1FNDid5K6WYFrg2YlvgSdNCFeyHImnqgngWKmgK6uSR9hWYItQHijEGfdFSU5IZP4GZdstls2tQA1jU gpdBNhapQjMyqfrOJoETQwTY1kCBO4De8roFEsKYTuhrJ7v0UgFNjiWWIoFtIqHYXjjFpbJRDjtv2= MICROSCOPIC DESCRIPTION (test code = 3371) t7jeaDEtJPUkvKHgGtDnOOPxCNNgl7rfYDFrmEJjFoIgHoCrEyFzUwuutLMwKRNnNzUkn0aig787vNIr h3nfPCGpEfC5zXWiZWTkqNWnD514m0sod1hewkGrrSN5GNAsGPP1XIqmqeWgekK7NZpwyPBdIxT5CUpy paDgUCparuDvozUpGbg0EAMgF903DAM0dIqmv7ecSW J0AGHrBCIeUkLyAf6ejXDvJ773HSQeRPFGKATiqZl6LZStuiWuxgGaiTVSn703Z102q4fdNCJtjgOmuP zCrassl5weP023GKAlwXQhijLzTgIyOUFxkUIvdQS5QGNiJB9wlecqAjRgSO1ywcnvQbCnVK4bpgj1Fb ZiMY5btiqwVaJsKCfxVEEzjflbHXRfj4OpcfdlQK6g G6Obr8G1cF4vrMJxPAGkiTZkHbIlTGKusk7fvNPqRNvog5PuCTD1pdJ8vRVsiGDoVDArSP27Gpude3Dw EflhGZG9KNWagsQsc8Cea4zpIyBnihVsW5vvG9RjNVRqXOUoPYGrLpHhkqCpi1Raq5CypJTjqZb2j2rv LGAyGYKgnFuuy7ukKER1CKVcL2D1dIOzp2neDAibXV CdlBI2qwoaAGyeCQQcggL8nuctSIibVAPrkLH3ovoaCLskYDQkSaD2sqrcKZnpSLBlZTX9YWfyv808LB O1GKtuNwlkDZhtVIKcfiJlfoGdbEidVLNcUEFgVUbqLIJdFKdhRPXmRILfKeQkpQajjFjnoR5kFcWrYr OrTNmzQE2eBNDxW9gvwVHpDXOsJTVgB6gzJyMpoE3ccWqiVIvfduRlMONwrbXvhy6qJW8bTKTgxy1= SPECIAL STUDIES (test code = 3376) [file] JwlGOuXZGkvjTzcLapiC9mMhHdErUdJIiaePFfpnymWqjxfcA7LFJxop8= Gross assessment was performed at (test code = 2777) [facility], Department of Pathology, [address] [place] [address], Technical component was performed at (test code = 2778 ) [facility], Department of Pathology, [address] [place] [address], Professional component was performed at (test code = 2 779) [facility], Department of Pathology, [address] [place] [address], [facility]jo[facility] [id number] 16:47:00Surgical Pathology Report Case: [id number] Authorizing Provider: Khris Andino MD Collected: 02/13/2020 04:49 PM Ordering Location: [address] Received: 02/14/2020 08:37 AM Service Pathologist: Pramod Riggins MD Specimen: Parotid, Right RIGHT PAROTID MASS, BIOPSY:MARGINAL ZONE LYMPHOMA.SEE DIAGNOSTIC COMMENT. Signing Pathologist Direct Phone Line: [phone] lectronically signed by Pramod Riggins MD on [...] material may not be fully representat josiane. 476[address], 52899, 73292n5, 35186Jhscz diagnosis: Right parotid mass/nodeRight parotid Received in [...] evaluated Immunohistochemistry technical testing was performed at [facility], Pathology Laboratory where it was developed and [...] to perform high complexity clinical la boratory testing.[facility], Department of Pathology, [address] [place] [address], [facility], Department of Pathology, [address] [place] [address], [facility], [address] [place] [address], UIDE-GLUCOSE [id number] 16:44:00 * Test Item Value Reference Range Interpretation Comments POC-GLUCOSE METER (BEAKER) (test code = 1538) 250 mg/dL 70-110 H : TESTED AT [address], [address]: Ins[employer] Power Unit Tender/Market Research Analyst ID = [id number] for Meghan Collazoo POCT-GLUCOSE [id number] 11:47:00* Test Item Value Reference Range Interpretation Comments POC-GLUCOSE METER (BEAKER) (test code = 1538) 224 mg/dL 70-110 H : TESTED AT [address], [address]: Ins[employer] Power Unit Tender/[employer] Analyst ID = [id number] for Meghan Collazoo POCT-GLUCOSE [id number] 08:32:00* Test Item Value Reference Range Interpretation Comments POC-GLUCOSE METER (BEAKER) (test code = 1538) 173 mg/dL 70-110 H : TESTED AT [address], [address]: Ins[employer] Power Unit Tender/[employer] Analyst ID = [id number] for DARREN FOUNTAINYahir POCT-GLUCOSE [id number] 21:35:00* Test Item Value Reference Range Interpretation Comments POC-GLUCOSE METER (BEAKER) (test code = 1538) 179 mg/dL 70-110 H : TESTED AT [address], [address]: Ins[employer] Power Unit Tender/[employer] Analyst ID = [id number] for MARC GUPTA Flow Cytometry [id number] 18:39:00* Test Item Value Reference Range Interpretation Comments Flow Cytometry (test code = 2758) See Separate Report Case # (test code = 2759) [id number] [facility]joFLOW CYTOMET[facility] [id number] 18:39:00* Test Item Value Reference Range Interpretation Comments FLOW CYTOMETRY RESULT POINTER (BEAKER) (test code = 2758) See Se ordoñez Report FLOW CYTOMETRY AP CASE # (BEAKER) (test code = 2759) [id number] POCT-GLUCOSE [id number] 16:47:00* Test Item Value Reference Range Interpretation Comments POC-GLUCOSE METER (BEAKER) (test code = 1538) 245 mg/dL 70-110 H : TESTED AT [place] [id number] [facility], [address]: Ins[employer] Power Unit Tender/[employer] Analyst ID = [id number] for AMARIS LUNA Hemoglobin [id number] 13:29:00* Test Item Value Reference Range Interpretation Comments Hemoglobin A1C (test code = 4548-4) 7.3 % 4.3-6.1 H Lab Interpretation (test code = 95337-2) Abnormal [facility]joHEMOGLOBIN [id number] 13:29:00* Test Item Value Reference Range Interpretation Comments HEMOGLOBIN A1C (BEAKER) (test code = 368) 7.3 % 4.3-6.1 H Carcinoembryonic Antigen (CEA)2020-02-14 12:10:00* Test Item Value Reference Range Interpretation Comments CEA, SERUM (test code = 2039-6) 2.8 ng/mL 0-5 LIZ (test code = LIZ) [employer] Unit Tender ID - OSCAR Lab Interpretation (test code = 48680-4) Normal [facility]joCARCINOEMBRYONIC ANTIGEN (CEA)2020-02-14 12:10:00* Test Item Value Reference Range Interpretation Comments CARCINOEMBRYONIC ANTIGEN (BEAKER) (test code = 685) 2.8 ng/mL 0. 0-5.0 [employer] Unit Tender ID - GALLOOCT-GLUCOSE [id number] 11:00:00* Test Item Value Reference Range Interpretation Comments POC-GLUCOSE METER (BEAKER) (test code = 1538) 340 mg/dL 70-110 H : TESTED AT [address], [address]: [employer] Power Unit Tender/[employer] Analyst ID = [id number] for AMARIS LUNA Lactate dehydrogenase (LDH)2020-02-14 10:49:00* Test Item Value Reference Range Interpretation Comments LDH (test code = 2532-0) 447 U/L 125-220 H Spe cimen slightly hemolyzed LIZ (test code = LIZ) [employer] Power Unit Tender ID - ROSIANMary Beth Lab Interpretation (test code = 90282-1) Abnormal [facility]jo[facility]OL[facility] [id number] 10:49:00* Test Item Value Reference Range Interpretation [...] INSUFFICIENT CLINICAL DATA TO CALCULATE ESTIMATED GFR. [employer] Power Unit Tender ID - ROSIANGLACTATE DEHYDROGENASE (LDH)2020-02-14 10:49:00* Test Item Value Reference Range Interpretation Comments LACTATE DEHYDROGENASE (BEAKER) (test code = 635) 447 U/L 125-2 20 H Specimen slightly hemolyzed [employer] Tender ID - [id number] 10:46:00* Test Item Value Reference Range Interpretation Comments PTT (test code = 31626-7) 153.1 22.5- 36.0 seconds Lab Interpretation (test code = 28401-3) [facility] 10:46:00* Test Item Value Reference Range Interpretation Comments PARTIAL THROMBOPLASTIN TIME (BEAKER) (test code = 760) 153.1 sec onds 22.5-36.0 Flow [id number] 10:05:00* Test Item Value Reference Range Interpretation Comments Case Report (test code = 104) Flow Cytometry Report Case: [id number] Authorizing Provider: Khris Andino MD Collected: 02/13/2020 04:49 PM Ordering Location: [address] Received: 02/13/2020 05:49 PM Service Pathologist: Candy Tian MD Specimen: Other Flow Interpretation (test code = 3364) [id number]rt8xoAKTirAGmNkEgHfXlMhMkWmoalQCrNQRwWeJzj6hmm785hNGi g5vzECTwRqW8yGUjWDPloLFgS695CFZhPKpvl4uqy2JqRXJmyVEbl9T3OAYPnanmuWx5fEtxB91et3D9 XmphC2eeNMRmQJErQ7MsRJ5tHVRbGwt8ZQO8JMU2DG HsFNKsL7FbSQ3mRNVecRZrXTc3p2ajwKnrWZJyMLO2e4fhFAryawMzTM0toi1jkQc8e4dzyyErEUBpWR IdfCQNCPZfV8RmpGvqKj0aqPc8vHplMmfjDKZ2Zax7HB3xih27euc8bCjoTFBrtwamSkE5FRuvZPXbdc hnFDf4BRniJCLcuNqyXUcaKRBnvqtkQDrpIPPekBtx SIccXEQbTshiHDvtBUGvMJS2KVxiv460RVG8GJlfj7fhh1izvGEjEfa6XHVlYnGwEhhxEWwdn6Dyd2hf YMFcgj9yDQD3kLOygAtkt7C6ePRfZWAvrXQkdkBjZADrFoW4UCbfUN5qir99IDJiQOI7la3afVYasZzr uyIuhVZbWDryL4WbTCOpl429ZRUhQ6UpUZYdg9Z8xy NtKxUhKZQfbSA3ulC5XUQzDRn5zESpqoE1itFfyIDhP7cncG89JuWtdCTgK9CouW38UrYpiRFhS8OnlX 32VyFlvMKlO9OvxJ65KgEcsQGnELEitKZiRd4qbQJgpHOva4BxrQMtKYzsK07mh642HVVgluLiQ8elzW UezmadmRSfvmqoIQoezfT7DRUxGMOyCJjhNNCiDJBb BhJgaQGvYvBeMsGbnZbpsZqpGDyzDxGyKFXrZGczB3zgBhLgSlJaOZDYPLhOUPUEJLCTFBfILQXSJC6R AAVVIE3CZRFUWDqauBSiKR5XHZ1XTDVMVWEVTVLEEXHQLYHmJxlMTsmSMUPWQEp9GtUcDSIdmrFuMK6O X4GJFKpXGDFnD7ISSKNVM1QEOQQREJ8FQOgcTLNtK5 LuGC3MGWooR6BRHRMaNFJwqbNdO1ETWHGACK2LHvAfnELeUJBuxv9= Flow Interpretation Comment (test code = 3365) a8ewtVSrFDPbnBSyIhEpIYHwSRQci5ftNJCtrVHmLyUqRoVwOaDcSlntuHHsTWGlQcJaa3cnq641kJCy p8bnLFXiYyJ2iMAwFNYdjJXgF951GHIlFZspw5css6MmXCNcvAThz2J4FHUKlixjqZp6fPkmH86lt5R4 VyoyS2pyMRXtNNGkF1KdKL8bZHGyVtb7CUW7VJX0WV VcAVZxK2KpPU6dIVQtxYSlZTw1p2uweUlkPKAuEVS0l3hqLTybeqKnCL6fwd3giWi0i4dgpbQyCBSaZS FuvZCXGGXqB8GnzHjrTf8udHz3tTqkTsnpPLX7Xjs1OA5jyw76orf6bMphZYZzkqcoArZ7DTdoTGJvla nrHSy0VHzuBHQgcOfmSMcsISAwxfogNWdxDCBtiQpv SXonVCHuXmhmPRzgFLSaFVU6NSdyh130NOC3GCjnt7ohh4tzuFQvBng0KVScPqGpLkarJZecx5Lfj9pg LQTnju8mWZV0zWChpZkmc6L1uDZzAIMsxANgqvLrDWGsWlO7AOtsLB7efr23SPNvDEB9ej1nhKEpoRal dlOsjNYuMRriP7DrTHLvr281IRHyW5TzXHThy9J9ed OmAzKjGJHnfFY4bbI4EBRpBUy0gTMjfoH6nmRonZJkT1kmwK02FhFnaJVjR7SziE66LnDkyXVvP3GvoM 22DmTwoPDiA6MkzR22ZtZusBOfYTUfjTRkFi8fmIJcyCMqb1UsjQDjBPhzU18zl673JJYluzPyO1hwxG WdhsociLKushpvYDsmgwD4HVNjMNQuQUgsMYQnMIGi BlVvqVTkRrRaDaNtvAumpEvvJPlmQqQdGTEbLJrmS4ksFrPcMqNnQHHByANjCZUddW9dwFIlRSNhc5Ev gRJnu353sJFvs5FceC9xoOCdwyAjtYLvuIMtwMZutZJfDKIwI5LuqZWfpU9ndW4bVNJyUQ8wsMOhwZcm jC99HSYkcbrarsDnzQwzBOVll8HuIFideQkjiuP8nZ AhJPLuWYAcu4VfpL2fi5kgTyCjywHcj3TyBKPqCvYouSGkGSBvZn0eQUF4uUvekN55QRDikyL4GWYzg3 2bCNloXEO6 CPT Code(s) (test code = 3357) y5irxQXhAJYirQVfCsNrQMBhLECxh4ufNSQuoUNtKjZpCaUtVxOpDoiedIXfBWDvTzIvo1mfy179kLPb f0aaIBCcZsM1qLVlSQBdiAUqZ559ADJsILivk5qja4DbLNXmwIIxj7T5HIYCzuhapMn4mWjxO14bq3G1 SmirT4jaSXHxRWUrT5UwMV7gAGYkEoa2UFZ7QWW2FI JtCFCbE7BrWA1eBVBacXRgLKm1n5bfbXnvLONzBKO0u5xpDGofpnTwXC0dwv3tnUj1p5nhtpXaDQFxIK DjkILYIKYlI3CckRmaOa9rjWy2pAssHsmiFXW3Zuj2NZ7ykq67ztu0kEufAOBgpjyuIiB9QBdsDKAaef hjKKr2UNjlDQKyvApxUEkhCUMsxwplJRpeGRLkrZvp URoyGKYkMkssMTefROUeAXU5BDawm319JNV7LBhxt4ist6lpxBNxCta9HRBtLbHoMnxzIJtst0Aus3dg AOFxjw9lTDU5iNHnbUssw1Z1wKXdUBKaoWVlxrBjVHJbEuN8MOgqFN4rqp19DWKiEBZ7jg9nmRMawImr ryWmpEPsFZshR6LcVPHkx728WWIkA7MzSQGyr7L6zb YaPsCvWFGoaBW1mbC6CAKwCLs4zRXwdcC7spXelUMdE7qlkR92MhAzrDOvU7CnpR43FiJerUAkA0KzuR 44HxPqnGPtQ4RknQ13XfQliZWrFJVfmOWrBy4seZRmgGQrx1FheYAdSSamX48ff451SRCkgjFwE1pafT IhdclqzRKhctnuZXpqtyJ2ULEtIZRxYApxJSWtIBFt TdEunNGpUnWgDgDugQwbkFxmBJwnQuPjNTMtZGqkO4xrNbShQiXaReC3JET1RIorhYRwkgrwKJyprwRt BYhzyuyuXFOeUBmeZ8gaMrYjQHCvrZhyENrxd8SiKEApYXIzJjSbgRSrbN== CLINICAL HISTORY (test code = 3356) i4pqvPGqDWXaaGWqBcYuOVDsOJJfh5liWKAheCQjOfJbQuOtHiDaKhmunRUnCOTmUmHqu6qwa902vQTr k3xjQPZpQbR3aQAaXPOsoGNqP319UQZwEYofu4iri5StAGClhCUcn8I7MTNIpziydDn3nIupB27dk7X2 MicnP6dtVDLzIZJaI3JzMF8nDNOcNjj9BBU6TXJ6KO NmDPHuF0PpRT8cPCJodCGbXZe5i7jzpLozHWXlXEA5g3wgIOnxyxPfYK3ggi5svRy8e5zkpvVeAZAqNP AvvAZCITOwE7YfjTfrRe8qnMl8hApbWvcvFSW0Qkf5JX3lex91cto9mFkwROOcjwptNjO6XVxmVEYzng ysWVh5EMlpXZJyzHclMJahULUaqobbIRahQGNlwLqa ZOqmWGWxMblmJGaxKVPbPHZ8COtlb412QGV7KFfxe1vuo3kceNIcNvs4MGHqNzQuAmrrSYebs8Zpq8ay LUSptu3lZHK9cNBuoYqzm7G2uVVxSQHffZIrugQdGYVjNjI8QJzzQR1gup65CSKgOHW7xf8alCNyrSdv txMzkVCzQKjdP9BbZYBki995LGXvM1NiXWKgq3F3ba YnElSgBRFnqAN8ysT7LITpOYd0mKRivyU0bhZpsZCoZ6ovmO42DpLreXOuY1EajU52KaSggWNiC6FzjQ 14PkMenSJjT2JisW68OhGwgQYwAMQvsTAlDg1swCMtjSMdk5JvqMTqDBrdS82xl303KFRduzAfZ0ncpZ YrxhfdcXXhirbyRHreilE3LKAfWBRvGSebYMKnVHWx HdTofMHtAdNdBbVshSczpTbeHKiqWaTlGUOxALkpZ5erUoTaZuZoPIUEgL3qpJRsBZ4orRT3hYcxrLJb fQ== SPECIMEN SOURCE (test code = 3377) u4yndKVbJGFnfDAxVgGwBOUgNIMdw4wfXEBqgHHqOtWhXcCbWtHkLjwnhCEvJMKjVdGbg1yzh276xMUk r6epMDOdLtF5hXOlLWDrkUGtC466AKEcXWsea8zia5OmXZGxvYRkz9P4WICNodkghQs2sNwxK17ho3B0 FdduM2vbPTPtMXXbL8RgVI8kHWXaYqs8JSJ3AEJ0WQ GhHTOgZ4PaAQ7nFIFuhJYrJZo5u7mgkUpkBUOyYPY0z8viLJxxhjKyRN0zar6xfLm1x2vlqhPuHTAyTC IkoHFMVNRwR7GspZsrYq7pwOy2zQseFepaIKI6Exx6HY2qaf04xye4vAhzOBYcvkdiQpU8XLmcHLHbfj sjESg9VUloJNIcfLhyLTgxEAPbysqqNXwuXBQkiKyl SQrcNUDwWyunLQfdEXTpKTZ3LCmhm276KXT3OCcpx7bkz7gcbLLqLse4PEYyImWdRuefVGrjs9Ecl1ay XCTixq8iYFZ7fTIsqPglj0Q2mGXkIFForMRwrcBrSOBaIbY1CYbiSC9vir02MSRzOTT0ru7rpICpaOpd lmUogUOzDAedR5YgVCKbh073FQOpK0CqJIPwd4U3zk QeEhAkRZHquCZ1wpE5QZUvLEb3zJWcghF2arMmnNRiE8gjpR52ZiEddKFiD9GxvW30JhJrbPJpN6PtzX 55InTcsXCzV2EgtA91ByJcyHPkBEPopECfJc8gwBColGPpc6QhxVMgCUonX00qq839QWRkthHsH7pujM OoekcfrCAcndyvSGhgjeT8ZLCaWFFoUCuoKNHmZYIh PhAzlYMfMhPnBxXbgNwgbShzHOyvEeBvLNEcOPhvV9qfDoYpRgPsATAFnMtknPPeVUXcsOyyQEKssq1= CELLULAR BIOMARKER ANALYSIS (test code = 3380) j9ogaZMuIYEsbHHvTgIgVTVnHCXwx4uuGBZlyQSqGvPpKdHdOxDhWlmnjMSrQFBrZgSpo8ytf519kXEk a6jcPDNkWqD9vHXxEFEmaGBlL955ZEUcGBmhq8isy2GsIJBycZCdc5R4BQBHyvkdrBn5xHnnE19su6G4 YeyaX6hsDXRoURGyY9WhPF4fOCGaLcr9XGP3LVB8VK MgNDMcF4FaAB6tCVUjvVSnTQh4k7vroBftNRPaYFZ5z2moMGdxmxCfZN7vpa7ykAt3s4mkerPbLWKeVN HgpAQEZKFqJ8EfvTgxGg2snZv7rWezUwjmCLT6Yoh2XT1gis77mus4iFffMVJfzlbxRlY4GXojKVGyxr csYWr2ZAgrSYBlsOdkRWgsZEUvuyqwWKbpSLBloOyw OBgsNPLrZqxiDMufAUXpKWC8LBhzp949PKT3WGmmc5gmg8efyWOaDqf9OMQwFbYfRcqdAUnox4Xwg6gv KEAnkq6vSSS5jWUdrFkrn7F2yXYgJZGciHNmliYwQBDnTuV8ORyrPT8bvo65KHGhCNT8wp5yoZIbsXtc mqUjbTKoUHsiG9JgOLPno354OSGcO6RtDEHen1Y7wz YgPtApDWTqdAD5bwI5KRLmOKx2rVSidkF0zxSnfGQxP5csfC81AiOxdESsB4IvwS16HyMyuSXwL6GffS 66UpMtpQJkY5WprU11IzJboRDxTKJpeKSeRn2abUWjeIKxj1QwbIWyQLysK06sf204NHMmfcYzP5zmeG UipnmkbKKsqgbjIYlkhkB6TMUxudKwuDzwtB4tPtYu WiPdDTxdQW9nMVFnL0bqlFVcIEPgODOpG3juJwTadF7pvYhzENiaytQtMLOPBHjvr4MbFiIfET2TASBn ITpjP7H8Kqmnf8DjYiNwRI2MGR0zVKXwCCWGRKddH2YdJQbgK5MbIBtwK9DmDVPWDORiHROMTKEcVQHR JOWdOGKARlZtJBVXKMxvTSYKLPL6DLGEVZZxAS5tmP GuFVVnGFAzLAqcJWUlPFIeJcDvpLhhrZ4bEgWgUlLuSHegLQ6qGAYtI5qwjBReXBUyHZUjL7uyIrAntR 7qyOnyJIigpiDeXOVlfx3= IMMUNOPHENOTYPIC FINDINGS (test code = 3379) n6zkyOItXGMbwSQcUsXiRQThDGRzz1wuIMOgjOTnOuHjExDgEdRdOfugnXOkFZZiCzHju3sbe842mUAp e2hzRCKuZnQ3zNEtQPLrkEQuT237NEOuBFmrm1aoc4RtYGOpfDUqg6Y7YIUKdcrgwGb1u7fnOsKkVuB7 mBPbFDxsJ4gbffAesGSbB4PykACigSs1lAofL75gr9 L8KdvtZ3hjXKCpTZBzB4VfAV5jYDZzTqr8XOA2HNL9DDKcBTDoS1JhCJ4hXMVkiOFnYKz3y7kezLyoON AvPTM6z0nfNMvsjkUtYM3pvo1urYn2m2wpgiXgPAYyERSjwBWDWQNxW1CclIghBx1djIz4nYyoDxctQM T6Edr5IP1fcw58csh0yBgtJCYgabbqHvR3VQblWINj qzmeTAd9AAslLKWeqLexRSfyGCDlvwfjMUspHNUwqKqvIPsoCFLcXyaeQJilFWJpEII4WYfpv910ZIA9 KGrwd0cet3imoTRxLrr6LLPnIrSzLbgkYGrjv9Ayx8xuMBWjkg8gDAZ5xWQipHtus4D6kSBdTOLfoMVk gzDxVZYwKaB9SSifFS7evx12SUZxAMR8xv6fqGBzqJ ybvtPuvVEgFCwqJ2UuTQFcs623AIGrP4FwJEQmc3M5vpDbDhCyLBVljLZ2dcP1OQDkMRc4tIGyrdK3lh LhkMBjS4inhP22QdYptUXeX0NtkJ68YbPtfJVcD3EsuA36KhOvwOWnJ9FybD04OvBgiJQcKCYojYHmJo 5dsIIyfRTpe3MazCYdDPhfN61vg389SXHkosWfH5wv qWErsmjscDQfgkbiWZcuffY8XLXyekQxh7BqSNJvAFD0QXvzWDuwkSf9mVMdcBmeLZEfjKpxcV9hFsHl WzJiKZnqBV6xQVWrG3cecPVrHDOgXGOqK1xfCtZgaP1nxLghUFsbjgAeEKWxLBOuzNMqVUSbAAAkqOe3 eTogNTIuMyVcflx+TB5ktvi+JV46dXWhovEeJlYAhn OteLDhYBJgsNusCKC4ABR7BnMiXHFomcpjLRHpTPCqw3ZyGJjgEY6cdq59aBYlOzGLZTXorQtmrZ4fzG kagOpbwsRbVZHzoYhccNPbLEuyPJJzf2TaC5CjbOSfBOWkhUxgUWJvnzjaVPIqSD8QYDHNHdU9MTzspD GqZTgmP7a7RBTqRZirHEYzf9BsbAT3KHJjDKCNTCwu TPSMMdXyZPWOLuEmLBLzkpBACTrDFZlWHPifI0H6GDMBQWRzKGHTLSIrYQQflmoqCSPswimfVTTqDHp0 aQ5dPYG5lCYjAq5qjK00vS7pOZPjkOReFLKsp34tGFHkMVOeMTJrrHwmzENrXtpgJDSvwuw+XHBhciBM zY9glX8stXFmulleNuVtM8k7VFHHIPUkJGg6eYWst7 H1iLGyYWOyqYSuuIYyJWa0DwviFR5pZRBqqFEmHAMymMlhZlEWoVUzsO3ps2J2fSanVLPrR8SfpAEnk3 T9hRN6aI3vQQtdBZByv7MdtTPzILPhTh29QO2pQREgnTIvmVclszYwLeV2fHDaHOOgSJznLTEqhYGnPE Kfe13fkYMueOyxvPSrQEPxgZRwpXOdkjBlcaPgft2v y3MkL8hxpRGwu0LwyB3lituxYToiRBHokaqsQICiIZgnhR5zXN0lo50yO4a7cTHhnN3poLttzYdgjfP3 BOQtEZnxVG81wAMwGNDrZfilQ2J0QOSnekEhqDvdjCMam5EgrFLhgqLrfLOpZNK4NJLxq9CbC7LtEVnl KD99oE8crXWkhlCff22yonahZOVzIetiMS4hQNDtwF cqQTRlZNi8jnIaKGVekdPszS1an9Q2zLVoXOVtxBSrsNVuMRRtTBTen8MimT27ZVusM3TvqEEiFGXesa x+KYCbluJWsJFntxKtAHoonG3uRZU1NE31ynNrniNhxOcsGDMfVFDwJVPhrvUuca8xrldkFkrdHTDqpV ztQQZhb26gwRLaABSxzPmebVpfpSUlG1WvqQLjERDm ALBkYYKrnULeOTNegzzaqQPcgoquKmyalsJtUGawaqqpIEWtMUxcR6ljQfQeKJTlhRbxPpena6TwVEVm EIOyWgcqxlLaUQFfujjzMYPkIXKhvCFnWIB3hKQmjjEseNrnwCqehO6nYsFxTeAuSCjksUSmmxmtBOjz xhTfPCgzpqznCSDoTHjfU9joWyWbKROjgIcgUTwbh2XxXSUbHZVvSyTrtSHrzJ== DISCLAIMER (test code = 3363) t0ujyUTgPFArmVExEvCxRLReIMUuv2nlDCIciWIrTxMnQnIgDaOuNcgkrOGyPDRrYsDpw6lje071rQEy w1giOFWtTwB4cOTyZGXnlUIbK084FYMxENqsk6tip1TgIJOocZFjw0F2ELRMmswzaRu2nYuzJ38sl4A2 VqkaQ6tmRJQoFCNkY3SfLR5kXWRcKse9PFN6MRU9TO StKLErI8FdDP8rCXLjcSEqPZm0v2ybeCwkTNHqFDA4v8vcLOitmvB9PG1fno7kfWn9e5meuuSvQINhYQ LbdSLNHQLlA9PprEveZt4gjJy6yEadObuvDGT5Bto6SA2giv38yle0fRwzCSBzwcuzRoU2COelISMcso mcFVp8WEmrYLUxfDvnOMpnPOXvkyfqUEthIVMciOjm OGbuIVOoNryrJJcoWIMgWCV1MCsgh413BRR0XUhnu3jri9cueUPmGpz3IUXqQyGkBserDNsgt3Wea5ft ZSQkLsI2CBhqBY9smj61MZOlBRI3sk5fvJJztMwjxaHaxKIaPKfsG0CoNAJyo308REWvJ5VjCJTod6L5 jqGhVdPiNSCtiCO6zhH8HJXkLNd1bIPlmdH8atXijV SrT6ylsJ05PtJltACwX0NxrD84DtEqtFFoD1ViuR64KsDvaOSpX1IgbH57VgNxsBSoHHGupSZvPg4krG PfePDzh7ZecAObUCtkP54ab890UHKiznXjN7nqhSXyhwstaHDqandoOEvpzeN9CBMmQXWeUUcdVIBjRU ZzMjJcbGFuZzEwMzNcaGljaFxmMVxkYmNoXGYxXGxv A4zaOfPgXqJsRqXUhTZiWKO6PFW9dtZ1HPRtITXpxmMfy0KmMDSvijBgyOuhdTIvbINvJh2qcPXiR1Lu T5viymKapHZtnMA6xSRdAYHeeEOasEmlXOPaQzvrGkO1iA0iICW6CpFUoGicH9XwTGAtjRXdeXCMAC32 TNQvGLIWlVW5HJsbwdYtia58ERBrMY1mT9dmVXFpEP LbnsTqtZKsm9NxDTTsdSK2gZKoVM3TMbUAj93rRXKiXKTHikGjJFDlmDqicBE6wwU5rN2lZzMNiAUaGu IOHFuoraArHVIqtr7gfvJhYLBuSIEdi4WdrBGcfNKpftVpS2Bhz9ZjSEOdeu84MGtczKYccv70MS7vA5 Weo7AwuA7lRHZjr5uiwWzzYI5omLIvWZAnEHtzwlGy ISEsaxPfkdCut4WkR5G8uE6oLKryz1UuVm5bLGAka2UwnxVoVvPLbBssHCezGh2sFDMotbubhQWmK6Po zZeydHJkRPStYJOiVAKvYSMGbHcstCPxmPLDNVToxlJ2o4M7XLzntLMwypHeZI08HWEsBE1afKKlqGAu e9LgFZp3XJBaAtXUIYAvJCPduyHawKQkhVDjTBXwiH 0mfMUkIb8fkDZquOnsUWIatQEhDBsmwAijU3xcvbkqIIvimXItzLuiDc7ugBLxPDXuubUsaKrmoI7tBk PlYfRqYCynhLCagmqaOQiqdjX3SRHngr1= Professional component was performed at (test code = 2 779) [facility], Department of Pathology, [address] [place] [address], [place] [address], [facility] [id number] 10:05:00Flow Cytometry Report Case: [id number] Authorizing Provider: Khris Andino MD Collected: 02/13/2020 04:49 PM Ordering Location: [address] Received: 02/13/2020 05:49 PM Service Pathologist: [...] and other features for full interpretatio n. [id number] parotidCD8, surface-[place], CD56, surface-Lambda, CD 5, CD19, CD10, CD3, CD20, CD4, CD45, CD23, CD49d, CD38, CD200.Specimen Viability : 52.3% Number of Events Acquired: 12156Bzpsegry, monotypic B cell populati on identified (39% of cellularity)POSITIVE: kappa light chain restricted, CD19, CD20, [id number]: CD5, CD10, CD23 In addition, the following [...] and their performance characteristics determ ined by [facility]. They have not been cleared or approve d by the U.S. Food and Drug Administration. The FDA has determined that such stefano arance or approval is not necessary. It should not be regarded as investigationa l or for research. This laboratory is certified under the Clinical Laboratory Im provement Amendments of 1988 ("CLIA") as qualified to perform high-complexity cl inical testing.[facility], Department of Pathology, [address] [place] [address], [place] [address], Rgqnmq Waakbjbplder5923-69-25 07:04:00* Test Item Value Reference Range Interpretation [...] 3438) Adequate LIZ (test code = LIZ) [employer] Power Unit Tender ID - Karissa OverholtU ser comments: Slide comments: Lab Interpretation (test code = 71044-8) Abnormal [facility] W/PLT COUNT & AUTO [id number] 07:04:00* Test Item Value Reference Range Interpretation [...] (CELLAVISION)(BEAKER) (test code = 3438) Tammie quate [employer] Power Unit Tender ID - Karissa OverholtUser comments: Slide comments: B-type Natriuretic Factor (BNP)2020-02-14 03:27:00* Test Item Value Reference Range Interpretation Comments BNP (test code = 19762-6) 115 pg/mL 0-100 H LIZ (test code = LIZ) Ins[employer] Power Unit Tender ID - MARGY L Lab Interpretation (test code = 62259-7) [facility] NAT[facility] FA[facility] (BNP)2020-02-14 03:27:00 * Test Item Value Reference Range Interpretation Comments B-TYPE NATRIURETIC PEPTIDE (BEAKER) (test code = 700) 115 pg/mL 0-100 H [employer] Power Unit Tender ID - MARGY [id number] 03:10:00* Test Item Value Reference Range Interpretation Comments PARTIAL THROMBOPLASTIN TIME (BEAKER) (test code = 760) 88.0 seconds 22.5-36.0 H [id number] 01:57:00* Test Item Value Reference Range Interpretation Comments PARTIAL THROMBOPLASTIN TIME (BEAKER) (test code = 760) 160.7 sec onds 22.5-36.0 HH [id number] 01:03:00* Test Item Value Reference Range Interpretation Comments PARTIAL THROMBOPLASTIN TIME (BEAKER) (test code = 760) 179.7 sec onds 22.5-36.0 HH RAD, CHEST, 1 VIEW, NON [id number] 21:23:00Reason for exam:->Pleural mass and mediastinal adenopathyShould [...] [place]anda [place] MDReport Verified Date/Time: 02/13/2020 21:23:35 [facility] 18:37:00* Test Item Value Reference Range Interpretation Comments PARTIAL THROMBOPLASTIN TIME (BEAKER) (test code = 760) 64.9 seconds 22.5-36.0 H POCT-GLUCOSE [id number] 17:33:00* Test Item Value Reference Range Interpretation Comments POC-GLUCOSE METER (BEAKER) (test code = 1538) 217 mg/dL 70-110 H : TESTED AT [facility] [address] [facility], [address]: Insulation Power Unit Tender/Market Research Analyst ID = [id number] for JODIE MARCIO U/S, BIOPSY, THORAX/NECK, SOFT [id number] 16:44:00Reason for exam:->lad on rigth side assess for lymphomaFINAL REPORT HISTORY: Right cervical lymphadenopathy Sedation: None Orchardist: Rupert Gaitan MD. Horse Identifier: MD Gladys (Resident) Approach: Right neck, percutaneous [...] MDReport Verified Date/Time: 02/13/2020 16:44:57 Reading Location: [place] [address] Angio Body Reading Room neck [id number] 16:44:00Interface, External Ris In - 02/13/2020 6:35 PM CDTFINAL REPORT HISTORY: Right cervical lymphadenopathy Sedation: None Orchardist: Rupert Gaitan MD. Horse Identifier: MD Gladys (Resident) Approach: Right neck, percutaneous [...] Verified D ate/Time: 02/13/2020 16:44:57 Reading Location: [place] [address] Angio Body Reading Room [facility] W/Doppler(CW/PW/Color)2020-02-13 14:55:21 Ejection FractionSLEH ECHO HEARTLAB MKCKESSON CPACSInterface, External Ris In - 02/13/2020 2:55 PM CDTTransthoracic Echocardiography Report (TTE) Demographics Patient Name PATIENCE MORRIS Date of Study 02/13/2020 Gender Female Visit Number [id number] Race Unknown Room Number 7[address] [facility] Date of 1930 Referring Physician Nadine Benz Age 89 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 Jonny Durán [facility] Interpreting Roscoe Junior MD Physician [...] 4.28 mmHg LVOT VT I: 30.09 cm [facility]SE [id number] 11:43:00* Test Item Value Reference Range Interpretation Comments POC-GLUCOSE METER (BEAKER) (test code = 1538) 237 mg/dL 70-110 H : Notified RN/MD: TESTED AT [address], [address]: Insulation Power Unit Tender/Market Research Analyst ID = [id number] for MARCIO FELICIANO [id number] 09:26:00* Test Item Value Reference Range Interpretation Comments PARTIAL THROMBOPLASTIN TIME (BEAKER) (test code = 760) 50.1 seconds 22.5-36.0 H Prior to initiating heparinProthrombin time/[id number] 09:24:00* Test Item Value Reference Range Interpretation [...] heart valves. Lab Interpretation (test code = 61315-2) Normal [facility]HROMBIN TIME/[id number] 09:24:00* Test Item Value Reference Range Interpretation [...] for patie nts wiht mechanical heart valves.POCT-GLUCOSE [id number] 07:25:00* Test Item Value Reference Range Interpretation Comments POC-GLUCOSE METER (BEAKER) (test code = 1538) 177 mg/dL 70-110 H : TESTED AT [address], [address]: Insulation Power Unit Tender/Market Research Analyst ID = [id number] for MARCIO FELICIANO POCT-GLUCOSE [id number] 22:08:00* Test Item Value Reference Range Interpretation Comments POC-GLUCOSE METER (BEAKER) (test code = 1538) 172 mg/dL 70-110 H : TESTED AT [place] [id number] [facility], [address]: Insulation Power Unit Tender/Market Research Analyst ID = [id number] for BERONICA ROMAN POCT-GLUCOSE [id number] 16:33:00* Test Item Value Reference Range Interpretation Comments POC-GLUCOSE METER (BEAKER) (test code = 1538) 142 mg/dL 70-110 H : TESTED AT [place] [id number] [facility], [address]: Insulation Power Unit Tender/Market Research Analyst ID = [id number] for CHANEL CERVANTES Venous doppler legs [id number] 15:08:41Ejection FractionSLEH ECHO HEARTLAB MKCKESSON CPACSRight Impression1. [...] of Study 02/11/2020 Age 89 Visit Number [id number] Gender Female Accession Number [id number] Date of 1930 Referring Nadine Haque Room [...] in cm/s ; Diameters are measured in [facility] SARS-CoV2/RT-PCR (Symptomatic ONLY)2020-02-12 13:49:00* Test Item Value Reference Range Interpretation Comments SARS-COV2/RT-PCR (test code = 58774-6) Negative N ot Detected, Negative, See external report for linked test SARS-COV-2 PERFORMING LAB (test code = 85007-1) [facility] KHLOE LIZ (test code = LIZ) Negative [...] of the Act. Fact Sheet for Healthcare Providers:https://www.[employer]/sites/default/files/product/documents/Fact_Shee l_RQ_Wwxvprnul_Vqdw_LTMG-UtR-6.pdf Fact Sheet for Healthcare Patients:https://www.[employer]/sites/default/files/pro duct/documents/Blvx_Hekgr_Pvbsomzw_Yuek_NSLV-FkO-6.pdf Performing Laboratory:[facility] [place] [address] [facility] ([facility])2020-02-12 13:49:00* Test Item Value Reference Range Interpretation Comments SARS-COV2/RT-PCR (test code = 3489911) Negative N ot Detected, Negative, See external report for linked test SARS-COV-2 PERFORMING LAB (test code = 4418099) [facility] KHLOE Negative result for this test determines [...] from individuals suspected of COVID-19 by their [facility] provider.This test has not been Food and Drug Administration (FDA) clear ed or approved. This is a modified version of an approved Emergency Use Authori zation (EUA) and is in the process of review by the FDA. Once authorized by [facility] FDA, the issued EUA will be effective until the declaration that circumstances exist justifying the authorization of the emergency use of in vitro diagnostic tests for detection and/or diagnosis of COVID-19 is terminated under Section 564 (b)(2) of the Act or the EUA is revoked under Section 564(g) of the Act.Fact She et for Healthcare Providers:https://www.[employer].com/sites/default/files/product/d ocuments/Dipu_Gadol_UG_Rescywqim_Abql_KKVW-QqW-1.pdfFact Sheet for Healthcare Dmitri maritza:https://www.[employer].uuzuche.com/sites/default/files/product/documents/Fact_Sheet_P vskcnmn_Qaxb_QEPX-JnR-3.pdfPerforming Laboratory:[facility] [address] [facility].[place], [place] [address]OOL W/PLT COUNT & AUTO [id number] 12:11:00* Test Item Value Reference Range Interpretation [...] LYMPHOCYTES - ABS (CELLAVISION)(BEAKER) (test code = 2218) 0.72 K/uL 0.00-0.00 H TOTAL COUNTED (BEAKER) (test code = 1351) 100 PLT MORPHOLOGY (BEAKER) (test code = 486) Normal SMUDGE CELLS (BEAKER) (test code = 1371) Present ANISOCYTOSIS (BEAKER) (test code = 961) 1+ few POIKILOCYTES (BEAKER) (test code = 966) 1+ few PLATELET CONCENTRATION (CELLAVISION)(BEAKER) (test code = 3438) Tammie quate Insulation Power Unit Tender ID - Ava Bateman comments: Slide comments: POCT-GLUCOSE METER 2020-02-12 11:28:00* Test Item Value Reference Range Interpretation Comments POC-GLUCOSE METER (BEAKER) (test code = 1538) 202 mg/dL 70-110 H : TESTED AT [address], [address]: Insulation Power Unit Tender/Market Research Analyst ID = [id number] for CHANEL CERVANTES POCT-GLUCOSE [id number] 07:32:00* Test Item Value Reference Range Interpretation Comments POC-GLUCOSE METER (BEAKER) (test code = 1538) 138 mg/dL 70-110 H : TESTED AT [address], [address]: Insulation Power Unit Tender/Market Research Analyst ID = [id number] for HELEN NADA BASIC METABOLIC [id number] 06:44:00* Test Item Value Reference Range Interpretation [...] INSUFFICIENT CLINICAL DATA TO CALCULATE ESTIMATED GFR. Insulation Power Unit Tender ID - PIAYA LPOCT-GLUCOSE [id number] 21:44:00* Test Item Value Reference Range Interpretation Comments POC-GLUCOSE METER (BEAKER) (test code = 1538) 137 mg/dL 70-110 H : TESTED AT [address], [address]: Insulation Power Unit Tender/Market Research Analyst ID = [id number] for AURA REECE POCT-GLUCOSE [id number] 16:35:00* Test Item Value Reference Range Interpretation Comments POC-GLUCOSE METER (BEAKER) (test code = 1538) 105 mg/dL 70-110 : TESTED AT [address], [address]: Insulation Power Unit Tender/Market Research Analyst ID = [id number] for CHANEL CERVANTES CT CHEST WITH WZIKDOTE-[id number] 14:14:[address] [address] Patient Name: PATIENCE MORRIS MR #: [id number] : 1930 Age/Sex: 89/F Req #: [id number] [facility] Physician: Ordered by: CARLOS FERNANDEZ MD Report #: [id number] Location: [facility] Room/Bed: Procedure: [id number] HOPD/CT CHEST WIT H CONTRAST-HOPD Exam Date: 02/11/20 Exam Time: 1341 REPORT STATUS: Signed EXAM: CT C hest WITH contrast- Pulmonary Embolism Protocol INDICATION: Shortness of br eath. COMPARISON: None TECHNIQUE: Chest was scanned utilizing a [facility] tidet[place] helical scanner from the lung apex [...] CARLOS FERNANDEZ MD CT SOFT TISSUE NEXK [id number]-[id number] 14:04:00 [place] [address] Patient Name: PATIENCE MORRIS MR #: [id number] : 1930 Age/Sex: 89/F Req #: [id number] Adm Physician: Ordered by: CARLOS FERNANDEZ MD Report #: [id number] Location: [facility] Room/Bed: Procedure: [id number] HOPD/CT SOFT TISS UE NEXK WITH-HOPD Exam [...] josefina cameron have a retropharyngeal course. The stock pitcher, parapharyngeal, posterior cervical, and perivertebral spaces are [...] COPY TO: CARLOS FERNANDEZ MD CXR 1 [facility] - [id number] 11:59:00 [place] [address] Patient Name: PATIENCE MORRIS MR #: [id number] : 1930 Age/Sex: 89/F Req #: [id number] Adm Physician: Ordered by: CARLOS FERNANDEZ MD Report #: [id number] Location: [facility] Room/Bed: Procedure: [id number] HOPD/CXR 1 [facility] Exam Date: 02/11/20 Exam Time: 1133 REPORT STATUS: Signed EXAMINATION: CXR 1 [facility] INDICATION: SOB COMPARISON: Chest radiograph 05/01/2019 [...] 02/11/201201 COPY TO: CARLOS LR MD Sodium Svejt4506-75-13 05:50:00* Test Item Value Reference Range Interpretation Comments Sodium Level (test code = 2951-2) 132 136-145 L [facility] Vtvml4228-07-81 05:50:00* Test Item Value Reference Range Interpretation Comments Potassium Level (test code = 2823-3) 5.0 3.5-5.1 [facility]ne[facility]lor[facility] [id number] 05:50:00* Test Item Value Reference Range Interpretation Comments Chloride Level (test code = 2075-0) 96 98-107 L [facility] Cle[facility]neCarbon Dioxide [id number] 05:50:00* Test Item Value Reference Range Interpretation Comments Carbon Dioxide Level (test code = 2028-9) 24 22-29 [facility]neAnion [id number] 05:50:00* Test Item Value Reference Range Interpretation Comments Anion Gap (test code = 08493-8) 17.0 8-16 H [facility] Cle[facility]neBlood Urea [id number] 05:50:00* Test Item Value Reference Range Interpretation Comments Blood Urea Nitrogen (test code = 3094-0) 18 7-26 [facility]neCreatinine2019-12-16 05:50:00* Test Item Value Reference Range Interpretation Comments Creatinine (test code = 2160-0) 1.12 0.57-1.11 H [facility]neBUN/Creatinine Dhzqh2044-17-99 05:50:00* Test Item Value Reference Range Interpretation Comments BUN/Creatinine Ratio (test code = 3097-3) 16 6-25 [facility] CleburneEstimat Glomerular Filtration Rate 2019-05-02 05:50:00* Test Item Value Reference Range Interpretation Comments Estimat Glomerular Filtration Rate (test code = 329207348) 46 >60 L Ranges were taken from the National Kidney Disease Education Program and the [facility] literature.Reference ranges:60 or greater: Buwmmw61-54 ( for 3 consecutive months): Chronic kidney disease 15 or less: Kidney failureTexas [facility] CleburneGlucose Yuarm9133-72-51 05:50:00* Test Item Value Reference Range Interpretation Comments Glucose Level (test code = POJ8416) 303 74-118 H [facility]neCalcium Hgwsi0164-84-43 05:50:00* Test Item Value Reference Range Interpretation Comments Calcium Level (test code = 66477-4) 9.9 8.4-10.2 [facility]burneB-Type Natriuretic Vtmaffz2471-30-66 05:50:00* Test Item Value Reference Range Interpretation Comments B-Type Natriuretic Peptide (test code = 83505-1) 83.4 0-100 [facility] CleburneWhite Blood Zujuo1572-07-44 05:23:00* Test Item Value Reference Range Interpretation Comments White Blood Count (test code = 6690-2) 9.00 4.8-10.8 [facility] CleburneRed Blood Izusw7496-36-95 05:23:00* Test Item Value Reference Range Interpretation Comments Red Blood Count (test code = 789-8) 5.16 3.6-5.1 H [facility]neHemoglobin2019-12-16 05:23:00* Test Item Value Reference Range Interpretation Comments Hemoglobin (test code = 45189-5) 14.5 12.0-16.0 [facility]neHematocrit2019-12-16 05:23:00* Test Item Value Reference Range Interpretation Comments Hematocrit (test code = 4544-3) 45.0 34.2-44.1 H [facility] CleburneMean Corpuscular Sjcfav7760-85-03 05:23:00* Test Item Value Reference Range Interpretation Comments Mean Corpuscular Volume (test code = 787-2) 87.2 81-99 [facility] CleburneMean Corpuscular Xjyomfyogu9759-77-86 05:23:00* Test Item Value Reference Range Interpretation Comments Mean Corpuscular Hemoglobin (test code = 785-6) 28.1 28-32 [facility]burneMean Corpuscular Hemoglobin Concent 2019-05-02 05:23:00* Test Item Value Reference Range Interpretation Comments Mean Corpuscular Hemoglobin Concent (test code = 786-4) 32.2 31-35 [facility] CleburneRed Cell Distribution Clgoo1807-22-19 05:23:00* Test Item Value Reference Range Interpretation Comments Red Cell Distribution Width (test code = 76132-6) 13.1 11.7 -14.4 [facility] CleburnePlatelet Fjckq4070-77-72 05:23:00* Test Item Value Reference Range Interpretation Comments Platelet Count (test code = 777-3) 306 140-360 [facility]neNeutrophils (%) (Auto)2019-05-02 05:23:00 * Test Item Value Reference Range Interpretation Comments Neutrophils (%) (Auto) (test code = 98041-9) 85.5 38.7-80.0 H [facility]burneLymphocytes (%) (Auto)2019-05-02 05:23:00 * Test Item Value Reference Range Interpretation Comments Lymphocytes (%) (Auto) (test code = 736-9) 12.0 18.0-39.1 L [facility] CleburneMonocytes (%) (Auto)2019-05-02 05:23:00* Test Item Value Reference Range Interpretation Comments Monocytes (%) (Auto) (test code = 5905-5) 2.1 4.4-11.3 L [facility]neEosinophils (%) (Auto)2019-05-02 05:23:00 * Test Item Value Reference Range Interpretation Comments Eosinophils (%) (Auto) (test code = 713-8) 0.0 0.0-6.0 [facility]neBasophils (%) (Auto)2019-05-02 05:23:00* Test Item Value Reference Range Interpretation Comments Basophils (%) (Auto) (test code = 706-2) 0.1 0.0-1.0 [facility]neIM GRANULOCYTES %2019-05-02 05:23:00* Test Item Value Reference Range Interpretation Comments IM GRANULOCYTES % (test code = IM GRANULOCYTES %) 0.3 0.0- 1.0 [facility]neNeutrophils # (Auto)2019-05-02 05:23:00* Test Item Value Reference Range Interpretation Comments Neutrophils # (Auto) (test code = 751-8) 7.7 2.1-6.9 H [facility]neLymphocytes # (Auto)2019-05-02 05:23:00* Test Item Value Reference Range Interpretation Comments Lymphocytes # (Auto) (test code = 53112-0) 1.1 1.0-3.2 [facility]neMonocytes # (Auto)2019-05-02 05:23:00* Test Item Value Reference Range Interpretation Comments Monocytes # (Auto) (test code = 742-7) 0.2 0.2-0.8 [facility]neEosinophils # (Auto)2019-05-02 05:23:00* Test Item Value Reference Range Interpretation Comments Eosinophils # (Auto) (test code = 711-2) 0.0 0.0-0.4 [facility]neBasophils # (Auto)2019-05-02 05:23:00* Test Item Value Reference Range Interpretation Comments Basophils # (Auto) (test code = 704-7) 0.0 0.0-0.1 [facility] CleburneAbsolute Immature Granulocyte (auto 2019-05-02 05:23:00* Test Item Value Reference Range Interpretation Comments Absolute Immature Granulocyte (auto (tere t code = Absolute Immature Granulocyte (auto) 0.03 0-0.1 [facility] CleburneBlood leukocytes automated count (number/volume)2019-05-02 04:05:00* Test Item Value Reference Range Interpretation Comments White Blood Count (test code = 6690-2) 9.00 4.8-10.8 [facility] erythrocytes automated count (number/volume)2019-05-02 04:05:00* Test Item Value Reference Range Interpretation Comments Red Blood Count (test code = 789-8) 5.16 3.6-5.1 [facility]neBlood hemoglobin measurement (moles/volume)2019-05-02 04:05:00* Test Item Value Reference Range Interpretation Comments Hemoglobin (test code = 15537-3) 14.5 12.0-16.0 [facility] CleburneAutomated blood hematocrit (volume fraction)2019-05-02 04:05:00* Test Item Value Reference Range Interpretation Comments Hematocrit (test code = 4544-3) 45.0 34.2-44.1 [facility] CleburneAutomated erythrocyte mean corpuscular meqznb3943-79-41 04:05:00* Test Item Value Reference Range Interpretation Comments Mean Corpuscular Volume (test code = 787-2) 87.2 81-99 [facility] CleburneAutomated erythrocyte mean corpuscular hemoglobin (mass per erythrocyte)2019-05-02 04:05:00* Test Item Value Reference Range Interpretation Comments Mean Corpuscular Hemoglobin (test code = 785-6) 28.1 28-32 [facility] CleburneAutomated erythrocyte mean corpuscular hemoglobin concentration measurement (mass/volume)2019-05-02 04:05:00* Test Item Value Reference Range Interpretation Comments Mean Corpuscular Hemoglobin Concent (test code = 786-4) 32.2 31-35 [facility] CleburneRDW QplYz-Wve3760-87-16 04:05:00* Test Item Value Reference Range Interpretation Comments Red Cell Distribution Width (test code = 59328-2) 13.1 11.7 -14.4 [facility]neAutatrium health [facility]ed blood platelet count (count/volume)2019-05-02 04:05:00* Test Item Value Reference Range Interpretation Comments Platelet Count (test code = 777-3) 306 140-360 [facility]neAutatrium health st[facility] creeked blood segmented neutrophil count as percentage of total fhsklxjjbl2216-39-03 04:05:00* Test Item Value Reference Range Interpretation Comments Neutrophils (%) (Auto) (test code = 69331-8) 85.5 38.7-80.0 [facility]neAutatrium health st[facility] creeked blood lymphocyte count as percentage ot total wypvxqiiiy7248-39-22 04:05:00* Test Item Value Reference Range Interpretation Comments Lymphocytes (%) (Auto) (test code = 736-9) 12.0 18.0-39.1 [facility] CleburneAutomated blood monocyte count as percentage of total tfsswcjwhj9064-42-59 04:05:00* Test Item Value Reference Range Interpretation Comments Monocytes (%) (Auto) (test code = 5905-5) 2.1 4.4-11.3 [facility] CleburneAutomated blood eosinophil count as percentage of total rgjsoxqhan8200-32-85 04:05:00* Test Item Value Reference Range Interpretation Comments Eosinophils (%) (Auto) (test code = 713-8) 0.0 0.0-6.0 [facility] CleburneAutomated blood basophil count as percentage of total nimpajecfl6050-63-98 04:05:00* Test Item Value Reference Range Interpretation Comments Basophils (%) (Auto) (test code = 706-2) 0.1 0.0-1.0 [facility] CleburneFluoroscopic procedure less than one hour grwvyeav7991-46-12 04:05:00* Test Item Value Reference Range Interpretation Comments IM GRANULOCYTES % (test code = IM GRANULOCYTES %) 0.3 0.0- 1.0 [facility] CleburneAutomated blood neutrophil count 2019-05-02 04:05:00* Test Item Value Reference Range Interpretation Comments Neutrophils # (Auto) (test code = 751-8) 7.7 2.1-6.9 [facility] Cle[facility]neBlood lymphocytes count (number/volume) 2019-05-02 04:05:00* Test Item Value Reference Range Interpretation Comments Lymphocytes # (Auto) (test code = 85507-4) 1.1 1.0-3.2 [facility] Cle[facility]neBlood monocytes automated count (number/volume)2019-05-02 04:05:00* Test Item Value Reference Range Interpretation Comments Monocytes # (Auto) (test code = 742-7) 0.2 0.2-0.8 [facility] CleburneAutomated blood eosinophil count 2019-05-02 04:05:00* Test Item Value Reference Range Interpretation Comments Eosinophils # (Auto) (test code = 711-2) 0.0 0.0-0.4 [facility] CleburneAutomated blood basophil count (count/volume)2019-05-02 04:05:00* Test Item Value Reference Range Interpretation Comments Basophils # (Auto) (test code = 704-7) 0.0 0.0-0.1 [facility] CleburneFluoroscopic procedure less than one hour vibxblkq8214-90-88 04:05:00* Test Item Value Reference Range Interpretation Comments Absolute Immature Granulocyte (auto (tere t code = Absolute Immature Granulocyte (auto) 0.03 0-0.1 [facility] Hospitalerum or plasma sodium measurement (moles/volume)2019-05-02 04:05:00* Test Item Value Reference Range Interpretation Comments Sodium Level (test code = 2951-2) 132 136-145 [facility] Hospitalerum or plasma potassium measurement (moles/volume)2019-05-02 04:05:00* Test Item Value Reference Range Interpretation Comments Potassium Level (test code = 2823-3) 5.0 3.5-5.1 [facility] Hospitalerum or plasma chloride measurement (moles/volume)2019-05-02 04:05:00* Test Item Value Reference Range Interpretation Comments Chloride Level (test code = 2075-0) 96 98-107 [facility] Hospitalerum or plasma carbon dioxide, total measurement (moles/volume)2019-05-02 04:05:00* Test Item Value Reference Range Interpretation Comments Carbon Dioxide Level (test code = 2028-9) 24 22-29 [facility] Hospitalerum or plasma anion sxl5258-81-15 04:05:00* Test Item Value Reference Range Interpretation Comments Anion Gap (test code = 99860-1) 17.0 8-16 [facility] Hospitalerum or plasma urea nitrogen measurement (mass/volume)2019-05-02 04:05:00* Test Item Value Reference Range Interpretation Comments Blood Urea Nitrogen (test code = 3094-0) 18 7-26 [facility] Hospitalerum or plasma creatinine measurement (mass/volume)2019-05-02 04:05:00* Test Item Value Reference Range Interpretation Comments Creatinine (test code = 2160-0) 1.12 0.57-1.11 [facility] Hospitalerum or plasma urea nitrogen/creatinine mass depgr0654-37-28 04:05:00* Test Item Value Reference Range Interpretation Comments BUN/Creatinine Ratio (test code = 3097-3) 16 6-25 [facility]neEstimated glomerular filtration rate (GFR) jrvofvbnflrdj1931-69-26 04:05:00* Test Item Value Reference Range Interpretation Comments Estimat Glomerular Filtration Rate (test code = 948288477) 46 >60 Ranges were taken from the National Kidney Disease Education Program and the [facility] Kidney Foundation literature.Reference ranges:60 or greater: Azdqny48-79 ( for 3 consecutive months): Chronic kidney disease 15 or less: Kidney failureTexas [facility] CleburneGlucose ocitymyxaaa0507-84-23 04:05:00* Test Item Value Reference Range Interpretation Comments Glucose Level (test code = KZA5626) 303 74-118 [facility] Hospitalerum or plasma calcium measurement (mass/volume)2019-05-02 04:05:00* Test Item Value Reference Range Interpretation Comments Calcium Level (test code = 71680-3) 9.9 8.4-10.2 [facility] CleburneBNP Wxj-eAuu4940-54-16 04:05:00* Test Item Value Reference Range Interpretation Comments B-Type Natriuretic Peptide (test code = 17280-7) 83.4 0-100 [facility] CleburneBedside Gemdiao0367-39-90 20:25:00* Test Item Value Reference Range Interpretation Comments Bedside Glucose (test code = 60298-1) 182 70-120 H Meter ID: [id number] [facility]Cap[facility] glucose measurement by glucometer (mass/volume)2019-05-01 18:42:00* Test Item Value Reference Range Interpretation Comments Bedside Glucose (test code = 04386-0) 182 70-120 Meter ID: [id number] [facility] 2019-05-01 11:48:00 [facility] [address] [address] Patient Name: PATIENCE MORRIS MR #: [id number] : 1930 Age/Sex: 88/F Req #: [id number] Adm Physician: SANTINO TREADWELL MD Ordered by: MARCO CRUZ MD Report #: [id number] Location: [facility] Room/Bed: [address] [address] Procedure: [id number] HOPD /CXR 2 VIEW - HOPD Exam [...] MARCO CRUZ MD CXR 2 VIEW - KUZZ2517-94-89 11:30:00 [address] [address] Patient Name: PATIENCE MORRIS MR #: [id number] : 1930 Age/Sex: 88/F Req #: [id number] Adm Physician: Ordered by: MIGUEL KELLY MD Report #: [id number] Location: [facility] Room/Bed: Procedure: [id number] HOP D/CXR 2 VIEW - HOPD Exam [...] DO 1154 Transcribed By: ARMIDA on 02/13/19 4211 COPY TO: MIGUEL KELLY MD
[2020-03-02 12:27] LABS: % IRON SATURATION 22 % (15-50); IRON 67 ug/dL (50-170); TOTAL IRON BINDING CAPACITY 301 ug/dL (261-478); TRANSFERRIN 215 mg/dL (180-382)
[2020-03-02] MEDS: SODIUM CHLORIDE 0.9% 1000ML 1,000 ML IV SCH ×2 (13:15→23:43)
[2020-03-02] MEDS ORDERED: SODIUM CHLORIDE 1 GM TAB PO ONE (13:45)
[2020-03-02 17:47] VITALS: BP 117/55
--- NOTE | 2020-03-02 19:35 | Consultation ---
DATE OF CONSULTATION: 03/02/2020 REASON FOR CONSULTATION: Hyponatremia. HISTORY OF PRESENT ILLNESS: An 89-year-old female, underlying history of COPD, diabetes, hypertension, peripheral neuropathy, hyperlipidemia, who was sent here because outside lab show hyperkalemia, hyponatremia. Here labs were done shows a white count 8.4, hemoglobin 10.2, sodium 109, potassium 4.7, chloride 81, bicarb 22, creatinine 0.8, calcium 7.6. LFTs; 0.5 total bilirubin, AST 51, alkaline phosphatase 107. BNP 423, total protein 5.5, globulin 3.1. The patient currently denies any nausea or vomiting. Tachypneic, but she states that her breathing is not any worse than before. She denies any diarrhea or abdominal pain. She is not allergic to any medications. Currently, on normal saline at 100 mL an hour and I have started on sodium chloride tablets of 2 mg three times a day. They did a bladder scan on her, there was 700 mL of urine. She is on , but she still has not voided. SOCIAL HISTORY: Does not smoke or drink. FAMILY HISTORY: Significant for diabetes. PHYSICAL EXAMINATION: GENERAL: Awake, alert, and oriented x3, in no apparent distress. VITAL SIGNS: Blood pressure 117/68, pulse rate 62, afebrile. HEAD AND NECK: Cornea clear. Oral mucosa moist. LUNGS: Occasional end-expiratory rhonchi. No rales. HEART: S1 and S2 audible. ABDOMEN: Distended, soft, nontender. No apparent visceromegaly. EXTREMITIES: Lower extremity, no edema. Initial blood pressure 99 when she came into the ER. IMAGING: Chest x-ray noted. IMPRESSION AND PLAN: Hyponatremia, etiology multifactorial. I reviewed her home medications, none of those medications include hydrochlorothiazide. She has been taking baclofen though. She was on furosemide at home including lisinopril. The patient completely asymptomatic, so I will place her on a 1000 mL p.o. fluid restriction and obtain uric acid, obtain thyroid function test. Salt tablets have been started. Continue with IV normal saline. I have asked the nurse to put a [place] in because of urinary retention for strict I's and O's. Repeat labs pending. Please see orders. MD KISHAN Delaney/MARKY /[id number]
--- NOTE | 2020-03-02 19:48 | NUR ---
CALLED DR TREADWELL TO CONTINUE HOME MEDS, FLOATMAN ANSWERED AND ORDERED CONTINUING OF NON BP MEDS AND NON DIURETIC MEDS TO BE CONT. PT HAVING ANXIETY AND IS AMS FORGETTING SHE'S IN THE HOSPITAL SO LISTED TEMAZEPAM CONT WELL. WILL CONT TO [facility]BARO.
[2020-03-02 20:00] VITALS: BP 106/68
[2020-03-02] MEDS ORDERED: ONDANSETRON HCL INJ 2MG/ML 2ML 2 MG/ML VIAL IV PRN (20:00)
[2020-03-02] MEDS ORDERED: DEXTROSE 50% SYRINGE 50 ML IV PRN (20:00)
[2020-03-02] MEDS: ENOXAPARIN SOD INJ 40 MG/0.4 ML SYR SC SCH (20:15)
[2020-03-02] MEDS: SODIUM CHLORIDE 1 GM TAB PO SCH (20:23)
[2020-03-02] MEDS: SIMVASTATIN 20 MG TAB PO SCH (20:23)
[2020-03-02] MEDS: TEMAZEPAM 7.5 MG CAP PO SCH (20:23)
[2020-03-02] MEDS: BACLOFEN 10 MG TAB PO SCH (20:23)
[2020-03-02] MEDS ORDERED: INSULIN LISPRO 100 UNIT/1 ML 3ML VIAL SQ SCH (21:00)
[2020-03-02] MEDS: INSULIN LISPRO 100 UNIT/1 ML 3ML VIAL SQ SCH (21:00)
[2020-03-02 21:41] VITALS: BP 106/68
--- NOTE | 2020-03-02 21:56 | History and Physical ---
PRIMARY CARE DOCTOR: Sergio Man MD CHIEF COMPLAINT: Hyponatremia. HISTORY OF PRESENT ILLNESS: This is an 89-year-old woman, who still lives at home by herself, was told to come to the emergency room because her sodium was low and her potassium was high. The patient does not have any specific symptoms other than just not feeling well. However, she cannot be more specific. Specifically, she denies any fever. No nausea, vomiting. No diarrhea. No decrease in p.o. intake. No dizziness. No pain. No chest pain. No shortness of breath. The patient has chronic COPD and she is breathing about the same as before. PAST MEDICAL AND SURGICAL HISTORY: 1. Hypertension. 2. Hyperlipidemia. 3. Diastolic CHF. 4. Type 2 diabetes. 5. COPD. MEDICATIONS: Please see medication reconciliation form. ALLERGIES: NONE. SOCIAL HISTORY: Stopped smoking 35 years ago. FAMILY HISTORY: Diabetes and heart problem. REVIEW OF SYSTEMS: A 10-point review of system obtained and nothing else is significant other than what is stated in the HPI. PHYSICAL EXAMINATION: VITAL SIGNS: Temperature 98.1, pulse 58, respiratory rate 20, blood pressure 117/68. GENERAL: No acute distress. SKIN: No rash. HEENT: Anicteric. Oropharynx is clear. LUNGS: Clear. HEART: Regular rate and rhythm. Normal S1 and S2. GI: Abdomen is soft, nondistended. NEUROLOGIC: Alert and oriented x3. Cranial nerves 2 through 12 are grossly intact. PSYCHIATRIC: No hallucination. MUSCULOSKELETAL: Painless range of motion. LABORATORY DATA: White count 8, hemoglobin 10, platelet count 203. Sodium 109, potassium 4.7, creatinine 0.8. TSH is normal. Urine sodium is less than 20. Chest x-ray did not show any acute disease. ASSESSMENT AND PLAN: 1. Asymptomatic, but severe hypovolemic hyponatremia. Nephrology has been consulted. We will continue normal saline IV fluid. We will monitor sodium carefully as to not over correct too fast. 2. Chronic anemia, iron studies have been checked, which are negative for iron deficiency. 3. Baseline chronic obstructive pulmonary disease about the same. 4. Morbid obesity. 5. Diabetes. We will monitor. 6. Gastrointestinal/deep venous thrombosis prophylaxis. Lovenox. MD NASREEN Wray/MARKY /[id number] cc: [facility]
[2020-03-03] VITALS (8 sets, daily range): BP systolic 105–137; BP diastolic 49–65
[2020-03-03] MEDS: ALBUTEROL SULF 0.083% NEB SOLN 3 ML NEB NEB SCH ×6 (02:30→23:30)
--- NOTE | 2020-03-03 04:55 | NUR ---
PATIENT HAD BEGUN TO COUGH A LOT MORE IN THE LAST 2 HOURS, NURSE AUSCULTATED PT BREATHING AND PT SOUNDS A LOT WORSE THAN EARLIER IN THE SHIFT WITH RALES NOW. REDUCED THE PT NS FROM 100ML/HR TO 50ML/HR AND ORDERED CHEST XRAY CALLED DR TREADWELL AND NOTIFIED HIM OF PT CONDITION AND THAT LABS HAVE BEEN UNABLE TO BE GOTTEN DUE TO PT EDEMA WORSENING. HE ORDERED TO GIVE PT 20MG IV LASIX X1 AND CALL HIM WITH XRAY AND LAB RESULTS WHEN AVAILABLE. WILL CONT TO [facility].
[2020-03-03] MEDS ORDERED: FUROSEMIDE INJ 10 MG/ML 2 ML VIAL IV ONE (05:00)
[2020-03-03 06:05] LABS: BASOPHILS # (AUTO) 0.1 (0.0-0.1); BASOPHILS % 0.8 % (0.0-1.0); EOSINOPHILS # (AUTO) 0.1 (0.0-0.4); EOSINOPHILS % 0.8 % (0.0-6.0); HEMATOCRIT 27.1 % (34.2-44.1); LYMPHOCYTES # (AUTO) 0.8 (1.0-3.2); LYMPHOCYTES % 10.8 % (18.0-39.1); MEAN CORPUSCULAR HEMOGLOBIN 25.7 pg (28-32); MEAN CORPUSCULAR HGB CONC 33.2 g/dL (31-35); MEAN CORPUSCULAR VOLUME 77.4 fL (81-99); MONOCYTES # (AUTO) 0.5 (0.2-0.8); MONOCYTES % 6.3 % (4.4-11.3); NEUTROPHILS # (AUTO) 5.9 (2.1-6.9); PLATELET COUNT 169 x10e3/uL (140-360); RED CELL DISTRIBUTION WIDTH 16.1 % (11.7-14.4)
--- NOTE | 2020-03-03 06:09 | Diagnostic Imaging Report ---
EXAMINATION: CHEST SINGLE (PORTABLE) INDICATION: ^worsening cough, chf COMPARISON: 03/02/2020 FINDINGS: AP view TUBES and LINES: None. LUNGS: Limited by body habitus and low lung volumes. Pulmonary vascular congestion and mild additional edema. PLEURA: No pleural effusion or pneumothorax. HEART AND MEDIASTINUM: The cardiac silhouette is enlarged. BONES AND SOFT TISSUES: No acute osseous lesion. Soft tissues are unremarkable. UPPER ABDOMEN: No free air under the diaphragm. IMPRESSION: Enlarged cardiac silhouette, central vascular congestion, and mild additional edema, accentuated by low lung volumes. Underlying pneumonia in the perihilar regions cannot be excluded in the appropriate clinical context. Signed by: Dr. Tien Amaro MD on 03/03/2020 6:06 AM
[2020-03-03 06:28] LABS: MAGNESIUM 1.4 MG/DL (1.3-2.1); PHOSPHORUS 2.9 MG/DL (2.3-4.7)
[2020-03-03 06:30] LABS: ALANINE AMINOTRANSFERASE 28 IU/L (0-55); ALBUMIN 2.4 g/dL (3.5-5.0); ALBUMIN/GLOBULIN RATIO 0.8 (0.8-2.0); ALKALINE PHOSPHATASE 99 IU/L (40-150); ANION GAP 12.8 mmol/L (8-16); BLOOD UREA NITROGEN 19 mg/dL (7-26); BUN/CREATININE RATIO 24 (6-25); CALCIUM 7.6 mg/dL (8.4-10.2); CARBON DIOXIDE 20 mmol/L (22-29); CHLORIDE 86 mmol/L (98-107); CREATININE, SERUM 0.79 mg/dL (0.57-1.11); EST GLOMERULAR FILTRATION RATE > 60 ML/MIN (60-); GLUCOSE 134 mg/dL (74-118); POTASSIUM 4.8 mmol/L (3.5-5.1)
[2020-03-03 06:42] LABS: SODIUM 114 mmol/L (136-145)
[2020-03-03] MEDS: OMEGA 3 POLYUNSAT FATTY ACIDS 1000 MG SOFTGEL PO SCH (08:05)
[2020-03-03] MEDS: GABAPENTIN 300 MG CAP PO SCH ×2 (08:05→17:00)
[2020-03-03] MEDS: MULTIVITAMINS/MINERALS TAB PO SCH (08:05)
[2020-03-03] MEDS: BACLOFEN 10 MG TAB PO SCH ×3 (08:05→21:30)
[2020-03-03] MEDS: INSULIN LISPRO 100 UNIT/1 ML 3ML VIAL SQ SCH ×4 (08:05→21:00)
[2020-03-03] MEDS: SODIUM CHLORIDE 1 GM TAB PO SCH ×3 (08:05→21:30)
[2020-03-03] MEDS: ASCORBIC ACID 500 MG TAB PO SCH (08:05)
--- NOTE | 2020-03-03 10:15 | NUR ---
Daughter(Awilda) phoned in room update given ([phone])
--- NOTE | 2020-03-03 10:51 | NUR ---
Nutrition Screen Note RD Recommendation for Physician: 1. Continue diet as ordered. Plan of Care: RD following, monitoring for tolerance and adequacy Nutrition reason for involvement: MST Primary Diagnose(s): Asymptomatic, but severe hypovolemic hyponatremia PMH: 1. Hypertension. 2. Hyperlipidemia. 3. Diastolic CHF. 4. Type 2 diabetes. 5. COPD. Ht: 64in Wt: 222lb BMI: 38.1kg/m2 IBW: 120lb +/- 10% RD Assessment: Chart reviewed. Labs and meds reviewed. 89yo obese F, who is admitted for hyponatremia. Pt is on fluid restriction and given salt tablets. Sodium has trend up to 114. Pt is under isolation, pending COVID result. Per RN, pt drank milk and had a few bites of cereal this AM. Pt appears to be very lethargic and cough has worsened. No GI related complains. + BM. No weight loss noted per chart. Will continue to follow. Current Diet: ADA 1800 Malnutrition Evaluation The patient does not meet criteria for a specified degree of malnutrition at this time. Will re-evaluate at follow-up as appropriate. Diet Education Needs Assessment: Diet education indicated, pt is not appropriate at this time. Nutrition Care Level: low Signed: Sally Arenas, MS, RD, LD
[2020-03-03] MEDS: FLUTICASONE PROPIONATE NASAL SPRAY NS SCH (11:47)
--- NOTE | 2020-03-03 12:31 | NUR ---
Patient more lethargic , coughs with one spoon of soup Nurse stop feeding patient and notified Dr Pena of temp 100.00 Ax see new orders Addendum: 03/03/20 at 1243 by Michael Morrow RN also of coughing with food . Change diet to pureed went over medications with
--- NOTE | 2020-03-03 13:45 | NUR ---
Marco Nagy ( Nephro) quality control checker for [facility] talking with him and pharmacy see new stat orders.
--- NOTE | 2020-03-03 14:35 | NUR ---
To MRI with portable monitor and staff.
--- NOTE | 2020-03-03 14:37 | NUR ---
Renal Progress Note - Subjective - chart reviewed and events noted. 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 As per primary, she was given a trial of Lasix as she was coughing a lot. VITAL SIGNS: Temperature 98.1, pulse 58, respiratory rate 20, blood pressure 108/74. GENERAL: drowsy but arousable SKIN: No rash. HEENT: Anicteric. Oropharynx is clear. LUNGS: bilateral corase breath sounds. HEART: Regular rate and rhythm. Normal S1 and S2. GI: Abdomen is soft, nondistended. NEUROLOGIC: drowsy, minimally responsive. LABORATORY DATA: White count 8.4, hemoglobin 10.2, platelet count 203. Sodium 109>>114, potassium 4.7>>4.8, creatinine 0.79. TSH is normal. Urine sodium is less than 20. Chest x-ray did not show any acute disease. A&P - - Hyponatremia - improved to 114 this moring which is an adequate correction. She has AMS now but not clear if it would be from Hyponatremia as she was intact neurologically when Na was 109. - will get ABG, order MRI brain stat - will keep hypertonic saline on stand by - will do stat BMP, S Osm, Urine Na/K/Osm - currently on salt tabs and NS @ 50 cc/hr. will hold salt tabs to reduce risk of aspiration. plan d/w patient nurse, ICU charge nurse and Primary physician Dr Beltran who was present in ICU. I have shared my Cell phone with patient nurse and ICU charge nurse. Call me anytime regarding any issues about this patient.
[2020-03-03 15:12] LABS: ANION GAP 14.1 mmol/L (8-16); BLOOD UREA NITROGEN 18 mg/dL (7-26); BUN/CREATININE RATIO 23 (6-25); CALCIUM 7.2 mg/dL (8.4-10.2); CARBON DIOXIDE 17 mmol/L (22-29); CHLORIDE 89 mmol/L (98-107); EST GLOMERULAR FILTRATION RATE > 60 ML/MIN (60-); GLUCOSE 179 mg/dL (74-118); POTASSIUM 5.1 mmol/L (3.5-5.1)
--- NOTE | 2020-03-03 15:13 | NUR ---
Dr Baldwin and Vanesa at bedside see new orders and notes
[2020-03-03 15:16] LABS: SODIUM 115 mmol/L (136-145)
--- NOTE | 2020-03-03 15:53 | Diagnostic Imaging Report ---
EXAMINATION: CHEST SINGLE (PORTABLE) INDICATION: RULE OUT ASPIRATION COMPARISON: Chest radiograph 03-03-[address] chest 02-11-2020. FINDINGS: AP view TUBES and LINES: None. LUNGS: Persistent patchy bibasilar opacities. PLEURA: No pleural effusion or pneumothorax. Bilateral pleural nodules are better characterized on prior CT. HEART AND MEDIASTINUM: The cardiac silhouette is enlarged. Intrathoracic lymphadenopathy is better characterized on prior CT. BONES AND SOFT TISSUES: No acute osseous lesion. Soft tissues are unremarkable. UPPER ABDOMEN: No free air under the diaphragm. IMPRESSION: Bibasilar opacities, which may represent atelectasis, aspiration, or pulmonary edema in the appropriate clinical setting. Signed by: Dr. Enedina Camp MD on 03/03/2020 3:50 PM
[2020-03-03] MEDS: SODIUM CHLORIDE 0.9% 1000ML 1,000 ML IV SCH (15:59)
[2020-03-03] MEDS ORDERED: SODIUM CHLORIDE 3% 500 ML IV SCH (16:00)
--- NOTE | 2020-03-03 16:06 | Diagnostic Imaging Report ---
EXAMINATION: MRI of the brain without contrast. HISTORY: 89-year-old female with altered mental status, COMPARISON: None. TECHNIQUE: Sagittal T2; axial DWI, T2, FLAIR, T1-IR, T2 gradient echo; coronal FLAIR. IMAGE QUALITY: Artifact from patient motion limits evaluation of multiple sequences. The DWI sequence only inclusive supratentorial compartment. FINDINGS: Parenchyma: 1. Few scattered and mildly confluent periventricular white matter T2 and FLAIR hyperintense foci, most likely nonspecific cardiomegaly last ischemic changes, slightly more confluent towards the left frontoparietal abdul radiata. 2. No mass, hemorrhage, acute or chronic infarcts. Skull: Unremarkable. Vessels: Expected flow voids present in the major arteries and dural sinuses. Extra-axial spaces: No abnormal signal intensity or mass effect. Brain volume: Within normal limits for age. Ventricles: No hydrocephalus or displacement. Foramen magnum: Unremarkable. Sella: Unremarkable. Paranasal / mastoid sinuses: No significant inflammatory disease. IMPRESSION: 1. No acute infarcts. 2. Mild d chronic microvascular ischemic changes. Signed by: Dr. Kim Hawkins M.D. on 03/03/2020 4:03 PM
--- NOTE | 2020-03-03 16:20 | NUR ---
Phoned Dr Alexis read MRI and Xray report BMP at 8pm, continue NS at 50cc/hr Give Lasxix 40mg IV Now
[2020-03-03] MEDS ORDERED: FUROSEMIDE INJ 10 MG/ML 4 ML VIAL IV ONE (16:45)
--- NOTE | 2020-03-03 16:45 | NUR ---
Dr Ernandez here for consult see new orders and notes
[2020-03-03] MEDS ORDERED: AZITHROMYCIN 500MG/NS 250 ML 250 ML IV SCH (17:00)
--- NOTE | 2020-03-03 17:00 | NUR ---
Daughter Awilda phoned update given and obtained PICC Line consent witness Rylie Hernandez RN placed o chart
[2020-03-03 17:09] LABS: POTASSIUM,URINE 12.3 mmol/L; SODIUM,URINE < 20 mmol/L
--- NOTE | 2020-03-03 17:19 | Consultation ---
DATE OF CONSULTATION: Pulmonary Critical Care Consultation CHIEF COMPLAINT: Decreased responsiveness and low sodium. HISTORY OF PRESENT ILLNESS: The patient is an 89-year-old woman. She came to the emergency room with decreased mental status, confusion. She was not responding well, but did not complain of any nausea or vomiting. She denied any diarrhea. Further evaluation showed severe hyponatremia with a sodium of 109. She was seen by Nephrology and started on normal saline to slowly increase her sodium. Her sodium is now increased to 115. PAST MEDICAL HISTORY: 1. Hypertension. 2. Diastolic heart failure. 3. Diabetes. 4. COPD. PAST SURGICAL HISTORY: Not obtainable. SOCIAL HISTORY: The patient quit smoking 35 years ago. ALLERGIES: NONE. FAMILY HISTORY: Family history is not obtainable. REVIEW OF SYSTEMS: The patient did have some fever to 100. There is no headache. The patient has no neck pain. There is no chest pain. The patient is not complaining of cough or congestion. There is no abdominal pain. The patient is not having any nausea or vomiting. There is no leg edema. PHYSICAL EXAMINATION: VITAL SIGNS: Blood pressure is 137/60, saturation is 98% on 4 L and the pulse is 82. Temperature is 100. Respiratory rate is normal. HEENT: No facial swelling or erythema. LYMPHATIC: No submandibular, cervical, or supraclavicular adenopathy. CARDIAC: Regular rate and rhythm with a normal S1, S2. LUNGS: Auscultation of lungs reveals crackles and rhonchi at the bases. There is no wheezing. ABDOMEN: Soft, nontender. There is no rebound or guarding. EXTREMITIES: No leg edema or calf tenderness. There is no cyanosis or clubbing. SKIN: No rashes. LABORATORY DATA: BUN to creatinine ratio is normal. The sodium is 115 and the carbon dioxide is 17. The chloride is 89. Albumin is 2.4. RADIOGRAPHIC DATA: Chest x-ray shows bibasilar opacities, suggestive of possible aspiration pneumonia. MRI of the brain shows no acute changes. IMPRESSION: 1. Hyponatremia with volume depletion. 2. Aspiration pneumonia with sepsis, present on admission. 3. Chronic obstructive pulmonary disease. 4. Obesity. 5. Diabetes. PLAN: 1. Continue careful correction of sodium with efforts to avoid rapid correction and possible cerebral edema. 2. The patient is on antibiotics for possible aspiration pneumonia. 3. The patient will have blood cultures. 4. Swallowing evaluation. 5. Continue to monitor and control blood sugars. MD FRED Cárdenas/MARKY /[id number]
[2020-03-03] MEDS: ENOXAPARIN SOD INJ 40 MG/0.4 ML SYR SC SCH (17:25)
[2020-03-03] MEDS ORDERED: PIPER-TAZ 3.375 GM 50 ML IV SCH (18:00)
[2020-03-03 18:29] LABS: ABG HCO3 20 mmol/L (22-26); ABG PCO2 37 mmHg (35-45); ABG PH 7.35 (7.35-7.45); ABG PO2 85 mmHg (80-105); ABG TCO2 21
--- NOTE | 2020-03-03 19:15 | Progress Note ---
DATE: 03/03/2020 SUBJECTIVE: The patient is lethargic and not given history. OBJECTIVE: VITAL SIGNS: Temperature 100.0, pulse 82, respiratory rate 19, blood pressure 137/60. GENERAL: Lethargic. HEENT: Oropharynx is dry. LUNGS: Decreased breath sounds. HEART: Regular rate and rhythm. Normal S1, S2. GI: Abdomen is soft, nondistended. NEUROLOGIC: Lethargic. PSYCHIATRIC: Lethargic. LABORATORY DATA: White count 7.5, hemoglobin 9.0, platelet count 169. Sodium 114, creatinine 0.8. ASSESSMENT AND PLAN: 1. Hyponatremia, slowly getting better. Discussed with Nephrology. I still do not think this is symptomatic hyponatremia given that the patient was alert and oriented x3 yesterday with a sodium of 109, however, most likely will start hypertonic saline per Nephrology. 2. Lethargy likely due to aspiration pneumonitis. Dr. Ernandez has been consulted. Antibiotics started. We will repeat chest x-ray, swallow evaluation, IV Lasix, given. 3. Chronic anemia, stable. 4. Chronic obstructive pulmonary disease. 5. Morbid obesity. 6. Diabetes. 7. Gastrointestinal and deep venous thrombosis prophylaxis. Continue Lovenox. MD NASREEN Wray/MARKY /[id number]
--- NOTE | 2020-03-03 20:10 | Diagnostic Imaging Report ---
EXAMINATION: CHEST XRAY LINE PLACEMENT INDICATION: ^Picc line placement ^[id number] ^1947 COMPARISON: Earlier same day x-ray FINDINGS: AP view TUBES and LINES: Interval right PICC placement with tip projecting over superior SVC. LUNGS: Limited by body habitus and low lung volumes. Central vascular congestion. PLEURA: No pleural effusion or pneumothorax. HEART AND MEDIASTINUM: The cardiomediastinal silhouette is enlarged. BONES AND SOFT TISSUES: No acute osseous lesion. Soft tissues are unremarkable. UPPER ABDOMEN: No free air under the diaphragm. Elevated right hemidiaphragm. IMPRESSION: Right PICC in place with tip projecting over superior SVC. No visible pneumothorax. Central vascular congestion and enlarged cardiomediastinal silhouette, accentuated by low volumes. Underlying pneumonia in the perihilar regions cannot be excluded. Signed by: Dr. Tien Amaro MD on 03/03/2020 8:07 PM
[2020-03-03 21:00] LABS: ANION GAP 12.5 mmol/L (8-16); BLOOD UREA NITROGEN 16 mg/dL (7-26); BUN/CREATININE RATIO 20 (6-25); CALCIUM 7.6 mg/dL (8.4-10.2); CARBON DIOXIDE 23 mmol/L (22-29); CHLORIDE 89 mmol/L (98-107); CREATININE, SERUM 0.79 mg/dL (0.57-1.11); EST GLOMERULAR FILTRATION RATE > 60 ML/MIN (60-); GLUCOSE 151 mg/dL (74-118); POTASSIUM 4.5 mmol/L (3.5-5.1); SODIUM 120 mmol/L (136-145)
[2020-03-03] MEDS: SIMVASTATIN 20 MG TAB PO SCH (21:30)
[2020-03-03] MEDS: AZITHROMYCIN 500MG/NS 250 ML 250 ML IV SCH (21:30)
[2020-03-03] MEDS: TEMAZEPAM 7.5 MG CAP PO SCH (21:30)
--- NOTE | 2020-03-03 21:30 | NUR ---
spoke to DR Saleh about the sodium results, stopped the sodium chloride infusion and cancelled the 3% sodium chloride order. Awaiting morning labs
[2020-03-03] MEDS: PIPER-TAZ 3.375 GM 50 ML IV SCH (22:43)
[2020-03-04] VITALS (8 sets, daily range): BP systolic 111–136; BP diastolic 51–67
[2020-03-04] MEDS: ALBUTEROL SULF 0.083% NEB SOLN 3 ML NEB NEB SCH ×6 (03:00→23:45)
[2020-03-04 05:31] LABS: BASOPHILS % 0.4 % (0.0-1.0); EOSINOPHILS % 0.2 % (0.0-6.0); HEMATOCRIT 29.4 % (34.2-44.1); HEMOGLOBIN 9.5 g/dL (12.0-16.0); LYMPHOCYTES # (AUTO) 0.5 (1.0-3.2); LYMPHOCYTES % 9.1 % (18.0-39.1); MEAN CORPUSCULAR HEMOGLOBIN 25.5 pg (28-32); MEAN CORPUSCULAR HGB CONC 32.3 g/dL (31-35); MONOCYTES # (AUTO) 0.4 (0.2-0.8); MONOCYTES % 6.8 % (4.4-11.3); NEUTROPHILS # (AUTO) 4.5 (2.1-6.9); NEUTROPHILS % 79.6 % (38.7-80.0); PLATELET COUNT 215 x10e3/uL (140-360); RED BLOOD COUNT 3.72 x10e6/uL (3.6-5.1)
[2020-03-04 05:52] LABS: ALANINE AMINOTRANSFERASE 22 IU/L (0-55); ALBUMIN 2.3 g/dL (3.5-5.0); ALBUMIN/GLOBULIN RATIO 0.8 (0.8-2.0); ALKALINE PHOSPHATASE 86 IU/L (40-150); ANION GAP 11.4 mmol/L (8-16); BLOOD UREA NITROGEN 12 mg/dL (7-26); BUN/CREATININE RATIO 15 (6-25); CALCIUM 7.7 mg/dL (8.4-10.2); CARBON DIOXIDE 22 mmol/L (22-29); CHLORIDE 93 mmol/L (98-107); CREATININE, SERUM 0.79 mg/dL (0.57-1.11); EST GLOMERULAR FILTRATION RATE > 60 ML/MIN (60-); GLUCOSE 151 mg/dL (74-118); POTASSIUM 4.4 mmol/L (3.5-5.1); SODIUM 122 mmol/L (136-145)
[2020-03-04] MEDS: PIPER-TAZ 3.375 GM 50 ML IV SCH ×3 (06:00→22:00)
--- NOTE | 2020-03-04 06:51 | Diagnostic Imaging Report ---
EXAMINATION: CHEST SINGLE (PORTABLE) INDICATION: ^aspiration pneumonia ^[id number] ^0601 COMPARISON: 03/03/2020 FINDINGS: AP view TUBES and LINES: Stable right PICC LUNGS: Limited by body habitus. Central vascular congestion. PLEURA: No significant pleural effusion or pneumothorax. HEART AND MEDIASTINUM: The cardiomediastinal silhouette is enlarged on this AP view.. BONES AND SOFT TISSUES: No acute osseous lesion. Soft tissues are unremarkable. UPPER ABDOMEN: No free air under the diaphragm. Elevated right hemidiaphragm. IMPRESSION: No change from prior exam. Signed by: Dr. Tien Amaro MD on 03/04/2020 6:48 AM
[2020-03-04] MEDS: INSULIN LISPRO 100 UNIT/1 ML 3ML VIAL SQ SCH ×4 (08:04→20:18)
[2020-03-04] MEDS: GABAPENTIN 300 MG CAP PO SCH ×2 (08:19→17:00)
[2020-03-04] MEDS: BACLOFEN 10 MG TAB PO SCH ×3 (08:19→21:00)
[2020-03-04] MEDS: ASCORBIC ACID 500 MG TAB PO SCH (08:19)
[2020-03-04] MEDS: SODIUM CHLORIDE 0.9% 1000ML 1,000 ML IV SCH (08:19)
[2020-03-04] MEDS: SODIUM CHLORIDE 1 GM TAB PO SCH ×3 (08:19→21:00)
[2020-03-04] MEDS: FLUTICASONE PROPIONATE NASAL SPRAY NS SCH (08:19)
[2020-03-04] MEDS: OMEGA 3 POLYUNSAT FATTY ACIDS 1000 MG SOFTGEL PO SCH (08:19)
[2020-03-04] MEDS: MULTIVITAMINS/MINERALS TAB PO SCH (08:19)
[2020-03-04 13:06] LABS: BLOOD UREA NITROGEN 12 mg/dL (7-26); BUN/CREATININE RATIO 15 (6-25); CALCIUM 7.7 mg/dL (8.4-10.2); CARBON DIOXIDE 22 mmol/L (22-29); CHLORIDE 95 mmol/L (98-107); EST GLOMERULAR FILTRATION RATE > 60 ML/MIN (60-); GLUCOSE 164 mg/dL (74-118); SODIUM 125 mmol/L (136-145)
--- NOTE | 2020-03-04 14:02 | Progress Note ---
DATE: SUBJECTIVE: The patient is still somnolent. She has no fever. PHYSICAL EXAMINATION: VITAL SIGNS: Blood pressure is 124/51, saturation is 95% on 3 L, and the pulse is 87. HEENT: Shows no facial swelling or erythema. LYMPHATIC: Shows no submandibular, cervical, supraclavicular adenopathy. CARDIAC: Reveals regular rate and rhythm with normal S1, S2. LUNGS: Auscultation of lungs reveals crackles and rhonchi bilaterally. There is wheezing. ABDOMEN: Soft and nontender. There is no rebound or guarding. EXTREMITIES: No leg edema or calf tenderness. There is no cyanosis or clubbing. SKIN: Shows no rashes. LABORATORY DATA: White blood cell count is 5.6, hemoglobin is 9.5, the platelet count is 250. The BUN to creatinine ratio is normal. The sodium is 125 and the other electrolytes are within normal limits. RADIOGRAPHIC DATA: Cyst x-ray shows central vascular congestion. IMPRESSION: 1. Aspiration pneumonia with sepsis, present on admission. 2. Metabolic encephalopathy. 3. Hyponatremia with volume depletion. 4. Chronic obstructive pulmonary disease. 5. Diabetes. PLAN: 1. Continue current antibiotics. 2. Continue to monitor sodium. 3. Continue to monitor mental status. Matteo Ernandez MD [facility]/MODL /[id number]
--- NOTE | 2020-03-04 14:14 | NUR ---
Renal Progress Note - Subjective - chart reviewed and events noted. patient's mental status waxing and waning. drowsy but arousable, na improving on IVF., VITAL SIGNS: Temperature 99, pulse 92, respiratory rate 20, blood pressure 124/51. GENERAL: drowsy but arousable SKIN: No rash. HEENT: Anicteric. Oropharynx is clear. LUNGS: bilateral corase breath sounds. HEART: Regular rate and rhythm. Normal S1 and S2. GI: Abdomen is soft, nondistended. NEUROLOGIC: drowsy, minimally responsive. LABORATORY DATA: White count 8.4, hemoglobin 10.2, platelet count 203. Sodium 109>>114>>115>>120>>120>.125, potassium 4.7>>4.8>>5.0, creatinine 0.80. TSH is normal. Urine sodium is less than 20. Chest x-ray did not show any acute disease. A&P - - Hyponatremia - improved to 125 today. will stop IVF at this point to avoid over correction. can resume IVF at night and hold again in morning based on levels;. - MRI head showed chronic ischemic changes - may need a Pulm consult - will keep hypertonic saline on stand by - will do stat BMP, S Osm, Urine Na/K/Osm - currently on and NS @ 50 cc/hr. will hold salt tabs to reduce risk of aspiration. plan d/w patient nurse and Primary physician Dr Beltran who was present. I have shared my Cell phone with patient nurse. Call me anytime regarding any issues about this patient.
[2020-03-04] MEDS: ENOXAPARIN SOD INJ 40 MG/0.4 ML SYR SC SCH (17:00)
[2020-03-04 20:00] LABS: ANION GAP 11.7 mmol/L (8-16); BLOOD UREA NITROGEN 10 mg/dL (7-26); BUN/CREATININE RATIO 13 (6-25); CALCIUM 7.7 mg/dL (8.4-10.2); CARBON DIOXIDE 24 mmol/L (22-29); CHLORIDE 96 mmol/L (98-107); CREATININE, SERUM 0.76 mg/dL (0.57-1.11); EST GLOMERULAR FILTRATION RATE > 60 ML/MIN (60-); GLUCOSE 118 mg/dL (74-118); POTASSIUM 4.7 mmol/L (3.5-5.1); SODIUM 127 mmol/L (136-145)
[2020-03-04] MEDS: TEMAZEPAM 7.5 MG CAP PO SCH (21:00)
[2020-03-04] MEDS: AZITHROMYCIN 500MG/NS 250 ML 250 ML IV SCH (21:00)
[2020-03-04] MEDS: SIMVASTATIN 20 MG TAB PO SCH (21:00)
--- NOTE | 2020-03-04 22:24 | Progress Note ---
DATE: 03/04/2020 SUBJECTIVE: Still lethargic, unable to give any history, but able to swallow crushed pills without any difficulties per the nurse. OBJECTIVE: VITAL SIGNS: Temperature 99.2, pulse 96, respiratory rate 18, and blood pressure 124/62. GENERAL: Lethargic. SKIN: No rash. HEENT: Oropharynx is clear. LUNGS: Decreased breath sounds. HEART: Regular rate and rhythm. Normal S1 and S2. GI: Abdomen is soft and nondistended. NEUROLOGIC: Lethargic. PSYCHIATRIC: Lethargic. LABORATORY DATA: White count 5.6, hemoglobin 9.5, and platelet count 215. Sodium 127 and creatinine 0.8. ASSESSMENT AND PLAN: 1. Hyponatremia, resolving. Plan per Nephrology. 2. Metabolic encephalopathy, possibly due to aspiration pneumonitis. We will continue IV antibiotics per Dr. Ernandez. 3. Chronic anemia, stable. 4. Chronic obstructive pulmonary disease, stable. 5. Morbid obesity. 6. Diabetes. 7. Gastrointestinal and deep venous thrombosis prophylaxis. Lovenox. MD NASREEN Wray/MARKY /[id number]
[2020-03-05] VITALS (7 sets, daily range): BP systolic 97–135; BP diastolic 43–76
[2020-03-05] MEDS: ALBUTEROL SULF 0.083% NEB SOLN 3 ML NEB NEB SCH ×6 (03:15→23:17)
[2020-03-05] MEDS: SODIUM CHLORIDE 0.9% 1000ML 1,000 ML IV SCH (04:15)
[2020-03-05] MEDS: ACETAMINOPHEN 325 MG TAB PO PRN (05:00)
[2020-03-05 05:24] LABS: BASOPHILS % 0.3 % (0.0-1.0); HEMATOCRIT 30.5 % (34.2-44.1); HEMOGLOBIN 9.5 g/dL (12.0-16.0); LYMPHOCYTES # (AUTO) 0.5 (1.0-3.2); LYMPHOCYTES % 8.4 % (18.0-39.1); MEAN CORPUSCULAR HEMOGLOBIN 25.3 pg (28-32); MEAN CORPUSCULAR HGB CONC 31.1 g/dL (31-35); MEAN CORPUSCULAR VOLUME 81.1 fL (81-99); MONOCYTES # (AUTO) 0.6 (0.2-0.8); MONOCYTES % 10.1 % (4.4-11.3); NEUTROPHILS # (AUTO) 4.7 (2.1-6.9); NEUTROPHILS % 79.4 % (38.7-80.0); PLATELET COUNT 198 x10e3/uL (140-360); RED BLOOD COUNT 3.76 x10e6/uL (3.6-5.1)
[2020-03-05 05:43] LABS: ANION GAP 14.8 mmol/L (8-16); BLOOD UREA NITROGEN 11 mg/dL (7-26); BUN/CREATININE RATIO 14 (6-25); CALCIUM 7.6 mg/dL (8.4-10.2); CARBON DIOXIDE 22 mmol/L (22-29); CHLORIDE 98 mmol/L (98-107); CREATININE, SERUM 0.78 mg/dL (0.57-1.11); EST GLOMERULAR FILTRATION RATE > 60 ML/MIN (60-); GLUCOSE 151 mg/dL (74-118); POTASSIUM 4.8 mmol/L (3.5-5.1); SODIUM 130 mmol/L (136-145)
[2020-03-05] MEDS: PIPER-TAZ 3.375 GM 50 ML IV SCH ×3 (06:00→21:11)
[2020-03-05] MEDS: INSULIN LISPRO 100 UNIT/1 ML 3ML VIAL SQ SCH ×4 (07:30→20:55)
[2020-03-05] MEDS: BACLOFEN 10 MG TAB PO SCH (08:39)
[2020-03-05] MEDS: MULTIVITAMINS/MINERALS TAB PO SCH (08:40)
[2020-03-05] MEDS: SODIUM CHLORIDE 1 GM TAB PO SCH ×3 (08:40→20:16)
[2020-03-05] MEDS: ASCORBIC ACID 500 MG TAB PO SCH (08:40)
[2020-03-05] MEDS: GABAPENTIN 300 MG CAP PO SCH (08:40)
[2020-03-05] MEDS: OMEGA 3 POLYUNSAT FATTY ACIDS 1000 MG SOFTGEL PO SCH (08:40)
[2020-03-05] MEDS: FLUTICASONE PROPIONATE NASAL SPRAY NS SCH (08:42)
--- NOTE | 2020-03-05 12:06 | Progress Note ---
DATE: SUBJECTIVE: The patient is more responsive today. She responds and turns her head when her name is called. She does not follow commands well. She has no fever. PHYSICAL EXAMINATION: VITAL SIGNS: Blood pressure is 102/43, saturation is 95% on 3 L and the pulse is 76. The respiratory rate is 22. T-max is 101. HEENT: No facial swelling or erythema. LYMPHATIC: No submandibular, cervical, or supraclavicular adenopathy. CARDIAC: Regular rate and rhythm with normal S1, S2. LUNGS: Auscultation of lungs reveals decreased breath sounds at the bases. There is no wheezing. ABDOMEN: Soft, nontender. There is no rebound or guarding. EXTREMITIES: No leg edema or calf tenderness. There is no cyanosis or clubbing. SKIN: No rashes. LABORATORY DATA: BUN to creatinine ratio is normal. The sodium is 130. The other electrolytes are within normal limits and the glucose is 211. Hemoglobin is 9.5 and white blood count is 5.97. The platelet count is 198,000. RADIOGRAPHIC DATA: Chest x-ray shows less infiltrate and an elevated hemidiaphragm. IMPRESSION: 1. Metabolic encephalopathy. 2. Resolving aspiration pneumonia. 3. Anemia, unspecified. 4. Hyponatremia. 5. Chronic obstructive pulmonary disease. 6. Diabetes. PLAN: 1. Complete current antibiotics. 2. Continue to monitor mental status. 3. Continue to monitor sodium. 4. Deep venous thrombosis prophylaxis. Matteo Ernandez MD [facility] /[id number]
[2020-03-05] MEDS ORDERED: FUROSEMIDE INJ 10 MG/ML 4 ML VIAL IV ONE ×2 (13:00→20:15)
[2020-03-05] MEDS: ENOXAPARIN SOD INJ 40 MG/0.4 ML SYR SC SCH (16:39)
--- NOTE | 2020-03-05 17:34 | NUR ---
WOUND CARE CONSULT ANSWERED UPON SKIN ASSESSMENT NO OPEN AREAS NOTED TO LOWER EXTREMITIES WINE STAINED AND DARKENED SKIN TO BILATERAL LOWER LEGS NOTED Addendum: 03/05/20 at 1736 by Kuldeep Fontanez RN Amended: Links added.
[2020-03-05] MEDS: AZITHROMYCIN 500MG/NS 250 ML 250 ML IV SCH (20:16)
--- NOTE | 2020-03-05 20:39 | Progress Note ---
DATE: 03/05/2020 SUBJECTIVE: A little bit more awake, eating some. No new complaints. OBJECTIVE: VITAL SIGNS: Temperature 99.4, pulse 93, respiratory rate 21, and blood pressure 98/61. GENERAL: In no acute distress. SKIN: No rash. LUNGS: Decreased. HEART: Regular rate and rhythm. Normal S1, S2. GI: Abdomen is soft and nondistended. NEUROLOGIC: Awake. PSYCHIATRIC: Calm. MUSCULOSKELETAL: Painless range of motion. LABORATORY DATA: Sodium 130, creatinine 0.8. White count 6, hemoglobin 9.5, and platelet count 198. ASSESSMENT AND PLAN: 1. Hyponatremia due to hypovolemia. Sodium is being corrected slowly. 2. Metabolic encephalopathy, present on admission, possibly due to aspiration pneumonitis, slowly getting better. We will continue IV antibiotic per Dr. Ernandez. 3. Chronic anemia, stable. 4. Chronic obstructive pulmonary disease, stable. 5. Diabetes. 6. Gastrointestinal and deep venous thrombosis prophylaxis. Continue Lovenox. I updated the daughter at the bedside in details. Apparently, the patient has been at a long term for about almost two weeks now. Even on the day of admission, at that time, she was starting to be alter. Apparently, normally, she is super sharp. MD NASREEN Wray/MARKY /[id number]
[2020-03-06] VITALS (8 sets, daily range): BP systolic 108–131; BP diastolic 45–59
[2020-03-06] MEDS: SODIUM CHLORIDE 0.9% 1000ML 1,000 ML IV SCH ×2 (02:39→21:50)
[2020-03-06] MEDS: ALBUTEROL SULF 0.083% NEB SOLN 3 ML NEB NEB SCH ×6 (03:20→20:15)
[2020-03-06 04:51] LABS: BASOPHILS % 0.3 % (0.0-1.0); HEMATOCRIT 30.2 % (34.2-44.1); HEMOGLOBIN 9.4 g/dL (12.0-16.0); LYMPHOCYTES # (AUTO) 0.8 (1.0-3.2); LYMPHOCYTES % 12.7 % (18.0-39.1); MEAN CORPUSCULAR HEMOGLOBIN 25.3 pg (28-32); MEAN CORPUSCULAR HGB CONC 31.1 g/dL (31-35); MEAN CORPUSCULAR VOLUME 81.2 fL (81-99); MONOCYTES # (AUTO) 0.7 (0.2-0.8); MONOCYTES % 11.1 % (4.4-11.3); NEUTROPHILS # (AUTO) 4.6 (2.1-6.9); NEUTROPHILS % 74.1 % (38.7-80.0); PLATELET COUNT 208 x10e3/uL (140-360); RED BLOOD COUNT 3.72 x10e6/uL (3.6-5.1); RED CELL DISTRIBUTION WIDTH 17.9 % (11.7-14.4)
[2020-03-06 05:12] LABS: BLOOD UREA NITROGEN 13 mg/dL (7-26); BUN/CREATININE RATIO 16 (6-25); CALCIUM 7.5 mg/dL (8.4-10.2); CARBON DIOXIDE 26 mmol/L (22-29); CHLORIDE 99 mmol/L (98-107); EST GLOMERULAR FILTRATION RATE > 60 ML/MIN (60-); GLUCOSE 140 mg/dL (74-118); SODIUM 135 mmol/L (136-145)
[2020-03-06] MEDS: PIPER-TAZ 3.375 GM 50 ML IV SCH ×3 (06:22→22:46)
[2020-03-06] MEDS: INSULIN LISPRO 100 UNIT/1 ML 3ML VIAL SQ SCH ×4 (08:30→22:51)
[2020-03-06] MEDS: SODIUM CHLORIDE 1 GM TAB PO SCH ×3 (08:44→21:50)
[2020-03-06] MEDS: MULTIVITAMINS/MINERALS TAB PO SCH (08:44)
[2020-03-06] MEDS: ASCORBIC ACID 500 MG TAB PO SCH (08:44)
[2020-03-06] MEDS: FLUTICASONE PROPIONATE NASAL SPRAY NS SCH (09:02)
--- NOTE | 2020-03-06 12:21 | NUR ---
Pt was discussed during interdisciplinary rounds. RN requested oral supplement recommendation for pt. Recommend Glucerna BID for added nutrition. Will continue to monitor.
[2020-03-06 13:13] LABS: OSMOLALITY,SERUM OSMOMETER 247 mOsmol/kg (280-301)
--- NOTE | 2020-03-06 13:18 | Progress Note ---
DATE: SUBJECTIVE: The patient is afebrile. The vital signs are stable. She is more awake, but still has periods of confusion. PHYSICAL EXAMINATION: VITAL SIGNS: Blood pressure is 112/54. HEENT: Shows no facial swelling or erythema. LYMPHATIC: Shows no submandibular, cervical, or supraclavicular adenopathy. CARDIAC: Reveals regular rate and rhythm with normal S1 and S2. LUNGS: Auscultation of lungs reveals clear breath sounds bilaterally. There is no wheezing. ABDOMEN: Soft and nontender. There is no rebound or guarding. EXTREMITIES: Show no leg edema or calf tenderness. There is no cyanosis or clubbing. LABORATORY DATA: White blood cell count is 6.2, hemoglobin is 9.4, and platelet count is 208. The BUN to creatinine ratio is 13 to 0.8. The other electrolytes are within normal limits. RADIOGRAPHIC DATA: Chest x-ray shows possible central vascular congestion. IMPRESSION: 1. Metabolic encephalopathy. 2. Resolving aspiration pneumonia. 3. Hyponatremia. 4. Chronic obstructive pulmonary disease. 5. Diabetes. PLAN: 1. Continue oxygen. 2. Continue to monitor mental status. 3. Out of bed as tolerated. 4. Speech therapy evaluation. Matteo Ernandez MD [facility] /[id number]
--- NOTE | 2020-03-06 13:37 | NUR ---
DAUGHTER HERE FROM [place], [place] [phone], SHE WANTS TO TAKE HER HOME WITH HOME HEALTH AND THERAPY UNTIL SHE CAN GET STRONG ENOUGH TO MOVE TO [place] WITH HER. SHE STATES IF SHE HAS TO PAY FOR PROVIDERS SHE WILL.
[2020-03-06] MEDS: ENOXAPARIN SOD INJ 40 MG/0.4 ML SYR SC SCH (16:52)
[2020-03-06] MEDS: AZITHROMYCIN 500MG/NS 250 ML 250 ML IV SCH (21:50)
--- NOTE | 2020-03-06 22:15 | Progress Note ---
DATE: 03/06/2020 SUBJECTIVE: More awake. Denies any complaint. OBJECTIVE: VITAL SIGNS: Temperature 100.5, pulse 101, respiratory rate 22, and blood pressure 108/45. GENERAL: No acute distress. SKIN: No rash. LUNGS: Decreased breath sounds. HEART: Regular rate and rhythm. Normal S1 and S2. GI: Abdomen is soft and nondistended. NEUROLOGIC: Alert and oriented. PSYCHIATRIC: Calm. LABORATORY: White count 6, hemoglobin 9, and platelet count 208. Sodium 135, creatinine 0.8. ASSESSMENT AND PLAN: 1. Hyponatremia due to hypovolemia. Her sodium is almost normal. Plan per chainstitch hemmer. 2. Aspiration pneumonitis, resolving. I will repeat another chest x-ray given her low-grade fever, however, is already on IV antibiotics per Dr. Ernandez. 3. Chronic anemia, stable. 4. Chronic obstructive pulmonary disease, stable. 5. Gastrointestinal and deep venous thrombosis prophylaxis. Continue Lovenox. 6. Disposition. We will have physical. MD NASREEN Wray/MARKY /[id number]
--- NOTE | 2020-03-06 22:20 | Progress Note ---
DATE: 03/06/2020 SUBJECTIVE: More awake. No new complaints. OBJECTIVE: VITAL SIGNS: Temperature 100.5, pulse 101, respiratory rate 22, and blood pressure 108/45. GENERAL: No acute distress. SKIN: No rash. LUNGS: Decreased breath sounds. HEART: Regular rate and rhythm. Normal S1 and S2. GI: Abdomen is soft and nondistended. NEUROLOGIC: Alert and oriented. PSYCHIATRIC: Calm. LABORATORY DATA: White count 6, hemoglobin 9.4, and platelet count 208. Creatinine 0.8 and sodium 134. ASSESSMENT AND PLAN: 1. Hyponatremia due to hypovolemia. Sodium is pretty much normal. Plan per labor contract analyst. 2. Metabolic encephalopathy, present on admission, possibly due to aspiration pneumonitis. The patient is getting better. We will continue IV antibiotic per Dr. Ernandez, although she does have a low-grade fever at this time. We will repeat a chest x-ray in the morning. Repeat WBC pneumonia as well. 3. Chronic anemia, stable. 4. Chronic obstructive pulmonary disease, stable. 5. Gastrointestinal and deep venous thrombosis prophylaxis. Continue Lovenox. 6. Disposition. The patient could be ready to go back to her SNF to continue her skilled PT soon. MD NASREEN Wray/MARKY /[id number]
[2020-03-07] VITALS (7 sets, daily range): BP systolic 114–120; BP diastolic 59–99
[2020-03-07] MEDS: ALBUTEROL SULF 0.083% NEB SOLN 3 ML NEB NEB SCH ×5 (03:05→19:55)
[2020-03-07 04:59] LABS: BASOPHILS % 0.5 % (0.0-1.0); HEMATOCRIT 29.4 % (34.2-44.1); HEMOGLOBIN 9.1 g/dL (12.0-16.0); LYMPHOCYTES # (AUTO) 0.5 (1.0-3.2); LYMPHOCYTES % 8.8 % (18.0-39.1); MEAN CORPUSCULAR HEMOGLOBIN 25.3 pg (28-32); MEAN CORPUSCULAR VOLUME 81.9 fL (81-99); MONOCYTES # (AUTO) 0.7 (0.2-0.8); MONOCYTES % 11.7 % (4.4-11.3); NEUTROPHILS # (AUTO) 4.3 (2.1-6.9); NEUTROPHILS % 77.4 % (38.7-80.0); PLATELET COUNT 194 x10e3/uL (140-360); RED BLOOD COUNT 3.59 x10e6/uL (3.6-5.1); RED CELL DISTRIBUTION WIDTH 18.1 % (11.7-14.4)
[2020-03-07 05:15] LABS: ANION GAP 13.1 mmol/L (8-16); BLOOD UREA NITROGEN 19 mg/dL (7-26); BUN/CREATININE RATIO 24 (6-25); CALCIUM 7.5 mg/dL (8.4-10.2); CARBON DIOXIDE 26 mmol/L (22-29); CHLORIDE 102 mmol/L (98-107); CREATININE, SERUM 0.78 mg/dL (0.57-1.11); EST GLOMERULAR FILTRATION RATE > 60 ML/MIN (60-); GLUCOSE 137 mg/dL (74-118); POTASSIUM 4.1 mmol/L (3.5-5.1); SODIUM 137 mmol/L (136-145)
[2020-03-07] MEDS: PIPER-TAZ 3.375 GM 50 ML IV SCH ×3 (06:21→22:12)
[2020-03-07] MEDS: INSULIN LISPRO 100 UNIT/1 ML 3ML VIAL SQ SCH ×4 (08:25→21:47)
[2020-03-07] MEDS: MULTIVITAMINS/MINERALS TAB PO SCH (08:57)
[2020-03-07] MEDS: SODIUM CHLORIDE 1 GM TAB PO SCH ×3 (08:57→21:46)
[2020-03-07] MEDS: ASCORBIC ACID 500 MG TAB PO SCH (08:57)
--- NOTE | 2020-03-07 09:23 | Diagnostic Imaging Report ---
TECHNIQUE: Frontal view of the chest. INDICATION: ^FEVER ^[id number] ^[id number] COMPARISON: 3 days prior IMPRESSION: Lines and hardware: Stable. Heart and mediastinum: Stable. Lungs and pleura: Slightly worsened pulmonary vascular congestion. Stable right infrahilar and left basilar patchy airspace opacities. No pleural effusion. No pneumothorax. Soft tissues and bones: No acute abnormality. Signed by: Carlos Fajardo MD on 03/07/2020 9:19 AM
--- NOTE | 2020-03-07 09:31 | NUR ---
Daughter phoned update given and questions answered
[2020-03-07] MEDS: FUROSEMIDE 40 MG TAB PO SCH (12:33)
--- NOTE | 2020-03-07 14:28 | Progress Note ---
DATE: SUBJECTIVE: The patient is more awake today. She is answering some questions. PHYSICAL EXAMINATION: VITAL SIGNS: Blood pressure is 120/63, saturation is 98% on 2 L and the pulse is 92. HEENT: Shows no facial swelling or erythema. LYMPHATIC: Shows no submandibular, cervical, or supraclavicular adenopathy. CARDIAC: Reveals regular rate and rhythm with normal S1 and S2. LUNGS: Auscultation of lungs reveals decreased breath sounds at the bases. There is no wheezing. ABDOMEN: Soft, nontender. There is no rebound or guarding. EXTREMITIES: Shows no leg edema or calf tenderness. There is no cyanosis or clubbing. SKIN: Shows no rashes. NEUROLOGICAL: Shows no focal abnormalities. LABORATORY DATA: White blood cell count is 5.5 and hemoglobin is 9.1. The platelet count is 194. The BUN to creatinine ratio is 19 to 0.78. The other electrolytes are within normal limits. RADIOGRAPHIC DATA: Chest x-ray shows bilateral vascular congestion. IMPRESSION: 1. Metabolic encephalopathy. 2. Resolving aspiration pneumonia. 3. Hyponatremia. 4. Chronic obstructive pulmonary disease. 5. Diabetes. PLAN: 1. Continue oxygen. 2. Out of bed as tolerated. 3. The patient was evaluated by speech therapy. They have recommended pureed texture and limiting feeding tube when patient is alert. Matteo Ernandez MD [facility] /[id number]
[2020-03-07] MEDS: FLUTICASONE PROPIONATE NASAL SPRAY NS SCH (15:44)
[2020-03-07] MEDS: ENOXAPARIN SOD INJ 40 MG/0.4 ML SYR SC SCH (16:40)
--- NOTE | 2020-03-07 17:23 | NUR ---
Patient daughter in room update given and questions
[2020-03-07] MEDS: AZITHROMYCIN 500MG/NS 250 ML 250 ML IV SCH (21:00)
--- NOTE | 2020-03-07 22:01 | Progress Note ---
DATE: 03/07/2020 SUBJECTIVE: No new complaints. OBJECTIVE: VITAL SIGNS: Temperature 97.8, pulse 105, respiratory rate 22, and blood pressure 114/60. GENERAL: In no acute distress. SKIN: No rash. LUNGS: Decreased breath sounds. HEART: Tachycardic. Normal S1, S2. GI: Abdomen is soft, nondistended. NEUROLOGIC: Alert and oriented. PSYCHIATRIC: Calm. LABORATORY DATA: Sodium 137, creatinine 0.8. White count 5.6, hemoglobin 9, and platelet count 194. ASSESSMENT AND PLAN: 1. Hyponatremia due to hypovolemia, resolved. 2. Metabolic encephalopathy, present on admission, resolving. 3. Tachycardia, possibly due to albuterol nebulizer. We will make that p.r.n. only instead of scheduled. 4. Chronic anemia, stable. 5. Chronic obstructive pulmonary disease, stable. 6. Gastrointestinal and deep venous thrombosis prophylaxis. Continue Lovenox. 7. Disposition. Apparently, the daughter would like her to go home with a 24/7 caregiver. The patient only ambulated 3 feet with the physical therapist. We will continue discharge planning per case resolution specialist. The patient is originally from [facility]. Amandaching MD NASREEN Alvarado/MARKY /[id number]
--- NOTE | 2020-03-07 23:30 | NUR ---
Called Dr Ernandez concerning the patients heart, running to a high of the 140s, an ekg done showed an atrial flutter, ordered for amiodarone protocol
[2020-03-07] MEDS ORDERED: AMIODARONE HCL 150 MG/100 ML BAG IV ONE (23:45)
[2020-03-07] MEDS ORDERED: AMIODARONE HCL 900 MG in DEXTROSE 5% 500ML 500 ML IV SCH (23:45)
[2020-03-07] MEDS ORDERED: AMIODARONE 900MG 500 ML IV ONE (23:53)
[2020-03-08] VITALS (8 sets, daily range): BP systolic 95–143; BP diastolic 59–97
[2020-03-08] MEDS: PIPER-TAZ 3.375 GM 50 ML IV SCH ×3 (05:57→22:00)
[2020-03-08] MEDS: INSULIN LISPRO 100 UNIT/1 ML 3ML VIAL SQ SCH ×4 (09:07→21:30)
[2020-03-08] MEDS: SODIUM CHLORIDE 1 GM TAB PO SCH ×3 (09:07→21:30)
[2020-03-08] MEDS: FUROSEMIDE 40 MG TAB PO SCH (09:07)
[2020-03-08] MEDS: MULTIVITAMINS/MINERALS TAB PO SCH (09:07)
[2020-03-08] MEDS: ASCORBIC ACID 500 MG TAB PO SCH (09:07)
[2020-03-08] MEDS: FLUTICASONE PROPIONATE NASAL SPRAY NS SCH (09:07)
[2020-03-08] MEDS: CARVEDILOL 3.125 MG TAB PO SCH ×2 (12:24→16:48)
--- NOTE | 2020-03-08 13:01 | Progress Note ---
DATE: SUBJECTIVE: The patient is afebrile. The patient is more awake. She still has some confusion. PHYSICAL EXAMINATION: VITAL SIGNS: Blood pressure is 140/81, saturation is 96% on 2 L, and the pulse is 106. The patient is afebrile. HEENT: Shows no facial swelling or erythema. LYMPHATIC: Shows no submandibular, cervical, or supraclavicular adenopathy. CARDIAC: Reveals regular rate and rhythm with normal S1 and S2. LUNGS: Auscultation of the lungs reveals clear breath sounds bilaterally. There is no wheezing. ABDOMEN: Soft nontender. There is no rebound or guarding. EXTREMITIES: Shows 1+ edema. LABORATORY DATA: White blood cell count is 5.5, hemoglobin is 9.1, the platelet count is 194. The BUN to creatinine ratio is 19 to 0.78. The other electrolytes are within normal limits. Blood sugars 150 to 260. RADIOGRAPHIC DATA: Chest x-ray shows some patchy basal opacities and central venous congestion. IMPRESSION: 1. Atrial fibrillation with rapid ventricular response. 2. Resolving aspiration pneumonia. 3. Metabolic encephalopathy. 4. Chronic obstructive pulmonary disease. 5. Diabetes. PLAN: 1. Await Cardiology evaluation. 2. The patient is now on amiodarone. 3. Out of bed as tolerated. 4. Physical therapy. 5. Complete antibiotics. Matteo Ernandez MD [facility]/MODL /[id number]
[2020-03-08] MEDS ORDERED: ONDANSETRON HCL 4 MG ORAL DISINTEGRATING TAB PO PRN (13:15)
--- NOTE | 2020-03-08 14:57 | NUR ---
CALLED DAUGHTER ABOUT DISCHARGE PLAN, SHE IS VERY UPSET AND STATES THAT HER MOTHER CAN BARLEY BREATHE AND THAT WE DIDNT EVEN KNOW SHE HAS LYMPOMA AND TO PLEASE GET HER ABLE TO BREATHE, SHE DOESNT WANT TO TALK ABOUT DISCHARGE UNTIL SHE SPEAKS WITH THE DOCTOR. SHE STATES SHE HIRED A SITTER BUT SHE CAN ONLY SIT AND NOT GIVE THE NURSES AIDE CARE. WILL LET DR KNOW TO PLEASE CALL THE DAUGHTER EVER MORRIS [phone].
--- NOTE | 2020-03-08 16:30 | Diagnostic Imaging Report ---
TECHNIQUE: Frontal view of the chest. INDICATION: ^SOB COMPARISON: Prior day. DISCUSSION: Limited evaluation due to portable technique. Lines and hardware: Stable. Heart and mediastinum: Stable. Lungs and pleura: Stable right infrahilar and left basilar patchy airspace opacities. Negative for large effusion or pneumothorax. Soft tissues and bones: No acute abnormality. IMPRESSION: Stable exam. Signed by: Juliano Izquierdo MD on 03/08/2020 4:26 PM
[2020-03-08] MEDS: ENOXAPARIN SOD INJ 40 MG/0.4 ML SYR SC SCH (16:49)
[2020-03-08] MEDS: ALBUTEROL SULF 0.083% NEB SOLN 3 ML NEB NEB PRN (18:50)
[2020-03-08] MEDS: AZITHROMYCIN 500MG/NS 250 ML 250 ML IV SCH (21:00)
--- NOTE | 2020-03-08 21:07 | Progress Note ---
DATE: 03/08/2020 SUBJECTIVE: On and off shortness of breath. OBJECTIVE: VITAL SIGNS: Temperature 97.8, pulse 89, respiratory rate 20, blood pressure 118/63. GENERAL: Mild respiratory distress. SKIN: No rash. LUNGS: Decreased breath sounds. HEART: Tachy, irregularly irregular. ABDOMEN: Soft. GI: Soft, nondistended. NEUROLOGIC: Alert and oriented. PSYCHIATRIC: Calm. MUSCULOSKELETAL: Painless range of motion. LABORATORY DATA: No new labs. ASSESSMENT/PLAN: 1. Hyponatremia due to hypovolemia, resolved. 2. Metabolic encephalopathy present on admission, slowly getting better. 3. Acute respiratory distress. 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 We will use Atrovent instead of albuterol nebulizer, discussed with Dr. Ernandez. We will get a CT scan of the chest. We will also do a Doppler of the arm, which is swollen. 4. Chronic anemia, stable. 5. Chronic obstructive pulmonary disease, stable. 6. Access right lower PICC line, which is swollen. Again Venous Doppler is pending. 7. Atrial flutter. Dr. Carpenter has been consulted. 8. GI and DVT prophylaxis. Continue Lovenox. 9. Disposition. The patient originally is from [facility], however, at this time the daughter will hire caregiver at home to take care of the patient when the patient is stable for discharge. Updated daughter over the phone with details. MD NASREEN Wray/MARKY /[id number]
[2020-03-08] MEDS ORDERED: IOPAMIDOL 370 MG/ML 200 ML INFUS..BTL INJ ONE (22:49)
[2020-03-08] MEDS ORDERED: SODIUM CHLORIDE 0.9% 50ML 50 ML ONE (22:50)
--- NOTE | 2020-03-08 23:25 | Diagnostic Imaging Report ---
EXAM: CT Chest WITH contrast (PE protocol) 03/08/2020 8:00 PM INDICATION: Short of breath COMPARISON: Chest CT 02/11/2020 TECHNIQUE: Chest was scanned utilizing a multidetector helical scanner from the lung apex through the level of the diaphragm after administration of IV contrast. Thin section reconstructions were obtained with special concentration on the pulmonary arteries. Coronal and sagittal reformations were obtained. Pulmonary embolism protocol was performed. IV CONTRAST: 100 mL of Isovue 370 COMPLICATIONS: None RADIATION DOSE: Total DLP: 499 mGy*cm Estimated effective dose: (DLP x 0.014 x size factor) mSv CTDIvol has been reviewed. It is below the limits set by the Radiation Protocol Committee (RPC). Dose modulation, iterative reconstruction, and/or weight based adjustment of the mA/kV was utilized to reduce the radiation dose to as low as reasonably achievable. FINDINGS: LINES/ TUBES: Right upper extremity PICC tip terminates in the mid SVC.. LUNGS AND AIRWAYS: Bibasilar dependent atelectasis. Airways are normal. PLEURA: Small right and trace left pleural effusions. HEART AND MEDIASTINUM: The thyroid gland is normal. The heart is mildly enlarged. There is no pericardial effusion. Aortic valve calcifications. Calcifications of the aorta and major branches including the coronary arteries. Multiple enlarged lymph nodes in the neck, axillary, and mediastinum seen best on series 2, for example: -2.1 cm right cervical node (image 1). -1.5 cm right axillary lymph node (image 29). -4.1 cm right pericardiophrenic lymph node (image 81). Mild main pulmonary artery dilation, 3.1 cm in diameter. UPPER ABDOMEN: Unremarkable. BONES: Degenerative changes. SOFT TISSUES: Unremarkable. IMPRESSION: New small right and trace left pleural effusions, possibly malignant given pleural nodularity seen on chest CT 02/11/2020. Persistent neck and thoracic adenopathy concerning for metastases or lymphoma. Mild cardiomegaly and evidence of pulmonary hypertension. 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 Signed by: Manuel Anne DO on 03/08/2020 11:21 PM
[2020-03-09] VITALS (7 sets, daily range): BP systolic 90–120; BP diastolic 49–71
[2020-03-09 05:27] LABS: BASOPHILS # (AUTO) 0.1 (0.0-0.1); BASOPHILS % 0.9 % (0.0-1.0); EOSINOPHILS % 0.2 % (0.0-6.0); HEMATOCRIT 30.8 % (34.2-44.1); HEMOGLOBIN 9.5 g/dL (12.0-16.0); LYMPHOCYTES # (AUTO) 0.7 (1.0-3.2); LYMPHOCYTES % 10.6 % (18.0-39.1); MEAN CORPUSCULAR HEMOGLOBIN 26.3 pg (28-32); MEAN CORPUSCULAR HGB CONC 30.8 g/dL (31-35); MEAN CORPUSCULAR VOLUME 85.3 fL (81-99); MONOCYTES # (AUTO) 0.6 (0.2-0.8); MONOCYTES % 8.7 % (4.4-11.3); NEUTROPHILS % 77.9 % (38.7-80.0); PLATELET COUNT 130 x10e3/uL (140-360); RED BLOOD COUNT 3.61 x10e6/uL (3.6-5.1); RED CELL DISTRIBUTION WIDTH 18.7 % (11.7-14.4)
[2020-03-09 05:41] LABS: ALBUMIN/GLOBULIN RATIO 0.7 (0.8-2.0); ANION GAP 15.2 mmol/L (8-16); POTASSIUM 4.2 mmol/L (3.5-5.1)
[2020-03-09] MEDS: PIPER-TAZ 3.375 GM 50 ML IV SCH ×3 (06:00→21:45)
[2020-03-09 06:02] LABS: CREATININE, SERUM 1.23 mg/dL (0.57-1.11)
[2020-03-09] MEDS: IPRATROPIUM BROMIDE 0.02% 2.5 ML NEB NEB SCH ×4 (07:00→20:10)
[2020-03-09] MEDS: ALBUTEROL SULF 0.083% NEB SOLN 3 ML NEB NEB PRN ×2 (07:00→20:10)
[2020-03-09] MEDS: INSULIN LISPRO 100 UNIT/1 ML 3ML VIAL SQ SCH ×4 (07:30→20:35)
[2020-03-09] MEDS: MULTIVITAMINS/MINERALS TAB PO SCH (08:49)
[2020-03-09] MEDS: FLUTICASONE PROPIONATE NASAL SPRAY NS SCH (08:49)
[2020-03-09] MEDS: FUROSEMIDE 40 MG TAB PO SCH (08:49)
[2020-03-09] MEDS: AMIODARONE HCL 200 MG TAB PO SCH (08:49)
[2020-03-09] MEDS: ASCORBIC ACID 500 MG TAB PO SCH (08:49)
[2020-03-09] MEDS: SODIUM CHLORIDE 1 GM TAB PO SCH ×3 (08:49→20:34)
[2020-03-09] MEDS: CARVEDILOL 3.125 MG TAB PO SCH ×2 (08:49→17:33)
[2020-03-09] MEDS ORDERED: SODIUM CHLORIDE 0.9% 1000ML 1,000 ML IV ONE (14:15)
--- NOTE | 2020-03-09 14:32 | Progress Note ---
DATE: Pulmonary Critical Care Progress Note SUBJECTIVE: The patient is not having dyspnea or tachypnea. The patient has less fever. CT scan showed a pericardial lymph node as well as a cervical node and an axillary node. She had a small left pleural effusion. Apparently, the family knows about this since [facility]. The patient has had no further atrial fibrillation. She is awaiting Cardiology consultation. PHYSICAL EXAMINATION: VITAL SIGNS: The patient is afebrile. The blood pressure is 97/58, saturation is 98% on 2 L, and the pulse is 76. HEENT: Shows no facial swelling or erythema. LYMPHATIC: Shows no submandibular, cervical, or supraclavicular adenopathy. CARDIAC: Reveals regular rate and rhythm with normal S1 and S2. LUNGS: Auscultation of lungs shows clear breath sounds bilaterally. There is no wheezing. ABDOMEN: Soft, nontender. There is no rebound or guarding. EXTREMITIES: Show no leg edema or calf tenderness. LABORATORY DATA: White blood cell count is 6.4 and hemoglobin is 9.5. The platelet count is 130. BUN to creatinine ratio is 38 to 1.23, which is increased from previously. Albumin is 2.0. IMPRESSION: 1. Acute renal insufficiency. 2. Lymphoma. 3. Atrial fibrillation. 4. Metabolic encephalopathy. 5. Anemia, secondary to chronic blood loss. 6. Chronic obstructive pulmonary disease. PLAN: 1. Awaiting Cardiology evaluation. 2. Continue amiodarone. 3. Stop Lasix. 4. Judicious use of intravenous fluids. 5. Complete antibiotics. Matteo Ernandez MD [facility]/MODL /[id number]
--- NOTE | 2020-03-09 14:36 | NUR ---
SPOKE WITH DAUGHTER EVER AND SHE STATES TO SEND TO [facility]
--- NOTE | 2020-03-09 14:49 | NUR ---
FAXED CLINICALS, PASRR, AND COVID FORM TO [facility], COMPLETED RTF AND PUT PACKET AT [facility]ES [facility]ATION. WILL CALL WHEN GET APPROVED
--- NOTE | 2020-03-09 16:02 | NUR ---
Nutrition Intervention Note RD Recommendation(s) for Physician: - Continue diet as ordered, texture modification per speech therapy, and fluid restriction per MD - Continue to recommend Glucerna BID for added nutrition Plan of Care: RD following, monitoring for tolerance and adequacy, oral supplement recommendation Nutrition reason for involvement: consult and follow up RD Assessment 03/09: Follow up. Chart reviewed. Pt was discussed during interdisciplinary rounds and RD received consult for oral supplement recommendation. Speech therapy evaluated pt yesterday and recommended a mechanical soft diet. RN stated pt is experiencing some confusion. Last recorded meal intake was 50-75% on 03/07. Continue to recommend Glucerna nutrition supplement BID for added nutrition. Will continue to monitor (03/03) Chart reviewed. Labs and meds reviewed. 89yo obese F, who is admitted for hyponatremia. Pt is on fluid restriction and given salt tablets. Sodium has trend up to 114. Pt is under isolation, pending COVID result. Per RN, pt drank milk and had a few bites of cereal this AM. Pt appears to be very lethargic and cough has worsened. No GI related complains. + BM. No weight loss noted per chart. Will continue to follow. Principal Problems/Diagnoses: Asymptomatic, but severe hypovolemic hyponatremia PMH: Hypertension, Hyperlipidemia, Diastolic CHF, Type 2 diabetes, COPD. GI: non-tender/round/abdomen Skin: no pressure ulcers Labs: (03/09) Na 136, K 4.2, BUN 38, Cr 1.23, Glu 121, Ca 8.0, AST 107 Meds: antibiotics, insulin, multivitamin with minerals, vitamin C, lovenox, amiodarone, zofran Ht: 64 in Wt: 222 lbs BMI: 38.1 kg/m2 IBW: 120 lbs Malnutrition Evaluation (03/09/20) The patient does not meet criteria for a specified degree of malnutrition at this time. Will re-evaluate at follow-up as appropriate. Nutrition Prescription (Diet Order): ADA 1800, mechanical soft, 3976-2350 mL fluid restriction, Glucerna BID Estimated Nutritional Needs: 5641-9616 calories/day (22-25 kcal/kg IBW) 82-109 g protein/day (1.5-2 g pro/kg IBW) Diet Adequacy: Not meeting calorie needs, Not meeting protein needs Tolerance: Tolerating PO Diet Education Needs Assessment: RD is available for diet education as needed Nutrition Care Level: low Nutrition Diagnosis: Inadequate energy intake related to decreased ability to consume sufficient energy as evidenced by insufficient energy intake from diet compared to needs. Goal: Patient will meet 75-100% of estimated needs by follow up Progress: progressing Interventions: -carbohydrate, texture, fluid - modified diet, Commercial beverage, Collaboration with other providers Monitoring/Evaluation: -Total energy intake, Total protein intake, , Modified diet, Liquid supplement, Weight change Signed: Blanka Bustillo RD, LD
[2020-03-09] MEDS: ENOXAPARIN SOD INJ 40 MG/0.4 ML SYR SC SCH (17:33)
[2020-03-09 19:57] LABS: FERRITIN 8292.57 ng/mL (4.63-204.00)
[2020-03-09] MEDS: ENOXAPARIN SODIUM INJ 100 MG/ML SYR SC SCH (20:20)
[2020-03-09] MEDS: AZITHROMYCIN 500MG/NS 250 ML 250 ML IV SCH (20:20)
[2020-03-09] MEDS: ACETAMINOPHEN 325 MG TAB PO PRN (22:30)
--- NOTE | 2020-03-09 23:44 | Consultation ---
DATE OF CONSULTATION: 03/09/2020 CARDIOLOGY CONSULTATION: REFERRING PHYSICIAN: Dr. Sarah Pena. REASON FOR CONSULTATION: Atrial fibrillation. HISTORY OF PRESENT ILLNESS: Ms. Barrios is an 89-year-old woman with history of diabetes mellitus, hypertension, and lymphoma, admitted with electrolyte derangements including hyponatremia, hyperkalemia, and renal failure. She is noted to be anemic and thrombocytopenic. She was observed to have episodes of atrial flutter with controlled ventricular response. Ms. Barrios denies any prior known history of arrhythmia or heart disease. She denies any recent bleeding issues or prior history of stroke or TIA. She denies any chest discomfort or dyspnea, but does observe occasional palpitations. REVIEW OF SYSTEMS: 12-system reviewed negative except for as noted above. PAST MEDICAL HISTORY: As per HPI. ALLERGIES: NO KNOWN DRUG ALLERGIES. SOCIAL HISTORY: No active smoking, alcohol, or drugs. FAMILY HISTORY: Noncontributory. PHYSICAL EXAMINATION: VITAL SIGNS: Temperature 96.8, heart rate 73, blood pressure 97/58, respiratory rate 22, O2 saturation 100%. GENERAL: In no acute distress, alert. NECK: No JVD. CHEST: Clear to auscultation. CARDIOVASCULAR: Irregularly irregular rate and rhythm. Normal S1, S2. No S3 or S4. Systolic ejection murmur left lower parasternal border. ABDOMEN: Soft. Bowel sounds positive. EXTREMITIES: Trace edema. CARDIOVASCULAR MEDICATIONS: Reviewed. Amiodarone 200 mg daily, Lovenox 40 mg subcu daily, and carvedilol 3.125 mg every 12 hours. STUDIES: Reviewed. Sodium 136, potassium 4.2, chloride 103, bicarbonate 22, BUN 38, creatinine 1.2, glucose 121. White blood cells 6.4, hemoglobin 9.5, platelets 130,000. AST 107, ALT 30, alkaline phosphatase 77, total bilirubin 0.3. ASSESSMENT: An 89-year-old woman presents with atrial flutter in the setting of preserved left ventricular systolic function, nonvalvular atrial flutter, diabetes mellitus, hypertension, COPD, hyponatremia improved, hyperkalemia improved, renal failure with creatinine 1.2, anemia, thrombocytopenia, lymphoma. PLAN: 1. I will titrate Lovenox to 1 mg/kg q.12 hours. 2. Continue beta-efrem and low-dose amiodarone for now. 3. Echocardiogram has been reviewed, preserved left ventricular systolic function. 4. Ferritin iron TIBC percent sat have been ordered and pending, fecal occult blood test. 5. also ordered. Further recommendations regarding anticoagulation strategy to follow. Please call with any questions at [phone]. MD CHARLES Busch/MARKY /[id number]
[2020-03-10] VITALS (8 sets, daily range): BP systolic 101–128; BP diastolic 52–72
[2020-03-10 05:15] LABS: BASOPHILS % 0.5 % (0.0-1.0); EOSINOPHILS # (AUTO) 0.1 (0.0-0.4); HEMATOCRIT 32.3 % (34.2-44.1); HEMOGLOBIN 9.8 g/dL (12.0-16.0); LYMPHOCYTES # (AUTO) 0.5 (1.0-3.2); LYMPHOCYTES % 8.2 % (18.0-39.1); MEAN CORPUSCULAR HEMOGLOBIN 25.7 pg (28-32); MEAN CORPUSCULAR HGB CONC 30.3 g/dL (31-35); MEAN CORPUSCULAR VOLUME 84.6 fL (81-99); MONOCYTES # (AUTO) 0.5 (0.2-0.8); MONOCYTES % 7.9 % (4.4-11.3); NEUTROPHILS # (AUTO) 4.9 (2.1-6.9); NEUTROPHILS % 80.6 % (38.7-80.0); PLATELET COUNT 170 x10e3/uL (140-360); RED BLOOD COUNT 3.82 x10e6/uL (3.6-5.1); RED CELL DISTRIBUTION WIDTH 18.7 % (11.7-14.4)
[2020-03-10 05:34] LABS: ALBUMIN/GLOBULIN RATIO 0.7 (0.8-2.0); ANION GAP 10.9 mmol/L (8-16); CALCIUM 8.1 mg/dL (8.4-10.2); CREATININE, SERUM 1.26 mg/dL (0.57-1.11); POTASSIUM 3.9 mmol/L (3.5-5.1)
[2020-03-10] MEDS: PIPER-TAZ 3.375 GM 50 ML IV SCH ×3 (06:09→23:45)
[2020-03-10] MEDS: IPRATROPIUM BROMIDE 0.02% 2.5 ML NEB NEB SCH ×4 (07:00→20:35)
[2020-03-10] MEDS: INSULIN LISPRO 100 UNIT/1 ML 3ML VIAL SQ SCH ×4 (07:30→21:02)
--- NOTE | 2020-03-10 07:40 | Progress Note ---
DATE: SUBJECTIVE: The patient is not having any respiratory distress this morning. She received some additional IV fluids yesterday. PHYSICAL EXAMINATION: VITAL SIGNS: The blood pressure is 120/72, saturation is 97% on 2 L. HEENT: Shows no facial swelling or erythema. LYMPHATIC: Shows no submandibular, cervical or supraclavicular adenopathy. CARDIAC: Reveals regular rate and rhythm with normal S1 and S2. LUNGS: Auscultation of lungs rhonchorous breath sounds bilaterally. There is no wheezing. ABDOMEN: Soft, nontender. There is no rebound or guarding. EXTREMITIES: Shows no leg edema or calf tenderness. There is no cyanosis or clubbing. SKIN: Shows no rashes. NEUROLOGICAL: Shows no focal abnormalities. LABORATORY DATA: White blood cell count is 6.07 and hemoglobin is 9.8 and the platelet count is 170. The BUN to creatinine ratio is 42 to 1.26 and the other electrolytes are within normal limits. The AST is 161 and the ALT is 65. The albumin is 2.0. IMPRESSION: 1. Lymphoma. 2. Atrial fibrillation. 3. Acute renal insufficiency. 4. Metabolic encephalopathy. 5. Anemia. 6. Hyponatremia. 7. Chronic obstructive pulmonary disease. PLAN: 1. Continue to monitor BUN and creatinine. 2. Complete current antibiotics. 3. Continue current cardiac regimen. 4. Physical therapy. 5. correction assessment. Matteo Ernandez MD [facility]/MODL /[id number]
[2020-03-10] MEDS: MULTIVITAMINS/MINERALS TAB PO SCH (08:39)
[2020-03-10] MEDS: CARVEDILOL 3.125 MG TAB PO SCH ×2 (08:39→17:50)
[2020-03-10] MEDS: AMIODARONE HCL 200 MG TAB PO SCH (08:39)
[2020-03-10] MEDS: SODIUM CHLORIDE 1 GM TAB PO SCH ×3 (08:39→20:31)
[2020-03-10] MEDS: FLUTICASONE PROPIONATE NASAL SPRAY NS SCH (08:39)
[2020-03-10] MEDS: ENOXAPARIN SODIUM INJ 100 MG/ML SYR SC SCH (08:40)
[2020-03-10] MEDS: ASCORBIC ACID 500 MG TAB PO SCH (08:40)
--- NOTE | 2020-03-10 10:00 | Operative Report ---
DATE OF PROCEDURE: SURGEON: Matteo Ernandez MD PROCEDURE: Central line placement under ultrasound guidance. PREOPERATIVE DIAGNOSIS: Acute renal failure. POSTOPERATIVE DIAGNOSIS: Acute renal failure. CONSENT: Consent was obtained from the daughter. MEDICATIONS: A 1% lidocaine for local anesthesia. PROCEDURE IN DETAIL: The right neck was prepped sterilely with chlorhexidine. A full length sterile drape, sterile mask, sterile gown, and sterile gloves were used. A 1% lidocaine was used to anesthetize the area between the heads of the sternocleidomastoid. The right internal jugular vein was localized with an ultrasound machine. It was then cannulated under direct visualization with a 16-gauge needle. A wire was passed through the needle. A dilator was used to open the skin and a triple-lumen catheter was placed over the wire by the Seldinger technique. All the ports flushed. COMPLICATIONS: None. ESTIMATED BLOOD LOSS: None. Matteo Ernandez MD [facility]/MODL /[id number]
--- NOTE | 2020-03-10 10:11 | Diagnostic Imaging Report ---
EXAMINATION: CHEST XRAY LINE PLACEMENT INDICATION: CENTRAL LINE PLACEMENT COMPARISON: Multiple prior chest radiograph including most recent on 03/08/2020. FINDINGS: TUBES and LINES: There has been interval placement of right internal jugular central venous catheter which terminates in the cavoatrial junction. Right PICC terminates in the cavoatrial junction, unchanged. LUNGS: No interval change in right infrahilar and left basilar airspace opacities. PLEURA: No pleural effusion or pneumothorax. HEART AND MEDIASTINUM: The cardiomediastinal silhouette is unchanged. BONES AND SOFT TISSUES: No acute osseous lesion. Soft tissues are unremarkable. UPPER ABDOMEN: No free air under the diaphragm. IMPRESSION: 1. Interval placement of right internal jugular central venous catheter which terminates in the cavoatrial junction. Right PICC terminates in the cavoatrial junction, unchanged. 2. No interval change in radiographic appearance of the lungs. Signed by: Evelyn Cooper MD on 03/10/2020 10:07 AM
--- NOTE | 2020-03-10 13:06 | Progress Note ---
DATE: 03/10/2020 Cardiology Progress Note SUBJECTIVE: No new complaints today, back to sinus rhythm, on telemetry. OBJECTIVE: VITAL SIGNS: Temperature 96.8, heart rate 64, blood pressure 118/53, respiratory rate 16, and O2 saturation 96%. GENERAL: In no acute distress, alert. NECK: No JVD. CHEST: Clear to auscultation. CARDIOVASCULAR: Regular rate and rhythm. Normal S1, S2. ABDOMEN: Soft. Bowel sounds positive. EXTREMITIES: Trace edema. CARDIOVASCULAR MEDICATIONS: Reviewed. 1. Lovenox 100 q.12 hours. 2. Carvedilol 3.125 mg every 12 hours. 3. Amiodarone 200 mg daily. LABORATORY STUDIES: Reviewed. Creatinine 1.2, sodium 137, potassium 3.9, chloride 106, bicarbonate 24, BUN 42, and glucose 94. White blood cells 6, hemoglobin 9.8, platelets 170. Iron 50, total iron binding capacity decreased to 220%, saturation is 23%, transferrin is 157, ferritin is 8292. Fecal occult blood test is positive. AST 161, ALT is 65, alkaline phosphatase is 76, and total bilirubin 0.3. ASSESSMENT AND PLAN: An 89-year-old woman with chronic obstructive pulmonary disease, atrial flutter, lymphoma, anemia with positive occult blood test. RECOMMENDATIONS: 1. Continue beta-efrem. 2. Given fecal occult blood test, consider GI consultation and switch back Lovenox to 40 subcu daily for DVT prophylaxis. Monitoring for any signs of gross bleeding as well as monitoring H and H. Jarrett Cronin MD [facility]/MARKY /[id number]
[2020-03-10] MEDS: ENOXAPARIN SOD INJ 40 MG/0.4 ML SYR SC SCH (15:23)
[2020-03-10] MEDS: SODIUM CHLORIDE 0.9% 1000ML 1,000 ML IV SCH (17:00)
[2020-03-10] MEDS: AZITHROMYCIN 500MG/NS 250 ML 250 ML IV SCH (20:31)
[2020-03-11] VITALS (8 sets, daily range): BP systolic 115–139; BP diastolic 46–96
[2020-03-11] MEDS: SODIUM CHLORIDE 0.9% 1000ML 1,000 ML IV SCH ×3 (04:22→23:24)
[2020-03-11] MEDS: PIPER-TAZ 3.375 GM 50 ML IV SCH ×3 (06:16→23:24)
[2020-03-11 07:00] LABS: ANION GAP 10.9 mmol/L (8-16); CALCIUM 8.5 mg/dL (8.4-10.2); CREATININE, SERUM 1.03 mg/dL (0.57-1.11); POTASSIUM 3.9 mmol/L (3.5-5.1)
[2020-03-11] MEDS: INSULIN LISPRO 100 UNIT/1 ML 3ML VIAL SQ SCH ×4 (07:19→21:49)
[2020-03-11 07:54] LABS: BASOPHILS % 0.3 % (0.0-1.0); EOSINOPHILS # (AUTO) 0.1 (0.0-0.4); EOSINOPHILS % 1.3 % (0.0-6.0); HEMATOCRIT 31.1 % (34.2-44.1); HEMOGLOBIN 9.4 g/dL (12.0-16.0); LYMPHOCYTES # (AUTO) 0.6 (1.0-3.2); LYMPHOCYTES % 9.7 % (18.0-39.1); MEAN CORPUSCULAR HEMOGLOBIN 25.7 pg (28-32); MEAN CORPUSCULAR HGB CONC 30.2 g/dL (31-35); MONOCYTES # (AUTO) 0.4 (0.2-0.8); MONOCYTES % 6.9 % (4.4-11.3); PLATELET COUNT 187 x10e3/uL (140-360); RED BLOOD COUNT 3.66 x10e6/uL (3.6-5.1); RED CELL DISTRIBUTION WIDTH 19.4 % (11.7-14.4)
[2020-03-11] MEDS: ASCORBIC ACID 500 MG TAB PO SCH (08:08)
[2020-03-11] MEDS: AMIODARONE HCL 200 MG TAB PO SCH (08:08)
[2020-03-11] MEDS: MULTIVITAMINS/MINERALS TAB PO SCH (08:08)
[2020-03-11] MEDS: FLUTICASONE PROPIONATE NASAL SPRAY NS SCH (08:08)
[2020-03-11] MEDS: SODIUM CHLORIDE 1 GM TAB PO SCH ×3 (08:08→21:47)
[2020-03-11] MEDS: CARVEDILOL 3.125 MG TAB PO SCH ×2 (08:08→16:00)
[2020-03-11] MEDS: IPRATROPIUM BROMIDE 0.02% 2.5 ML NEB NEB SCH ×4 (08:20→19:06)
--- NOTE | 2020-03-11 09:43 | Progress Note ---
DATE: SUBJECTIVE: The patient is afebrile. The patient is scheduled for EGD today as well as a bleeding scan because of positive Hemoccult. Renal function has improved. PHYSICAL EXAMINATION: VITAL SIGNS: The blood pressure is 133/96 and the pulse is 68. Saturation is 97% on 2 L. HEENT: Shows no facial swelling or erythema. LYMPHATIC: Shows no submandibular, cervical, or supraclavicular adenopathy. CARDIAC: Reveals regular rate and rhythm with normal S1 and S2. LUNGS: Auscultation of lungs reveals rhonchorous breath sounds bilaterally. There is no wheezing. ABDOMEN: Soft and nontender. There is no rebound or guarding. EXTREMITIES: Shows no leg edema or calf tenderness. There is no cyanosis or clubbing. SKIN: Shows no rashes. LABORATORY DATA: White blood cell count is 6.27, hemoglobin 9.4, and the platelet count is 187. The BUN to creatinine ratio is 38 to 1.03 and the other electrolytes are within normal limits. IMPRESSION: 1. Anemia secondary to chronic blood loss. 2. Lymphoma. 3. Atrial fibrillation. 4. Acute renal insufficiency. 5. Metabolic encephalopathy. 6. Hyponatremia. 7. Chronic obstructive pulmonary disease. PLAN: 1. The patient is scheduled for EGD and bleeding scan today. 2. Complete current antibiotics. 3. Physical therapy. 4. Continue current cardiac regimen. 5. Discussed disposition with Case Management and Dr. Pena. MD FRED Cárdenas/MARKY /[id number]
--- NOTE | 2020-03-11 11:39 | Progress Note ---
DATE: 03/10/2020 CONSULTANTS: 1. Dr. Carpenter with Cardiology. 2. Dr. Ernandez, Kitchen Designer. SUBJECTIVE: The patient is seen sitting up in bed, reports shortness of breath is improving, denies any chest pain, cough, or abdominal pain. OBJECTIVE: VITAL SIGNS: Temperature 97.0, pulse is 62, respirations 18, blood pressure 128/64, pulse ox is 98% on 2 L of nasal cannula. GENERAL: Fatigue. HEENT: Normocephalic, atraumatic. NECK: Supple. LUNGS: Decreased breath sounds. CARDIOVASCULAR: Regular rate and rhythm. ABDOMEN: Soft and nontender, obese. NEUROLOGIC: Alert, awake, and oriented times 2 to 3, forgetful. MUSCULOSKELETAL: Moves all extremities. SKIN: Intact. No rash. PSYCH: Calm. LABORATORY DATA: WBC 6.02, hemoglobin 9.8, hematocrit 32.3, platelet 170,000. Sodium 137, potassium 3.9, BUN 42, creatinine 1.26, estimated GFR is 40, glucose 94, calcium 8.1, AST 161, ALT 65, total bilirubin 0.3. Stool occult was positive. ASSESSMENT AND PLAN: 1. Metabolic encephalopathy present on admission, improving some. 2. Acute respiratory distress. CT chest was reviewed with Dr. Ernandez and her daughter. She will be following up with [facility] associated with Berta Stephenson for further workup and treatment, per daughter [facility] was planning to start her on immunosuppressant therapy. 3. Chronic anemia. Hemoglobin is stable at 9.8. Fecal occult blood was positive and GI has been consulted for further workup. 4. Chronic obstructive pulmonary disease. Stable. Continue on O2 and medications. 5. Right lower extremity swelling likely due to PICC line. Doppler was negative for DVT. PICC line has been removed. 6. Atrial flutter. Dr. Carpenter has been consulted. Heart rate is stable. 7. Anticoagulation per Cardiology. 8. GI and DVT prophylaxis. Lovenox has been decreased to 40 mg subcu due to anemia. 9. Acute kidney injury. Creatinine is 1.26 today. We will give 1 L of NS and repeat labs in a.m. 10. Elevated LFTs. We will check lipid panel. GI on the case. 11. Disposition. [facility] facility once medically stable. Dictated by ENID Correa Yiching MD PAULA Alvarado/MARKY /[id number]
--- NOTE | 2020-03-11 11:39 | Progress Note ---
DATE: 03/09/[address] Matteo Ernandez, Staffing Assistant. 2. Dr. Caruso, timber treating tank operator. 3. Dr. Carpenter, Cardiology. SUBJECTIVE: The patient with improved shortness of breath, she was seen working with physical therapy with daughter at bedside. OBJECTIVE: VITAL SIGNS: Temperature 96.8, pulse is 76, respirations 22, blood pressure 97/58, pulse ox is 98% on 2 L of nasal cannula. GENERAL: Fatigue. SKIN: Dry and intact. LUNGS: Decreased breath sounds. CARDIOVASCULAR: Regular rate and rhythm. ABDOMEN: Soft and nontender. MUSCULOSKELETAL: Moves all extremities. No edema. NEURO: Alert, awake, and oriented x3. PSYCH: Calm. LABORATORY DATA: WBC 6.41, hemoglobin 9.5, hematocrit 30.8, platelets 130,000. Sodium 136, potassium 4.2, creatinine 1.23, BUN 38, AST 107, ALT 30. 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 ASSESSMENT AND PLAN: 1. Hyponatremia due to hypovolemia, now resolved. Renal on the case. 2. Metabolic encephalopathy present on admission, likely due to hyponatremia, improved. 3. Acute on chronic pulmonary disease. CT chest with contrast was negative for PE, showed small pleural effusion and lymphoma. Discussed with daughter, has had workup at [facility] and agrees to follow up with Berta Stephenson oncologist per appointment. Dr. Carty on the case. 4. Chronic anemia, stable. 5. Right upper extremity swelling. Venous Doppler was negative for DVT. 6. Atrial flutter. Dr. Carpenter on the case. Continue to monitor on telemetry. 7. GI and DVT prophylaxis. Continue Lovenox. PLAN: Continue current treatment, discuss with daughter at bedside regarding findings and treatment plan. She reports that her caregiver will not be able to care for her at this time so although she does not want to go to [facility], she would like her mother to go to another long-term facility, social science professor aware. Dictated by ENID Correa YiMD TRE Sykes /[id number] MTDMaria L
--- NOTE | 2020-03-11 13:09 | Diagnostic Imaging Report ---
Tagged-RBC GI Bleed Study Clinical information: 89-year-old female with anemia and possible GI bleed. Discussion: The patient's own red blood cells were labeled with 27 mCi of technetium-99m pertechnetate using the in vitro method (UltraTag). Dynamic images of the abdomen were obtained through 60 minutes. Distribution of tracer activity appears physiologic throughout the abdomen. No abnormal accumulation of tracer is seen within the gastrointestinal lumen. Impression: No scan evidence of active gastrointestinal bleeding at this time. Signed by: Dr. Jolene Hi M.D. on 03/11/2020 1:05 PM
--- NOTE | 2020-03-11 14:50 | Progress Note ---
DATE: 03/11/2020 Cardiology Progress Note. SUBJECTIVE: Ms. Barrios is undergoing GI evaluation today for fecal occult blood test positive and anemia. She denies any chest pain or shortness of breath. OBJECTIVE: VITAL SIGNS: Temperature 97.8, heart rate 69, blood pressure 124/51, respiratory rate 20, O2 saturation 96%. GENERAL: No acute distress, alert. NECK: No JVD. CHEST: Clear to auscultation. CARDIOVASCULAR: Regular rate and rhythm. Normal S1, S2. On telemetry, sinus rhythm. ABDOMEN: Soft. Bowel sounds positive. EXTREMITIES: Trace edema. CARDIOVASCULAR MEDICATIONS: Reviewed: 1. Amiodarone 200 mg daily. 2. Lovenox 40 mg subcu daily. 3. Carvedilol 3.125 mg b.i.d. STUDIES: Reviewed: Creatinine 1, sodium 138, potassium 3.9, chloride 107, bicarbonate 24, BUN 38, glucose 97. White blood cell 6.2, hemoglobin 9.4, platelets 187. AST 161, ALT 65, alkaline phosphatase 76. Total bilirubin 0.3. ASSESSMENT AND PLAN: An 89-year-old woman presents with paroxysmal atrial flutter, diabetes, anemia, hypertension, electrolyte derangements. RECOMMENDATIONS: 1. GI eval for anemia which is ongoing, appreciate input. 2. Continue beta efrem. 3. DVT prophylaxis. MD CHARLES Busch/MARKY /[id number] MTDD
--- NOTE | 2020-03-11 19:00 | NUR ---
Received pt. from [facility]. via bed accompanied by hospital personnel. Alert, Oxygen on at 3L per nasal cannula. Respirations are even and unlabored.
[2020-03-11] MEDS: ALBUTEROL SULF 0.083% NEB SOLN 3 ML NEB NEB PRN (19:06)
[2020-03-11] MEDS ORDERED: PROPOFOL IV EMULSION 10 MG/ML 20 ML VIAL ONE (19:21)
[2020-03-11] MEDS: ENOXAPARIN SOD INJ 40 MG/0.4 ML SYR SC SCH (20:04)
[2020-03-11] MEDS: PANTOPRAZOLE 40 MG 10ML VIAL IV SCH (20:06)
--- NOTE | 2020-03-11 20:11 | Progress Note ---
DATE: 03/11/2020 CONSULTANTS: 1. Dr. Carpenter, Cardiology. 2. Dr. Ernandez, yardmaster. 3. Dr. Mehta, GI. SUBJECTIVE: The patient was seen, status post GI bleed scan imaging. She reports that she has right shoulder chronic pain, but no events overnight. She denies any chest pain, shortness of breath, nausea, or vomiting. OBJECTIVE: VITAL SIGNS: Temperature is 98.4, pulse is 60, respirations 20, blood pressure 124/51, pulse ox is 99% on 2 L of nasal cannula. GENERAL: Fatigue. HEENT: Normocephalic, atraumatic. NECK: Supple. LUNGS: Decreased breath sounds. CARDIOVASCULAR: Regular rate and rhythm. ABDOMEN: Soft and nontender, obese. NEUROLOGIC: Alert, awake, oriented x2-3. Forgetful. MUSCULOSKELETAL: Moves all extremities. SKIN: No rash. PSYCH: Calm. LABORATORY DATA: WBC 6.27, hemoglobin 9.4, hematocrit 31.1, and platelets 187. . Sodium 138, potassium 3.9, BUN 38, creatinine 1.03, and blood sugar 168. Ferritin level 2649, vitamin B12 423, folate is pending. GI bleeding scan showed no scan evidence of active GI bleed at this time. ASSESSMENT AND PLAN: 1. Metabolic encephalopathy, present on admission, which is improving. 2. Acute respiratory distress. CT chest with contrast reviewed. The patient will be following up with [facility] for immunosuppressant therapy per daughter. 3. Chronic anemia. Hemoglobin is 9.4. Fecal occult was positive, so GI has been consulted for further workup. GI bleeding scan was negative for acute GI bleed. She is to have EGD tomorrow. 4. Chronic obstructive pulmonary disease. Stable. Continue O2 and medications. 5. Right upper extremity swelling. Likely due to PICC line. Doppler was negative for DVT. 6. Atrial fibrillation. Heart rate is controlled. Anticoagulation for CVA prophylactic, pending GI workup. 7. Acute kidney injury. Improved with IV fluid hydration. 8. Elevated LFTs. We will check lipid panel and monitor . 9. GI and DVT prophylaxis. Lovenox has been decreased to 40 mg subcu due to anemia. 10. Disposition. To [facility] facility when medically stable. Dictated by Vielka Harmon, ANP YiMD PAULA Sykes/MARKY /[id number]
--- NOTE | 2020-03-11 20:16 | Operative Report ---
DATE OF PROCEDURE: 03/11/2020 SURGEON: Sanjeev Mehta MD PROCEDURE: EGD with biopsies. INDICATION FOR PROCEDURE: Anemia, positive occult blood in stools. MEDICATIONS: The patient was done under MAC, please see anesthesiologist's note. PROCEDURE IN DETAIL: With the patient in the left lateral decubitus position, a flexible fiberoptic Olympus gastroscope was introduced into the esophagus under direct visualization without any difficulty. There was some patchy erythema noted in distal esophagus. The scope was then advanced with ease into the stomach traversing a small sliding hiatal hernia. Several gastric ulcers were noted in the antrum. The majority of which were minute with the largest approximately 8 mm in size with heaped up margins and black exudate and crater, compatible with recent hemorrhage. Biopsies were obtained. The pylorus was of normal contour and shape, was intubated with ease and the scope was advanced all the way to the second portion of the duodenum. The scope was then withdrawn slowly. Mucosa overlying the proximal second portion and the duodenal bulb appeared to be within normal limits. The scope was then withdrawn back into the stomach and retroflexed. The previously described hiatal hernia was also noted in the retroflexed position. Mucosa overlying the fundus appeared to be within normal limits. The scope was then straightened out, it was subsequently withdrawn, and the patient tolerated the procedure well. IMPRESSION: 1. Distal esophagitis, mild. 2. Small sliding hiatal hernia. 3. Gastritis, biopsied, biopsies sent to stain for Helicobacter pylori. 4. Gastric ulcers, antrum with largest approximately 8 mm in size with heaped up margins and stigmata of recent hemorrhage. Biopsies obtained. PLAN: Follow up histology. Initiate PPI therapy. Start Carafate 1 g p.o. before meals t.i.d. and at bedtime. Sanjeev Mehta MD [facility] /[id number] cc: Sarah Pena MD
--- NOTE | 2020-03-11 20:55 | NUR ---
Report given to Angelique LEWIS.
[2020-03-11] MEDS: SUCRALFATE 1 GM TAB PO SCH (21:47)
[2020-03-11] MEDS: AZITHROMYCIN 500MG/NS 250 ML 250 ML IV SCH (21:47)
--- NOTE | 2020-03-11 22:05 | NUR ---
PATIENT RECEIVED FROM [facility]. PATIENT IS RESTING IN BED, PATIENT IS CONFUSED. RESP EVEN AND UNLABORED. NO ACUTE DISTRESS NOTED AT THIS TIME. TELE IN PLACE.NAVA IN PLACE. EDEMA TO RIGHT ARM NOTED. EDUCATED PT ABOUT FALL PRECAUTIONS. BED IS LOW AND LOCKED. SIDE RAILS X2. CALL LIGHT WITH IN EASY REACH. BED ALARM IS ON. ALL SAFETY MEASURES IN PLACE. PT DENIES NEEDS AT THIS TIME.
--- NOTE | 2020-03-11 22:10 | NUR ---
Transferred pt. to Med. Surg. unit as per MD order. Transferred pt. via bed to room 214.
[2020-03-12] VITALS (8 sets, daily range): BP systolic 125–151; BP diastolic 58–65
[2020-03-12] MEDS: PIPER-TAZ 3.375 GM 50 ML IV SCH ×3 (05:34→22:02)
[2020-03-12 05:56] LABS: BASOPHILS % 0.4 % (0.0-1.0); EOSINOPHILS % 0.7 % (0.0-6.0); HEMATOCRIT 30.9 % (34.2-44.1); HEMOGLOBIN 9.2 g/dL (12.0-16.0); LYMPHOCYTES # (AUTO) 0.6 (1.0-3.2); LYMPHOCYTES % 10.4 % (18.0-39.1); MEAN CORPUSCULAR HEMOGLOBIN 25.6 pg (28-32); MEAN CORPUSCULAR HGB CONC 29.8 g/dL (31-35); MEAN CORPUSCULAR VOLUME 85.8 fL (81-99); MONOCYTES # (AUTO) 0.5 (0.2-0.8); MONOCYTES % 8.1 % (4.4-11.3); NEUTROPHILS # (AUTO) 4.5 (2.1-6.9); NEUTROPHILS % 79.2 % (38.7-80.0); PLATELET COUNT 175 x10e3/uL (140-360); RED CELL DISTRIBUTION WIDTH 19.8 % (11.7-14.4)
[2020-03-12 06:24] LABS: ALANINE AMINOTRANSFERASE 124 IU/L (0-55); ALBUMIN 2.1 g/dL (3.5-5.0); ALBUMIN/GLOBULIN RATIO 0.8 (0.8-2.0); ALKALINE PHOSPHATASE 78 IU/L (40-150); ANION GAP 13.2 mmol/L (8-16); BLOOD UREA NITROGEN 27 mg/dL (7-26); BUN/CREATININE RATIO 32 (6-25); CALCIUM 8.4 mg/dL (8.4-10.2); CARBON DIOXIDE 23 mmol/L (22-29); CHLORIDE 108 mmol/L (98-107); CHOL/HDL RATIO 4.2 (3.0-3.6); CHOLESTEROL 92 MD/DL (0-199); CREATININE, SERUM 0.84 mg/dL (0.57-1.11); EST GLOMERULAR FILTRATION RATE > 60 ML/MIN (60-); GLUCOSE 127 mg/dL (74-118); HDL CHOLESTEROL 22 MG/DL (40-60); LDL CHOLESTEROL 41 MG/DL (60-130); POTASSIUM 4.2 mmol/L (3.5-5.1); SODIUM 140 mmol/L (136-145); TRIGLYCERIDES 144 MG/DL (0-149)
[2020-03-12] MEDS: PANTOPRAZOLE 40 MG 10ML VIAL IV SCH ×2 (06:32→17:45)
[2020-03-12] MEDS: IPRATROPIUM BROMIDE 0.02% 2.5 ML NEB NEB SCH ×4 (06:48→19:42)
--- NOTE | 2020-03-12 07:00 | NUR ---
BEDSIDE SHIFT REPORT RECEIVED FROM CLIENT TECHNICAL PROFESSIONAL RN. PT DENIES NEEDS AT THIS TIME.
[2020-03-12] MEDS: INSULIN LISPRO 100 UNIT/1 ML 3ML VIAL SQ SCH ×4 (07:30→21:38)
[2020-03-12] MEDS: SUCRALFATE 1 GM TAB PO SCH ×4 (08:54→20:06)
[2020-03-12] MEDS: SODIUM CHLORIDE 0.9% 1000ML 1,000 ML IV SCH (08:54)
[2020-03-12] MEDS: FLUTICASONE PROPIONATE NASAL SPRAY NS SCH (08:55)
[2020-03-12] MEDS: AMIODARONE HCL 200 MG TAB PO SCH (08:55)
[2020-03-12] MEDS: SODIUM CHLORIDE 1 GM TAB PO SCH (08:55)
[2020-03-12] MEDS: MULTIVITAMINS/MINERALS TAB PO SCH (08:55)
[2020-03-12] MEDS: CARVEDILOL 3.125 MG TAB PO SCH ×2 (08:55→17:44)
[2020-03-12] MEDS: ASCORBIC ACID 500 MG TAB PO SCH (08:55)
--- NOTE | 2020-03-12 10:52 | NUR ---
FACILITY REQUESTED UPDATES AND FAXED THEM. PENDING AUTH.
[2020-03-12] MEDS: FUROSEMIDE INJ 10 MG/ML 4 ML VIAL IV SCH ×3 (11:54→20:06)
--- NOTE | 2020-03-12 13:00 | Progress Note ---
DATE: SUBJECTIVE: The patient underwent an EGD yesterday and EGD showed gastritis and esophagitis. PHYSICAL EXAMINATION: VITAL SIGNS: Shows no fever. The vital signs are stable. HEENT: Shows no facial swelling or erythema. LYMPHATIC: Shows no submandibular, cervical, or supraclavicular adenopathy. CARDIAC: Reveals regular rate and rhythm with normal S1 and S2. LUNGS: Auscultation of lungs reveals rhonchorous breath sounds bilaterally. There is no wheezing. ABDOMEN: Soft, nontender. There is no rebound or guarding. EXTREMITIES: Shows no leg edema or calf tenderness. LABORATORY DATA: White blood cell count is 5.6, hemoglobin is 9.2, and the platelet count is 175,000. The BUN to creatinine ratio is normal. The other electrolytes are within normal limits. A bleeding scan shows no evidence of acute GI bleeding. IMPRESSION: 1. Anemia secondary to chronic blood loss. 2. Gastritis and esophagitis. 3. Lymphoma. 4. Atrial fibrillation. 5. Acute renal insufficiency. 6. Metabolic encephalopathy. 7. Chronic obstructive pulmonary disease. PLAN: 1. The patient will be scheduled for an EGD. The patient will continue physical therapy. 2. Continue antireflux and antiulcer regimen. 3. Continue to monitor renal function. 4. Continue current cardiac regimen. 5. SNF placement. Matteo Ernandez MD [facility]ANL /[id number]
--- NOTE | 2020-03-12 13:15 | Progress Note ---
DATE: 03/12/2020 Cardiology Progress Note SUBJECTIVE: No new complaints. OBJECTIVE: VITAL SIGNS: Temperature 97.5, heart rate 62, blood pressure 144/62, respiratory rate 22, and O2 saturation 96%. BMI 38. GENERAL: In no acute distress. Alert. NECK: No JVD. CHEST: Clear to auscultation. CARDIOVASCULAR: Regular rate and rhythm. S1 and S2. ABDOMEN: Soft. Bowel sounds positive. EXTREMITIES: Trace edema. CARDIOVASCULAR MEDICATIONS: Reviewed. Amiodarone 200 mg daily, Lovenox 20 mg subcutaneous daily, carvedilol 3.125 mg b.i.d., Sucralfate, and Protonix q.12 hours. STUDIES: Reviewed. Creatinine 0.8 and glucose 127. White blood cells 5.6, hemoglobin 9.2, and platelets 175. AST 186, ALT 124, and alkaline phosphatase 70. ASSESSMENT AND PLAN: 1. An 89-year-old woman with peptic ulcer disease, ulcer with stigmata of recent bleeding, gastritis, and esophagitis noted on EGD. Appreciate GI input. 2. Anemia. 3. Paroxysmal atrial flutter. 4. Hypertension. 5. Dementia. 6. Electrolyte derangements. RECOMMEND: At this point, not a candidate for anticoagulation given peptic ulcer disease and anemia. Re-address this as outpatient after she has completed treatment for peptic ulcer disease and followup for healing with GI. Continue rate control strategy. Electrolyte adjustments per Nephrology expertise. MD CHARLES Busch/MARKY /[id number]
[2020-03-12] MEDS: ENOXAPARIN SOD INJ 40 MG/0.4 ML SYR SC SCH (17:45)
--- NOTE | 2020-03-12 18:21 | Progress Note ---
DATE: 03/12/2020 CONSULTANTS: 1. Dr. Carpenter, cardiology. 2. Dr. Ernandez, County Agricultural Agent. 3. Dr. Caruso, commercial intern. 4. Dr. Mehta, GI. SUBJECTIVE: The patient with wheezing and some shortness of breath. Has edema in the upper extremities and wheezing. IV fluids discontinued and started on Lasix IV. OBJECTIVE: VITAL SIGNS: Temperature 97.3, pulse is 62, respirations 21, blood pressure 151/65, and pulse ox is 95% on 2 L of oxygen. GENERAL: Fatigue. HEENT: Normocephalic, atraumatic. NECK: Supple. LUNGS: Wheezing with decreased breath sounds. CARDIOVASCULAR: Regular rate and rhythm. ABDOMEN: Soft and nontender, obese. NEUROLOGIC: Alert, awake, and oriented x2-3, forgetful. MUSCULOSKELETAL: Moves all extremities. Edema noted in the upper extremities greater than lower. SKIN: Dry. No rash. PSYCH: Calm. LABORATORY DATA: WBC 5.67, hemoglobin 9.2, hematocrit 30.9, and platelet 175. Sodium 140, potassium 4.2, CO2 of 23, creatinine 0.84, estimated GFR is greater than 60. Blood glucose 127. AST 186, ALT 124. Triglycerides 144, LDL 41, HDL 22. ASSESSMENT AND PLAN: 1. Metabolic encephalopathy, present on admission. Now improving. 2. Acute respiratory distress. CT chest with contrast reviewed. We will follow up with [facility] for further workup and treatment. Discussed with them on phone. 3. Juhzv-xt-cuorjkx anemia. Fecal occult was positive. Status post bleeding scan, which was negative. EGD showed peptic ulcer disease. 4. Chronic obstructive pulmonary disease. Stable. Continue O2 and nebs. 5. Right upper extremity edema. PICC line was removed. Doppler was negative for deep venous thrombosis. 6. Atrial fibrillation. Heart rate is controlled. No anticoagulation at this time for cerebrovascular accident prophylactic per Cardiology due to peptic ulcer disease. 7. Acute kidney injury. Improved. Now with fluid overload. Started on Lasix IV per Nephrology. 8. Elevated LFTs. Lipid panel within normal limits. We will continue to monitor. 9. Gastrointestinal and deep venous thrombosis prophylaxis. Continue Lovenox subcu. 10. Disposition. To [facility] facility once medically stable. Dictated by ENID Correa Yiching MD PAULA Alvarado/MARKY /[id number]
[2020-03-12] MEDS: ALBUTEROL SULF 0.083% NEB SOLN 3 ML NEB NEB PRN (19:42)
[2020-03-12] MEDS: AZITHROMYCIN 500MG/NS 250 ML 250 ML IV SCH (20:06)
[2020-03-13] VITALS (8 sets, daily range): BP systolic 110–133; BP diastolic 42–75
[2020-03-13] MEDS: ACETAMINOPHEN 325 MG TAB PO PRN (03:46)
[2020-03-13 05:07] LABS: BASOPHILS % 0.2 % (0.0-1.0); EOSINOPHILS % 0.7 % (0.0-6.0); HEMOGLOBIN 9.1 g/dL (12.0-16.0); LYMPHOCYTES # (AUTO) 0.5 (1.0-3.2); LYMPHOCYTES % 8.7 % (18.0-39.1); MEAN CORPUSCULAR HEMOGLOBIN 25.3 pg (28-32); MEAN CORPUSCULAR HGB CONC 29.4 g/dL (31-35); MEAN CORPUSCULAR VOLUME 86.1 fL (81-99); MONOCYTES # (AUTO) 0.6 (0.2-0.8); MONOCYTES % 10.1 % (4.4-11.3); NEUTROPHILS # (AUTO) 4.7 (2.1-6.9); NEUTROPHILS % 79.1 % (38.7-80.0); PLATELET COUNT 150 x10e3/uL (140-360); RED CELL DISTRIBUTION WIDTH 19.9 % (11.7-14.4)
[2020-03-13] MEDS: PANTOPRAZOLE 40 MG 10ML VIAL IV SCH ×2 (05:22→18:26)
[2020-03-13] MEDS: PIPER-TAZ 3.375 GM 50 ML IV SCH ×2 (05:22→14:52)
[2020-03-13] MEDS: FUROSEMIDE INJ 10 MG/ML 4 ML VIAL IV SCH (05:22)
[2020-03-13 05:26] LABS: ALANINE AMINOTRANSFERASE 96 IU/L (0-55); ALBUMIN 2.1 g/dL (3.5-5.0); ALBUMIN/GLOBULIN RATIO 0.8 (0.8-2.0); ALKALINE PHOSPHATASE 77 IU/L (40-150); ANION GAP 10.9 mmol/L (8-16); BLOOD UREA NITROGEN 23 mg/dL (7-26); BUN/CREATININE RATIO 27 (6-25); CALCIUM 8.5 mg/dL (8.4-10.2); CARBON DIOXIDE 29 mmol/L (22-29); CHLORIDE 108 mmol/L (98-107); CREATININE, SERUM 0.85 mg/dL (0.57-1.11); EST GLOMERULAR FILTRATION RATE > 60 ML/MIN (60-); GLUCOSE 124 mg/dL (74-118); POTASSIUM 3.9 mmol/L (3.5-5.1); SODIUM 144 mmol/L (136-145)
[2020-03-13] MEDS: ALBUTEROL SULF 0.083% NEB SOLN 3 ML NEB NEB PRN ×3 (05:40→20:45)
--- NOTE | 2020-03-13 07:00 | NUR ---
BEDSIDE SHIFT REPORT RECEIVED FROM CIRCLE BEVELER RN. PT DENIES NEEDS AT THIS TIME.
[2020-03-13] MEDS: IPRATROPIUM BROMIDE 0.02% 2.5 ML NEB NEB SCH ×4 (07:22→20:30)
[2020-03-13] MEDS: INSULIN LISPRO 100 UNIT/1 ML 3ML VIAL SQ SCH ×4 (07:30→21:00)
[2020-03-13 07:43] LABS: HYPOCHROMASIA SLIGHT; OVALOCYTES FEW
[2020-03-13 07:44] LABS: POLYCHROMASIA FEW; RBC MORPHOLOGY COMMENT ABNORMAL
[2020-03-13 07:46] LABS: HELMET CELLS RARE; PLATELET ESTIMATE ADEQUATE; PLATELET MORPHOLOGY COMMENT NORMAL; SCHISTOCYTES RARE
--- NOTE | 2020-03-13 07:55 | NUR ---
SPOKE WITH FACILITY, STILL PENDING AUTH.
[2020-03-13] MEDS: SUCRALFATE 1 GM TAB PO SCH ×4 (08:49→21:03)
[2020-03-13] MEDS: FLUTICASONE PROPIONATE NASAL SPRAY NS SCH (08:49)
[2020-03-13] MEDS: AMIODARONE HCL 200 MG TAB PO SCH (08:49)
[2020-03-13] MEDS: CARVEDILOL 3.125 MG TAB PO SCH ×2 (08:52→17:00)
[2020-03-13] MEDS: ASCORBIC ACID 500 MG TAB PO SCH (08:53)
[2020-03-13] MEDS: MULTIVITAMINS/MINERALS TAB PO SCH (08:53)
[2020-03-13] MEDS ORDERED: METOLAZONE 5 MG TAB PO ONE (10:15)
[2020-03-13] MEDS: ENOXAPARIN SOD INJ 40 MG/0.4 ML SYR SC SCH (18:26)
--- NOTE | 2020-03-13 21:53 | Progress Note ---
DATE: 03/13/2020 CONSULTANTS: 1. Dr. Carpenter, Cardiology. 2. Dr. Ernandez, lime puller. 3. Dr. Caruso, communication electronic technician. 4. Dr. Mehta, GI. SUBJECTIVE: The patient is noted with slight improvement of her wheezing and shortness of breath. Edema in her right upper extremity is also improving. OBJECTIVE: VITAL SIGNS: Temperature 97.0, pulse is 59, respirations 20, blood pressure 128/51, pulse ox is 96% on 2 L nasal cannula. GENERAL: Fatigue. HEENT: Normocephalic and atraumatic. NECK: Supple. LUNGS: Wheezing with decreased breath sounds. CARDIOVASCULAR: Regular rate and rhythm. ABDOMEN: Soft and nontender, obese. NEUROLOGIC: Alert, awake, and oriented x2-3, forgetful. MUSCULOSKELETAL: Moves all extremities. Edema 2+ in the upper extremities. SKIN: Dry. No rash. PSYCH: Calm. LABORATORY DATA: WBC 5.87, hemoglobin 9.1, hematocrit 31.0, and platelets 150. Sodium 144, potassium 3.9, CO2 of 29, BUN is 23, creatinine is 0.85. Estimated GFR is greater than 60. Blood sugar 125, calcium 8.5, AST 103, ALT 96. BNP is 567, and albumin 2.1. ASSESSMENT AND PLAN: 1. Metabolic encephalopathy, present on admission, now improved. 2. Hyponatremia, now resolved, was on sodium tab per Renal. 3. Acute respiratory distress, likely due to fluid overload. CT chest with contrast reviewed. She will be following with [facility] for further workup and treatment. IV Lasix per fluid. 4. Niqpc-xi-wjuoizg anemia. Fecal occult was positive. Status post EGD per GI, which showed peptic ulcer disease. PPI. 5. Chronic obstructive pulmonary disease, stable. Continue on O2 NS. 6. Right upper extremity edema. PICC line was removed. Doppler with negative for DVT. 7. Atrial fibrillation. Heart rate controlled, no anticoagulation due to GI bleed. 8. Acute kidney injury. Now resolved with IV fluid hydration currently and fluid overload, started on Lasix per Nephrology. 9. Elevated LFTs. Lipid panel is within normal limits, slightly improving. 10. GI and DVT prophylaxis. PPI and Lovenox subcu. PLAN: To snf facility once cleared by all consults. Dictated by ENID Correa Yiching MD TRE Alvarado /[id number]
[2020-03-14] VITALS (8 sets, daily range): BP systolic 138–161; BP diastolic 51–75
--- NOTE | 2020-03-14 01:33 | Progress Note ---
DATE: 03/13/2020 Cardiology Progress Note SUBJECTIVE: The patient is short of breath and edematous. She had been receiving IV fluids, stopped 2 days ago. Subsequently, she received IV Lasix 40 mg q.8 hours with good diuresis. Her I's and O's show net negative of 4.3 L. The IV Lasix dose has been decreased to 40 mg daily. PHYSICAL EXAMINATION: VITAL SIGNS: Her blood pressure is 114/56 mmHg with a heart rate of 59 beats per minute. Her temperature is 99.1 oral, pulse oximetry shows 97% oxygen saturation. GENERAL: She is in no acute distress. She is awake, alert, oriented, and answering questions appropriately. NECK: Difficult to assess jugular venous pressure because of body habitus. CHEST: Decreased breath sounds, clear to auscultation. CARDIOVASCULAR: Regular rate and rhythm. Normal S1, S2. No murmurs heard. ABDOMEN: Soft, nontender, and not distended. EXTREMITIES: 1+ edema. CARDIOVASCULAR MEDICATIONS: Reviewed. LABORATORY DATA: Shows a white blood cell count of 5.8, hemoglobin is 9.1, hematocrit is 31, platelet count is 150,000 from 175,000 yesterday. Her basic metabolic profile shows a sodium of 144, potassium of 3.9, chloride of 108, carbon dioxide of 29, BUN of 23, creatinine of 0.85, glucose is 124. Her AST and ALT are elevated at 108 and 96 respectively. Her BNP is elevated at 568. Albumin is 2.1. ASSESSMENT AND PLAN: 89-year-old woman 1. Peptic ulcer disease, recent upper GI bleed, gastritis and esophagitis diagnosed on EGD. 2. Anemia. 3. Paroxysmal atrial flutter. 4. Hypertension. 5. Dementia. RECOMMENDATION: 1. The patient is not a candidate for anticoagulation given history of peptic ulcer disease, anemia and recent GI bleed 2. Continue IV Lasix, strict I/Os; monitor electrolytes and renal function 3. Continue current cardiovascular medications Zulma Drummond MD [facility]/MODL /[id number] [facility]ENTERMaria L
[2020-03-14] MEDS: ACETAMINOPHEN 325 MG TAB PO PRN ×2 (03:54→17:50)
--- NOTE | 2020-03-14 03:54 | NUR ---
PATIENT CALLED NURSE TO ROOM C/O PAIN ASKING FOR GABAPENTIN, PT WAS D/C GABAPENTIN OVER 7DAYS AGO BY RENAL DUE TO POSS KIDNEY/AMS ISSUE, CALLED DR TREADWELL AND STATES TO GIVE TYLENOL AND CALL BACK IF DOESN'T WORK. WILL CONT TO MONITOR PT.
[2020-03-14] MEDS: PANTOPRAZOLE 40 MG 10ML VIAL IV SCH ×2 (05:47→17:30)
[2020-03-14] MEDS: ALBUTEROL SULF 0.083% NEB SOLN 3 ML NEB NEB PRN ×2 (07:50)
[2020-03-14] MEDS: IPRATROPIUM BROMIDE 0.02% 2.5 ML NEB NEB SCH ×4 (07:50→19:53)
[2020-03-14 08:40] LABS: BASOPHILS % 0.3 % (0.0-1.0); EOSINOPHILS % 0.5 % (0.0-6.0); HEMATOCRIT 32.6 % (34.2-44.1); HEMOGLOBIN 9.7 g/dL (12.0-16.0); LYMPHOCYTES # (AUTO) 0.7 (1.0-3.2); LYMPHOCYTES % 11.1 % (18.0-39.1); MEAN CORPUSCULAR HEMOGLOBIN 25.4 pg (28-32); MEAN CORPUSCULAR HGB CONC 29.8 g/dL (31-35); MEAN CORPUSCULAR VOLUME 85.3 fL (81-99); MONOCYTES # (AUTO) 0.5 (0.2-0.8); MONOCYTES % 7.5 % (4.4-11.3); NEUTROPHILS # (AUTO) 4.7 (2.1-6.9); NEUTROPHILS % 78.9 % (38.7-80.0); PLATELET COUNT 132 x10e3/uL (140-360); RED BLOOD COUNT 3.82 x10e6/uL (3.6-5.1); RED CELL DISTRIBUTION WIDTH 20.4 % (11.7-14.4)
[2020-03-14 09:08] LABS: ALANINE AMINOTRANSFERASE 78 IU/L (0-55); ALBUMIN 2.3 g/dL (3.5-5.0); ALBUMIN/GLOBULIN RATIO 0.8 (0.8-2.0); ALKALINE PHOSPHATASE 85 IU/L (40-150); ANION GAP 11.5 mmol/L (8-16); BLOOD UREA NITROGEN 16 mg/dL (7-26); BUN/CREATININE RATIO 22 (6-25); CALCIUM 8.6 mg/dL (8.4-10.2); CARBON DIOXIDE 31 mmol/L (22-29); CHLORIDE 100 mmol/L (98-107); CREATININE, SERUM 0.74 mg/dL (0.57-1.11); EST GLOMERULAR FILTRATION RATE > 60 ML/MIN (60-); GLUCOSE 182 mg/dL (74-118); POTASSIUM 3.5 mmol/L (3.5-5.1); SODIUM 139 mmol/L (136-145)
[2020-03-14] MEDS: FUROSEMIDE INJ 10 MG/ML 4 ML VIAL IV SCH (10:04)
[2020-03-14] MEDS: ASCORBIC ACID 500 MG TAB PO SCH (10:04)
[2020-03-14] MEDS: AMIODARONE HCL 200 MG TAB PO SCH (10:04)
[2020-03-14] MEDS: MULTIVITAMINS/MINERALS TAB PO SCH (10:04)
[2020-03-14] MEDS: SUCRALFATE 1 GM TAB PO SCH ×4 (10:04→20:27)
[2020-03-14] MEDS: FLUTICASONE PROPIONATE NASAL SPRAY NS SCH (10:04)
[2020-03-14] MEDS: CARVEDILOL 3.125 MG TAB PO SCH ×2 (10:05→17:30)
[2020-03-14] MEDS: INSULIN LISPRO 100 UNIT/1 ML 3ML VIAL SQ SCH ×4 (10:06→20:27)
[2020-03-14] MEDS ORDERED: POTASSIUM CHLORIDE 20 MEQ TAB CR PO ONE (11:45)
[2020-03-14] MEDS ORDERED: METHYLPREDNISOLONE SOD SUCC 125 MG/2ML VIAL IV NR (13:30)
--- NOTE | 2020-03-14 13:59 | Diagnostic Imaging Report ---
EXAM: CHEST SINGLE (PORTABLE) DATE: 03/14/2020 1:30 PM INDICATION: CHF COMPARISON: 03/10/2020 FINDINGS: Right-sided central venous catheter identified in stable position. The trachea is midline. Again identified are grossly stable appearing interstitial opacities most prominent within the right infrahilar region. There is blunting of the costophrenic angles and trace effusions are suspected. There is no evidence for large focal consolidation, pneumothorax, or significant volume pleural effusion. The cardiomediastinal silhouette is stable in appearance. Stable prominence of the central pulmonary vascular structure again noted. No acute osseous abnormality is identified. IMPRESSION: No significant interval change from 03/10/2020 Signed by: Dr. Rupert Gaitan MD on 03/14/2020 1:55 PM
--- NOTE | 2020-03-14 14:13 | Progress Note ---
DATE: Pulmonary Critical Care Progress Note SUBJECTIVE: The patient has more dyspnea and wheezing today. She has some congestion and fevers. PHYSICAL EXAMINATION: VITAL SIGNS: Blood pressure is 138/64, saturation is 95% on 3 L, but she has some tachypnea. LUNGS: She has some wheezing on auscultation. She has crackles. CARDIAC: Reveals regular rate and rhythm with normal S1 and S2. ABDOMEN: Soft and nontender. There is no rebound or guarding. EXTREMITIES: Show 1 to 2+ leg edema. LABORATORY DATA: BUN to creatinine ratio is 16 to 0.74. The other electrolytes are within normal limits. The white blood cell count is 6 and the hemoglobin is 9.7. The platelet count is 132. IMPRESSION: 1. Anemia secondary to chronic blood loss. 2. Gastritis and esophagitis. 3. Lymphoma. 4. Chronic systolic and diastolic congestive heart failure. 5. Atrial fibrillation. 6. Chronic obstructive pulmonary disease. PLAN: 1. The patient will have a stat chest x-ray along with stat ABG. 2. Solu-Medrol x1. 3. Continue oxygen. 4. Continue diuretics. 5. Repeat laboratory values. Matteo Ernandez MD [facility] /[id number]
[2020-03-14 16:26] LABS: ABG HCO3 37 mmol/L (22-26); ABG PCO2 51 mmHg (35-45); ABG PH 7.46 (7.35-7.45); ABG PO2 68 mmHg (80-105); ABG TCO2 38
[2020-03-14] MEDS: ENOXAPARIN SOD INJ 40 MG/0.4 ML SYR SC SCH (17:30)
--- NOTE | 2020-03-14 20:04 | Progress Note ---
DATE: 03/14/2020 CONSULTANTS: 1. Dr. Carpenter. Cardiology. 2. Dr. Ernandez, deli slicer. 3. Dr. Caruso, recycling collections driver. 4. Dr. Mehta, GI. SUBJECTIVE: The patient is still wheezing with some shortness of breath. Edema is improving some. Denies any chest pain, fever, nausea, or vomiting. OBJECTIVE: VITAL SIGNS: respirations 24, blood pressure 138/75, pulse ox is 97% on room air. GENERAL: Fatigue. HEENT: Normocephalic, atraumatic. NECK: Supple. LUNGS: Wheezing with decreased breath sounds. CARDIOVASCULAR: Regular rate and rhythm. ABDOMEN: Soft, nontender, obese. NEUROLOGIC: Alert, awake and oriented x 2 to 3, forgetful. MUSCULOSKELETAL: Moves all extremities. Edema 2+ in the upper extremity. SKIN: Dry. No rash. PSYCH: Calm. LABORATORY DATA: WBC 6.01, hemoglobin 9.7, hematocrit 32.6, platelet 132. Sodium 139, potassium 3.5, CO2 31, creatinine 0.74, BUN 16, glucose 182, AST 74, ALT 78. ABG,; pH 7.46, pCO2 51, PO2 68, bicarb 37, FiO2 32. Chest x-ray, no significant interval change from 03/10. ASSESSMENT AND PLAN: 1. Metabolic encephalopathy, present on admission likely due to hyponatremia. Now improved. 2. Hyponatremia, now resolved. Renal in the case. 3. Acute respiratory distress on chronic obstructive pulmonary disease. CT chest with contrast reviewed. She will be following up with [facility] for further workup and treatment. Chest x-ray today is stable, ABG noted. Solu-Medrol given x1 . 4. Acute on chronic anemia. Status post EGD showed peptic ulcer disease. Continue PPI. 5. Right upper extremity edema. PICC line was removed and Doppler was negative for DVT. 6. Atrial fibrillation. Heart rate controlled, no anticoagulation due to GI bleed. 7. Acute kidney injury. Now resolved. 8. Elevated LFTs. Lipid panel within normal limits. Improving significantly. 9. GI and DVT prophylaxis. PPI and Lovenox subcu. PLAN: Continue current treatment, continue nebs, Solu-Medrol given x1 and Lasix. Anticipate discharge to half-way facility for rehabilitation once cleared by consultants. Dictated by Vielka Harmon, ANP MD PAULA Wray/MODL /[id number]
[2020-03-15] VITALS (9 sets, daily range): BP systolic 131–161; BP diastolic 55–76
[2020-03-15] MEDS: PANTOPRAZOLE 40 MG 10ML VIAL IV SCH ×2 (05:56→17:12)
[2020-03-15 06:19] LABS: BASOPHILS % 0.2 % (0.0-1.0); EOSINOPHILS % 0.5 % (0.0-6.0); HEMATOCRIT 32.4 % (34.2-44.1); HEMOGLOBIN 9.9 g/dL (12.0-16.0); LYMPHOCYTES # (AUTO) 0.8 (1.0-3.2); LYMPHOCYTES % 13.6 % (18.0-39.1); MEAN CORPUSCULAR HGB CONC 30.6 g/dL (31-35); MONOCYTES # (AUTO) 0.4 (0.2-0.8); MONOCYTES % 7.2 % (4.4-11.3); NEUTROPHILS # (AUTO) 4.4 (2.1-6.9); NEUTROPHILS % 76.7 % (38.7-80.0); PLATELET COUNT 147 x10e3/uL (140-360); RED BLOOD COUNT 3.81 x10e6/uL (3.6-5.1); RED CELL DISTRIBUTION WIDTH 20.4 % (11.7-14.4)
[2020-03-15 06:43] LABS: ALANINE AMINOTRANSFERASE 70 IU/L (0-55); ALBUMIN 2.2 g/dL (3.5-5.0); ALBUMIN/GLOBULIN RATIO 0.8 (0.8-2.0); ALKALINE PHOSPHATASE 75 IU/L (40-150); ANION GAP 13.5 mmol/L (8-16); BLOOD UREA NITROGEN 13 mg/dL (7-26); BUN/CREATININE RATIO 21 (6-25); CARBON DIOXIDE 34 mmol/L (22-29); CHLORIDE 94 mmol/L (98-107); CREATININE, SERUM 0.63 mg/dL (0.57-1.11); EST GLOMERULAR FILTRATION RATE > 60 ML/MIN (60-); GLUCOSE 114 mg/dL (74-118); POTASSIUM 3.5 mmol/L (3.5-5.1); SODIUM 138 mmol/L (136-145)
[2020-03-15] MEDS: IPRATROPIUM BROMIDE 0.02% 2.5 ML NEB NEB SCH ×4 (07:00→19:43)
[2020-03-15] MEDS: CARVEDILOL 3.125 MG TAB PO SCH ×2 (09:15→17:11)
[2020-03-15] MEDS: FLUTICASONE PROPIONATE NASAL SPRAY NS SCH (09:15)
[2020-03-15] MEDS: SUCRALFATE 1 GM TAB PO SCH ×4 (09:15→20:04)
[2020-03-15] MEDS: FUROSEMIDE INJ 10 MG/ML 4 ML VIAL IV SCH (09:15)
[2020-03-15] MEDS: AMIODARONE HCL 200 MG TAB PO SCH (09:15)
[2020-03-15] MEDS: ASCORBIC ACID 500 MG TAB PO SCH (09:18)
[2020-03-15] MEDS: MULTIVITAMINS/MINERALS TAB PO SCH (09:18)
[2020-03-15] MEDS: INSULIN LISPRO 100 UNIT/1 ML 3ML VIAL SQ SCH ×4 (09:46→20:04)
--- NOTE | 2020-03-15 10:58 | Progress Note ---
DATE: 03/15/2020 Cardiology Progress Note SUBJECTIVE: No complaints. OBJECTIVE: VITAL SIGNS: Temperature 99.4, heart rate 69, blood pressure 152/76, respiratory rate 24, and O2 saturation 94%. GENERAL: In no acute distress. Alert. NECK: No JVD. CHEST: Clear to auscultation. CARDIOVASCULAR: Regular rate and rhythm. Normal S1 and S2. Systolic murmur 1/6. ABDOMEN: Soft. Bowel sounds positive. EXTREMITIES: 1+ edema. CARDIOVASCULAR MEDICATIONS: Reviewed. Lovenox 40 mg subcutaneous daily, carvedilol 3.125 mg b.i.d., furosemide 40 mg daily, and amiodarone 200 mg daily. STUDIES: Reviewed. Potassium 3.5 and creatinine 0.6. White blood cells 5, hemoglobin 9.9, and platelets 147. ASSESSMENT/PLAN: An 89-year-old woman with peptic ulcer disease now status post recent GI evaluation, paroxysmal atrial flutter, hypertension, dementia, electrolyte derangements now improved, anemia, and mild thrombocytopenia. RECOMMENDATIONS: Continue current cardiovascular medications. At this point in time, continue treatment for peptic ulcer disease, not currently a candidate for anticoagulation. However, this can be revisited once peptic ulcer disease issues have healed. Outpatient followup in 4 to 6 weeks advised. Suggest to follow up with GI first. Jarrett Cronin MD [facility]/MARKY /[id number]
[2020-03-15] MEDS ORDERED: METOLAZONE 5 MG TAB PO ONE (12:00)
[2020-03-15] MEDS ORDERED: POTASSIUM CHLORIDE 20 MEQ TAB CR PO ONE (12:00)
[2020-03-15 13:59] LABS: BILIRUBIN,URINE NEGATIVE (NEGATIVE); CLARITY,URINE CLEAR (CLEAR); COLOR,URINE YELLOW (YELLOW); KETONES,URINE NEGATIVE (NEGATIVE); LEUKOCYTE ESTERASE ,URINE NEGATIVE (NEGATIVE); NITRITE,URINE NEGATIVE (NEGATIVE); PROTEIN,URINE DIPSTICK NEGATIVE (NEGATIVE); URINE UROBILINOGEN 0.2 mg/dL (0.2 - 1)
[2020-03-15 14:07] LABS: BACTERIA,URINE RARE /HPF; MUCUS,URINE RARE (RARE); WBC,URINE (MAN) 0-5 /HPF (0-5)
[2020-03-15] MEDS: ENOXAPARIN SOD INJ 40 MG/0.4 ML SYR SC SCH (17:11)
--- NOTE | 2020-03-15 18:30 | Progress Note ---
DATE: Pulmonary Critical Care Progress Note SUBJECTIVE: The patient is having less dyspnea and less congestion. The patient has less cough. Her breathing is improved today. She still has some weakness. PHYSICAL EXAMINATION: VITAL SIGNS: The blood pressure is 161/69, saturation is 96% on 3 L, and the pulse is 68. The respiratory rate is 18. HEENT: Shows no facial swelling or erythema. LYMPHATIC: Shows no submandibular, cervical, or supraclavicular adenopathy. CARDIAC: Reveals regular rate and rhythm with normal S1 and S2. LUNGS: Auscultation of lungs reveals crackles and rhonchi bilaterally. There is no wheezing. ABDOMEN: Soft and nontender. There is no rebound or guarding. EXTREMITIES: Show no leg edema or calf tenderness. LABORATORY DATA: White blood cell count is 5.69, hemoglobin is 9.9, and platelet count is 147. BUN to creatinine ratio is normal. Other electrolytes within normal limits. IMPRESSION: 1. Anemia secondary to chronic blood loss. 2. Gastritis, esophagitis. 3. Lymphoma. 4. Chronic systolic and diastolic heart failure. 5. Atrial fibrillation. 6. Chronic obstructive pulmonary disease. PLAN: 1. Continue bronchodilators and oxygen. 2. Continue current diuretics. 3. The patient will need followup through our Oncology at [facility] for her lymphoma. 4. Await placement in snf. MD FRED Cárdenas/MARKY /[id number]
[2020-03-15 20:31] LABS: BASOPHILS % 0.3 % (0.0-1.0); EOSINOPHILS # (AUTO) 0.1 (0.0-0.4); HEMATOCRIT 33.7 % (34.2-44.1); HEMOGLOBIN 10.3 g/dL (12.0-16.0); LYMPHOCYTES # (AUTO) 0.8 (1.0-3.2); LYMPHOCYTES % 12.4 % (18.0-39.1); MEAN CORPUSCULAR HEMOGLOBIN 25.8 pg (28-32); MEAN CORPUSCULAR HGB CONC 30.6 g/dL (31-35); MEAN CORPUSCULAR VOLUME 84.3 fL (81-99); MONOCYTES # (AUTO) 0.6 (0.2-0.8); MONOCYTES % 8.9 % (4.4-11.3); NEUTROPHILS # (AUTO) 4.7 (2.1-6.9); NEUTROPHILS % 75.6 % (38.7-80.0); PLATELET COUNT 156 x10e3/uL (140-360); RED CELL DISTRIBUTION WIDTH 20.3 % (11.7-14.4)
--- NOTE | 2020-03-15 20:42 | Progress Note ---
DATE: 03/15/2020 CONSULTANTS: 1. Dr. Carpenter with Cardiology. 2. Dr. Ernandez, sidewalk repairer. 3. Dr. Caruso, assembly line leader. 4. Dr. Mehta, GI. SUBJECTIVE: The patient with mild improvement in wheezing and shortness of breath. She denies any chest pain, fever, chills, nausea, or vomiting. Edema is improving some. VITAL SIGNS: Temperature 97.8, pulse is 68, respirations 21, blood pressure 140/65, pulse ox is 96% on 3 L of nasal cannula. GENERAL: Fatigued. HEENT: Normocephalic and atraumatic. NECK: Supple. LUNGS: Wheezing with decreased breath sounds throughout. CARDIOVASCULAR: Regular rate and rhythm. ABDOMEN: Soft and nontender. Obese. NEUROLOGIC: Alert, awake, and oriented x2-3 and forgetful at baseline. MUSCULOSKELETAL: Moves all extremities. Edema 2+, greater in the upper extremities. SKIN: Dry. PSYCH: Calm. LABORATORY DATA: WBC 5.68, hemoglobin 9.9, hematocrit 32.4, and platelets 147. Sodium 138, potassium 3.5, BUN 13, creatinine 0.63, estimated GFR greater than 60, blood glucose 114, AST 70, ALT 70. UA clear yellow, negative nitrites, leukocytosis esterase negative, rare bacteria. IMPRESSION: 1. Metabolic encephalopathy, present on admission, likely due to hyponatremia, improving. 2. Acute respiratory distress on chronic obstructive pulmonary disease. Pulmonary on the case, CT chest with contrast reviewed. She will need to follow up outpatient with [facility] for further treatment. The patient and family aware. Shortness of breath is improving, was given Solu-Medrol x1. 3. Yvvyo-rc-umrolah anemia. Status post EGD, which showed peptic ulcer disease. Continue PPI. 4. Atrial fibrillation. Heart rate controlled. No anticoagulation due to gastrointestinal bleed. 5. Acute kidney injury, now resolved. 6. Right upper extremity edema. PICC line was removed and Doppler was negative for deep venous thrombosis. We will continue with diuretics to help with edema. 7. Elevated LFTs. Lipid panel within normal limits. AST is 70 and ALT is 70 today. 8. Gastrointestinal and deep venous thrombosis prophylaxis. Continue with PPI and Lovenox subcu. PLAN: To continue current treatment, shortness of breath is improving some. Continue with diuretics, UA was negative. Anticipate discharge to half-way facility for rehab likely tomorrow. Dictated by Vielka Harmon, ANP Sarah Pena MD MY/MODL /[id number]
--- NOTE | 2020-03-16 02:48 | Progress Note ---
DATE: 03/14/2020 CARDIOLOGY PROGRESS NOTE: SUBJECTIVE: Denies new complaints. OBJECTIVE: VITAL SIGNS: Temperature 98.2, heart rate 79, blood pressure 130/61, respiratory rate 18, BMI 38. GENERAL: In no acute distress. Alert. NECK: Supple. CHEST: Clear to auscultation. CARDIOVASCULAR: Regular rate and rhythm. Normal S1, S2. ABDOMEN: Soft. Bowel sounds positive. EXTREMITIES: Trace edema. CARDIOVASCULAR MEDICATIONS: Reviewed. Lovenox 40 mg subcu daily, Carvedilol 3.125 mg every 12 hours, amiodarone 200 mg daily, sucralfate 1 g at bedtime, and furosemide 40 mg daily. LABORATORY DATA: Studies reviewed. Creatinine 0.8, sodium 144, glucose 124. White blood cells 6, hemoglobin 9.7, platelets 132. AST 108, ALT 96, alkaline phosphatase 77. ASSESSMENT: An 89-year-old woman presents with peptic ulcer disease, anemia, paroxysmal atrial flutter, hypertension, and electrolyte derangements. RECOMMENDATIONS: 1. Continue beta-efrem and amiodarone. 2. Volume status improving on furosemide. 3. Given recent peptic ulcer disease, findings on GI workup, not currently a candidate for anticoagulation, advised on outpatient followup in 6-8 weeks to re-evaluate this once reassessed by GI once completing peptic ulcer disease management recommendations. MD CHARLES Busch/MARKY /[id number]
[2020-03-16] MEDS: ALBUTEROL SULF 0.083% NEB SOLN 3 ML NEB NEB PRN ×2 (05:00→05:08)
[2020-03-16 05:01] VITALS: BP 127/80
[2020-03-16] MEDS: PANTOPRAZOLE 40 MG 10ML VIAL IV SCH ×2 (05:47→18:04)
[2020-03-16 06:07] LABS: ALANINE AMINOTRANSFERASE 63 IU/L (0-55); ALBUMIN 2.3 g/dL (3.5-5.0); ALBUMIN/GLOBULIN RATIO 0.8 (0.8-2.0); ALKALINE PHOSPHATASE 79 IU/L (40-150); ANION GAP 13.7 mmol/L (8-16); BLOOD UREA NITROGEN 12 mg/dL (7-26); BUN/CREATININE RATIO 18 (6-25); CALCIUM 8.8 mg/dL (8.4-10.2); CARBON DIOXIDE 35 mmol/L (22-29); CHLORIDE 88 mmol/L (98-107); CREATININE, SERUM 0.67 mg/dL (0.57-1.11); EST GLOMERULAR FILTRATION RATE > 60 ML/MIN (60-); GLUCOSE 175 mg/dL (74-118); POTASSIUM 3.7 mmol/L (3.5-5.1); SODIUM 133 mmol/L (136-145)
[2020-03-16] MEDS: IPRATROPIUM BROMIDE 0.02% 2.5 ML NEB NEB SCH ×4 (07:00→19:20)
[2020-03-16] MEDS: INSULIN LISPRO 100 UNIT/1 ML 3ML VIAL SQ SCH ×4 (07:30→20:30)
[2020-03-16] MEDS: SUCRALFATE 1 GM TAB PO SCH ×4 (08:46→20:23)
[2020-03-16] MEDS: AMIODARONE HCL 200 MG TAB PO SCH (09:44)
[2020-03-16] MEDS: FLUTICASONE PROPIONATE NASAL SPRAY NS SCH (09:44)
[2020-03-16] MEDS: ASCORBIC ACID 500 MG TAB PO SCH (09:44)
[2020-03-16] MEDS: MULTIVITAMINS/MINERALS TAB PO SCH (09:44)
[2020-03-16] MEDS: FUROSEMIDE INJ 10 MG/ML 4 ML VIAL IV SCH (09:44)
[2020-03-16] MEDS: CARVEDILOL 3.125 MG TAB PO SCH ×2 (09:44→18:04)
[2020-03-16 11:30] VITALS: BP 140/61
[2020-03-16 13:55] LABS: CREATININE,URINE RANDOM 11.92 mg/dL (47-110)
[2020-03-16 14:05] LABS: TOTAL PROTEIN, URINE < 6.8 mg/dL (1-14)
[2020-03-16 14:14] VITALS: BP 140/50
[2020-03-16] MEDS ORDERED: COREG3.125 MG PO (14:17)
--- NOTE | 2020-03-16 14:32 | NUR ---
RETIREMENT FACILITY DISCHARGE INFORMATION PATIENT HAS BEEN ACCEPTED TO: NAME:NINA ADDRESS:[id number] ACCEPTING COMPUTER COMPOSITOR:ROMAN SMALLS ACCEPTING MD:RAHEEM ROOM:118 NURSE CALL REPORT TO: [phone] IMM SIGNED AND OBTAINED (if applicable): IMM THE FOLLOWING DOCUMENTS MUST ACCOMPANY PATIENT FOR TRANSFER: COPIED CHART:PACKET
--- NOTE | 2020-03-16 14:35 | NUR ---
Central line and pascual DCed @ [phone]
--- NOTE | 2020-03-16 14:48 | NUR ---
report to CourtyaManuel called @ [phone]
--- NOTE | 2020-03-16 15:01 | Progress Note ---
DATE: SUBJECTIVE: The patient is having some mild dyspnea. There is no cough or congestion. She still has some intermittent confusion. PHYSICAL EXAMINATION: VITAL SIGNS: Blood pressure is 140/61 and saturation is 98% on 3 L. HEENT: Shows no facial swelling or erythema. LYMPHATIC: Shows no submandibular, cervical, or supraclavicular adenopathy. CARDIAC: Reveals regular rate and rhythm with normal S1 and S2. LUNGS: Auscultation of lungs reveals rhonchorous breath sounds bilaterally. There is no wheezing. ABDOMEN: Soft and nontender. There is no rebound or guarding. EXTREMITIES: Show no leg edema or calf tenderness. There is no cyanosis or clubbing. SKIN: Shows no rashes. NEUROLOGICAL: Shows no focal abnormalities. IMPRESSION: 1. Anemia secondary to chronic blood loss. 2. Metabolic encephalopathy. 3. Chronic systolic and diastolic heart failure. 4. Lymphoma. 5. Atrial fibrillation. 6. Chronic obstructive pulmonary disease. 7. Gastritis and esophagitis. PLAN: 1. Continue oxygen. 2. Continue current cardiac regimen. 3. Continue bronchodilators. 4. Await placement in correction. Matteo Ernandez MD [facility]/MODL /[id number]
--- NOTE | 2020-03-16 16:19 | NUR ---
Follow up note RD Recommendation(s) for Physician: - Continue diet as ordered, texture modification per speech therapy, and fluid restriction per MD - Continue Glucerna BID for added nutrition Plan of Care: RD following, monitoring for tolerance and adequacy, oral supplement recommendation Nutrition reason for involvement: follow up RD Assessment 03/16: Follow up. Chart reviewed. RN reports pt is eating well at this time. Last recorded meal intake was 50-75% on 03/13. No N/V reported by RN. Current recommendations remain appropriate. Will continue to monitor 03/09: Follow up. Chart reviewed. Pt was discussed during interdisciplinary rounds and RD received consult for oral supplement recommendation. Speech therapy evaluated pt yesterday and recommended a mechanical soft diet. RN stated pt is experiencing some confusion. Last recorded meal intake was 50-75% on 03/07. Continue to recommend Glucerna nutrition supplement BID for added nutrition. Will continue to monitor (03/03) Chart reviewed. Labs and meds reviewed. 89yo obese F, who is admitted for hyponatremia. Pt is on fluid restriction and given salt tablets. Sodium has trend up to 114. Pt is under isolation, pending COVID result. Per RN, pt drank milk and had a few bites of cereal this AM. Pt appears to be very lethargic and cough has worsened. No GI related complains. + BM. No weight loss noted per chart. Will continue to follow. Principal Problems/Diagnoses: Asymptomatic, but severe hypovolemic hyponatremia PMH: Hypertension, Hyperlipidemia, Diastolic CHF, Type 2 diabetes, COPD. GI: non-tender/round abdomen Skin: no pressure ulcers Labs: 03/16: Na 133, K 3.7, BUN 12, Cr 0.67, Glu 175, Ca 8.8, AST 68, ALT 63 (03/09) Na 136, K 4.2, BUN 38, Cr 1.23, Glu 121, Ca 8.0, AST 107 Meds: insulin, carafate, lasix, amiodarone, multivitamin with minerals, vitamin C, protonix, zofran Ht: 64 in Wt: 222 lbs BMI: 38.1 kg/m2 IBW: 120 lbs Malnutrition Evaluation (03/09/20) The patient does not meet criteria for a specified degree of malnutrition at this time. Will re-evaluate at follow-up as appropriate. Nutrition Prescription (Diet Order): ADA 1800, pureed, nectar thick liquids, 1 L fluid restriction, Glucerna BID Estimated Nutritional Needs: 4376-3299 calories/day (22-25 kcal/kg IBW) 82-109 g protein/day (1.5-2 g pro/kg IBW) Diet Adequacy: Meeting calorie needs, meeting protein needs Tolerance: Tolerating PO Diet Education Needs Assessment: RD is available for diet education as needed Nutrition Care Level: low Nutrition Diagnosis: Swallowing difficulty related to motor causes as evidenced by need for modified consistency diet. Goal: Patient will meet 75-100% of estimated needs by follow up Progress: progressing Interventions: -carbohydrate, texture, fluid - modified diet, Commercial beverage Monitoring/Evaluation: -Total energy intake, Total protein intake,, Modified diet, Liquid supplement, Weight change Signed: Blanka Bustillo RD, LD
[2020-03-16] MEDS: ENOXAPARIN SOD INJ 40 MG/0.4 ML SYR SC SCH (18:04)
[2020-03-16 18:11] VITALS: BP 129/69
[2020-03-16 20:00] VITALS: BP 129/56
[2020-03-16 21:00] VITALS: BP 129/56
--- NOTE | 2020-03-16 21:50 | NUR ---
Pt left with EMT, no distress at the time of transfer.
--- NOTE | 2020-03-17 00:23 | Progress Note ---
DATE: 03/16/2020 Cardiology Progress Note SUBJECTIVE: The patient has no complaints. OBJECTIVE: VITAL SIGNS: Show a blood pressure of 129/69 mmHg with a heart rate of 73 beats per minute. Pulse oximetry shows 95% oxygen saturation on 3 L/minute nasal cannula. The patient is afebrile. GENERAL: The patient is in no acute distress. She is awake, alert, oriented, and answering questions appropriately. HEAD AND NECK: Shows normocephalic and atraumatic head, jugular venous pressure is difficult to assess. LUNGS: Clear to auscultation. CARDIOVASCULAR: Regular rate and rhythm, normal S1, S2 and a soft systolic murmur. ABDOMEN: Obese, soft, no masses palpated. EXTREMITIES: 1+ edema. CARDIOVASCULAR MEDICATIONS: Reviewed. LABORATORY DATA: Shows point of care glucose of 198. The sodium is 133, potassium is 3.7, chloride is 88, carbon dioxide is 35, BUN is 12 and creatinine 0.67, and glucose is 175. Her calcium is 8.8. Her liver tests have decreased. The AST is now 68 and the ALT is 63. Her albumin is 2.3. ASSESSMENT AND PLAN: An 89-year-old woman with peptic ulcer disease and recent gastrointestinal bleed and GI evaluation, paroxysmal atrial flutter, hypertension, electrolyte abnormalities, dementia, anemia and mild thrombocytopenia. RECOMMENDATIONS: 1. Continue current cardiovascular medications. 2. No chronic anticoagulation due to history of peptic ulcer disease. 3. The patient to follow up in 4-6 weeks to discuss chronic anticoagulation. Zulma Drummond MD [facility]/MODL /[id number]
--- NOTE | 2020-03-17 05:59 | Discharge Summary ---
PRIMARY CARE PHYSICIAN: Dr. Man at [facility]. FINAL DISCHARGE DIAGNOSES: 1. Metabolic encephalopathy present on admission due to hyponatremia. 2. Acute respiratory distress on chronic obstructive pulmonary disease. 3. Acute on chronic anemia. 4. Paroxysmal atrial fibrillation. 5. Acute kidney injury. 6. Right upper extremity edema. 7. Elevated liver function tests. CONSULTANTS: 1. Dr. Carpenter with Cardiology. 2. Dr. Ernandez, carton filler. 3. Dr. Caruso, associate professor of biology. 4. Dr. Mehta, GI. PROCEDURES: EGD, which showed peptic ulcer disease. HISTORY: Per HPI. HOSPITAL COURSE: This is an 89-year-old female, who initially presented with metabolic encephalopathy likely due to hyponatremia. Renal was consulted and replaced electrolytes. She then was noted to have acute respiratory distress. She was given diuretics to help with fluid management. Armor Reconnaissance Vehicle Driver was consulted. CT chest with contrast showed no PE, but pleural nodularity persistent neck and thoracic adenopathy concerning for metastasis or lymphoma. Per the patient's daughter reports they are aware of the finding and will be following up with [facility] for further treatment likely immunosuppressed immunotherapy. She was given Solu-Medrol and IV Lasix, which has improved her shortness of breath for now. She was noted to have acute on chronic anemia. GI was consulted and EGD was done, which showed peptic ulcer disease. At this time, Cardiology is recommending to hold anticoagulation for cerebrovascular accident prophylaxis with her atrial fibrillation due to her GI bleed and will need to re-visit at a later time on starting anticoagulation. She was also noted to have right upper extremity edema. PICC line was removed and Doppler showed no DVT. We will continue to elevate her ARB and diuretic. Mild elevation of LFTs was noted, but is trending down. We will need a repeat blood work in 1 to 2 weeks. Today, her breathing is improved, afebrile, no nausea or vomiting. We will discharge to [facility] for further rehabilitation. PHYSICAL EXAMINATION: VITAL SIGNS: Temperature 98.3, pulse is 76, respirations 20, blood pressure 140/50, pulse ox is 96% on 3 L of nasal cannula. GENERAL: In no acute distress. HEENT: Normocephalic and atraumatic. NECK: Supple. LUNGS: With decreased breath sounds and some wheezing. CARDIOVASCULAR: Regular rate and rhythm. GI: Soft and nontender. NEUROLOGIC: Alert, awake, and oriented times x1-2. MUSCULOSKELETAL: Moves all extremities. With trace edema in the lower extremities and right upper extremity. SKIN: Dry with some blisters on lower extremity. PSYCH: Calm. CONDITION AT DISCHARGE: Improved and stable. DISCHARGE MEDICATIONS: Please see medication reconciliation list. FOLLOWUP: Followup with PCP, boat engines installer, and oncologist for further management. TIME SPENT: Total discharge time is 32 minutes. Dictated by ENID Correa Yiching Colton Pena MD MY/MODL /[id number] cc: Sergio Man MD [facility]
== END 2020-03-16 22:00 | DRG 871 ==
LOC: ER 11:00 → ERHOLD 11:39 → IMCU 13:39 → ICU 22:09 → IMCU 03-03 20:54 → MED/SURG2 03-11 22:10
PROVIDERS: ADMIT Internal Medicine; ATTEND Internal Medicine
PROC: 02HV33Z Insertion of Infusion Device into Superior Vena Cava, Percutaneous Approach (ICD-10-PCS; 2020-03-03)
PROC: B548ZZA Ultrasonography of Superior Vena Cava, Guidance (ICD-10-PCS; 2020-03-03)
PROC: 02HV33Z Insertion of Infusion Device into Superior Vena Cava, Percutaneous Approach (ICD-10-PCS; principal; 2020-03-10)
PROC: 0DB68ZX Excision of Stomach, Via Natural or Artificial Opening Endoscopic, Diagnostic (ICD-10-PCS; 2020-03-11)
PROC: 0DB78ZX Excision of Stomach, Pylorus, Via Natural or Artificial Opening Endoscopic, Diagnostic (ICD-10-PCS; 2020-03-11)
DX: A41.9 Sepsis, unspecified organism (principal); J69.0 Pneumonitis due to inhalation of food and vomit; G93.41 Metabolic encephalopathy; K25.4 Chronic or unspecified gastric ulcer with hemorrhage; E87.1 Hypo-osmolality and hyponatremia; I48.92 Unspecified atrial flutter; I10 Essential (primary) hypertension; E11.9 Type 2 diabetes mellitus without complications; J44.9 Chronic obstructive pulmonary disease, unspecified; F41.9 Anxiety disorder, unspecified; E78.5 Hyperlipidemia, unspecified; M81.0 Age-related osteoporosis without current pathological fracture; E66.01 Morbid (severe) obesity due to excess calories; D64.9 Anemia, unspecified; Z68.38 Body mass index [BMI] 38.0-38.9, adult; K20.90 Esophagitis, unspecified without bleeding; K29.70 Gastritis, unspecified, without bleeding; K44.9 Diaphragmatic hernia without obstruction or gangrene; Z83.3 Family history of diabetes mellitus; Z82.49 Family history of ischemic heart disease and other diseases of the circulatory system; Z85.72 Personal history of non-Hodgkin lymphomas; Z11.59 Encounter for screening for other viral diseases; I48.0 Paroxysmal atrial fibrillation
CPT/HCPCS: 36415; 36569; 36600; 43239; 51701; 70551; 71045; 71260; 78278; 80048; 80053; 80061; 81001; 82270; 82570; 82607; 82728; 82746; 82805; 82947; 82948; 83540; 83735; 83880; 83930; 83935; 84100; 84133; 84156; 84295; 84300; 84436; 84443; 84466; 84479; 84484; 84520; 84550; 85025; 85045; 87040; 87086; 88305; 88312; 93005; 93306; 93971; 94640; 96360; 96372; 97139; 99251; 99284; A9512; J0456; J0610; J1650; J1940; J2543; J7030; J7040; J7799; Q9967

== ENCOUNTER 2020-03-21 09:23 | Inpatient (IN) | payer MEDICARE ==
[~2020-03-21] VITALS: Ht 162.6 cm; Wt 100.7 kg
[~2020-03-21 09:23] MED LIST changes: +COREG3.125 MG PO
[2020-03-21 10:08] LABS: BASOPHILS # (AUTO) 0.1 (0.0-0.1); BASOPHILS % 0.4 % (0.0-1.0); HEMATOCRIT 33.7 % (34.2-44.1); HEMOGLOBIN 10.1 g/dL (12.0-16.0); LYMPHOCYTES # (AUTO) 1.7 (1.0-3.2); LYMPHOCYTES % 14.3 % (18.0-39.1); MEAN CORPUSCULAR HEMOGLOBIN 26.5 pg (28-32); MEAN CORPUSCULAR VOLUME 88.5 fL (81-99); MONOCYTES # (AUTO) 1.2 (0.2-0.8); MONOCYTES % 10.6 % (4.4-11.3); NEUTROPHILS # (AUTO) 8.5 (2.1-6.9); NEUTROPHILS % 73.4 % (38.7-80.0); PLATELET COUNT 308 x10e3/uL (140-360); RED BLOOD COUNT 3.81 x10e6/uL (3.6-5.1); RED CELL DISTRIBUTION WIDTH 20.2 % (11.7-14.4)
[2020-03-21 10:20] LABS: INR 0.97; PROTHROMBIN TIME 13.4 seconds (11.9-14.5)
[2020-03-21 10:21] LABS: PARTIAL THROMBOPLASTIN TIME 39.5 seconds (23.8-35.5)
[2020-03-21 10:38] LABS: ALANINE AMINOTRANSFERASE 28 IU/L (0-55); ALBUMIN 2.4 g/dL (3.5-5.0); ALBUMIN/GLOBULIN RATIO 0.8 (0.8-2.0); ALKALINE PHOSPHATASE 73 IU/L (40-150); ANION GAP 15.6 mmol/L (8-16); BLOOD UREA NITROGEN 36 mg/dL (7-26); BUN/CREATININE RATIO 32 (6-25); CALCIUM 8.4 mg/dL (8.4-10.2); CARBON DIOXIDE 32 mmol/L (22-29); CHLORIDE 91 mmol/L (98-107); CREATININE, SERUM 1.13 mg/dL (0.57-1.11); EST GLOMERULAR FILTRATION RATE 46 ML/MIN (60-); GLUCOSE 216 mg/dL (74-118); POTASSIUM 3.6 mmol/L (3.5-5.1); SODIUM 135 mmol/L (136-145)
[2020-03-21 10:39] LABS: CREATINE KINASE < 7 IU/L (29-168)
[2020-03-21] MEDS ORDERED: METHYLPREDNISOLONE SOD SUCC 125 MG/2ML VIAL IV STA (11:06)
[2020-03-21] MEDS ORDERED: ALBUTEROL/IPRATROPIUM 3 ML NEB NEB ONE (11:15)
[2020-03-21] MEDS ORDERED: DOCUSATE SODIUM 100 MG CAP PO PRN (11:30)
[2020-03-21] MEDS ORDERED: ALBUTEROL SULF 0.083% NEB SOLN 3 ML NEB NEB PRN (11:45)
[2020-03-21] MEDS: MEROPENEM 1GM 100 ML IV SCH ×2 (11:57→21:00)
[2020-03-21] MEDS: AZITHROMYCIN 500MG/NS 250 ML 250 ML IV SCH (11:57)
[2020-03-21 12:17] LABS: BILIRUBIN,URINE NEGATIVE (NEGATIVE); CLARITY,URINE CLEAR (CLEAR); COLOR,URINE YELLOW (YELLOW); KETONES,URINE NEGATIVE (NEGATIVE); LEUKOCYTE ESTERASE ,URINE NEGATIVE (NEGATIVE); NITRITE,URINE NEGATIVE (NEGATIVE); PROTEIN,URINE DIPSTICK TRACE (NEGATIVE); URINE UROBILINOGEN 1 mg/dL (0.2 - 1)
[2020-03-21 12:24] LABS: BACTERIA,URINE MODERATE /HPF; EPITHELIAL CELLS,URINE FEW /LPF; RBC,URINE 0-5 /HPF (0-5); YEAST,URINE FEW
[2020-03-21] MEDS: ALBUTEROL SULF 0.083% NEB SOLN 3 ML NEB NEB SCH ×3 (14:00→20:20)
[2020-03-21] MEDS ORDERED: DEXTROSE 50% SYRINGE 50 ML IV PRN (14:30)
[2020-03-21] MEDS: INSULIN REGULAR, HUMAN 100 UNIT/1 ML 3ML VIAL SQ SCH ×2 (16:30→21:00)
[2020-03-21] MEDS: CARVEDILOL 3.125 MG TAB PO SCH (17:00)
[2020-03-21 17:42] VITALS: BP 110/59
[2020-03-21 17:49] VITALS: BP 110/59
[2020-03-21 17:50] VITALS: BP 110/59
[2020-03-21 18:16] LABS: CREATINE KINASE < 7 IU/L (29-168)
[2020-03-21] MEDS: TEMAZEPAM 15 MG CAP PO PRN (20:00)
[2020-03-21 20:30] VITALS: BP 108/62
[2020-03-21] MEDS ORDERED: SODIUM CHLORIDE 0.9% 250ML 250 ML ONE (20:30)
[2020-03-22] VITALS (12 sets, daily range): BP systolic 100–133; BP diastolic 47–83
[2020-03-22] MEDS: ALBUTEROL SULF 0.083% NEB SOLN 3 ML NEB NEB SCH ×7 (03:00→23:05)
[2020-03-22] MEDS: MEROPENEM 1GM 100 ML IV SCH ×3 (05:00→20:27)
[2020-03-22 06:17] LABS: BASOPHILS % 0.3 % (0.0-1.0); HEMATOCRIT 32.5 % (34.2-44.1); HEMOGLOBIN 9.8 g/dL (12.0-16.0); LYMPHOCYTES # (AUTO) 0.8 (1.0-3.2); LYMPHOCYTES % 6.2 % (18.0-39.1); MEAN CORPUSCULAR HEMOGLOBIN 25.8 pg (28-32); MEAN CORPUSCULAR HGB CONC 30.2 g/dL (31-35); MEAN CORPUSCULAR VOLUME 85.5 fL (81-99); MONOCYTES # (AUTO) 0.9 (0.2-0.8); NEUTROPHILS % 85.7 % (38.7-80.0); PLATELET COUNT 287 x10e3/uL (140-360); RED CELL DISTRIBUTION WIDTH 19.9 % (11.7-14.4)
[2020-03-22 06:54] LABS: ALANINE AMINOTRANSFERASE 22 IU/L (0-55); ALBUMIN 2.2 g/dL (3.5-5.0); ALBUMIN/GLOBULIN RATIO 0.7 (0.8-2.0); ALKALINE PHOSPHATASE 78 IU/L (40-150); ANION GAP 12.4 mmol/L (8-16); BLOOD UREA NITROGEN 41 mg/dL (7-26); BUN/CREATININE RATIO 49 (6-25); CALCIUM 8.4 mg/dL (8.4-10.2); CARBON DIOXIDE 35 mmol/L (22-29); CHLORIDE 93 mmol/L (98-107); CREATININE, SERUM 0.83 mg/dL (0.57-1.11); EST GLOMERULAR FILTRATION RATE > 60 ML/MIN (60-); GLUCOSE 237 mg/dL (74-118); POTASSIUM 3.4 mmol/L (3.5-5.1); SODIUM 137 mmol/L (136-145)
[2020-03-22 07:18] LABS: CREATINE KINASE < 7 IU/L (29-168)
[2020-03-22] MEDS: CARVEDILOL 3.125 MG TAB PO SCH ×2 (08:13→17:00)
[2020-03-22] MEDS ORDERED: FUROSEMIDE 40 MG TAB PO SCH (09:00)
[2020-03-22] MEDS: INSULIN REGULAR, HUMAN 100 UNIT/1 ML 3ML VIAL SQ SCH ×4 (10:13→20:27)
[2020-03-22] MEDS: FLUTICASONE PROPIONATE NASAL SPRAY NS SCH (10:46)
[2020-03-22] MEDS: AZITHROMYCIN 500MG/NS 250 ML 250 ML IV SCH (12:03)
[2020-03-22 12:18] LABS: CREATINE KINASE < 7 IU/L (29-168)
[2020-03-22] MEDS: TEMAZEPAM 15 MG CAP PO PRN (21:07)
[2020-03-23] VITALS (8 sets, daily range): BP systolic 110–145; BP diastolic 56–76
[2020-03-23] MEDS: ALBUTEROL SULF 0.083% NEB SOLN 3 ML NEB NEB SCH ×6 (00:50→20:35)
[2020-03-23] MEDS: MEROPENEM 1GM 100 ML IV SCH ×3 (05:20→21:03)
[2020-03-23 06:57] LABS: BASOPHILS % 0.3 % (0.0-1.0); EOSINOPHILS % 0.2 % (0.0-6.0); HEMATOCRIT 33.8 % (34.2-44.1); HEMOGLOBIN 10.1 g/dL (12.0-16.0); LYMPHOCYTES # (AUTO) 0.9 (1.0-3.2); LYMPHOCYTES % 8.1 % (18.0-39.1); MEAN CORPUSCULAR HEMOGLOBIN 25.6 pg (28-32); MEAN CORPUSCULAR HGB CONC 29.9 g/dL (31-35); MEAN CORPUSCULAR VOLUME 85.6 fL (81-99); MONOCYTES # (AUTO) 0.9 (0.2-0.8); MONOCYTES % 7.5 % (4.4-11.3); NEUTROPHILS # (AUTO) 9.5 (2.1-6.9); NEUTROPHILS % 82.6 % (38.7-80.0); PLATELET COUNT 329 x10e3/uL (140-360); RED BLOOD COUNT 3.95 x10e6/uL (3.6-5.1); RED CELL DISTRIBUTION WIDTH 20.3 % (11.7-14.4)
[2020-03-23 07:26] LABS: ANION GAP 12.1 mmol/L (8-16); BLOOD UREA NITROGEN 38 mg/dL (7-26); BUN/CREATININE RATIO 49 (6-25); CALCIUM 8.4 mg/dL (8.4-10.2); CARBON DIOXIDE 34 mmol/L (22-29); CHLORIDE 94 mmol/L (98-107); CREATININE, SERUM 0.77 mg/dL (0.57-1.11); EST GLOMERULAR FILTRATION RATE > 60 ML/MIN (60-); GLUCOSE 175 mg/dL (74-118); POTASSIUM 3.1 mmol/L (3.5-5.1); SODIUM 137 mmol/L (136-145)
[2020-03-23] MEDS: INSULIN REGULAR, HUMAN 100 UNIT/1 ML 3ML VIAL SQ SCH ×4 (07:30→20:45)
[2020-03-23] MEDS: FLUTICASONE PROPIONATE NASAL SPRAY NS SCH (09:20)
[2020-03-23] MEDS: CARVEDILOL 3.125 MG TAB PO SCH ×2 (09:21→17:12)
[2020-03-23] MEDS: AZITHROMYCIN 500MG/NS 250 ML 250 ML IV SCH (11:15)
[2020-03-23] MEDS ORDERED: POTASSIUM CHLORIDE 20MEQ/100ML 200 ML IV ONE (12:15)
[2020-03-23] MEDS ORDERED: SODIUM CHLORIDE 0.9% 250ML 250 ML ONE (15:09)
[2020-03-23] MEDS: BUMETANIDE 1 MG TAB PO SCH (17:12)
[2020-03-24] VITALS (8 sets, daily range): BP systolic 106–130; BP diastolic 56–79
[2020-03-24] MEDS: MEROPENEM 1GM 100 ML IV SCH ×3 (04:35→21:00)
[2020-03-24] MEDS: ALBUTEROL SULF 0.083% NEB SOLN 3 ML NEB NEB SCH ×6 (04:45→23:50)
[2020-03-24 06:13] LABS: BASOPHILS % 0.4 % (0.0-1.0); EOSINOPHILS % 0.1 % (0.0-6.0); HEMATOCRIT 32.8 % (34.2-44.1); LYMPHOCYTES # (AUTO) 0.9 (1.0-3.2); LYMPHOCYTES % 8.4 % (18.0-39.1); MEAN CORPUSCULAR HEMOGLOBIN 26.7 pg (28-32); MEAN CORPUSCULAR HGB CONC 30.5 g/dL (31-35); MEAN CORPUSCULAR VOLUME 87.5 fL (81-99); MONOCYTES # (AUTO) 0.7 (0.2-0.8); MONOCYTES % 6.5 % (4.4-11.3); NEUTROPHILS # (AUTO) 8.7 (2.1-6.9); NEUTROPHILS % 82.7 % (38.7-80.0); PLATELET COUNT 303 x10e3/uL (140-360); RED BLOOD COUNT 3.75 x10e6/uL (3.6-5.1); RED CELL DISTRIBUTION WIDTH 20.5 % (11.7-14.4)
[2020-03-24 06:36] LABS: ANION GAP 11.1 mmol/L (8-16); BLOOD UREA NITROGEN 27 mg/dL (7-26); BUN/CREATININE RATIO 41 (6-25); CALCIUM 8.3 mg/dL (8.4-10.2); CARBON DIOXIDE 34 mmol/L (22-29); CHLORIDE 96 mmol/L (98-107); CREATININE, SERUM 0.66 mg/dL (0.57-1.11); EST GLOMERULAR FILTRATION RATE > 60 ML/MIN (60-); GLUCOSE 131 mg/dL (74-118); POTASSIUM 3.1 mmol/L (3.5-5.1); SODIUM 138 mmol/L (136-145)
[2020-03-24] MEDS: INSULIN REGULAR, HUMAN 100 UNIT/1 ML 3ML VIAL SQ SCH ×4 (08:47→21:00)
[2020-03-24] MEDS: BUMETANIDE 1 MG TAB PO SCH ×2 (08:47→17:16)
[2020-03-24] MEDS: FLUTICASONE PROPIONATE NASAL SPRAY NS SCH (08:47)
[2020-03-24] MEDS: CARVEDILOL 3.125 MG TAB PO SCH ×2 (08:47→17:16)
[2020-03-24] MEDS: AZITHROMYCIN 500MG/NS 250 ML 250 ML IV SCH (11:15)
[2020-03-24] MEDS ORDERED: POTASSIUM CHLORIDE 20 MEQ TAB CR PO ONE (12:45)
[2020-03-25] VITALS (8 sets, daily range): BP systolic 113–129; BP diastolic 53–87
[2020-03-25] MEDS: ALBUTEROL SULF 0.083% NEB SOLN 3 ML NEB NEB SCH ×6 (04:20→23:35)
[2020-03-25] MEDS: MEROPENEM 1GM 100 ML IV SCH (05:00)
[2020-03-25 06:15] LABS: ANION GAP 14.9 mmol/L (8-16); BLOOD UREA NITROGEN 24 mg/dL (7-26); BUN/CREATININE RATIO 35 (6-25); CARBON DIOXIDE 33 mmol/L (22-29); CHLORIDE 92 mmol/L (98-107); CREATININE, SERUM 0.68 mg/dL (0.57-1.11); EST GLOMERULAR FILTRATION RATE > 60 ML/MIN (60-); GLUCOSE 104 mg/dL (74-118); SODIUM 137 mmol/L (136-145)
[2020-03-25 06:24] LABS: POTASSIUM 2.9 mmol/L (3.5-5.1)
[2020-03-25] MEDS ORDERED: POTASSIUM CHLORIDE 20 MEQ TAB CR PO STA (06:45)
[2020-03-25] MEDS: INSULIN REGULAR, HUMAN 100 UNIT/1 ML 3ML VIAL SQ SCH ×4 (07:30→21:00)
[2020-03-25] MEDS ORDERED: CEFTRIAXONE SOD 2 GM/NS 100 ML 100 ML IV SCH (09:00)
[2020-03-25] MEDS: FLUTICASONE PROPIONATE NASAL SPRAY NS SCH (09:03)
[2020-03-25] MEDS: BUMETANIDE 1 MG TAB PO SCH ×2 (09:03→17:12)
[2020-03-25] MEDS: CARVEDILOL 3.125 MG TAB PO SCH ×2 (09:04→17:12)
[2020-03-25] MEDS ORDERED: MAGNESIUM SULFATE 2GM/50ML 50 ML IV ONE (11:45)
[2020-03-25] MEDS ORDERED: POTASSIUM CHLORIDE 10MEQ EA PO ONE (12:00)
[2020-03-25] MEDS: LINEZOLID 600 MG/D5W 300ML 300 ML IV SCH ×2 (12:55→23:32)
[2020-03-25] MEDS: LACTOBACILLUS ACIDOPHILUS CAPSULE PO SCH (17:12)
[2020-03-25] MEDS: ACETAMINOPHEN 325 MG TAB PO PRN (23:32)
[2020-03-25] MEDS: TEMAZEPAM 15 MG CAP PO PRN (23:32)
[2020-03-26] VITALS (8 sets, daily range): BP systolic 102–120; BP diastolic 51–60
[2020-03-26] MEDS: ALBUTEROL SULF 0.083% NEB SOLN 3 ML NEB NEB SCH ×6 (03:12→23:17)
[2020-03-26 06:05] LABS: ANION GAP 12.9 mmol/L (8-16); BLOOD UREA NITROGEN 27 mg/dL (7-26); BUN/CREATININE RATIO 36 (6-25); CALCIUM 8.2 mg/dL (8.4-10.2); CARBON DIOXIDE 33 mmol/L (22-29); CHLORIDE 92 mmol/L (98-107); CREATININE, SERUM 0.74 mg/dL (0.57-1.11); EST GLOMERULAR FILTRATION RATE > 60 ML/MIN (60-); GLUCOSE 94 mg/dL (74-118); SODIUM 135 mmol/L (136-145)
[2020-03-26 06:07] LABS: POTASSIUM 2.9 mmol/L (3.5-5.1)
[2020-03-26] MEDS ORDERED: POTASSIUM CHLORIDE 20 MEQ TAB CR PO ONE (07:30)
[2020-03-26] MEDS: INSULIN REGULAR, HUMAN 100 UNIT/1 ML 3ML VIAL SQ SCH ×4 (07:30→20:40)
[2020-03-26] MEDS: FLUTICASONE PROPIONATE NASAL SPRAY NS SCH (07:54)
[2020-03-26] MEDS: CARVEDILOL 3.125 MG TAB PO SCH ×2 (07:57→16:02)
[2020-03-26] MEDS: LACTOBACILLUS ACIDOPHILUS CAPSULE PO SCH ×2 (07:59→16:28)
[2020-03-26] MEDS: BUMETANIDE 1 MG TAB PO SCH ×2 (07:59→12:02)
[2020-03-26] MEDS ORDERED: POTASSIUM CHLORIDE 10MEQ EA PO ONE (11:35)
[2020-03-26] MEDS: LINEZOLID 600 MG/D5W 300ML 300 ML IV SCH (11:43)
[2020-03-26] MEDS ORDERED: POTASSIUM CHLORIDE 20MEQ/100ML 200 ML IV ONE (12:15)
[2020-03-26] MEDS ORDERED: SODIUM CHLORIDE 0.9% 1000ML 1,000 ML ONE (14:40)
[2020-03-27] VITALS (7 sets, daily range): BP systolic 106–126; BP diastolic 45–71
[2020-03-27] MEDS: LINEZOLID 600 MG/D5W 300ML 300 ML IV SCH ×2 (02:13→12:25)
[2020-03-27] MEDS: ALBUTEROL SULF 0.083% NEB SOLN 3 ML NEB NEB SCH ×7 (02:30→23:37)
[2020-03-27 05:16] LABS: BASOPHILS % 0.5 % (0.0-1.0); EOSINOPHILS # (AUTO) 0.1 (0.0-0.4); EOSINOPHILS % 1.1 % (0.0-6.0); HEMATOCRIT 31.4 % (34.2-44.1); HEMOGLOBIN 9.5 g/dL (12.0-16.0); LYMPHOCYTES # (AUTO) 0.6 (1.0-3.2); LYMPHOCYTES % 9.4 % (18.0-39.1); MEAN CORPUSCULAR HEMOGLOBIN 25.6 pg (28-32); MEAN CORPUSCULAR HGB CONC 30.3 g/dL (31-35); MEAN CORPUSCULAR VOLUME 84.6 fL (81-99); MONOCYTES # (AUTO) 0.7 (0.2-0.8); MONOCYTES % 10.7 % (4.4-11.3); PLATELET COUNT 240 x10e3/uL (140-360); RED BLOOD COUNT 3.71 x10e6/uL (3.6-5.1); RED CELL DISTRIBUTION WIDTH 19.6 % (11.7-14.4)
[2020-03-27 05:35] LABS: ANION GAP 10.5 mmol/L (8-16); BLOOD UREA NITROGEN 23 mg/dL (7-26); BUN/CREATININE RATIO 34 (6-25); CALCIUM 8.4 mg/dL (8.4-10.2); CARBON DIOXIDE 33 mmol/L (22-29); CHLORIDE 94 mmol/L (98-107); CREATININE, SERUM 0.67 mg/dL (0.57-1.11); EST GLOMERULAR FILTRATION RATE > 60 ML/MIN (60-); GLUCOSE 126 mg/dL (74-118); POTASSIUM 3.5 mmol/L (3.5-5.1); SODIUM 134 mmol/L (136-145)
[2020-03-27] MEDS: INSULIN REGULAR, HUMAN 100 UNIT/1 ML 3ML VIAL SQ SCH ×4 (07:30→20:41)
[2020-03-27] MEDS: CARVEDILOL 3.125 MG TAB PO SCH ×2 (08:19→15:59)
[2020-03-27] MEDS: BUMETANIDE 1 MG TAB PO SCH (08:28)
[2020-03-27] MEDS: BALSAM PERU/CASTOR OIL 60 GM OINT...G. TP SCH (08:28)
[2020-03-27] MEDS: LACTOBACILLUS ACIDOPHILUS CAPSULE PO SCH ×2 (08:28→16:32)
[2020-03-27] MEDS: FLUTICASONE PROPIONATE NASAL SPRAY NS SCH (08:28)
[2020-03-27] MEDS: ACETAMINOPHEN 325 MG TAB PO PRN (18:27)
[2020-03-28] VITALS (7 sets, daily range): BP systolic 110–134; BP diastolic 53–66
[2020-03-28] MEDS: ALBUTEROL SULF 0.083% NEB SOLN 3 ML NEB NEB SCH ×5 (02:40→23:10)
[2020-03-28] MEDS: FLUTICASONE PROPIONATE NASAL SPRAY NS SCH (08:19)
[2020-03-28] MEDS: BUMETANIDE 1 MG TAB PO SCH (08:23)
[2020-03-28] MEDS: LACTOBACILLUS ACIDOPHILUS CAPSULE PO SCH ×2 (08:23→17:09)
[2020-03-28] MEDS: INSULIN REGULAR, HUMAN 100 UNIT/1 ML 3ML VIAL SQ SCH ×4 (08:30→20:20)
[2020-03-28] MEDS: CARVEDILOL 3.125 MG TAB PO SCH ×2 (09:24→17:09)
[2020-03-28] MEDS: ACETAMINOPHEN 325 MG TAB PO PRN (09:24)
[2020-03-28] MEDS: BALSAM PERU/CASTOR OIL 60 GM OINT...G. TP SCH (10:00)
[2020-03-28] MEDS: LINEZOLID 600 MG/D5W 300ML 300 ML IV SCH ×2 (12:59)
[2020-03-29] VITALS (8 sets, daily range): BP systolic 96–133; BP diastolic 57–70
[2020-03-29] MEDS: LINEZOLID 600 MG/D5W 300ML 300 ML IV SCH ×2 (00:13→12:13)
[2020-03-29] MEDS ORDERED: SODIUM CHLORIDE 0.9% 250ML 250 ML ONE (02:46)
[2020-03-29] MEDS: ALBUTEROL SULF 0.083% NEB SOLN 3 ML NEB NEB SCH ×6 (04:05→23:26)
[2020-03-29 05:39] LABS: BASOPHILS % 0.4 % (0.0-1.0); EOSINOPHILS % 0.7 % (0.0-6.0); HEMATOCRIT 33.1 % (34.2-44.1); HEMOGLOBIN 10.1 g/dL (12.0-16.0); LYMPHOCYTES # (AUTO) 0.8 (1.0-3.2); LYMPHOCYTES % 14.5 % (18.0-39.1); MEAN CORPUSCULAR HEMOGLOBIN 25.5 pg (28-32); MEAN CORPUSCULAR HGB CONC 30.5 g/dL (31-35); MEAN CORPUSCULAR VOLUME 83.6 fL (81-99); MONOCYTES # (AUTO) 0.5 (0.2-0.8); MONOCYTES % 9.9 % (4.4-11.3); NEUTROPHILS % 72.7 % (38.7-80.0); PLATELET COUNT 246 x10e3/uL (140-360); RED BLOOD COUNT 3.96 x10e6/uL (3.6-5.1)
[2020-03-29 06:05] LABS: ANION GAP 13.5 mmol/L (8-16); BLOOD UREA NITROGEN 11 mg/dL (7-26); BUN/CREATININE RATIO 18 (6-25); CALCIUM 8.1 mg/dL (8.4-10.2); CARBON DIOXIDE 32 mmol/L (22-29); CHLORIDE 91 mmol/L (98-107); CREATININE, SERUM 0.62 mg/dL (0.57-1.11); EST GLOMERULAR FILTRATION RATE > 60 ML/MIN (60-); GLUCOSE 154 mg/dL (74-118); POTASSIUM 3.5 mmol/L (3.5-5.1); SODIUM 133 mmol/L (136-145)
[2020-03-29] MEDS: INSULIN REGULAR, HUMAN 100 UNIT/1 ML 3ML VIAL SQ SCH ×4 (08:30→20:22)
[2020-03-29] MEDS: ACETAMINOPHEN 325 MG TAB PO PRN (08:45)
[2020-03-29] MEDS: LACTOBACILLUS ACIDOPHILUS CAPSULE PO SCH ×3 (08:45→21:28)
[2020-03-29] MEDS: FLUTICASONE PROPIONATE NASAL SPRAY NS SCH (08:45)
[2020-03-29] MEDS: CARVEDILOL 3.125 MG TAB PO SCH ×2 (08:53→17:31)
[2020-03-29] MEDS: BALSAM PERU/CASTOR OIL 60 GM OINT...G. TP SCH (09:30)
[2020-03-29] MEDS ORDERED: POTASSIUM CHLORIDE 10MEQ EA PO ONE (12:30)
[2020-03-29] MEDS: LIDOCAINE 4% PATCH TP SCH (14:07)
[2020-03-30] VITALS (7 sets, daily range): BP systolic 113–127; BP diastolic 61–84
[2020-03-30] MEDS: LINEZOLID 600 MG/D5W 300ML 300 ML IV SCH ×2 (00:05→12:20)
[2020-03-30] MEDS: ALBUTEROL SULF 0.083% NEB SOLN 3 ML NEB NEB SCH ×3 (06:50→14:30)
[2020-03-30] MEDS: INSULIN REGULAR, HUMAN 100 UNIT/1 ML 3ML VIAL SQ SCH ×3 (08:30→17:30)
[2020-03-30] MEDS: CARVEDILOL 3.125 MG TAB PO SCH ×2 (09:47→16:06)
[2020-03-30] MEDS: LIDOCAINE 4% PATCH TP SCH (09:47)
[2020-03-30] MEDS: FLUTICASONE PROPIONATE NASAL SPRAY NS SCH (09:47)
[2020-03-30] MEDS: LACTOBACILLUS ACIDOPHILUS CAPSULE PO SCH ×2 (09:47→15:40)
[2020-03-30] MEDS: BALSAM PERU/CASTOR OIL 60 GM OINT...G. TP SCH (09:47)
[2020-03-30] MEDS ORDERED: LINEZOLID 600 MG TAB PO SCH (21:00)
== END 2020-03-30 21:16 | DRG 871 ==
LOC: ER 09:51 → ERHOLD 13:17 → MED/SURG2 15:23
PROVIDERS: ADMIT Internal Medicine; ATTEND Internal Medicine
DX: A41.9 Sepsis, unspecified organism (principal); J69.0 Pneumonitis due to inhalation of food and vomit; I50.33 Acute on chronic diastolic (congestive) heart failure; E87.1 Hypo-osmolality and hyponatremia; B37.49 Other urogenital candidiasis; Z16.22 Resistance to vancomycin related antibiotics; N17.9 Acute kidney failure, unspecified; J44.1 Chronic obstructive pulmonary disease with (acute) exacerbation; I48.0 Paroxysmal atrial fibrillation; I11.0 Hypertensive heart disease with heart failure; K27.9 Peptic ulcer, site unspecified, unspecified as acute or chronic, without hemorrhage or perforation; E87.6 Hypokalemia; D50.0 Iron deficiency anemia secondary to blood loss (chronic); B95.2 Enterococcus as the cause of diseases classified elsewhere; E11.9 Type 2 diabetes mellitus without complications; K21.9 Gastro-esophageal reflux disease without esophagitis; F03.90 Unspecified dementia, unspecified severity, without behavioral disturbance, psychotic disturbance, mood disturbance, and anxiety; R09.02 Hypoxemia; E66.9 Obesity, unspecified; Z68.38 Body mass index [BMI] 38.0-38.9, adult; Z85.72 Personal history of non-Hodgkin lymphomas; Z20.828 Contact with and (suspected) exposure to other viral communicable diseases
CPT/HCPCS: 36415; 71045; 74230; 80048; 80053; 81001; 82550; 82553; 82948; 83605; 83735; 83880; 84484; 85025; 85610; 85730; 87040; 87086; 87186; 87493; 93005; 94640; 96372; 97139; 99251; 99285; J0456; J0696; J1817; J2020; J2930; J3475; J3480; J7030; J7050; J7799; U0002